=== PATIENT | male | born 1965 | race Caucasian/White ===

== ENCOUNTER 2017-01-04 13:34 | Inpatient (IN) | payer OTHER ==
[~2017-01-04] VITALS: Ht 172.7 cm; Wt 74.8 kg
[2017-01-04] VITALS (7 sets, daily range): BP systolic 138–148; BP diastolic 72–98
[~2017-01-04 13:34] MED LIST: ALBUTEROL0.09 MG/A1 INH; ATIVAN1 MG PO; FLEXERIL PO; FOLIC ACID 1 MG PO; MULTIVITAMIN1 SGL PO; NAPROSYN500 M1 PO; NAPROXEN SODIU550 M1 PO; NICODERM C21 MG/24 H TOP; OMEPRAZOLE40 MG PO; PERCOCET 5-3251 EACH PO; TUMERIC PO; Theragran Vitamins PO; ULTRACET TABLE1 EACH PO; VITAMIN B1100 MG PO
--- NOTE | 2017-01-04 13:42 | ED GENERAL ADULT ---
History of Present Illness General Chief Complaint: Headache Stated Complaint: CARTAGENA N/V Source: patient, old records, EMS Exam Limitations: no limitations Vital Signs & Intake/Output Vital Signs & Intake/Output Vital Signs Date Time Temp Pulse Resp B/P B/P Pulse O2 O2 Flow FiO2 Mean Ox Delivery Rate 01/10 0858 105 20 133/90 01/10 0800 97.2 63 20 166/90 01/10 0729 97.2 63 20 166/90 98 Room Air 01/10 0400 73 18 165/93 01/10 0400 97 Room Air 01/10 0152 82 26 160/82 01/10 0000 98.6 64 20 170/90 01/10 0000 98.6 64 20 170/90 97 Room Air 01/10 0000 97 Room Air 01/09 2200 65 20 173/105 01/09 2000 97.9 70 20 130/80 01/09 2000 98 Nasal 2.0L Cannula 01/09 1600 96 Nasal 2.0L Cannula 01/09 1600 96.3 64 20 98/48 96 Nasal 2.0L Cannula 01/09 1200 96 Nasal 2.0L Cannula ED Intake and Output 01/10 0000 01/09 1200 Intake Total 1280 520 Output Total 2000 500 Balance -720 20 Intake, IV 540 520 Intake, Oral 740 Output, Urine 2000 500 Allergies Coded Allergies: diphenhydramine (From Benadryl) (DROWSY OR HYPER 11/26/15) loratadine (From Claritin) (HYPER OR DROWSY 11/26/15) Reconcile Medications Baclofen 10 MG TABLET 0.5 TAB PO TID MUSCLE SPASMS (Reported) Oxcarbazepine 300 MG TABLET 1 TAB PO BID UNKNOWN (Reported) Triage Nurses Notes Reviewed? yes HPI: Patient got out of [place] detox a few weeks ago. Patient states he remained sober for approximately 4-5 days before he started drinking again. Patient was discharged on Depakote but he stopped taking it. Patient states that his last drink was 2 days ago and now he feels like he can't stop shaking. Positive nausea and vomiting. Patient is unable to keep anything down. Patient does have a history of alcohol withdrawal seizures. Patient states that he has a throbbing frontal headache. There are no aggravating or mitigating factors. There is no radiation. He rates it as 6 out of 10. There is no blurry vision. The headache started yesterday and has been constant since. (JACQUIE STEVENS,MANDA Watts) Past History Medical History Any Pertinent Medical History? see below for history Neurological: migraine, seizure EENT: NONE Cardiovascular: NONE Respiratory: NONE Gastrointestinal: INGUINAL HERNIA COLON POLYPS Hepatic: NONE Renal: NONE Musculoskeletal: FRACTURE LLL Psychiatric: depression Endocrine: NONE Blood Disorders: BLOOD CLOT AFTER SURGERY Cancer(s): NONE LADLE WATCHER/Reproductive: NONE Other Medical Hx: Seizures, alcohol abuse History of MRSA: No History of VRE: No History of CDIFF: No Surgical History Surgical History: non-contributory Psychosocial History Who do you live with Brother Services at Home None What is your primary language Bulgarian Tobacco Use: Current Daily Use Daily Tobacco Use Amount/Type: => 5 Cigarettes daily ETOH Use: alcoholic Illicit Drug Use: denies illicit drug use Family History Family History, If Any: MOTHER (lung cancer). FATHER (stroke). Hx Contributory? No (JACQUIE STEVENS,MANDA Watts) Review of Systems Review of Systems Constitutional: Reports: no symptoms. EENTM: Reports: no symptoms. Respiratory: Reports: no symptoms. Cardiovascular: Reports: no symptoms. GI: Reports: see HPI, nausea, vomiting. Genitourinary: Reports: no symptoms. Musculoskeletal: Reports: no symptoms. Skin: Reports: no symptoms. Neurological/Psychological: Reports: see HPI, headache. Hematologic/Endocrine: Reports: no symptoms. Immunologic/Allergic: Reports: no symptoms. All Other Systems: Reviewed and Negative (JACQUIE STEVENS,MANDA Watts) Physical Exam Physical Exam General Appearance: well developed/nourished, alert, awake, anxious, moderate distress Head: atraumatic, normal appearance Eyes: Bilateral: PERRL, EOMI. Ears, Nose, Throat: normal pharynx, normal ENT inspection, hearing grossly normal Neck: normal inspection, supple, full range of motion Respiratory: normal breath sounds, chest non-tender, no respiratory distress, lungs clear Cardiovascular: normal peripheral pulses, tachycardia Gastrointestinal: normal bowel sounds, soft, non-tender, no organomegaly Back: normal inspection, normal range of motion Extremities: normal inspection, normal capillary refill, normal range of motion, no edema Neurologic/Psych: no motor/sensory deficits, awake, alert, oriented x 3, normal mood/affect Skin: intact, normal color, warm/dry, diaphoresis Lymphatic: no anterior cervical dwayne Core Measures ACS in differential dx? No CVA/TIA Diagnosis: No Severe Sepsis Present: No Septic Shock Present: No (JACQUIE STEVENS,MANDA Watts) Progress Differential Diagnoses I considered the following diagnoses in my evaluation of the patient: [Alcohol withdrawal, electrolyte abnormality] Plan of Care: Orders Procedure Date/time Status ICU LAB BUNDLE 01/10 0500 Complete CBC WITHOUT DIFFERENTIAL 01/10 0500 Complete DEPAKOTE LEVEL 01/10 0400 Complete Restraint- Medical 01/10 0127 Complete Lab Add-on Test 01/10 UNK Active Restraint- Medical 01/10 UNK Active SPECIMEN TO BE OBTAINED 01/09 1029 Active DEPAKOTE LEVEL 01/09 0440 Complete OXYGEN 01/09 UNK Complete OXYGEN DAILY CHARGE 01/09 UNK Complete Lab Add-on Test 01/09 UNK Active Current Medications Sig/Maximus Start time Last Medication Dose Stop Time Status Admin Lorazepam 2 MG Q6 01/10 0600 AC 01/10 (Ativan) 0527 Lorazepam 1 MG BID 01/09 2200 CAN (Ativan) Lorazepam 0 Q1P PRN 01/09 1545 AC 01/10 (Ativan) 0954 Ampicillin Sodium/ 1,500 MG Q6 01/08 1200 AC 01/10 Sulbactam Sodium 0522 (Unasyn) Sodium Chloride 100 ML (Normal Saline 0.9%) Valproate Sodium 500 MG Q12 01/06 2200 AC 01/09 (Depacon 500MG/5ML 2120 Inj) Sodium Chloride 100 ML (Normal Saline 0.9%) Ibuprofen 600 MG TID PRN 01/05 2100 AC 01/06 (Motrin) 1608 Enoxaparin Sodium 40 MG DAILY 01/05 1000 AC 01/10 (Lovenox) 0837 Multivitamins 1 TAB DAILY 01/05 1000 AC 01/10 (Theragran Vitamins) 0836 Nicotine 14 MG DAILY 01/05 1000 AC 01/10 (Nicotine Cq) 0837 Acetaminophen 650 MG Q6P PRN 01/04 2130 AC (Tylenol) Folic Acid 1 MG DAILY 01/04 1925 AC 01/10 (Folic Acid) 0837 Thiamine HCl 50 MG DAILY 01/04 1925 AC 01/10 (Vitamin B1) 0837 Laboratory Tests 01/10/17 0400: Anion Gap 13, Estimated GFR > 60, Glucose 88, Calcium 9.9, Phosphorus 3.8, Magnesium 1.8, Total Bilirubin 0.6, AST 35, ALT 29, Albumin 3.9, CBC w Diff MAN DIFF ORDERED, RBC 3.77 L, MCV 93.1, MCH 31.0, RDW 14.0, MPV 8.6, Gran % 55.8, Lymphocytes % 21.7, Monocytes % 20.6 H, Eosinophils % 1.6, Basophils % 0.3, Absolute Granulocytes 4.0, Segmented Neutrophils 52, Band Neutrophils 1, Absolute Lymphocytes 1.6, Lymphocytes 23, Monocytes 22 H, Absolute Monocytes 1.5 H, Eosinophils 2, Absolute Eosinophils 0.1, Absolute Basophils 0, Platelet Estimate ADEQUATE, Polychromasia 1+, Ovalocytes FEW, Stomatocytes FEW, PUBS MCHC 33.3, Fld Total RBCs Counted 100, Valproic Acid 66.3 01/04/2017 2:24:20 PM Patient's signed out to me by Dr. Smith. Pending case management approval for inpatient detox. 16:45 approved for inpatient detox. d/w hospitalist. (RFANSISCO KEBEDE MD) Initial ED EKG: none Hand-Off Endorsed To: FRANSISCO KEBEDE MD Endorsed Time: 1400 Pending: consult, labs Comments: PT'S INITIAL CIWA IS 18. (JACQUIE STEVENS,MANDA Watts) Departure Departure Condition: Stable Clinical Impression Primary Impression: Alcohol withdrawal Referrals: DAVID ALBRECHT APRN (PCP/Family) Departure Forms: Customer Survey General Discharge Information (MANDA DHILLON MD) Departure Time of Disposition: 1644 Disposition: STILL A PATIENT Admission Note Spoke With: STEPHENIE MAHAN MD Documentation of Exam: Documentation of any treatments & extenuating circumstances including Concerns Regarding Discharge (functional status, medication knowledge or non-compliance, living conditions, etc.) that warrant an admission rather than observation: [ CIWA PROTOCOL, ATIVAN TAPER, CRISIS CONSULT WHEN STABLE, MONITOR ELECTROLYTES, MONITOR I/O] (FRANSISCO KEBEDE MD) Critical Care Note Critical Care Note Critical Care Time: non-applicable (MANDA DHILLON MD)
--- NOTE | 2017-01-04 13:42 | NUR ---
51 Y/O MALE BIBA FROM HOME CARTAGENA AND UNCONTROLLABLE SHAKES THAT PT STS IS SEIZURE. PT STS HAS HX OF SEIZURES. PT STS HE WAS RECENTLY DISCHARGED FROM [place] FOR DETOX AND LAST ALCHOL INTAKE WAS 2 DAYS AGO AND STS USUALLY DRINKS VODKA AND WHISKY ABOUT A FIFTH A ADAY. PT ARRIVES A/O X3 AND NOTALBE TREMOULUS AND FLUSHED AND DRY HEAVING. MD DHILLON AT BEDSIDE TO EVAL PT.
--- NOTE | 2017-01-04 13:46 | NUR ---
PHARM CALLED FOR IV BANANA BAG.
[2017-01-04 13:59] LABS: ABSOLUTE BASOPHIL COUNT 0 /CUMM (0.0-0.2); ABSOLUTE EOSINOPHIL COUNT 0 /CUMM (0.0-0.7); ABSOLUTE GRANULOCYTE CT 4.6 /CUMM (1.4-6.5); ABSOLUTE LYMPH COUNT 1.6 /CUMM (1.2-3.4); ABSOLUTE MONOCYTE COUNT 0.7 /CUMM (0.10-0.60); BASOPHIL % 0.4 % (0.0-2.0); EOSINOPHIL % 0.2 % (0-5); GRANULOCYTE % 66.2 % (42.2-75.2); HEMATOCRIT 36.9 % (42-52); MEAN CORPUSCULAR HGB 30.7 PG (27.0-31.0); MEAN CORPUSCULAR HGB CONC 33.3 G/DL (33.0-37.0); MEAN CORPUSCULAR VOLUME 92.1 FL (80.0-94.0); MEAN PLATELET VOLUME 7.8 FL (7.4-10.4); PLATELET COUNT 151 /CUMM (130-400); RBC DISTRIBUTION WIDTH 14.7 % (11.5-14.5); WHITE BLOOD CELL COUNT 6.9 /CUMM (4.8-10.8)
[2017-01-04] MEDS ORDERED: OXCARBAZEPINE300 M1 PO (13:59)
--- NOTE | 2017-01-04 13:59 | NUR ---
PT DENIES ANY OTHER RECREATIONAL DRUG USE, STS SMOKES DAILY DOES NOT NEED ANY NICOTINE PATCH FOR NOW.
[2017-01-04] MEDS ORDERED: BACLOFEN10 M1 PO (14:00)
--- NOTE | 2017-01-04 14:30 | NUR ---
BHUPINDER MARIN Nurse Note by: KIM MONTENEGRO I agree with the WASH OIL PUMP OPERATOR HELPER findings/evaluation of this patient's condition. Entered by: KIM MONTENEGRO Date: 01/04/17 Time: 1437
--- NOTE | 2017-01-04 15:10 | NUR ---
PT MEDICATED WITH ATIVAN 2MG PO. PT TREMULOUS. PT PROVIDED WITH PILLOW AND ADDITIONAL BLANKET FOR COMFORT.
--- NOTE | 2017-01-04 16:10 | NUR ---
PT ATE GRILLED CHEESE AND CHIPS, STATED HE WAS HUNGRY. PT DENIES NAUSEA, PT REPORTS HEADACHE AND IS TREMULOUS. CIWA = 9. FEMALE FRIEND AT BEDSIDE.
--- NOTE | 2017-01-04 17:14 | Admission Certification ---
Admission Certification Certification Statement - As attending physician, I certify that at the time of - admission, based on clinical presentation, severity of - symptoms, need for further diagnostic testing and - therapeutic interventions, and risk of adverse outcomes - without in-hospital treatment, in my clinical assessment, - this patient requires an acute hospital stay for a minimum - of two nights or longer. I have also considered psychsocial - factors such as support system, advanced age, financial - issues, cognitive issues, and failed out-patient treatments, - past re-admission history, safety of patient, and lack of - compliance as applicable. Specific rationale supporting this admission is: Acute alcohol withdrawal in a patient with known history of alcohol withdrawal and withdrawal seizures.
--- NOTE | 2017-01-04 17:19 | History & Physical ---
General Information and HPI Exam Limitations: no limitations Allergies/Medications Allergies: Coded Allergies: diphenhydramine (From Benadryl) (DROWSY OR HYPER 11/26/15) loratadine (From Claritin) (HYPER OR DROWSY 11/26/15) Home Med list Baclofen 10 MG TABLET 0.5 TAB PO TID MUSCLE SPASMS (Reported) Oxcarbazepine 300 MG TABLET 1 TAB PO BID UNKNOWN (Reported) Past History Travel History Traveled to [place] past 21 day No Medical History Neurological: migraine, SEIZURE (ETOH RELATRD) EENT: NONE Cardiovascular: NONE Respiratory: NONE Gastrointestinal: INGUINAL HERNIA COLON POLYPS Hepatic: NONE Renal: NONE Musculoskeletal: FRACTURE LLL Psychiatric: alcohol dependence, depression Endocrine: NONE Blood Disorders: BLOOD CLOT AFTER SURGERY Cancer(s): NONE 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 FATHER (stroke). Psychosocial History Who Do You Live With? friends and roommate. Services at Home: None Primary Language: Pashto ETOH Use: alcoholic Illicit Drug Use: denies illicit drug use Core Measures/Miscellaneous Cerebrovascular Accident CVA/TIA Diagnosis: No Severe Sepsis Severe Sepsis Present: No Septic Shock Septic Shock Present: No
--- NOTE | 2017-01-04 17:37 | NUR ---
BED ASSIGNMENT [id number]
--- NOTE | 2017-01-04 17:54 | PN- Att Addend ---
Attending Addendum Attending Brief Note 51-year-old male with past medical history of alcohol use, questionable alcohol withdrawal seizures who is here with acute alcohol withdrawal. Will bring him into general medicine, hydrate him and follow the anion gap acidosis closely I believe it's all starvation/ETOH as there is no evidence of infection. We will follow liver enzymes and coags. Give thiamine, folate and multivitamins. Put him on the CIWA protocol. Using nicotine patch ongoing tobacco use, DVT prophylaxis and get social work's help with alcohol dependence treatment options. Clarify all meds in am with outpt pharmacy.
--- NOTE | 2017-01-04 18:22 | History & Physical ---
See Addendum General Information and HPI MD Statement: I have seen and personally examined BHUPINDER MARIN and documented this H&P. The patient is a 51 year old M who presented with a patient stated chief complaint of [vomiting]. Source of Information: patient, old records Exam Limitations: no limitations, clinical condition History of Present Illness: 51-year-old male with a past medical history significant for multiple admissions [facility] for alcohol detoxification, reports history of withdrawal seizures in the past, polysubstance abuse. He apparently went to [place] detoxification for 21 days. ER notes suggest that he may been given Depakote on discharge, however patient is unaware of this. Upon leaving fever pain sober for 4-5 days. At that point he met up with old friends and resumed drinking for the past 2 weeks. He reports that his last drink was 2 days ago. He gives a history of a seizure episode last night. He is visibly tremulous. Reports episodes of nausea and vomiting, denies blood in the vomitus. Initially was unable to keep things down, in ER was given food and tolerated well. Denies abdominal pain, or change in stools. He denies any auditory or visual hallucinations, chest pain, palpitations, or lightheadedness, denies fevers or chills. At present he denies using any substances besides alcohol, and cigarettes. Allergies/Medications Allergies: Coded Allergies: diphenhydramine (From Benadryl) (DROWSY OR HYPER 11/26/15) loratadine (From Claritin) (HYPER OR DROWSY 11/26/15) Home Med list Baclofen 10 MG TABLET 0.5 TAB PO TID MUSCLE SPASMS (Reported) Oxcarbazepine 300 MG TABLET 1 TAB PO BID UNKNOWN (Reported) Compliance With Home Meds: POOR Past History Travel History Traveled to [place] past 21 day No Medical History Neurological: migraine, SEIZURE (ETOH RELATRD) EENT: NONE Cardiovascular: NONE Respiratory: NONE Gastrointestinal: INGUINAL HERNIA COLON POLYPS Hepatic: NONE Renal: NONE Musculoskeletal: FRACTURE LLL Psychiatric: alcohol dependence, depression Endocrine: NONE Blood Disorders: BLOOD CLOT AFTER SURGERY Cancer(s): NONE INTELLIGENCE SUPPORT OFFICER/Reproductive: NONE Other Medical Hx: Seizures, alcohol abuse History of MRSA: No History of VRE: No History of CDIFF: No Surgical History Surgical History: non-contributory Past Family/Social History Family History Relations & Conditions if any MOTHER (lung cancer). FATHER (stroke). Psychosocial History Who Do You Live With? friends and roommate. Services at Home: None Primary Language: German ETOH Use: alcoholic Illicit Drug Use: denies illicit drug use Functional Ability ADLs Independent: dressing, eating, toileting, bathing. Ambulation: independent IADLs Independent: shopping, housework, finances, food prep, telephone, transportation , medication admin. 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 Cardiovascular: Reports: no symptoms. Denies: chest pain, palpitations, peripheral edema. Respiratory: Reports: no symptoms. GI: Reports: no symptoms. Genitourinary: Reports: no symptoms. Musculoskeletal: Reports: no symptoms. Skin: Reports: no symptoms. Neurological/Psychological: Reports: confusion, tremors. Hematologic/Endocrine: Reports: no symptoms. All Other Systems: Reviewed and Negative Exam & Diagnostic Data Last 24 Hrs of Vital Signs/I&O Vital Signs Date Time Temp Pulse Resp B/P B/P Pulse O2 O2 Flow FiO2 Mean Ox Delivery Rate 01/04 1656 97.5 107 18 141/91 01/04 1656 97.5 107 16 141/91 95 Room Air 01/04 1608 97.5 94 16 147/98 01/04 1608 97.5 94 16 147/98 97 Room Air 01/04 1447 97.7 84 15 141/72 96 Room Air Room Air 01/04 1445 97.7 84 15 141/72 01/04 1352 98 Room Air 01/04 1343 96.8 118 22 148/85 01/04 1343 96.8 118 22 148/85 01/04 1337 96.8 95 18 148/85 98 Room Air Intake & Output 01/04 1600 01/04 0800 01/04 0000 Intake Total 20 Output Total 100 Balance -80 Intake, IV 20 Output, 100 Emesis Patient 165 lb Weight Weight Reported by Patient Measurement Method Physical Exam General Appearance Alert, Oriented X3, Cooperative, No Acute Distress Skin No Rashes, No Breakdown HEENT Atraumatic, PERRLA, EOMI, Mucous Membr. moist/pink Neck Supple, No JVD Cardiovascular Regular Rate, Normal S1, Normal S2 Lungs Clear to Auscultation, Normal Air Movement Abdomen Normal Bowel Sounds, Soft, No Tenderness Neurological Normal Speech, Strength at 5/5 X4 Ext, Normal Tone, Sensation Intact, Cranial Nerves 3-12 NL Extremities No Edema, Normal Pulses Diagnostic Data EKG Results SR 85, QTc 433 Assessment/Plan Assessment: 51-year-old male with a past history of alcohol withdrawal seizures presents this morning requesting alcohol detoxification, after drinking heavily for the last 2 weeks. He is alert and oriented on examination his vitals are stable and remains afebrile. With CIWAs was trending downwards. Questionable Alcohol withdrawl seizures Alcohol abuse Smoker Admit to general medicine floor Monitor closely for seizure episodes Start scheduled Ativan and when necessary Ativan per CIWA protocol Recieved banana bag this am, will start thiamine, folate, multivitamin Confirm medications in am, depakote? Passed bedside swallow evaluation Will start NicoDerm patch Social work consult DVT ppx lovenox Full code As Ranked By This Provider Problem List: 1. Alcohol abuse 2. Alcohol withdrawal seizure 3. DVT prophylaxis 4. Full code status 5. Nausea and vomiting Core Measures/Miscellaneous Acute Coronary Syndrome ACS Diagnosis: No Cerebrovascular Accident CVA/TIA Diagnosis: No Congestive Heart Failure CHF Diagnosis: No Venous Thromboembolism VTE Risk Factors: Age > 40 [facility] prophylaxis d/t: No contraindications No VTE Pharm Prophylaxis d/t: No contraindications VTE Diagnosis: No VTE Type: NONE VTE Confirmed by (Test): NONE Severe Sepsis Severe Sepsis Present: No Septic Shock Septic Shock Present: No Miscellaneous Documentation Attending Case Discussed With: NEGRITO STEVENS,STEPHENIE Ramon Primary Care Physician: DAVID ALBRECHT APRN Patient sees these Specialists none Level of Patient Care: General Medicine
--- NOTE | 2017-01-04 18:39 | NUR ---
PT MEDICATED WITH ATIVAN 2MG PO AND APPLIED 21MG NICOTINE PATCH TO LEFT UPPER ARM. PT STATES HE HAS A HEADACHE AND WHEN HE WENT TO THE RESTROOM HAD DIARRHEA.
--- NOTE | 2017-01-04 19:50 | NUR ---
PT ARRIVED TO FLOOR AT 1950 VIA STRETCHER FROM ER. PT AMBULATORY TO BED, STEADY GAIT WITH SUPERVISION. PT A/V/OX3. ON RA, LUNGS CLEAR. SKIN INTACT. LAST BM 01/04/17. C/O HEADACHE, TREMEROUS, ANXIOUS. CIWA SCORE 9, MEDICATED WITH 1MG IV ATIVAN PER EMAR. HX OF FALLS IN LAST 6 MONTHS, BED ALARM & FALL PRECAUTIONS IN PLACE. #18 LFA INFUSING BANANA BAG @ 125ML/HR PER EMAR. ORIENTED TO CALL RUEDA, STAFF, AND SURROUNDINGS. WILL CONTINUE TO MONITOR.
[2017-01-05] VITALS (12 sets, daily range): BP systolic 120–150; BP diastolic 70–90
--- NOTE | 2017-01-05 12:52 | PN- Housestaff ---
[facility]RISTIAN[facility] STEVENS[facility] 1252: Subjective Follow-up For: Alcohol withdrawl seizures Subjective: Afebrile, hemodynamically stable, WBCs within normal limits, no acute overnight events reported. She reported 2 episodes of loose, nonbloody bowel movement. He denies any other current complaints. Patient looks anxious. He denies hallucination, patient, headache, nausea or vomiting. Review of Systems Constitutional: Reports: see HPI. Objective Last 24 Hrs of Vital Signs/I&O Vital Signs Date Time Temp Pulse Resp B/P B/P Pulse O2 O2 Flow FiO2 Mean Ox Delivery Rate 01/05 1122 98.2 103 20 130/88 94 01/05 0800 Room Air 01/05 0600 97.7 74 20 140/80 01/05 0400 97.7 74 20 140/80 01/05 0353 97.7 74 20 140/80 94 Room Air 01/05 0200 97.8 78 20 120/70 01/05 0016 97.8 78 20 120/70 96 Room Air 01/05 0000 97.8 78 20 120/70 01/04 2014 98.6 93 20 138/78 96 Room Air 01/04 2004 98.9 18 138/78 01/04 1840 Room Air 01/04 1840 88 17 147/86 01/04 1840 88 17 147/86 01/04 1656 97.5 107 18 141/91 01/04 1656 97.5 107 16 141/91 95 Room Air 01/04 1608 97.5 94 16 147/98 01/04 1608 97.5 94 16 147/98 97 Room Air 01/04 1447 97.7 84 15 141/72 96 Room Air Room Air 01/04 1445 97.7 84 15 141/72 Intake & Output 01/05 1600 01/05 0800 01/05 0000 Intake Total 600 900 975 Output Total 500 750 Balance 600 400 225 Intake, IV 750 375 Intake, Oral 600 150 600 Number 2 Bowel Movements Output, Urine 500 750 Patient 74.843 kg Weight Physical Exam General Appearance: Alert, Oriented X3, Cooperative, No Acute Distress Skin: No Rashes HEENT: Atraumatic, PERRLA, EOMI, Mucous Membr. moist/pink Cardiovascular: Regular Rate, Normal S1, Normal S2 Lungs: Clear to Auscultation, Normal Air Movement Abdomen: Normal Bowel Sounds, Soft, No Tenderness Neurological: Normal Speech Extremities: No Clubbing, No Cyanosis, No Edema Current Medications: Current Medications Sig/Maximus Start time Last Medication Dose Route Stop Time Status Admin Acetaminophen 650 MG Q6P PRN 01/04 2130 AC PO Cyanocobalamin/ 1 BAG ONCE ONE 01/04 1345 DC 01/04 Thiamine/Pyridoxine IV 01/04 2144 1410 Dextrose/Water 1,000 ML Enoxaparin Sodium 40 MG DAILY 01/05 1000 AC 01/05 SC 0819 Folic Acid 1 MG DAILY 01/04 1925 AC 01/05 PO 0818 Lorazepam 0 .STK-MED ONE 01/04 1835 DC PO Lorazepam 0 Q1P PRN 01/04 1830 AC 01/05 IV 1406 Lorazepam 2 MG Q6 01/04 1822 AC 01/05 PO 1121 Lorazepam 0 .STK-MED ONE 01/04 1509 DC PO Lorazepam 2 MG ONCE ONE 01/04 1500 DC 01/04 PO 01/04 1501 1510 Multivitamins 1 TAB DAILY 01/05 1000 AC 01/05 PO 0818 Nicotine 14 MG DAILY 01/05 1000 AC 01/05 TOP 0822 Nicotine 0 .STK-MED ONE 01/04 1836 DC TOP Nicotine 21 MG ONCE ONE 01/04 1815 AK 01/04 TOP 01/04 1816 1839 Patient Medication 1 ED .STK-MED ONE 01/05 1337 DC Teaching ED 01/05 1338 Sodium Chloride 1,000 ML BOLUS ONE 01/04 1345 DC 01/04 IV 01/04 1444 1410 Thiamine HCl 50 MG DAILY 01/04 1925 01/05 PO 0818 Last 24 Hrs of Lab/Jonh Results Last 24 Hrs of Labs/Mics: Laboratory Tests 01/05/17 0650: Anion Gap 10, Estimated GFR > 60, BUN/Creatinine Ratio 13.3 Assessment/Plan Assessment: #Alcohol detox/Smoking Is still scoring high on CIWA. He has a history of alcohol withdrawal seizure. He had the multiple admissions secondary to alcohol withdrawal. * Continue scheduled Ativan and when necessary Ativan per CIAZ protocol * Monitor closely for seizure episodes * Continue thiamine, folate, and multivitamin * Confirm medications in am, depakote? * Continue NicoDerm patch * Social work consult Regular diet DVT ppx lovenox Full code Problem List: 1. Alcohol abuse Pain Ratin Pain Location: NA Pain Goal: Remain pain free Pain Plan: See A&P Tomorrow's Labs & Rationales: CBC and BEP for Na KELLY PIERSON 01/05/17 1304: Attending MD Review Statement Attending Statement Attending MD Statement: examined this patient, discuss w/resident/PA/RECEIVING DISTRIBUTION STATION OPERATOR, agreed w/resident/PA/RECEIVING DISTRIBUTION STATION OPERATOR, discussed with family, reviewed EMR data (avail), discussed with nursing, discussed with case mgmt, reviewed images, amended to note Attending Assessment/Plan: 51-year-old male with past medical history of alcohol use, questionable alcohol withdrawal seizures who is here with acute alcohol withdrawal. admitted to gen/ med, hydrate him, being treated for alcoholic starvation acidosis, f/u liver enzymes and coags. c/w thiamine, folate and multivitamins. c/w CIWA protocol. Using nicotine patch ongoing tobacco use, DVT prophylaxis and get social work's help with alcohol dependence treatment options. resume home meds after confirm with pharmacy.
--- NOTE | 2017-01-05 20:12 | NUR ---
SPOKE TO EARLINE ABOUT TRANSFERRING PATIENT. PT IS CONFUSED, HAVING TACTILE HALLUCINATIONS, TREMORS, NAUSEA IS COMING AND GOING. UNSTEADY ON FEET, HAS BEEN REQUIRING MORE ATIVAN. DR. GONZALEZ DID NOT WANT TO TRANSFER PATIENT AT THIS TIME. CALLED MOD, WHICH WAS DR. COONEY AND EXPRESSED MY CONCERN. PT WILL BE TRANSFERED. PULSE IS IN 120'S AT THIS TIME. AN ADDITIONAL 2MG WAS ORDERED AND GIVEN BY FOLLOWING RN.CONTINUE TO MONITOR.
--- NOTE | 2017-01-05 20:27 | Event Note ---
Event Note Event Note: Was informed by nursing staff that Patient was scoring high on CIWA scale. On assessment he report he was not "feeling well". Reported severe nausea, tremoulousness and tactile hallucinations and mild shortness of breath. Denied Chest pain, palpitations or abdominal pain On examination CIWA 17-19 alert, awake, diaphoretic and tremoulous vitals T 98.5, HR 122, bp 150/80 CVS: tachycardia RS: b/l rhonchi ABd: soft, non tender Plan continues to score high on CIWA despite multiple doses of ativan. Transferred to ICU for IV ativan drip and close monitoring of CIWA scores attending notified called and left for his Brother.
--- NOTE | 2017-01-05 20:30 | NUR ---
PT TRANSFERED FROM 230-1 ON MONITOR. PT ALERT AND ORIENTED AT THIS TIME. PT TREMOLOUS, C/O SEVERE HEADACHE, ANXIETY AND HAVING SOME TACTILE HALLUCINATIONS PT REQUESTING MOTRIN FOR HEADACHE. PT PLACED IN BED. BEDALARM AND FALL PROTOCAL INITIATED. PT PLACED ON MONITOR. PT NSR RATE IN THE 90S. LUNGS CLEAR PT ON RA. PT PLACED IN JACKIE COAT. PT MEDS AND CHARTS BROUGHT WITH PATIENT.
--- NOTE | 2017-01-05 22:30 | NUR ---
PT ATIVAN GTTS INFUSING PER MD. GTTS STARTED AT 2MG/HR. PT INCREASED TO 3 MGS/HR, PT C/O INCREASED ANXIETY, AND RESTLESSNESS. WILL CONTINUE TO MONITOR
[2017-01-06] VITALS (9 sets, daily range): BP systolic 122–167; BP diastolic 60–103
--- NOTE | 2017-01-06 01:26 | NUR ---
PT BECAME MORE AGITATED, BITING,SHOVING AND KICKING AT PEOPLE. SOFT WRIST RESTRAINT APPLIED, POOR RESULTS. ATIVAN GTT UP TO 5MG/H. HALDOL 5MG IM GIVEN ORDERED BY . 0100 PT MORE AGGRESIVE AND RESTLESS. SECURITY CAME UP AND PLACED 4 PT RESTRAINTS. ATIVAN GTT AT 7MG/H. 0130 SITTER AT BEDSIDE.
--- NOTE | 2017-01-06 01:30 | NUR ---
PT SLEEPING AT THIS TIME. 4PT HARD RESTRAINT IN PLACE. SITTER AT BEDSIDE.
--- NOTE | 2017-01-06 04:24 | NUR ---
PT SLEEPY BUT AROUSABLE AT THIS TIME ATIVAN GTT AT 5MG/H. HARD RESTRAINTS X [address] SITTER AT BEDSIDE.
[2017-01-06 06:01] LABS: PT 10.3 SEC (9.4-12.5)
[2017-01-06 06:02] LABS: ABSOLUTE BASOPHIL COUNT 0 /CUMM (0.0-0.2); ABSOLUTE EOSINOPHIL COUNT 0.1 /CUMM (0.0-0.7); ABSOLUTE GRANULOCYTE CT 6.3 /CUMM (1.4-6.5); ABSOLUTE LYMPH COUNT 1.9 /CUMM (1.2-3.4); ABSOLUTE MONOCYTE COUNT 0.9 /CUMM (0.10-0.60); BASOPHIL % 0.4 % (0.0-2.0); GRANULOCYTE % 68.2 % (42.2-75.2); HEMATOCRIT 35.1 % (42-52); MEAN CORPUSCULAR HGB 30.9 PG (27.0-31.0); MEAN CORPUSCULAR HGB CONC 33.3 G/DL (33.0-37.0); MEAN CORPUSCULAR VOLUME 92.8 FL (80.0-94.0); MEAN PLATELET VOLUME 8.8 FL (7.4-10.4); PLATELET COUNT 124 /CUMM (130-400); RBC DISTRIBUTION WIDTH 14.4 % (11.5-14.5); RED BLOOD CELL CT 3.78 /CUMM (4.70-6.10); WHITE BLOOD CELL COUNT 9.2 /CUMM (4.8-10.8)
--- NOTE | 2017-01-06 07:58 | Cons- CRCU ---
ELIECER STEVENS,BARBRA 01/06/17 0758: General Information and HPI Consulting Request Date of Consult: 01/06/17 Requested By: STEPHENIE MAHAN MD Reason for Consult: Alcohol withdrawal and questionable seizures High CIWA scores requiring Ativan drip Source of Information: old records Exam Limitations: unable to give history, intoxication History of Present Illness: Mr. Emmanuel is a 51-year-old male with a PMH of alcohol abuse and multiple admissions to [facility] for alcohol detox, history of alcohol withdrawal seizures and polysubstance abuse. Patient is currently not oriented and unable to give history, information is obtained from the available records. Patient recently completed a detox program in [place] and was started on Depakote. Patient was sober for 4-5 days afterwards but resumed drinking again for the past 2 weeks. His last drink was 2 days before admission with an episode of seizure the night before presentation. In the ED patient was significantly tremulous, reported nausea and vomiting. He was also found to have elevated Cannabis and Barbiturates in the urine as well as elevated serum Anion Gap. He was admitted to [facility] floor and started on Ativan per CIWA, aggressive hydration and bananabag. Patient was transferred overnight to the ICU due to high CIWA scores requiring Ativan drip. Today the patient is alert and awake, not oriented to place and time, hallucinating, has restraints and iraj in bed, continuously attempts to go out of the bed. He continuously states that he wants to go out and that his family and kids are waiting for him, some of his sentences however are not coherent. Allergies/Medications Allergies: Coded Allergies: diphenhydramine (From Benadryl) (DROWSY OR HYPER 11/26/15) loratadine (From Claritin) (HYPER OR DROWSY 11/26/15) Home Med List: Baclofen 10 MG TABLET 0.5 TAB PO TID MUSCLE SPASMS (Reported) Oxcarbazepine 300 MG TABLET 1 TAB PO BID UNKNOWN (Reported) Review of Systems Review of Systems Constitutional: Denies: chills, fever. EENTM: Reports: no symptoms. Cardiovascular: Denies: chest pain, palpitations. Respiratory: Denies: cough, short of breath. GI: Denies: abdominal pain, changes in stool. Genitourinary: Reports: no symptoms. Musculoskeletal: Reports: no symptoms. Skin: Reports: no symptoms. 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 FATHER (stroke). Psychosocial History Who Do You Live With? friends and roommate. Services at Home: None Primary Language: Yi Smoking Status: Current Everyday Smoker ETOH Use: alcoholic Illicit Drug Use: denies illicit drug use Functional Ability ADLs Independent: dressing, eating, toileting, bathing. Ambulation: independent IADLs Independent: shopping, housework, finances, food prep, telephone, transportation , medication admin. Employment History Employment: Unemployed Profession/Employer: [employer] Exam & Diagnostic Data Last 24 Hrs of Vital Signs/I&O Vital Signs Date Time Temp Pulse Resp B/P B/P Pulse O2 O2 Flow FiO2 Mean Ox Delivery Rate 01/06 0600 90 24 141/77 01/06 0400 97.2 103 20 122/60 01/06 0400 93 Room Air 01/06 0200 137 24 150/103 01/06 0000 97.6 101 22 132/70 01/06 0000 93 Room Air 01/06 0000 97.8 101 22 132/70 93 Room Air 01/05 2200 96 18 138/87 01/05 2030 99.0 90 18 142/80 01/05 2030 95 Room Air 01/05 2030 99.0 90 18 142/80 95 Room Air 01/05 1957 98.5 122 20 150/80 01/05 1933 98.5 122 97 Room Air 01/05 1840 98.8 108 20 140/80 95 Room Air 01/05 1525 98.3 94 20 140/90 94 01/05 1122 98.2 103 20 130/88 94 Intake & Output 01/06 1600 01/06 0800 01/06 0000 Intake Total 550 240 Output Total 300 Balance 550 -60 Intake, IV 450 40 Intake, Oral 100 200 Output, Urine 300 Physical Exam General Appearance: well developed/nourished, alert, awake, anxious, moderate distress, intoxicated Head: atraumatic, normal appearance Eyes: Bilateral: normal appearance. Ears, Nose, Throat: normal ENT inspection Neck: normal inspection, supple Respiratory: chest non-tender, no respiratory distress Cardiovascular: regular rate/rhythm Peripheral Pulses: 2+ radial (R), 2+ radial (L), 2+ dorsalis pedis (R), 2+ dorsalis pedis (L) Gastrointestinal: soft, non-tender Back: normal range of motion Extremities: normal inspection, normal capillary refill, normal range of motion, no edema Neurologic/Psych: no motor/sensory deficits, awake, alert, disoriented x 3 (not oriented to time and place) Cranial Nerves: normal hearing, normal speech Skin: intact, warm/dry Last 48 Hrs of Labs/John: Laboratory Tests 01/06/17 0329: Anion Gap 16, Estimated GFR > 60, Glucose 123 H, Calcium 9.7, Phosphorus 3.6, Magnesium 1.5 L, Total Bilirubin 0.9, AST 43, ALT 35, Albumin 4.3, PT 10.3, INR 0.98, CBC w Diff NO MAN DIFF REQ, RBC 3.78 L, MCV 92.8, MCH 30.9, RDW 14.4, MPV 8.8, Gran % 68.2, Lymphocytes % 20.5, Monocytes % 9.9 H, Eosinophils % 1.0, Basophils % 0.4, Absolute Granulocytes 6.3, Absolute Lymphocytes 1.9, Absolute Monocytes 0.9 H, Absolute Eosinophils 0.1, Absolute Basophils 0, PUBS MCHC 33.3 01/05/17 0650: Anion Gap 10, Estimated GFR > 60, BUN/Creatinine Ratio 13.3 01/04/17 1410: Urine Opiates Screen < 100.00, Methadone Screen < 40, Barbiturate Screen < 60, Ur Phencyclidine Scrn < 6.00, Amphetamines Screen < 100, U Benzodiazepines Scrn < 85, Urine Cocaine Screen < 50, Urine Cannabis Screen 59.20 H 01/04/17 1345: Anion Gap 17 H, Estimated GFR > 60, BUN/Creatinine Ratio 16.7, Glucose 122 H, Calcium 9.5, Total Bilirubin 0.9, AST 48, ALT 30, Alkaline Phosphatase 94, Total Protein 7.9, Albumin 4.6, Globulin 3.3, Albumin/Globulin Ratio 1.4, CBC w Diff NO MAN DIFF REQ, RBC 4.00 L, MCV 92.1, MCH 30.7, RDW 14.7 H, MPV 7.8, Gran % 66.2, Lymphocytes % 22.9, Monocytes % 10.3 H, Eosinophils % 0.2, Basophils % 0.4, Absolute Granulocytes 4.6, Absolute Lymphocytes 1.6, Absolute Monocytes 0.7 H, Absolute Eosinophils 0, Absolute Basophils 0, PUBS MCHC 33.3, Valproic Acid < 10.0 L, Serum Alcohol < 10.0 Assessment/Plan Impression/Plan: Mr. Emmanuel is a 51 year old male with PMH of alcohol abuse and withdrawal seizures with multiple admissions who came to [facility] after starting back on drinking for 2 weeks and 2 days on withdrawal and an episode of seizure the night before presentation. Patient was admitted to general medicine floor for alcohol detox however was transferred to the ICU overnight as he was scoring high on CIWA and required Ativan drip. I called the female friend (Ms. Minnie Bentley) and updated her that the pt is moved to the ICU and why. She gave me his medication list: baclofen (0.5 tab pRN ) and Oxcarbazepine (1 tab daily), which he does not take regularly. He took one pill of each on Monday01/03/17 when he had a seizure. Alcohol detox Patient has been combative and hallucinating. He is still scoring high on CIWA maximum of 16 last night, scoring 10 this morning. * continued on Ativan drip at 7 mcg/hour * seizure precautions * continue thiamine, folate, and multivitamin * called pharmacy to confirm medication doses Hypomagnesemia and Hypokalemia * replete with K-dur and Mag-Ox oral * repeat BEP tomorrow Poly substance abuse and smoking * nicotine patch * counseling for smoking cessation and social work consult when condition stabilizes * psych consult Questionable seizure disorder Patient was started on Oxcarbazepine. We tried to confirm the dose with [facility] several times since am but no answer, will try to confirm the dose with the pharmacy tomorrow * neurology consult placed with Dr. Díaz, he will see the patient tomorrow * ordered EEG * started oxcarbazepine 300 mg BID per Med Rec, still needs to be confirmed with pharmacy Regular diet DVT ppx lovenox Full code Problem List: 1. Alcohol abuse 2. Alcohol withdrawal seizure 3. Polysubstance abuse 4. Cocaine abuse 5. Nausea and vomiting Consult Acknowledgment - Thank you for your consult request. PETER STEVENSEdil MEDEL 01/06/17 1008: Assessment/Plan Other Findings/Comments: I have personally seen and examined the patient, discussed with housestaff, and agree with the assessment and plan as detailed above. Briefly, the patient is a 51-year-old male with a past medical history significant for alcohol abuse, EtOH withdrawal seizures, and polysubstance abuse. He has been admitted to [facility] multiple times for alcohol detox. The patient resumed drinking after a 21 day alcohol rehabilitation program. The patient was admitted for acute inpatient EtOH withdrawal. The patient had an anion gap acidosis secondary to starvation ketosis versus EtOH ingestion. There is no evidence of infection in the patient is being monitored off antibiotics. He was started on multivitamin, thiamine and folate. He was started on the EtOH/CIWA protocol. Overnight, the patient demonstrated signs of worsening EtOH withdrawal/delirium tremens. He was transferred to the critical care unit where he was started on an Ativan drip. The patient is currently agitated with elevated CIWA scores, on 7 mg of Ativan per hour. He is confused and not able to offer complaints today the plan is to continue the Ativan drip according to the CIWA protocol, continue multivitamin, thiamine and folate. We'll monitor the patient's laboratory studies. He will continue on a nicotine patch. He will receive DVT prophylaxis at all times. Will obtain a social work therapist consult as well. Medications will be clarified with his outpatient pharmacy and restarted if appropriate. Consult Acknowledgment - Thank you for your consult request.
--- NOTE | 2017-01-06 15:24 | NUR ---
PT DROWSY, WAKES EASILY THIS AFTERNOON. REMAINS ON IV ATIVAN AT 7MG PER HOUR. CIWA DOWN FROM 24 TO 12. NO SEIZURE ACTIVITY. HE IS TOLERATING 50% OF HIS MEALS. HE IS DRINKING AND TAKING PO MEDS. HARD RESTRAINTS WERE D/C/D AT 1500 AND PT WAS AMBULATED TO WITH ASSIST OF 2. HE IS VOIDING WELL.
--- NOTE | 2017-01-06 16:17 | Cons- Neurology ---
General Information and HPI Consulting Request Date of Consult: 01/06/17 Requested By: STEPHENIE MAHAN MD Reason for Consult: Seizures Source of Information: patient, old records Exam Limitations: unable to give history, clinical condition, intoxication History of Present Illness: 51/M admitted for ETOH detoxification on the no seizures here hallucinating, poor historian, estimates about a dozen seizures in all unable to give reliable hx of any non- ETOH related events Records report recurrent admissions for ETOH, and polysubstance abuse admits not taking trileptal because it "messes with him" unclear if takes gabapentin Allergies/Medications Allergies: Coded Allergies: diphenhydramine (From Benadryl) (DROWSY OR HYPER 11/26/15) loratadine (From Claritin) (HYPER OR DROWSY 11/26/15) Home Med List: Baclofen 10 MG TABLET 0.5 TAB PO TID MUSCLE SPASMS (Reported) Oxcarbazepine 300 MG TABLET 1 TAB PO BID UNKNOWN (Reported) Current Medications: Current Medications Sig/Maximus Start time Last Medication Dose Route Stop Time Status Admin Acetaminophen 650 MG Q6P PRN 01/04 2130 AC PO Baclofen 5 MG TID 01/06 1600 AC PO Enoxaparin Sodium 40 MG DAILY 01/05 1000 AC 01/06 SC 1001 Folic Acid 1 MG DAILY 01/04 1925 AC 01/06 PO 1001 Haloperidol 5 MG ONCE ONE 01/06 0045 DC 01/06 IM 01/06 0046 0050 Ibuprofen 600 MG TID PRN 01/05 2100 AC 01/05 PO 2114 Lorazepam 100 MG Q14H 01/06 0400 AC 01/06 Sodium Chloride 1,000 ML IV 0441 Lorazepam 50 MG Q24H 01/06 0015 DC 01/06 Sodium Chloride 500 ML IV 0108 Lorazepam 50 MG ONCE ONE 01/06 2000 DC 01/05 Sodium Chloride 500 ML IV 01/05 2001 211 Lorazepam 2 MG ONE ONE 01/05 1945 DC 01/05 IV 01/05 194 1943 Lorazepam 0 Q1P PRN 01/04 1830 DC 01/05 IV 1840 Lorazepam 2 MG Q6 01/04 1822 DC 01/05 PO 1834 Magnesium Sulfate 1 GM ONCE ONE 01/06 0700 DC 01/06 Dextrose/Water 100 ML IV 01/06 1059 0655 Multivitamins 1 TAB DAILY 01/05 1000 AC 01/06 PO 1001 Nicotine 14 MG DAILY 01/05 1000 AC 01/06 TOP 1002 Oxcarbazepine 300 MG BID 01/06 2200 AC PO Oxcarbazepine 300 MG BID 01/06 1458 AC PO Potassium Chloride 60 MEQ ONCE ONE 01/06 0700 DC 01/06 PO 01/06 0701 0655 Thiamine HCl 50 MG DAILY 01/04 1925 AC 01/06 PO 1001 Review of Systems Review of Systems: unable to get reliable information. 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 FATHER (stroke). Psychosocial History Who Do You Live With? friends and roommate. Services at Home: None Primary Language: Swazi Smoking Status: Current Everyday Smoker ETOH Use: alcoholic Illicit Drug Use: denies illicit drug use Functional Ability ADLs Independent: dressing, eating, toileting, bathing. Ambulation: independent IADLs Independent: shopping, housework, finances, food prep, telephone, transportation , medication admin. Employment History Employment: Unemployed Profession/Employer: [email or web address] Exam & Diagnostic Data Vital Signs and I&O Vital Signs Date Time Temp Pulse Resp B/P B/P Pulse O2 O2 Flow FiO2 Mean Ox Delivery Rate 01/06 0800 98.8 100 22 122/84 97 Room Air 01/06 0600 90 24 141/77 01/06 0400 97.2 103 20 122/60 01/06 0400 93 Room Air 01/06 0200 137 24 150/103 01/06 0000 97.6 101 22 132/70 01/06 0000 93 Room Air 01/06 0000 97.8 101 22 132/70 93 Room Air 01/050 96 18 138/87 01/05 2030 99.0 90 18 142/80 01/05 2030 95 Room Air 01/05 2030 99.0 90 18 142/80 95 Room Air 01/05 1957 98.5 122 20 150/80 01/05 1933 98.5 122 97 Room Air 01/05 1840 98.8 108 20 140/80 95 Room Air Intake & Output 01/06 1600 01/06 0800 01/06 0000 Intake Total 1160 550 240 Output Total 300 300 Balance 860 550 -60 Intake, IV 560 450 40 Intake, Oral 600 100 200 Output, Urine 300 300 Patient 165 lb Weight Physical Exam: arouses to voice, slurred speech, oriented x2 EOMI no nystagmus [id number] face symmetric tongue protrudes midline. 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 tremor. ataxia on attemptng finger to nose DTRs symmetric, toes withdraw no gross lateralized sensory loss Last 48 Hours of Lab Results: Laboratory Tests 01/06 01/05 0329 0650 Chemistry Sodium (137 - 145 mmol/L) 138 135 L Potassium (3.5 - 5.1 mmol/L) 3.3 L 3.5 Chloride (98 - 107 mmol/L) 100 97 L Carbon Dioxide (22 - 30 mmol/L) 22 27 Anion Gap (5 - 16) 16 10 BUN (9 - 20 mg/dL) 9 8 L Creatinine (0.7 - 1.2 mg/dL) 0.7 0.6 L Estimated GFR (>60 ml/min) > 60 > 60 BUN/Creatinine Ratio (7 - 25 %) 13.3 Glucose (65 - 99 mg/dL) 123 H Calcium (8.4 - 10.2 mg/dL) 9.7 Phosphorus (2.5 - 4.5 mg/dL) 3.6 Magnesium (1.6 - 2.3 mg/dL) 1.5 L Total Bilirubin (0.2 - 1.3 mg/dL) 0.9 AST (17 - 59 U/L) 43 ALT (21 - 72 U/L) 35 Albumin (3.5 - 5.0 g/dL) 4.3 Coagulation PT (9.4 - 12.5 SEC) 10.3 INR (0.90 - 1.17) 0.98 Hematology CBC w Diff NO MAN DIFF REQ WBC (4.8 - 10.8 /CUMM) 9.2 RBC (4.70 - 6.10 /CUMM) 3.78 L Hgb (14.0 - 18.0 G/DL) 11.7 L Hct (42 - 52 %) 35.1 L MCV (80.0 - 94.0 FL) 92.8 MCH (27.0 - 31.0 PG) 30.9 RDW (11.5 - 14.5 %) 14.4 Plt Count (130 - 400 /CUMM) 124 L MPV (7.4 - 10.4 FL) 8.8 Gran % (42.2 - 75.2 %) 68.2 Lymphocytes % (20.5 - 51.1 %) 20.5 Monocytes % (1.7 - 9.3 %) 9.9 H Eosinophils % (0 - 5 %) 1.0 Basophils % (0.0 - 2.0 %) 0.4 Absolute Granulocytes (1.4 - 6.5 /CUMM) 6.3 Absolute Lymphocytes (1.2 - 3.4 /CUMM) 1.9 Absolute Monocytes (0.10 - 0.60 /CUMM) 0.9 H Absolute Eosinophils (0.0 - 0.7 /CUMM) 0.1 Absolute Basophils (0.0 - 0.2 /CUMM) 0 PUBS MCHC (33.0 - 37.0 G/DL) 33.3 Imaging/Other Studies: CT: There is mild commensurate prominence of the ventricles and sulci consistent with mild diffuse volume loss. This includes the cerebellum and vermis. Brain parenchymal attenuation appears normal. There are no fractures or large scalp contusions. The mastoid air cells and visualized portions of the paranasal sinuses are well-aerated no EEGs in [facility] Assessment/Plan Assessment: History of alcohol related seizures patient's current clinical status (withdrawing) does'nt permit reliable Hx unclear if has had non- ETOH related events non-compliant with seizure medications Recommendations: EEG obtain old records from other hospitals of EEGs, meds tried, any non ETOH Sz call back after records available for review Depakote 500 Q 12 h for now D/C trileptal, he won't take it Why on baclofen? would DC unless reason for use found Consult Acknowledgment - Thank you for your consult request.
--- NOTE | 2017-01-06 18:44 | NUR ---
ESCALATING AGITATION DESPITE HOURLY INCREASES OF IV ATIVAN THIS AFTERNOON. UNABLE TO MAINTAIN PT AND STAFF SAFETY WITH THE DREW AND WRIST RESTRAINTS. ORDER 10 WAS CALLED , AT BEDSIDE, IV ATIVAN INCREASED TO 15 MG PER HOUR, BEHAVIORAL RESTRAINTS 4 PT HARD APPLIED. 1:1 SITTER MAINTAINED.
--- NOTE | 2017-01-06 19:02 | NUR ---
ESCALATING AGITATION CONTINUES AND PT IS NOW IN ST RATE OF 130-140. B/P 186/91. ICU BAIT PACKER AT BEDSIDE.
--- NOTE | 2017-01-06 20:18 | NUR ---
PT AGITATED, CONFUSED AND DISORIENTED. ON ATIVAN GTT AT 15MG/HR. PT IN 4 POINT HARD RESTRAINTS. 1:1 AT BEDSIDE. PT GIVEN HALDOL 5MG IM AT 1900 WITH GOOD EFFECT-LESS AGITATED AT PRESENT. BREATH SOUNDS CLEAR WITH DIMINISHED BREATH SOUNDS AT BASES BILATERALLY. NO COUGH, SOB OR RESP DISTRESS NOTED AT PRESENT. 02 SATS 90-91% ON RA-PLACED ON O2 AT 2LNC-SATS 95%. SEE FLOW SHEET FOR VS, 02 SATS, I/O'S. MONITOR SHOWS ST, NO ECTOPY NOTED AT PRESENT. BP ELEVATED AT PRESENT. ON CIWA SCALE. NO SEIZURES ACTIVITY NOTED AT PRESENT. ABD SOFT, NONTENDER, NONDISTENDED, POSITIVE BOWEL SOUNDS. INC OF URINE. SKIN INTACT
[2017-01-07] VITALS (9 sets, daily range): BP systolic 123–180; BP diastolic 60–109
[2017-01-07 05:08] LABS: ABSOLUTE BASOPHIL COUNT 0 /CUMM (0.0-0.2); ABSOLUTE EOSINOPHIL COUNT 0.1 /CUMM (0.0-0.7); ABSOLUTE GRANULOCYTE CT 8.6 /CUMM (1.4-6.5); ABSOLUTE LYMPH COUNT 1.4 /CUMM (1.2-3.4); BASOPHIL % 0 % (0.0-2.0); EOSINOPHIL % 0.8 % (0-5); GRANULOCYTE % 77.5 % (42.2-75.2); MEAN CORPUSCULAR HGB 31.1 PG (27.0-31.0); MEAN CORPUSCULAR HGB CONC 33.4 G/DL (33.0-37.0); MEAN CORPUSCULAR VOLUME 93.3 FL (80.0-94.0); MEAN PLATELET VOLUME 8.9 FL (7.4-10.4); PLATELET COUNT 122 /CUMM (130-400); RBC DISTRIBUTION WIDTH 14.7 % (11.5-14.5); RED BLOOD CELL CT 3.54 /CUMM (4.70-6.10); WHITE BLOOD CELL COUNT 11.1 /CUMM (4.8-10.8)
--- NOTE | 2017-01-07 06:48 | NUR ---
PT SLEPT INTERMITTENTLY DURING THE NIGHT. PT REMAINS CONFUSED, DISORIENTED, AGITATED WHEN AWAKE. CIWA-16-24 FOR SHIFT, ATIVAN GTT REMAINS AT 15MG/HR. PT REMAINS IN 4 POINT HARD RESTRAINTS. PT VERBAL AGGRESSIVE. 1:1 SITTER REMAINS AT BEDSIDE. NO SEIZURE ACTIVITY NOTED THOUGHOUT SHIFT. BREATH SOUNDS CLEAR WITH DIMINISHED BREATH SOUNDS THOUGHOUT SHIFT. MONITOR ST-HR 90-120'S FOR SHIFT, NO ECTOPY NOTED. BP 140-160'S FOR SHIFT. INC OF LARGE AMT OF YELLOW URINE. SKIN INTACT. BOUNDING RADIAL AND PEDAL PULSES BILATERALLY.
--- NOTE | 2017-01-07 08:07 | PN- Resident CRCU ---
Subjective HPI/CRCU Issues: Patient was seen and examined this morning, he is sleeping with head elevation 45, no signs of acute distress, has Ativan drip running at 14 mL/h, 4 points soft restrain. Vital signs are stable, nasal cannula 2 L with saturation 96%, heart rate 99 sinus rhythm, blood pressure 140/80, temperature 98.6. No signs of seizure activity was reported by the nurse. 24 Hour Events: Temperature 98.6, MAXIMUM TEMPERATURE 99.6 Heart rate lowest 92, highest 119 sinus rhythm Blood pressure lowest 108/71, highest 190/80 Respiratory rate 28 on 2 L oxygen saturation 96% Intake 3418, output 300 patient is incontinent IV Ativan running at 14 mL/h Patient desat on room air while sleeping on 89 and was placed on 2 L oxygen with saturation 96% CIWA score at 7 am is 9, over night max 21 Objective Vital Signs & I&O Last 8 Hrs of Vitals and I&O: Intake & Output 01/07 1600 Intake Total 1890 Output Total 300 Balance 1590 Intake, IV 1890 Intake, Oral 0 Number 0 Bowel Movements Output, Urine 300 Exam General Appearance: no apparent distress Head: atraumatic, normal appearance Ears, Nose, Throat: normal ENT inspection Neck: normal inspection, supple Respiratory: lungs clear, transmitted sound Cardiovascular: regular rate/rhythm Gastrointestinal: normal bowel sounds, soft, non-tender Extremities: normal inspection, normal capillary refill, no edema Cranial Nerves: PERRL Skin: intact, normal color, warm/dry Current Medications: Current Medications Sig/Maximus Start time Last Medication Dose Route Stop Time Status Admin Acetaminophen 650 MG Q6P PRN 01/04 2130 AC PO Baclofen 5 MG TID 01/06 1600 DC 01/06 PO 1609 Cyanocobalamin/ 1 BAG ONCE ONE 01/07 1130 AC 01/07 Thiamine/Pyridoxine IV 01/07 1929 1237 Dextrose/Water 1,000 ML Divalproex Sodium 500 MG BID 01/06 2200 CAN PO Enoxaparin Sodium 40 MG DAILY 01/05 1000 AC 01/07 SC 0939 Folic Acid 1 MG DAILY 01/04 1925 AC 01/06 PO 1001 Haloperidol 5 MG ONCE ONE 01/06 191 DC 01/06 IM 01/07 1916 192 Ibuprofen 600 MG .STK-MED ONE 01/06 1606 DC PO 01/06 1607 Ibuprofen 600 MG TID PRN 01/05 2100 AC 01/06 PO 1608 Lorazepam 0 Q1P PRN 01/07 0845 AC 01/07 IV 0800 Lorazepam 100 MG Q6H 01/07 0830 AC 01/07 Sodium Chloride 1,000 ML IV 0851 Lorazepam 100 MG Q8H 01/06 1800 DC 01/07 Sodium Chloride 1,000 ML IV 0111 Lorazepam 100 MG Q14H 01/06 0400 DC 01/06 Sodium Chloride 1,000 ML IV 0441 Magnesium Sulfate 1 GM ONCE ONE 01/07 0845 DC 01/07 Dextrose/Water 100 ML IV 01/07 1244 0851 Multivitamins 1 TAB DAILY 01/05 1000 AC 01/06 PO 1001 Nicotine 14 MG DAILY 01/05 1000 AC 01/07 TOP 0939 Oxcarbazepine 300 MG BID 01/06 2200 CAN PO Oxcarbazepine 300 MG BID 01/06 1458 DC 01/06 PO 1609 Potassium Chloride 10 MEQ ONCE ONE 01/07 0745 DC 01/07 IV 01/07 0746 0728 Potassium Chloride 10 MEQ ONCE ONE 01/07 0645 DC 01/07 IV 01/07 0646 0641 Potassium Chloride 20 MEQ ONCE ONE 01/07 0630 CAN IV 01/07 0631 Potassium Phosphate 15 mMol ONE ONE 01/07 0845 DC 01/07 Sodium Chloride 250 ML IV 01/07 1248 1153 Thiamine HCl 50 MG DAILY 01/04 1925 AC 01/06 PO 1001 Valproate Sodium 500 MG Q12 01/06 2200 AC 01/07 Sodium Chloride 100 ML IV 1037 Impression/Plan Impression/Problem List Impression: Mr. Emmanuel is a 51 year old male with PMH of alcohol abuse and withdrawal seizures with multiple admissions was admitted for alcohol withdrawal symptoms and seizure (mostly alcohol related). Patient noted to be very agitated early this morning with CIWA score 18, Ativan was increased to 15 and 4 points hard restrain was applied, no seizure activity was reported. Patient currently is sleeping comfortably with no acute distress, snoring with some transmitted sounds of secretions that needed suction, vital signs are stable. plan: Alcohol detox * continued on Ativan drip at 14 mcg/hour, titrate slowly as tolerated * Seizure and aspiration precautions * Will order one banana bag given patient is sedated with the Ativan drip and and unable to have oral intake Hypomagnesemia and Hypokalemia * replete with K-dur and Mag-Ox oral * repeat BEP tomorrow Poly substance abuse and smoking * nicotine patch * counseling for smoking cessation and social work consult when condition stabilizes * psych consult Questionable seizure disorder * Neuro consultation was obtained, thanks recommendation * Continue Depakote 500 mg every 12 * EEG pending * Discontinue oxcarbazepine and baclofen based on neurology recommendation Regular diet DVT ppx lovenox Full code Problem List: 1. Alcohol withdrawal seizure Pain Ratin Tomorrow's Labs & Rationales: CBC ICU bundle Plan DVT/Prophylaxis: pharmacological
--- NOTE | 2017-01-07 09:20 | PN- CRCU ---
Subjective HPI/Critical Care Issues: Patient seen and examined. He is afebrile. Tachycardia at 119 this morning. Still hypertensive and on an Ativan drip. Saturating 96% on 2 L nasal cannula. Hypokalemia hypomagnesemia and hypophosphatemia. Objective Current Medications: Current Medications Sig/Maximus Start time Last Medication Dose Route Stop Time Status Admin Acetaminophen 650 MG Q6P PRN 01/04 2130 AC PO Baclofen 5 MG TID 01/06 1600 DC 01/06 PO 1609 Divalproex Sodium 500 MG BID 01/06 2200 CAN PO Enoxaparin Sodium 40 MG DAILY 01/05 1000 AC 01/06 SC 1001 Folic Acid 1 MG DAILY 01/04 1925 AC 01/06 PO 1001 Haloperidol 5 MG ONCE ONE 01/06 191 DC 01/06 IM 01/07 1916 192 Ibuprofen 600 MG .STK-MED ONE 01/06 1606 DC PO 01/06 1607 Ibuprofen 600 MG TID PRN 01/05 2100 AC 01/06 PO 1608 Lorazepam 0 Q1P PRN 01/07 0845 AC 01/07 IV 0800 Lorazepam 100 MG Q6H 01/07 0830 AC 01/07 Sodium Chloride 1,000 ML IV 0851 Lorazepam 100 MG Q8H 01/06 1800 DC 01/07 Sodium Chloride 1,000 ML IV 0111 Lorazepam 100 MG Q14H 01/06 0400 DC 01/06 Sodium Chloride 1,000 ML IV 0441 Magnesium Sulfate 1 GM ONCE ONE 01/07 0845 AC 01/07 Dextrose/Water 100 ML IV 01/07 1244 0851 Magnesium Sulfate 1 GM ONCE ONE 01/06 0700 DC 01/06 Dextrose/Water 100 ML IV 01/06 1059 0655 Multivitamins 1 TAB DAILY 01/05 1000 AC 01/06 PO 1001 Nicotine 14 MG DAILY 01/05 1000 AC 01/06 TOP 1002 Oxcarbazepine 300 MG BID 01/06 2200 CAN PO Oxcarbazepine 300 MG BID 01/06 1458 DC 01/06 PO 1609 Potassium Chloride 10 MEQ ONCE ONE 01/07 0745 DC 01/07 IV 01/07 0746 0728 Potassium Chloride 10 MEQ ONCE ONE 01/07 0645 DC 01/07 IV 01/07 0646 0641 Potassium Chloride 20 MEQ ONCE ONE 01/07 0630 CAN IV 01/07 0631 Potassium Phosphate 15 mMol ONE ONE 01/07 0845 Sodium Chloride 250 ML IV 01/07 1248 Thiamine HCl 50 MG DAILY 01/04 1925 AC 01/06 PO 1001 Valproate Sodium 500 MG Q12 01/06 2200 AC 01/06 Sodium Chloride 100 ML IV 2214 Vital Signs & I&O Last 24 Hrs of Vitals and I&O: Vital Signs Date Time Temp Pulse Resp B/P B/P Pulse O2 O2 Flow FiO2 Mean Ox Delivery Rate 01/07 0600 119 20 153/80 01/07 0400 98.6 105 21 163/90 01/07 0400 96 Nasal 2.0L Cannula 01/07 0200 114 28 180/93 01/07 0000 99.0 94 26 150/109 01/07 0000 96 Nasal 2.0L Cannula 01/06 2300 99.0 94 26 150/94 96 Nasal 2.0L Cannula 01/06 2200 119 28 163/87 01/06 2000 99.1 112 25 167/100 01/06 2000 95 Nasal 2.0L Cannula 01/06 1600 99.6 98 24 142/70 95 Room Air Intake & Output 01/07 1600 01/07 0800 01/07 0000 Intake Total 1105 1153 Output Total Balance 1105 1153 Intake, IV 1105 913 Intake, Oral 0 240 Number 0 0 Bowel Movements Exam Other Physical Findings: Gen - alert and awake HEENT - NCAT CVS - S1, S2, no murmurs, rubs or gallops Lungs - clear to auscultation bilaterally Abdomen - soft, non-tender, bs+ Ext - no edema, no cyanosis Results Last 24 Hrs of Lab Results: Laboratory Tests 01/07/17 0407: Anion Gap 11, Estimated GFR > 60, Glucose 87, Calcium 8.6, Phosphorus 3.2, Magnesium 1.6, Total Bilirubin 0.7, AST 45, ALT 27, Albumin 3.6, CBC w Diff NO MAN DIFF REQ, RBC 3.54 L, MCV 93.3, MCH 31.1 H, RDW 14.7 H, MPV 8.9, Gran % 77.5 H, Lymphocytes % 13.0 L, Monocytes % 8.7, Eosinophils % 0.8, Basophils % 0 L, Absolute Granulocytes 8.6 H, Absolute Lymphocytes 1.4, Absolute Monocytes 1.0 H, Absolute Eosinophils 0.1, Absolute Basophils 0, PUBS MCHC 33.4 Impression/Plan Impression/Plan Impression/Plan: Impression 51-year-old man * Acute alcohol withdrawal syndrome complicated by seizures and polysubstance dependence * Hypomagnesemia, hypophosphatemia, hypokalemia * Tobacco dependence Plan -Continue Ativan drip to [facility] protocol -Replete electrolytes and monitor Mag, phos, K and calcium -Multivitamins, thiamine, folate -So she will services and substance dependence referral and consultation -Neurology consultation is appreciated -Smoking cessation counseling -Seizure precautions -Check a baseline chest x-ray -cont valproate with monitoring of levels -nicotine patch DVT prophylaxis at all times TTS 40 min
--- NOTE | 2017-01-07 10:30 | NUR ---
@0800-PT AWAKE. NOT FOLLOWING COMMANDS. USING [employer] LANGUAGE TOWARDS STAFF. CONT IN 4PT HARD RESTRAINTS. 1:1 SITTER REMAINS AT BEDSIDE. PT MEDICATED WITH ATIVAN 2MG BOLUS FOR ELEVATED CIWA SCORING PT CONT ON ATIVAN GTT AT 15MG/HR. PT NOTED TO BE ON 2LNC, 02SAT 97%. DIM BS TO BASES. PT NOTED TO HAVE PROD COUGH OF THICK YELLOW/MCCORMACK SPUTUM. YANKOR PLACED AT BEDSIDE AND ORALLY SUCTIONED PRN. MOUTH CARE PROVIDED. NSR/ST HR 90S-120S. BP STABLE. TEMP 100.6. COOL WASHCLOTH APPLIED TO FOREHEAD. ABD SOFT. UNABLE TO FEED BREAKFAST THIS AM AFTER SEDATED WITH ATIVAN. PT INC OF LARGE AMTS OF URINE AND PT BECOMES INCREASINGLY AGITATED WITH INC EPISODES. [place] CATH PLACED AT THIS TIME. SKIN INTACT. DRY FEET, LOTION APPLIED. K+3.4, RECIEVING 2ND KCL 10MEQ BOLUS AT THIS TIME. REPORTED MAG LEVEL 1.6 TO HOUSESTAFF. CONT TO MONITOR CLOSELY. CALL RUEDA WITHIN REACH.
--- NOTE | 2017-01-07 10:34 | NUR ---
@0900-PT SEDATED COMF ON ATIVAN GTT AT 15MG/HR. 4 PT HARD RESTRAINTS CHANGED TO 4PT SOFT RESTRAINTS AND 4 SIDE RAILS DUE TO ATTEMPTS TO PLACE LEGS OFF SIDE OF BED. NEW ORDER OBTAINED AT THIS TIME. MAG BOLUS 1GM INFUSING ORD. AWAITING KPHOS BOLUS FROM PHARMACY. CONT TO MONITOR CLOSELY. CALL RUEDA WITHIN REACH.
--- NOTE | 2017-01-07 13:03 | NUR ---
@1230-3RD IV SITE ESTABLISHED FOR BANANA BAG INFUSING. KPHOS BOLUS ALSO INFUSING AT THIS TIME. 4PT SOFT RESTRAINTS AND 4 SIDE RAILS CONT FOR SAFETY. CALL RUEDA WITHIN REACH.
--- NOTE | 2017-01-07 14:54 | RADIOLOGY REPORT ---
EXAMINATION: XR PORTABLE CHEST CLINICAL INFORMATION: Shortness of breath, febrile. Aspiration. COMPARISON: 11/26/2015 earlier TECHNIQUE: Portable AP view of the chest was obtained. FINDINGS: New hazy medial right base opacity could represent atelectasis, aspiration, or pneumonia. There is likely subtle retrocardiac consolidation as well. No pleural effusion or pneumothorax. Normal pulmonary vascularity. Regional skeleton intact. IMPRESSION: New hazy medial right base opacity concerning for developing atelectasis, aspiration, or pneumonia. There may be a subtle new retrocardiac consolidation as well.
--- NOTE | 2017-01-07 17:34 | NUR ---
AT 154O THE PT WAS RESTLESS AND MOVING ALL ABOUT THE BED, EVEN SLIDING DOWN IN THE BED WITH HIS FEET HANGING OFF THE END. PT REPOSITIONED IN THE BED AND THE ATIVAN GTT WAS INCREASED TO 15MG/HR AT 1545. PT HAS HAD PERIODS OF RESTLESSNESS WHICH CALM EVENTUALLY WITH REASSURANCE. SAS IS A 3 AT PRESENT BUT WITHOUT ANY NOTICE CAN INCREASE TO 5. THE PT IS SEDATED AT THIS TIME THE DINNER TRAY WAS HELD.
--- NOTE | 2017-01-07 20:30 | NUR ---
PT AWAKE VERY RESTLESS AT TIMES, SWEARING AND GARBLED SPEECH, CAN BE COOPERATIVE FOR A FEW SECONDS, USED URINAL KNOWS NAME AND PLACE BRIE[place], HAS PRODUCTIVE COUGH BUT WILL NOT EXPECTORATE. SITTER AT BEDSIDE SOFT RESTRAINTS TO ALL EXTREMITIES. ATIVAN GTT REMAINS AT 15MG/H.
[2017-01-08] VITALS (8 sets, daily range): BP systolic 117–155; BP diastolic 68–85
[2017-01-08 04:58] LABS: ABSOLUTE BASOPHIL COUNT 0 /CUMM (0.0-0.2); ABSOLUTE EOSINOPHIL COUNT 0.1 /CUMM (0.0-0.7); ABSOLUTE GRANULOCYTE CT 8.3 /CUMM (1.4-6.5); ABSOLUTE LYMPH COUNT 1.6 /CUMM (1.2-3.4); ABSOLUTE MONOCYTE COUNT 1.2 /CUMM (0.10-0.60); BASOPHIL % 0.3 % (0.0-2.0); EOSINOPHIL % 0.6 % (0-5); GRANULOCYTE % 74.5 % (42.2-75.2); HEMATOCRIT 32.9 % (42-52); MEAN CORPUSCULAR HGB CONC 33.3 G/DL (33.0-37.0); MEAN CORPUSCULAR VOLUME 93.3 FL (80.0-94.0); MEAN PLATELET VOLUME 8.1 FL (7.4-10.4); PLATELET COUNT 141 /CUMM (130-400); RED BLOOD CELL CT 3.53 /CUMM (4.70-6.10); WHITE BLOOD CELL COUNT 11.1 /CUMM (4.8-10.8)
--- NOTE | 2017-01-08 07:13 | PN- Resident CRCU ---
Subjective HPI/CRCU Issues: Mr. Barragan was seen and examined this morning. He is resting comfortably in bed with restraints lifted off. He is alert and oriented 2. Patient endorses a mild headache. Rated at an 8 out of 10 in severity. Denies any visual disturbances. Patient denies any fever, chills, nausea, vomiting. Currently has a sitter in place. 24 Hour Events: Patient was restless at times overnight. He was continued on Ativan at 50. Objective Vital Signs & I&O Last 8 Hrs of Vitals and I&O: T: 97.0-99.4 HR: 70-109 SR. RR: 118-27 BP Systolic: 110-156 [id number] %O2: 92%-98% Exam General Appearance: no apparent distress, comfortable, sedated Head: atraumatic Ears, Nose, Throat: Oral mucosa, discolored, evidence of brown and black foul smelling contents present. Respiratory: rhonchi Cardiovascular: regular rate/rhythm Gastrointestinal: normal bowel sounds, soft, non-tender Extremities: normal inspection, normal capillary refill Cranial Nerves: normal hearing, normal speech Current Medications: Current Medications Sig/Maximus Start time Last Medication Dose Route Stop Time Status Admin Acetaminophen 650 MG Q6P PRN 01/04 2130 AC PO Ampicillin Sodium/ 1,500 MG Q6 01/08 1200 AC 01/08 Sulbactam Sodium IV 1228 Sodium Chloride 100 ML Cyanocobalamin/ 1 BAG ONCE ONE 01/07 1130 DC 01/07 Thiamine/Pyridoxine IV 01/07 1929 1237 Dextrose/Water 1,000 ML Enoxaparin Sodium 40 MG DAILY 01/05 1000 AC 01/08 SC 1227 Folic Acid 1 MG DAILY 01/04 1925 AC 01/08 PO 1227 Ibuprofen 600 MG TID PRN 01/05 2100 AC 01/06 PO 1608 Lorazepam 100 MG Q10H 01/08 1700 AC Sodium Chloride 1,000 ML IV Lorazepam 0 Q1P PRN 01/07 0845 AC 01/07 IV 0800 Lorazepam 100 MG Q6H 01/07 0830 AC 01/08 Sodium Chloride 1,000 ML IV 01/08 1730 0230 Magnesium Sulfate 1 GM ONCE ONE 01/08 0630 DC 01/08 Dextrose/Water 100 ML IV 01/08 0829 1228 Multivitamins 1 TAB DAILY 01/05 1000 AC 01/08 PO 1227 Nicotine 14 MG DAILY 01/05 1000 AC 01/08 TOP 1227 Potassium Chloride 40 MEQ ONCE ONE 01/08 0630 DC 01/08 PO 01/08 0631 1000 Thiamine HCl 50 MG DAILY 01/04 1925 AC 01/08 PO 1227 Valproate Sodium 500 MG Q12 01/06 2200 AC 01/08 Sodium Chloride 100 ML IV 1228 Impression/Plan Impression/Problem List Impression: Mr. Emmanuel is a 51 year old male with PMH of alcohol abuse and withdrawal seizures with multiple admissions who came to [place] ED after starting back on drinking for 2 weeks and 2 days on withdrawal and an episode of seizure the night before presentation. Patient was admitted to general medicine floor for alcohol detox however was transferred to the ICU overnight as he was scoring high on CIWA and required Ativan drip. I called the female friend (Ms. Minnie Bentley) and updated her that the pt is moved to the ICU and why. She gave me his medication list: baclofen (0.5 tab pRN ) and Oxcarbazepine (1 tab daily), which he does not take regularly. He took one pill of each on Monday01/03/17 when he had a seizure. Alcohol detox Patient has been combative and hallucinating. He is still scoring high on CIWA maximum of 12 last night, scoring 9 this morning. * continued on Ativan drip at 4 mcg/hour. Once at 2 mcg/hr, consider PO PRN Ativan. * seizure precautions * continue thiamine, folate, and multivitamin Aspiration penumonia * Owing to long standing alcohol history and likley aspiration of foul smelling oral secretions. Afebrile. * Chest X-ray repeated this AM. Unasyn began empirically 1500 mg Q6. * CBC in AM Hypomagnesemia and Hypokalemia * replete with K-dur and Mag-Ox oral * repeat BEP tomorrow Poly substance abuse and smoking * nicotine patch * counseling for smoking cessation and social work consult when condition stabilizes * psych consult * Social work consult Questionable seizure disorder Patient was started on Oxcarbazepine. We tried to confirm the dose with [facility] several times since am but no answer, will try to confirm the dose with the pharmacy tomorrow * Continue Depakote 500 mg every 12 * EED Pending. Regular diet DVT ppx lovenox Full code Problem List: 1. Nausea and vomiting 2. Full code status 3. Cocaine abuse 4. Alcohol withdrawal 5. S/P alcohol detoxification Pain Ratin Tomorrow's Labs & Rationales: CBC ICU Plan DVT/Prophylaxis: pharmacological
--- NOTE | 2017-01-08 08:57 | PN- CRCU ---
Subjective HPI/Critical Care Issues: pt seen and examined afebrile hemodynamically stable on ativan drip and sedated 98% 2LNC Objective Current Medications: Current Medications Sig/Maximus Start time Last Medication Dose Route Stop Time Status Admin Acetaminophen 650 MG Q6P PRN 01/04 2130 AC PO Cyanocobalamin/ 1 BAG ONCE ONE 01/07 1130 DC 01/07 Thiamine/Pyridoxine IV 01/07 1929 1237 Dextrose/Water 1,000 ML Enoxaparin Sodium 40 MG DAILY 01/05 1000 AC 01/07 SC 0939 Folic Acid 1 MG DAILY 01/04 1925 AC 01/06 PO 1001 Ibuprofen 600 MG TID PRN 01/05 2100 AC 01/06 PO 1608 Lorazepam 100 MG Q10H 01/08 1700 AC Sodium Chloride 1,000 ML IV Lorazepam 0 Q1P PRN 01/07 0845 AC 01/07 IV 0800 Lorazepam 100 MG Q6H 01/07 0830 AC 01/08 Sodium Chloride 1,000 ML IV 01/08 1730 0230 Magnesium Sulfate 1 GM ONCE ONE 01/08 0630 DC Dextrose/Water 100 ML IV 01/08 0829 Magnesium Sulfate 1 GM ONCE ONE 01/07 0845 DC 01/07 Dextrose/Water 100 ML IV 01/07 1244 0851 Multivitamins 1 TAB DAILY 01/05 1000 AC 01/06 PO 1001 Nicotine 14 MG DAILY 01/05 1000 AC 01/07 TOP 0939 Potassium Chloride 40 MEQ ONCE ONE 01/08 0630 DC PO 01/08 0631 Potassium Phosphate 15 mMol ONE ONE 01/07 0845 DC 01/07 Sodium Chloride 250 ML IV 01/07 1248 1153 Thiamine HCl 50 MG DAILY 01/04 192 AC 01/06 PO 1001 Valproate Sodium 500 MG Q12 01/06 2200 AC 01/07 Sodium Chloride 100 ML IV 2143 Vital Signs & I&O Last 24 Hrs of Vitals and I&O: Vital Signs Date Time Temp Pulse Resp B/P B/P Pulse O2 O2 Flow FiO2 Mean Ox Delivery Rate 01/08 0605 98.0 70 18 124/70 01/08 0400 98.0 88 22 117/68 01/08 0400 98 Nasal 2.0L Cannula 01/08 0200 99.1 88 20 150/80 01/08 0000 99.1 94 22 155/84 01/08 0000 96 Nasal 2.0L Cannula 01/08 0000 99.1 94 22 155/84 06 Nasal 2.0L Cannula 01/07 2200 99.0 97 20 148/84 01/08 2000 99.0 96 20 139/70 01/08 2000 97 Nasal 2.0L Cannula 01/07 1800 99.1 92 22 123/64 01/07 1600 99.1 107 27 150/60 01/07 1600 96 Nasal 2.0L Cannula 01/07 1600 99.1 107 27 150/60 96 Nasal 2.0L Cannula 01/07 1200 97 Nasal 2.0L Cannula Intake & Output 01/08 1600 01/08 0800 01/08 0000 Intake Total 1090 1800 Output Total 400 1750 Balance 690 50 Intake, IV 1090 1800 Output, Urine 400 1750 Exam Other Physical Findings: Gen - lethargic, thick sputum HEENT - NCAT CVS - S1, S2, no murmurs, rubs or gallops Lungs - rare rhonchi Abdomen - soft, non-tender, bs+ Ext - no edema, no cyanosis Results Last 24 Hrs of Lab Results: Laboratory Tests 01/08/17 0415: Anion Gap 12, Estimated GFR > 60, Glucose 91, Calcium 8.8, Phosphorus 4.7 H, Magnesium 1.9, Total Bilirubin 0.8, AST 44, ALT 29, Albumin 3.5, CBC w Diff NO MAN DIFF REQ, RBC 3.53 L, MCV 93.3, MCH 31.0, RDW 15.0 H, MPV 8.1, Gran % 74.5 , Lymphocytes % 14.1 L, Monocytes % 10.5 H, Eosinophils % 0.6, Basophils % 0.3 , Absolute Granulocytes 8.3 H, Absolute Lymphocytes 1.6, Absolute Monocytes 1.2 H, Absolute Eosinophils 0.1, Absolute Basophils 0, PUBS MCHC 33.3 Impression/Plan Impression/Plan Impression/Plan: Impression 51-year-old man * Acute alcohol withdrawal syndrome complicated by seizures and polysubstance dependence * Hypomagnesemia, hypophosphatemia, hypokalemia * Tobacco dependence Plan -Continue Ativan drip to [facility] protocol -Replete electrolytes and monitor Mag, phos, K and calcium -Multivitamins, thiamine, folate -So she will services and substance dependence referral and consultation -Neurology consultation is appreciated -Smoking cessation counseling -Seizure precautions -repeat cxr, clear signs of aspiration, thick brownish secretions, begin Unasyn -cont valproate with monitoring of levels -nicotine patch DVT prophylaxis at all times TTS 40 min
--- NOTE | 2017-01-08 10:40 | RADIOLOGY REPORT ---
EXAMINATION: XR PORTABLE CHEST CLINICAL INFORMATION: Recent history of shortness of breath and opacity seen on chest radiograph of 01/07/2017. COMPARISON: CXR from 01/07/2017 TECHNIQUE: Portable AP view of the chest was obtained. FINDINGS: Lungs remain hyperexpanded. The hazy opacity in the medial right lung base has decreased -- suggesting that this represents improving atelectasis rather than an evolving/blossoming aspiration pneumonia. There is persistent, subtle opacity in the retrocardiac region of the left lower lobe. Although this is nonspecific, and most likely represents an area of atelectasis. No pulmonary edema or pleural effusion. The cardiac silhouette is normal in size. The mediastinal and hilar contours are normal. No acute skeletal findings. IMPRESSION: Lungs are hypoinflated and there are persistent hazy opacities in the medial lung bases, slightly improved on the right compared to 01/07/2017.
--- NOTE | 2017-01-08 14:18 | NUR ---
CIWA 7-9, ATIVAN TAPERED TO 4MG PER HOUR. RESTRAINTS AND SITTER D/C/D. MONITOR NSR. COUGHING BROWN THICK SECRETIONS, MOUTH CARE DONE. [place] CATH IN PLACE. TOOK PO MEDS IN APPLESAUCE AND IS DRINKING LIQUIDS ( GIVEN BY STAFF AND SUPERVISED).
--- NOTE | 2017-01-08 20:00 | NUR ---
PT SLEEPING IN SHORT NAPS AWAKENS CONFUSED TO TIME TRIES TO GET OOB BED ALARM ON. SPEECH GARBLED BUT UNDERSTANDABLE, KNOW NAME AND PLACE CONFUSED TO TIME WANTS TO LEAVE AND PROMISES HE WILL COME BACK. LIMITS SET. NASAL O2 AT 2L O2 SAT 99% BBS WITH RHONCHI, HAS CONGESTED COUGH BUT DOES NOT EXPECTORATE WILL NOT ALLOW MOUTH CARE AT THIS TIME. VOIDING LARGE AMTS VIA [employer] CATH. MONITOR SR DENIES PAIN.
[2017-01-09] VITALS (8 sets, daily range): BP systolic 98–173; BP diastolic 48–105
[2017-01-09 05:04] LABS: ABSOLUTE BASOPHIL COUNT 0 /CUMM (0.0-0.2); ABSOLUTE EOSINOPHIL COUNT 0.1 /CUMM (0.0-0.7); ABSOLUTE GRANULOCYTE CT 6.7 /CUMM (1.4-6.5); ABSOLUTE LYMPH COUNT 1.7 /CUMM (1.2-3.4); ABSOLUTE MONOCYTE COUNT 1.5 /CUMM (0.10-0.60); BASOPHIL % 0.2 % (0.0-2.0); EOSINOPHIL % 1.5 % (0-5); GRANULOCYTE % 66.2 % (42.2-75.2); HEMATOCRIT 34.3 % (42-52); MEAN CORPUSCULAR HGB 30.7 PG (27.0-31.0); MEAN CORPUSCULAR VOLUME 92.9 FL (80.0-94.0); MEAN PLATELET VOLUME 8.2 FL (7.4-10.4); PLATELET COUNT 183 /CUMM (130-400); RBC DISTRIBUTION WIDTH 14.6 % (11.5-14.5); WHITE BLOOD CELL COUNT 10.1 /CUMM (4.8-10.8)
--- NOTE | 2017-01-09 07:41 | PN- Resident CRCU ---
Subjective HPI/CRCU Issues: 1- Alcohol withdrawal requiring Ativan drip 2- possible seizure disorder vs alcohol withdrawal 3- possible aspiration pneumonia with brown sputum on Unasyn 24 Hour Events: Patient was kept on ativan drip yesterday as he was agitated and hallucinating. He has been sleeping and somnolent this morning, opens his eyes when I call his name, does not appear in distress. We are tapering down the ativan drip. Vital Signs Date Time Temp Pulse Resp B/P B/P Pulse O2 O2 Flow FiO2 Mean Ox Delivery Rate 01/09 0600 97.4 69 22 158/84 01/09 0400 97.4 72 20 120/75 01/09 0400 98 Nasal 2.0L Cannula 01/09 0200 98.4 72 22 116/67 01/09 0000 98.4 73 24 118/69 01/09 0000 99 Nasal 2.0L Cannula 01/09 0000 98.4 73 24 118/69 99 Nasal 2.0L Cannula 01/08 2148 99.3 87 18 138/83 01/08 1948 99.3 80 20 137/80 01/08 1948 99 Nasal 2.0L Cannula 01/08 1600 98 Nasal 2.0L Cannula 01/08 1600 98.7 78 20 136/85 98 Nasal 2.0L Cannula 01/08 1200 93 Nasal 2.0L Cannula Intake & Output 01/09 1600 01/09 0800 01/09 0000 Intake Total 520 720 Output Total 500 1600 Balance 20 -880 Intake, IV 520 520 Intake, Oral 200 Output, Urine 500 1600 Objective Vital Signs & I&O Last 8 Hrs of Vitals and I&O: Max temp 98.4 WV 66-92 RR 20-29 BP 119/75 to 153/84 saturating at 95-99% on 2L NC Exam General Appearance: well developed/nourished, sedated Head: atraumatic, normal appearance Ears, Nose, Throat: normal ENT inspection Neck: supple, full range of motion Respiratory: chest non-tender, no respiratory distress, scattered rhonchi Cardiovascular: regular rate/rhythm Gastrointestinal: soft, non-tender Extremities: normal inspection, normal capillary refill, normal range of motion, no edema Cranial Nerves: normal hearing, PERRL Skin: normal color Current Medications: Current Medications Sig/Maximus Start time Last Medication Dose Route Stop Time Status Admin Acetaminophen 650 MG Q6P PRN 01/04 2130 AC PO Ampicillin Sodium/ 1,500 MG Q6 01/08 1200 AC 01/09 Sulbactam Sodium IV 0528 Sodium Chloride 100 ML Enoxaparin Sodium 40 MG DAILY 01/05 1000 AC 01/08 SC 1227 Folic Acid 1 MG DAILY 01/04 1925 AC 01/08 PO 1227 Ibuprofen 600 MG TID PRN 01/05 2100 AC 01/06 PO 1608 Lorazepam 100 MG Q24H 01/08 1900 AC Sodium Chloride 1,000 ML IV Lorazepam 100 MG Q10H 01/08 1700 DC Sodium Chloride 1,000 ML IV 01/08 1859 Lorazepam 0 Q1P PRN 01/07 0845 DC 01/07 IV 0800 Lorazepam 100 MG Q6H 01/07 0830 DC 01/08 Sodium Chloride 1,000 ML IV 01/08 1730 0230 Multivitamins 1 TAB DAILY 01/05 1000 AC 01/08 PO 1227 Nicotine 14 MG DAILY 01/05 1000 AC 01/08 TOP 1227 Potassium Chloride 10 MEQ ONCE ONE 01/08 1445 DC 01/08 IV 01/08 1446 1452 Thiamine HCl 50 MG DAILY 01/04 192 AC 01/08 PO 1227 Valproate Sodium 500 MG Q12 01/06 2200 AC 01/08 Sodium Chloride 100 ML IV 2116 Impression/Plan Impression/Problem List Impression: Mr. Emmanuel is a 51 year old male with PMH of alcohol abuse and withdrawal seizures with multiple admissions who came to [facility] after starting back on drinking for 2 weeks and 2 days on withdrawal and an episode of seizure the night before presentation. Patient was admitted to general medicine floor for alcohol detox however was transferred to the ICU overnight as he was scoring high on CIWA and required Ativan drip. Called the female friend (Ms. Minnie Bentley) and updated her that the pt is moved to the ICU and why. She gave me his medication list: baclofen (0.5 tab pRN) and Oxcarbazepine (1 tab daily), which he does not take regularly. He took one pill of each on Monday01/03/17 when he had a seizure. We talked to the patient (as he is more alert today) as well as his fiance at bedside, they stated that he never had an EEG done and has not been seen by any neurologist in the past. *Also, patient's fiance reported that he had an episode of siezure while in the rehab facility when he was not intoxicated, sugegsting that he has an underlying seizure disorder. Neurology, Dr. Díaz was informed about this and he suggested to continue on Valproate and f/u on EEG. Alcohol detox Patient was combative and hallucinating yesterday. He was scoring high on CIWA maximum of 12 yesterday and was kept on ativan drip. CIWA scores max 8 since last night, this am appears very drowsy. He was on 4 mcg/hour IV Ativan. We tapered Ativan drip from 4 mcg/hour per CIWA scores and switched to PO PRN Ativan per CIWA. * continue ativan PO PRN per CIWA * continue thiamine, folate, and multivitamin Aspiration penumonia Owing to long standing alcohol history and likley aspiration of foul smelling oral secretions. Afebrile. CXR on 01/07/17: new hazy medial right base opacity concerning for developing atelectasis, aspiration, or pneumonia. There may be a subtle new retrocardiac consolidation as well. Repeat CXR yesterday on 01/08/17: Lungs are hypoinflated and there are persistent hazy opacities in the medial lung bases, slightly improved on the right compared to 01/07/2017. Unasyn began empirically 1500 mg Q6 on 01/08/17 Patient has been afebrile, CBC was increased to 11.1 on 01/07 and 01/08, which is trending down (today WBC is 10.1) * continue Unaxyn to complete a 7 day course * monitor for fever and leukocytosis * repeat CBC in am Hypomagnesemia and Hypokalemia WNL today, will rreplete with K-dur and Mag-Ox oral as needed * repeat BEP tomorrow Poly substance abuse and smoking * nicotine patch * counseling for smoking cessation and social work consult when condition stabilizes * psych consult * Social work consult Questionable seizure disorder Patient was started on Oxcarbazepine. We tried to confirm the dose with [facility] several times since am but no answer, will try to confirm the dose with the pharmacy tomorrow * Continue Depakote 500 mg every 12, valproate level 57 * EED Pending Regular diet DVT ppx lovenox Full code Problem List: 1. Alcohol abuse 2. Alcohol withdrawal seizure 3. Polysubstance abuse 4. Cocaine abuse Pain Ratin Tomorrow's Labs & Rationales: CBC (leukocytosis) BEP (monitor electrolytes) Plan DVT/Prophylaxis: pharmacological
--- NOTE | 2017-01-09 08:45 | PN- CRCU ---
Subjective HPI/Critical Care Issues: The patient is awake and remains on an Ativan drip. He is not able to offer complaints. The Ativan has been decreased from 10 mg/h, now down to 4 mg per hour. There were no overnight events reported. Objective Current Medications: Current Medications Sig/Maximus Start time Last Medication Dose Route Stop Time Status Admin Acetaminophen 650 MG Q6P PRN 01/04 2130 AC PO Ampicillin Sodium/ 1,500 MG Q6 01/08 1200 AC 01/09 Sulbactam Sodium IV 0528 Sodium Chloride 100 ML Enoxaparin Sodium 40 MG DAILY 01/05 1000 AC 01/08 SC 1227 Folic Acid 1 MG DAILY 01/04 1925 AC 01/08 PO 1227 Ibuprofen 600 MG TID PRN 01/05 2100 AC 01/06 PO 1608 Lorazepam 100 MG Q24H 01/08 1900 AC Sodium Chloride 1,000 ML IV Lorazepam 100 MG Q10H 01/08 1700 DC Sodium Chloride 1,000 ML IV 01/08 1859 Lorazepam 0 Q1P PRN 01/07 0845 DC 01/07 IV 0800 Lorazepam 100 MG Q6H 01/07 0830 DC 01/08 Sodium Chloride 1,000 ML IV 01/08 1730 0230 Multivitamins 1 TAB DAILY 01/05 1000 AC 01/08 PO 1227 Nicotine 14 MG DAILY 01/05 1000 AC 01/08 TOP 1227 Potassium Chloride 10 MEQ ONCE ONE 01/08 1445 DC 01/08 IV 01/08 1446 1452 Thiamine HCl 50 MG DAILY 01/04 1925 AC 01/08 PO 1227 Valproate Sodium 500 MG Q12 01/06 2200 AC 01/08 Sodium Chloride 100 ML IV 2117 Vital Signs & I&O Last 24 Hrs of Vitals and I&O: Vital Signs Date Time Temp Pulse Resp B/P B/P Pulse O2 O2 Flow FiO2 Mean Ox Delivery Rate 01/09 0600 97.4 69 22 158/84 01/09 0400 97.4 72 20 120/75 01/09 0400 98 Nasal 2.0L Cannula 01/09 0200 98.4 72 22 116/67 01/09 0000 98.4 73 24 118/69 01/09 0000 99 Nasal 2.0L Cannula 01/09 0000 98.4 73 24 118/69 99 Nasal 2.0L Cannula 01/08 2148 99.3 87 18 138/83 01/09 1948 99.3 80 20 137/80 01/09 1948 99 Nasal 2.0L Cannula 01/08 1600 98 Nasal 2.0L Cannula 01/08 1600 98.7 78 20 136/85 98 Nasal 2.0L Cannula 01/08 1200 93 Nasal 2.0L Cannula Intake & Output 01/09 1600 01/09 0800 01/09 0000 Intake Total 520 720 Output Total 500 1600 Balance 20 -880 Intake, IV 520 520 Intake, Oral 200 Output, Urine 500 1600 Physical Exam General Appearance: well developed/nourished, arousable Head: atraumatic, normal appearance Neck: normal inspection, supple Respiratory: chest non-tender, no respiratory distress Cardiovascular: regular rate/rhythm Gastrointestinal: soft, non-tender Back: normal range of motion Extremities: normal inspection, normal capillary refill, normal range of motion, no edema Neurologic/Psych: no motor/sensory deficits, awake, alert, disoriented x 3 Cranial Nerves: normal hearing, normal speech Skin: intact, warm/dry Results Last 24 Hrs of Lab Results: Laboratory Tests 01/09/17 0440: Anion Gap 11, Estimated GFR > 60, Glucose 89, Calcium 9.3, Phosphorus 4.5, Magnesium 1.9, Total Bilirubin 1.0, AST 39, ALT 30, Albumin 3.7, CBC w Diff NO MAN DIFF REQ, RBC 3.70 L, MCV 92.9, MCH 30.7, RDW 14.6 H, MPV 8.2, Gran % 66.2 , Lymphocytes % 16.8 L, Monocytes % 15.3 H, Eosinophils % 1.5, Basophils % 0.2 , Absolute Granulocytes 6.7 H, Absolute Lymphocytes 1.7, Absolute Monocytes 1.5 H, Absolute Eosinophils 0.1, Absolute Basophils 0, PUBS MCHC 33.0 Impression/Plan Impression/Plan Impression/Plan: 1. Acute alcohol withdrawal syndrome complicated by seizures and polysubstance abuse. 2. Electrolyte abnormalities. 3. Tobacco dependence. 4. Witnessed aspiration, with thick brown secretions, now on IV Unasyn. Recommendations: * Continue Ativan drip according to CIWA protocol. * Continue multivitamin, thiamine and folate. * patient services representative input regarding substance abuse. * We'll continue to follow neurology recommendations. * Maintain the patient on seizure precautions. * Continue valproate and monitoring of levels. * Nicotine patch. * DVT prophylaxis at all times. * Continue all supportive care.
--- NOTE | 2017-01-09 14:16 | NUR ---
Referral received on 01/05/17 via electronic order. This patient is a 51 year old man, admitted to the hospital on 01/04/17 with ETOH Withdrawal. Originally admitted to General Medical Service, he was transferred on 01/05/17 to the CRCU and placed in restraints with an ativan drip, which has been titrated down to 4mg/hour. He also has had an episode of aspiration, so IV antibiotics have been initiated. Will follow to better assess aftercare needs; case discussed with Dr. Maya. Follow.
--- NOTE | 2017-01-09 16:59 | Cons- Psychiatry ---
Psychiatric Consult Date of Consult: 01/09/17 Reason for Consult: "Polysubstance abuse, alcohol detox, combative, agitated" History of Present Illness: Identifying Info: 51-year-old single male presents to [facility] emergency department on 01/04/2017 by ambulance with chief complaint of nausea vomiting and headache. Subsequently diagnosed with alcohol withdrawal and admitted due to seizure history. CC: (Patient's speech is unintelligible) HPI: Patient has a history of multiple inpatient detox stays mostly recently at [facility] in November 2015. He was reportedly discharged from [facility] several days prior to admission. He had been living in sober housing for that brief interval. Per H&P he has been drinking heavily x2wks. Per medical record review and nursing report patient was originally admitted to medicine but required transfer to critical care unit due to severity of symptoms when high CIWA scores. He became aggitated and combative. On the unit he was started on an Ativan drip which is currently running at 1 mg an hour. CIWA q last 24 h 6,6,8,6,7,8 PMH: Please see the H&P for a complete listing Past Psych History: Unobtained Family Psych History: Unobtained Substance History h/o ETOH use d /o h/o Cocaine use d/o -Treatment Previous inpatient rehabilitation stays including [facility] this year Family Substance History: Unobtained Social: Unobtained. Per EMR & nursing report patient is single but has a fianc. Abuse/Trauma: Unobtained Current Home Psychotropic Medications: ? Depakote 500 mg twice daily Current Hospital Psychotropic Medications: Med Lorazepam IV Q1P PRN 01/09/17 1545 Nicotine 14 MG TOP DAILY 01/05/17 1000 Valproate Sodium 500 MG IV Q12 01/06/17 2200 Sodium Chloride 100 ML Allergies: Coded Allergies: diphenhydramine (From Benadryl) (DROWSY OR HYPER 11/26/15) loratadine (From Claritin) (HYPER OR DROWSY 11/26/15) Current Medications: Current Medications Sig/Maximus Start time Last Medication Dose Route Stop Time Status Admin Acetaminophen 650 MG Q6P PRN 01/04 2130 AC PO Ampicillin Sodium/ 1,500 MG Q6 01/08 1200 AC 01/09 Sulbactam Sodium IV 1200 Sodium Chloride 100 ML Enoxaparin Sodium 40 MG DAILY 01/05 1000 AC 01/09 SC 1200 Folic Acid 1 MG DAILY 01/04 1925 AC 01/09 PO 1443 Ibuprofen 600 MG TID PRN 01/05 2100 AC 01/06 PO 1608 Lorazepam 1 MG BID 01/09 2200 CAN IV Lorazepam 0 Q1P PRN 01/09 1545 AC IV Lorazepam 100 MG Q24H 01/08 1900 DC Sodium Chloride 1,000 ML IV 01/09 1400 Lorazepam 100 MG Q10H 01/08 1700 DC Sodium Chloride 1,000 ML IV 01/08 1859 Lorazepam 0 Q1P PRN 01/07 0845 DC 01/09 IV 1513 Multivitamins 1 TAB DAILY 01/05 1000 AC 01/09 PO 1443 Nicotine 14 MG DAILY 01/05 1000 AC 01/09 TOP 1000 Thiamine HCl 50 MG DAILY 01/04 1925 AC 01/09 PO 1443 Valproate Sodium 500 MG Q12 01/06 2200 AC 01/09 Sodium Chloride 100 ML IV 1000 Past History Past Medical History Neurological: migraine, SEIZURE (ETOH RELATRD) EENT: NONE Cardiovascular: NONE Respiratory: NONE Gastrointestinal: INGUINAL HERNIA COLON POLYPS Hepatic: NONE Renal: NONE Musculoskeletal: FRACTURE LLL Psychiatric: alcohol dependence, depression Endocrine: NONE Blood Disorders: BLOOD CLOT AFTER SURGERY Cancer(s): NONE DEPUTY COURT CLERK/Reproductive: NONE Past Surgical History Surgical History: non-contributory Psychosocial History Strengths/Capabilities: help seeking Physical Limitations (Interventions): ETOH withdrawl & dependence Psychiatric Treatment History Diagnosis: Alcohol use disorder Cocaine use disorder Risk Factors: SA/MH hospitalized, substance abuse, male Substance Use/Abuse History Drug Use/Abuse Substances Used/Abused Yes ((as above)) Substance Abuse Treatment Substance Abuse Treatment Past Substance Abuse [place] Yes ((as above)) Assessment/Plan Mental Status Mental Status Exam: Mental Status Exam Presentation/Appearance: Patient lying in bed sleeping, hospital garb. Attempts to participate in interview but speech is mumbled and unintelligible. He does respond to some assessment questions by nodding or shaking his head Orientation: Oriented to self, unable to assess if oriented to place or time Sensorium: Somnolent Eye contact: Poor Affect: Blunted Mood: JAE Depression: JAE Anxiety: JAE Thought Content: - Denies SI/HI, unable to assess AVH but does not appear internally stimulated Thought Process: Poverty of content Speech: Mumbled and soft Judgment: Impaired Insight: Impaired Cognition: Memory: JAE Attention/Concentration: Poor MMSE: Did not assess Brief ROS Gait: Not ambulatory Sleep: Pt has been sedated Appetite: Poor Energy: Low IADLs/ADLs: With assistance Patient indicates affirmatively that he would like assistance with his alcohol use. Lab Results: Laboratory Tests 01/10 440 Toxicology Valproic Acid (50 - 120 ug/mL) 57.1 Laboratory Tests 01/09/17439: Anion Gap 11, Estimated GFR > 60, Glucose 89, Calcium 9.3, Phosphorus 4.5, Magnesium 1.9, Total Bilirubin 1.0, AST 39, ALT 30, Albumin 3.7, CBC w Diff NO MAN DIFF REQ, RBC 3.70 L, MCV 92.9, MCH 30.7, RDW 14.6 H, MPV 8.2, Gran % 66.2 , Lymphocytes % 16.8 L, Monocytes % 15.3 H, Eosinophils % 1.5, Basophils % 0.2 , Absolute Granulocytes 6.7 H, Absolute Lymphocytes 1.7, Absolute Monocytes 1.5 H, Absolute Eosinophils 0.1, Absolute Basophils 0, PUBS MCHC 33.0, Valproic Acid 57.1 01/08/17 041: Anion Gap 12, Estimated GFR > 60, Glucose 91, Calcium 8.8, Phosphorus 4.7 H, Magnesium 1.9, Total Bilirubin 0.8, AST 44, ALT 29, Albumin 3.5, CBC w Diff NO MAN DIFF REQ, RBC 3.53 L, MCV 93.3, MCH 31.0, RDW 15.0 H, MPV 8.1, Gran % 74.5 , Lymphocytes % 14.1 L, Monocytes % 10.5 H, Eosinophils % 0.6, Basophils % 0.3 , Absolute Granulocytes 8.3 H, Absolute Lymphocytes 1.6, Absolute Monocytes 1.2 H, Absolute Eosinophils 0.1, Absolute Basophils 0, PUBS MCHC 33.3 01/07/17 040: Anion Gap 11, Estimated GFR > 60, Glucose 87, Calcium 8.6, Phosphorus 3.2, Magnesium 1.6, Total Bilirubin 0.7, AST 45, ALT 27, Albumin 3.6, CBC w Diff NO MAN DIFF REQ, RBC 3.54 L, MCV 93.3, MCH 31.1 H, RDW 14.7 H, MPV 8.9, Gran % 77.5 H, Lymphocytes % 13.0 L, Monocytes % 8.7, Eosinophils % 0.8, Basophils % 0 L, Absolute Granulocytes 8.6 H, Absolute Lymphocytes 1.4, Absolute Monocytes 1.0 H, Absolute Eosinophils 0.1, Absolute Basophils 0, PUBS MCHC 33.4 Allergies diphenhydramine (From Benadryl) (Coded, DROWSY OR HYPER, 11/26/15) loratadine (From Claritin) (Coded, HYPER OR DROWSY, 11/26/15) Laboratory Tests 01/09/17 0440: Anion Gap 11, Estimated GFR > 60, Glucose 89, Calcium 9.3, Phosphorus 4.5, Magnesium 1.9, Total Bilirubin 1.0, AST 39, ALT 30, Albumin 3.7, CBC w Diff NO MAN DIFF REQ, RBC 3.70 L, MCV 92.9, MCH 30.7, RDW 14.6 H, MPV 8.2, Gran % 66.2 , Lymphocytes % 16.8 L, Monocytes % 15.3 H, Eosinophils % 1.5, Basophils % 0.2 , Absolute Granulocytes 6.7 H, Absolute Lymphocytes 1.7, Absolute Monocytes 1.5 H, Absolute Eosinophils 0.1, Absolute Basophils 0, PUBS MCHC 33.0, Valproic Acid 57.1 01/06/17 0329: PT 10.3, INR 0.98 01/05/17 0650: BUN/Creatinine Ratio 13.3 01/04/17 1410: Urine Opiates Screen < 100.00, Methadone Screen < 40, Barbiturate Screen < 60, Ur Phencyclidine Scrn < 6.00, Amphetamines Screen < 100, U Benzodiazepines Scrn < 85, Urine Cocaine Screen < 50, Urine Cannabis Screen 59.20 H 01/04/17 1345: Alkaline Phosphatase 94, Total Protein 7.9, Globulin 3.3, Albumin/Globulin Ratio 1.4, Serum Alcohol < 10.0 Microbiology Date/Time Procedure - Status Source Growth 01/05 2100 Surveillance Culture - COMP UPPER RESP 01/05 2005 Surveillance Culture - CAN GI Cancelled: NO SWAB COLLECTED Diffential Diagnosis: Alcohol use disorder, severe Cannabis use disorder By history cocaine use disorder Rule out unspecified mood disorder Impression: 51-year-old single male presents requesting alcohol detox context of 2 weeks have a drinking status post recent rehabilitation stay. At present agitation is well controlled with current Ativan dosing. He is unable to participate in interview in meaningful way due to sedation number will require further evaluation. Provisional Treatment Plan: 1. Continue CIWA protocol. 2. Continue vitamin supplementation. 3. Please decrease Ativan by 20% daily. 4. If unable to manage agitation with Ativan consider ordering haloperidol 2 mg every 8 hours when necessary for dangerous agitation. Continue to monitor QTC and electrolytes on this medication. 5. Appreciate social work consult for assistance in disposition planning. Thank you for including psychiatry in this case we will continue to follow.
[2017-01-10] VITALS (20 sets, daily range): BP systolic 123–170; BP diastolic 78–100
--- NOTE | 2017-01-10 04:00 | NUR ---
PATIENT CONTINUES TO BE CONFUSED TO TIME AND PLACE.ABLE TO GIVE NAME AND BIRTHDATE CORRECTLY.CALLING OUT TO FRIEND WHO IS NOT IN THE ROOM. ATIVAN HAS BEEN GIVEN IN VARYING DOSES Q2H.WILL BEGIN ON PO ATIVAN AT 0600.PT IN DREW VEST RESTRAINT TO PREVENT OOB UNSUPERVISED.
[2017-01-10 05:06] LABS: ABSOLUTE BASOPHIL COUNT 0 /CUMM (0.0-0.2); ABSOLUTE EOSINOPHIL COUNT 0.1 /CUMM (0.0-0.7); ABSOLUTE LYMPH COUNT 1.6 /CUMM (1.2-3.4); ABSOLUTE MONOCYTE COUNT 1.5 /CUMM (0.10-0.60); BASOPHIL % 0.3 % (0.0-2.0); EOSINOPHIL % 1.6 % (0-5); GRANULOCYTE % 55.8 % (42.2-75.2); HEMATOCRIT 35.1 % (42-52); MEAN CORPUSCULAR HGB CONC 33.3 G/DL (33.0-37.0); MEAN CORPUSCULAR VOLUME 93.1 FL (80.0-94.0); MEAN PLATELET VOLUME 8.6 FL (7.4-10.4); PLATELET COUNT 229 /CUMM (130-400); RED BLOOD CELL CT 3.77 /CUMM (4.70-6.10); WHITE BLOOD CELL COUNT 7.2 /CUMM (4.8-10.8)
--- NOTE | 2017-01-10 07:29 | NUR ---
RECEIVED PT IN BED. ALERT, CONFUSED, STATING HE HAS A RINA RING IN HIS SOCK, REMOVED BOTH SOCKS TO SHOW PATIENT THERE IS NOTHING IN HIS SOCKS, UNABLE TO STATE WHERE HE IS OR THE YEAR. ON RA, SAT 98%, LUNGS CLEAR, ABDOMEN SOFT, +BS, [place] CATH IN PLACE. ALPS ON. SKIN INTACT. IV'S X3. DREW ON. WRIST RESTRAINTS IN PLACE. ON PO ATIVAN AND PRN IV PER SELAM. IV DEPAKOTE. WILL MONITOR.
--- NOTE | 2017-01-10 07:36 | PN- Resident CRCU ---
Subjective HPI/CRCU Issues: 1- Alcohol withdrawal 2- possible seizure disorder vs alcohol withdrawal 3- possible aspiration pneumonia with brown sputum on Unasyn 24 Hour Events: Patient required total of 12 mg of ativan since yesterday evening. He has been awake and alert, still agitated at times, requiring soft restraints on the wrists while in bed. We have started Haldol PRN. Objective Vital Signs & I&O Last 8 Hrs of Vitals and I&O: Intake & Output 01/10 1600 Intake Total 500 Output Total 30 Balance 470 Intake, IV 260 Intake, Oral 240 Number 0 Bowel Movements Output, Urine 30 Max Temp 98.6 ID 64-78 RR 18-20 BP 127/80 to 165/93 SO2 95-97% on RA I 170 O 850 Exam General Appearance: well developed/nourished, alert, awake, sedated Head: atraumatic, normal appearance Ears, Nose, Throat: normal ENT inspection Neck: normal inspection, supple Respiratory: chest non-tender, scattered rhonchi both lungs Cardiovascular: regular rate/rhythm Gastrointestinal: soft, non-tender Extremities: normal inspection, normal capillary refill, normal range of motion Cranial Nerves: normal hearing, normal speech, PERRL Skin: intact, normal color, warm/dry Current Medications: Current Medications Sig/Maximus Start time Last Medication Dose Route Stop Time Status Admin Acetaminophen 650 MG Q6P PRN 01/04 2130 AC PO Ampicillin Sodium/ 1,500 MG Q6 01/08 1200 AC 01/10 Sulbactam Sodium IV 1132 Sodium Chloride 100 ML Enoxaparin Sodium 40 MG DAILY 01/05 1000 AC 01/10 SC 0837 Folic Acid 1 MG DAILY 01/04 1925 AC 01/10 PO 0837 Haloperidol 2 MG Q8 PRN 01/10 1215 CAN PO Haloperidol 2 MG Q8 PRN 01/10 1215 AC 01/10 IM 1220 Ibuprofen 600 MG TID PRN 01/05 2100 AC 01/06 PO 1608 Lorazepam 2 MG Q6 01/10 1800 AC PO Lorazepam 1.5 MG Q6 01/10 1200 DC PO Lorazepam 2 MG Q6 01/10 0600 DC 01/10 PO 0527 Lorazepam 1 MG BID 01/09 2200 CAN IV Lorazepam 0 Q1P PRN 01/09 1545 AC 01/10 IV 1430 Multivitamins 1 TAB DAILY 04/20 1000 AC 01/10 PO 0836 Nicotine 14 MG DAILY 01/05 1000 AC 01/10 TOP 0837 Thiamine HCl 50 MG DAILY 01/04 1925 AC 01/10 PO 0837 Valproate Sodium 500 MG Q12 01/060 AC 01/10 Sodium Chloride 100 ML IV 1012 Impression/Plan Impression/Problem List Impression: Mr. Emmanuel is a 51 year old male with PMH of alcohol abuse and withdrawal seizures with multiple admissions who came to [facility] after starting back on drinking for 2 weeks and 2 days on withdrawal and an episode of seizure the night before presentation. Patient was admitted to general medicine floor for alcohol detox however was transferred to the ICU overnight as he was scoring high on CIWA and required Ativan drip. Called the female friend (. Minnie Bentley) and updated her that the pt is moved to the ICU and why. She gave me his medication list: baclofen (0.5 tab pRN) and Oxcarbazepine (1 tab daily), which he does not take regularly. He took one pill of each on Monday01/03/17 when he had a seizure. We talked to the patient (as he is more alert today) as well as his fiance at bedside, they stated that he never had an EEG done and has not been seen by any neurologist in the past. *Also, patient's fiance reported that he had an episode of siezure while in the rehab facility when he was not intoxicated, sugegsting that he has an underlying seizure disorder. Neurology, Dr. Díaz was informed about this and he suggested to continue on Valproate and f/u on EEG. Alcohol detox Patient was combative and hallucinating yesterday. He was scoring high on CIWA maximum of 12 yesterday and was kept on ativan drip. CIWA scores max 8 since last night, this am appears very drowsy. He was on 4 mcg/hour IV Ativan. We tapered Ativan drip from 4 mcg/hour per CIWA scores and switched to PO PRN Ativan per CIWA. * continue ativan PO PRN per CIWA * continue thiamine, folate, and multivitamin * started Haldol PRN as the patient is agitated, QTC<500 Aspiration penumonia Owing to long standing alcohol history and likley aspiration of foul smelling oral secretions. Afebrile. CXR on 01/07/17: new hazy medial right base opacity concerning for developing atelectasis, aspiration, or pneumonia. There may be a subtle new retrocardiac consolidation as well. Repeat CXR yesterday on 01/08/17: Lungs are hypoinflated and there are persistent hazy opacities in the medial lung bases, slightly improved on the right compared to 01/07/2017. Unasyn began empirically 1500 mg Q6 on 01/08/17 Patient has been afebrile, CBC was increased to 11.1 on 01/07 and 01/08, which is trending down (today WBC is 10.1) * continue Unaxyn to complete a 7 day course * monitor for fever and leukocytosis * repeat CBC in am Hypomagnesemia and Hypokalemia WNL today, will rreplete with K-dur and Mag-Ox oral as needed * repeat BEP tomorrow Poly substance abuse and smoking * nicotine patch * counseling for smoking cessation and social work consult when condition stabilizes * psych consult * Social work consult Questionable seizure disorder Patient was started on Oxcarbazepine. We tried to confirm the dose with [facility] several times since am but no answer, will try to confirm the dose with the pharmacy tomorrow * Continue Depakote 500 mg every 12, valproate level 57 * EED was done and read by neurology, was negative for ay evidence of focal or epileptiform abnormalities * will appreciate further neuroogy input re discharge planning and outpatient follow up Regular diet DVT ppx lovenox Full code Problem List: 1. Alcohol withdrawal 2. Polysubstance abuse Pain Ratin Pain Location: none Pain Goal: Pain 4 or less Pain Plan: Tylenol for mild pain Tomorrow's Labs & Rationales: ICU bundle (monitor electrolytes) Plan DVT/Prophylaxis: pharmacological
--- NOTE | 2017-01-10 08:30 | NUR ---
PT OOB TO CHAIR WITH ASSIST X2, WEAK LEGS. PLACED IN CHAIR WITH CHAIR ALARM. EATING BREAK FAST, WILL MONITOR.
--- NOTE | 2017-01-10 08:46 | PN- CRCU ---
Subjective HPI/Critical Care Issues: The patient is awake but remains confused. His CIWA scores continue to fluctuate. He is eating and drinking better. He is not able to offer complaints. Objective Current Medications: Current Medications Sig/Maximus Start time Last Medication Dose Route Stop Time Status Admin Acetaminophen 650 MG Q6P PRN 01/04 2130 AC PO Ampicillin Sodium/ 1,500 MG Q6 01/08 1200 AC 01/10 Sulbactam Sodium IV 0522 Sodium Chloride 100 ML Enoxaparin Sodium 40 MG DAILY 01/05 1000 AC 01/10 SC 0837 Folic Acid 1 MG DAILY 01/04 192 AC 01/10 PO 0837 Ibuprofen 600 MG TID PRN 01/05 2100 AC 01/06 PO 1608 Lorazepam 2 MG Q6 01/10 0600 AC 01/10 PO 0527 Lorazepam 1 MG BID 01/09 2200 CAN IV Lorazepam 0 Q1P PRN 01/09 1545 AC 01/10 IV 0414 Lorazepam 100 MG Q24H 01/08 1900 DC Sodium Chloride 1,000 ML IV 01/09 1400 Multivitamins 1 TAB DAILY 01/05 1000 AC 01/10 PO 0836 Nicotine 14 MG DAILY 01/05 1000 AC 01/10 TOP 0837 Thiamine HCl 50 MG DAILY 01/04 192 AC 01/10 PO 0837 Valproate Sodium 500 MG Q12 01/06 2200 AC 01/09 Sodium Chloride 100 ML IV 2120 Vital Signs & I&O Last 24 Hrs of Vitals and I&O: Vital Signs Date Time Temp Pulse Resp B/P B/P Pulse O2 O2 Flow FiO2 Mean Ox Delivery Rate 01/10 0800 97.2 63 20 166/90 01/10 0729 97.2 63 20 166/90 98 Room Air 01/10 0400 73 18 165/93 01/10 0400 97 Room Air 01/10 0152 82 26 160/82 01/10 0000 98.6 64 20 170/90 01/10 0000 98.6 64 20 170/90 97 Room Air 01/10 0000 97 Room Air 01/09 2200 65 20 173/105 01/09 2000 97.9 70 20 130/80 01/10 2000 98 Nasal 2.0L Cannula 01/09 1600 96 Nasal 2.0L Cannula 01/09 1600 96.3 64 20 98/48 96 Nasal 2.0L Cannula 01/09 1200 96 Nasal 2.0L Cannula Intake & Output 01/10 1600 01/10 0800 01/10 0000 Intake Total 170 580 Output Total 850 1400 Balance -680 -820 Intake, IV 120 240 Intake, Oral 50 340 Output, Urine 850 1400 Physical Exam General Appearance: well developed/nourished, arousable Head: atraumatic, normal appearance Neck: normal inspection, supple Respiratory: chest non-tender, no respiratory distress Cardiovascular: regular rate/rhythm Gastrointestinal: soft, non-tender Back: normal range of motion Extremities: normal inspection, normal capillary refill, normal range of motion, no edema Skin: intact, warm/dry Impression/Plan Impression/Plan Impression/Plan: 1. Acute alcohol withdrawal syndrome complicated by seizures and polysubstance abuse. 2. Electrolyte abnormalities. 3. Tobacco dependence. 4. Witnessed aspiration, with thick brown secretions, now on IV Unasyn. Recommendations: * Continue to follow on the CIWA protocol. * Continue multivitamin, thiamine and folate. * student services rep input - will follow up. * Continue to follow neurology recommendations. * Maintain the patient on seizure precautions. * Continue valproate and monitoring of levels. * Nicotine patch. * DVT prophylaxis at all times. * Continue all supportive care.
--- NOTE | 2017-01-10 09:15 | NUR ---
PT AGGITATED, TRYING TO GET OUT OF LULÚ CHAIR, WANTS TO GO HAVE A SMOKE, INFORMED PT THAT HE CANNOT LEAVE AND THERE IS NO SMOKING AT THE HOSPITAL. IV ATIVAN 1MG GIVEN PER CIWA AT THIS TIME. WILL REASSESS.
--- NOTE | 2017-01-10 09:45 | ELECTROENCEPHALOGRAM REPORT ---
Electroencephalogram Report Electroencephalogram Results Date of service: 01/09/17 Attending MD: Edil GREEN MD Comfort Filler: LAURA Banuelos EEG Number: [id number] Test Utilizes: 10-20 system, 21 lead 18 channel digital recording Pertinent Hx/Physical/Neuro Findings/Clin Diagnosis: 51-year-old patient being evaluated for alcohol withdrawal versus independent seizures. Inpatient Medications: Current Medications Sig/Maximus Start time Last Medication Dose Route Stop Time Status Admin Acetaminophen 650 MG Q6P PRN 01/04 2130 AC PO Ampicillin Sodium/ 1,500 MG Q6 01/08 1200 AC 01/10 Sulbactam Sodium IV 0522 Sodium Chloride 100 ML Enoxaparin Sodium 40 MG DAILY 01/05 1000 AC 01/10 SC 0837 Folic Acid 1 MG DAILY 01/04 1925 AC 01/10 PO 0837 Ibuprofen 600 MG TID PRN 01/05 2100 AC 01/06 PO 1608 Lorazepam 2 MG Q6 01/10 0600 AC 01/10 PO 0527 Lorazepam 1 MG BID 01/09 2200 CAN IV Lorazepam 0 Q1P PRN 01/09 1545 AC 01/10 IV 0855 Lorazepam 100 MG Q24H 01/08 1900 DC Sodium Chloride 1,000 ML IV 01/09 1400 Multivitamins 1 TAB DAILY 01/05 1000 AC 01/10 PO 0836 Nicotine 14 MG DAILY 01/05 1000 AC 01/10 TOP 0837 Thiamine HCl 50 MG DAILY 01/04 1925 AC 01/10 PO 0837 Valproate Sodium 500 MG Q12 01/06 2200 AC 01/09 Sodium Chloride 100 ML IV 2120 Interpretation: The background is composed of well-formed moderate amplitude posterior 10 Hz alpha which attenuates on eye opening. Low voltage faster beta activity is intermixed and seen best in the frontal regions. In drowsiness there is intermixed slower theta activity also seen in a generalized manner . There are no focal, lateralized or epileptiform abnormalities. Hyperventilation and photic stimulation were performed and at no additional information Impression: Normal EEG in the states of wakefulness and drowsiness. No focal or epileptiform abnormalities identified.
--- NOTE | 2017-01-10 10:20 | NUR ---
PT GETTING MORE AGGITATED, PLACED BACK IN BED. DREW AND WRIST RESTRAINTS IN PLACE, PT KEEPS YELLING TO GET OOB AND LEAVE. 2MG IV ATIVAN GIVEN
--- NOTE | 2017-01-10 11:27 | NUR ---
PATIENT PULLED OFF [place] CATH, INCONTINENT OF LARGE AMOUNT OF URINE. INCONTINENT CARE PROVIDED. NEW [place] CATH PLACED. REPOSITIONED. PT HITTING SIDE RAILS. INFORMED PT HE NEEDS TO CALM DOWN AND RELAX.
--- NOTE | 2017-01-10 12:17 | NUR ---
PT YELLING OUT ASKING FOR A KNIFE TO CUT HIS RESTRAINTS, TELLING THE NURSE TO SHUT UP. VERY AGITATED. 2MG IV ATIVAN GIVEN, HALDOL GIVEN PER EMAR. WILL MONITOR.
--- NOTE | 2017-01-10 14:45 | Cons- Psychiatry ---
Psychiatric Consult Date of Consult: 01/09/17 Reason for Consult: "Polysubstance abuse, alcohol detox, combative, agitated" Allergies: Coded Allergies: diphenhydramine (From Benadryl) (DROWSY OR HYPER 11/26/15) loratadine (From Claritin) (HYPER OR DROWSY 11/26/15) Past History Past Medical History Neurological: migraine, SEIZURE (ETOH RELATRD) EENT: NONE Cardiovascular: NONE Respiratory: NONE Gastrointestinal: INGUINAL HERNIA COLON POLYPS Hepatic: NONE Renal: NONE Musculoskeletal: FRACTURE LLL Psychiatric: alcohol dependence, depression Endocrine: NONE Blood Disorders: BLOOD CLOT AFTER SURGERY Cancer(s): NONE [employer]OPER/Reproductive: NONE Past Surgical History Surgical History: non-contributory
--- NOTE | 2017-01-10 15:02 | PN- Psychiatry ---
Assessment/Plan Impression: Identifying Info: 51-year-old single male presents to [facility] emergency department on 01/04/2017 by ambulance with chief complaint of nausea vomiting and headache. Subsequently diagnosed with alcohol withdrawal and admitted due to seizure history. SUBJECTIVE "You're going to get booze... open that door... can I have a light?" "[place]." Brief ROS Gait: Unobserved Sleep: Poor Appetite: Poor OBJECTIVE Mental Status Exam Presentation/Appearance: Patient lying in bed sleeping, hospital garb. 4 point soft wrist restraints in place. Pt is struggling against restraints at times. Orientation: Oriented to self, unable to assess if oriented to place or time Sensorium: Somnolent Eye contact: Poor Affect: Blunted Mood: JAE Depression: JAE Anxiety: JAE Thought Content: - Perseverative on d/c & ETOH at times - Unable to assess SI/HI/AVH. Unclear if internally stimulated at this time. Thought Process: Confused Speech: Mumbled and soft Judgment: Impaired Insight: Impaired Cognition: Memory: JAE Attention/Concentration: Poor MMSE: Did not assess Per nursing report pt has been confused and difficult to redirect all day. He has made several sexually innapropriate comments to staff and frequently has requested alcohol. At times he is verbally abusive. Did not respond to 2mg Haldol dose. Per House Staff report pt has been aggitated, minimal response to 2mg Haldol dose. CIWA 9,17,8,6,11,16,16,17,18,6,16 over past 24 h Ativan 25mg over past 24 hours with modest effect. ASSESSMENT 51-year-old single male presents requesting alcohol detox context of 2 weeks of heavy drinking post recent rehabilitation stay. His Ativan was recently reduced and he subsequently has had a poor response with increasing delirium. Would be prudent to increase scheduled ativan dose and increase PRN medication dose at this time. Differential diagnosis Alcohol use disorder, severe Cannabis use disorder By history cocaine use disorder Rule out unspecified mood disorder Suggestion: 1. Continue CIWA protocol. 2. Continue vitamin supplementation. 3. Please increase PRN Haldol for severe aggitation to 5mg q8h. Continue to monitor EKG and electrolytes on this medication. Hold for QTc great than 450ms. 4. Please increase Ativan to 3mg q4h for a total of 18mg daily with plan to decrease by 20-25% tomorrow if tolerated. Continue PRN dosing as ordered. 5. Appreciate social work consult for assistance in disposition planning once medically stable. Thank you for including psychiatry in this case, we will continue to follow. Subjective Subjective: (as above) Objective Last 24 Hrs of Vital Signs/I&O Current Medications Sig/Maximus Start time Last Medication Dose Route Stop Time Status Admin Acetaminophen 650 MG Q6P PRN 01/04 2130 AC PO Ampicillin Sodium/ 1,500 MG Q6 01/08 1200 AC 01/10 Sulbactam Sodium IV 1132 Sodium Chloride 100 ML Enoxaparin Sodium 40 MG DAILY 01/05 1000 AC 01/10 SC 0837 Folic Acid 1 MG DAILY 01/04 192 AC 01/10 PO 0837 Haloperidol 2 MG Q8 PRN 01/10 1215 CAN PO Haloperidol 2 MG Q8 PRN 01/10 1215 AC 01/10 IM 1220 Ibuprofen 600 MG TID PRN 01/05 2100 AC 01/06 PO 1608 Lorazepam 2 MG Q6 01/10 1800 DC PO Lorazepam 3 MG Q6 01/10 1800 UNVr PO Lorazepam 1.5 MG Q6 01/10 1200 DC PO Lorazepam 2 MG Q6 01/10 0600 DC 01/10 PO 0527 Lorazepam 1 MG BID 01/09 2200 CAN IV Lorazepam 0 Q1P PRN 01/09 1545 AC 01/10 IV 1430 Multivitamins 1 TAB DAILY 01/05 1000 AC 01/10 PO 0836 Nicotine 14 MG DAILY 01/05 1000 AC 01/10 TOP 0837 Thiamine HCl 50 MG DAILY 01/04 1925 AC 01/10 PO 0837 Valproate Sodium 500 MG Q12 01/06 2200 AC 01/10 Sodium Chloride 100 ML IV 1012 Laboratory Tests 01/10/17 0400: Anion Gap 13, Estimated GFR > 60, Glucose 88, Calcium 9.9, Phosphorus 3.8, Magnesium 1.8, Total Bilirubin 0.6, AST 35, ALT 29, Albumin 3.9, CBC w Diff MAN DIFF ORDERED, RBC 3.77 L, MCV 93.1, MCH 31.0, RDW 14.0, MPV 8.6, Gran % 55.8, Lymphocytes % 21.7, Monocytes % 20.6 H, Eosinophils % 1.6, Basophils % 0.3, Absolute Granulocytes 4.0, Segmented Neutrophils 52, Band Neutrophils 1, Absolute Lymphocytes 1.6, Lymphocytes 23, Monocytes 22 H, Absolute Monocytes 1.5 H, Eosinophils 2, Absolute Eosinophils 0.1, Absolute Basophils 0, Platelet Estimate ADEQUATE, Polychromasia 1+, Ovalocytes FEW, Stomatocytes FEW, PUBS MCHC 33.3, Fld Total RBCs Counted 100, Valproic Acid 66.3 Vital Signs Date Time Temp Pulse Resp B/P B/P Pulse O2 O2 Flow FiO2 Mean Ox Delivery Rate 01/10 1435 71 20 153/91 01/10 1400 82 20 145/94 01/10 1332 87 20 145/100 01/10 1216 80 20 160/94 01/10 1057 86 20 147/94 01/10 1000 78 20 133/86 01/10 0858 105 20 133/90 01/10 0800 97.2 63 20 166/90 01/10 0729 97.2 63 20 166/90 98 Room Air 01/10 0400 73 18 165/93 01/10 0400 97 Room Air 01/10 0152 82 26 160/82 01/10 0000 98.6 64 20 170/90 01/10 0000 98.6 64 20 170/90 97 Room Air 01/10 0000 97 Room Air 01/09 2200 65 20 173/105 01/10 2000 97.9 70 20 130/80 01/10 2000 98 Nasal 2.0L Cannula 01/09 1600 96 Nasal 2.0L Cannula 01/09 1600 96.3 64 20 98/48 96 Nasal 2.0L Cannula Intake & Output 01/10 1600 01/10 0800 01/10 0000 Intake Total 620 170 580 Output Total 480 543 3693 Balance 190 -680 -820 Intake, IV 260 120 240 Intake, Oral 360 50 340 Number 0 Bowel Movements Output, Urine [phone]
--- NOTE | 2017-01-10 16:55 | NUR ---
PT CONTINUES TO BE AGITATED, PRN ATIVAN GIVEN SEE EMAR. WRIST RESTRAINTS AND DREW REMAIN IN PLACE. FRIEND AT BEDSIDE, HELPING PT EAT. PT KEEPS SLIDING TO THE BOTTOM OF THE BED. REPOSITIONED.
--- NOTE | 2017-01-10 18:38 | NUR ---
PATIENT SWEARING AT STAFF, KEEPSING ASKING FOR A KNIFE OR SCISSORS TO CUT RESTRAINTS. 2MG IV ATIVAN GIVEN AT THIS TIME PER CIWA SCORE. WILL REASSESS
--- NOTE | 2017-01-10 18:48 | NUR ---
PATIENT MAKE RUDE INAPPROPRIATE SEXUAL COMMENTS TO FEMALE STAFF, IM HALDOL GIVEN PER EMAR.
[2017-01-11] VITALS (7 sets, daily range): BP systolic 103–150; BP diastolic 60–92
[2017-01-11 03:07] LABS: ABSOLUTE BASOPHIL COUNT 0 /CUMM (0.0-0.2); ABSOLUTE EOSINOPHIL COUNT 0.1 /CUMM (0.0-0.7); ABSOLUTE GRANULOCYTE CT 3.3 /CUMM (1.4-6.5); ABSOLUTE LYMPH COUNT 1.5 /CUMM (1.2-3.4); ABSOLUTE MONOCYTE COUNT 1.3 /CUMM (0.10-0.60); BASOPHIL % 0.6 % (0.0-2.0); EOSINOPHIL % 1.6 % (0-5); GRANULOCYTE % 53.4 % (42.2-75.2); HEMATOCRIT 36.7 % (42-52); MEAN CORPUSCULAR HGB 30.7 PG (27.0-31.0); MEAN CORPUSCULAR HGB CONC 33.3 G/DL (33.0-37.0); MEAN CORPUSCULAR VOLUME 92.2 FL (80.0-94.0); MEAN PLATELET VOLUME 8.2 FL (7.4-10.4); PLATELET COUNT 298 /CUMM (130-400); RBC DISTRIBUTION WIDTH 14.5 % (11.5-14.5); RED BLOOD CELL CT 3.98 /CUMM (4.70-6.10); WHITE BLOOD CELL COUNT 6.2 /CUMM (4.8-10.8)
--- NOTE | 2017-01-11 07:09 | PN- Housestaff ---
Subjective Follow-up For: 1- Alcohol withdrawal 2- possible seizure disorder vs alcohol withdrawal 3- possible aspiration pneumonia with brown sputum on Unasyn Tele-Events Since Last Visit: sinus rhythm, HR 62-97, no overnight event Subjective: I saw and examined the patient this am, he is drowsy, sleeping in bed, has iraj and 4 soft restraints on, he required increased doses of Ativan, three of 3 mg doses of Ativan, with maximum CIWA score of 25. Also required one time injection of IM haldol 5 mg overnight. Review of Systems Constitutional: Denies: chills. EENTM: Reports: no symptoms. Cardiovascular: Reports: no symptoms. Respiratory: Reports: no symptoms. Gastrointestinal: Reports: no symptoms. Genitourinary: Reports: no symptoms. Musculoskeletal: Reports: no symptoms. Skin: Reports: no symptoms. Neurological/Psychological: Reports: no symptoms. Objective Last 24 Hrs of Vital Signs/I&O Vital Signs Date Time Temp Pulse Resp B/P B/P Pulse O2 O2 Flow FiO2 Mean Ox Delivery Rate 01/11 1000 90 18 01/11 0800 97.1 98 20 150/90 01/11 0800 96 Room Air 01/11 0800 97.1 98 20 150/90 96 Room Air 01/11 0700 97.5 69 16 136/92 97 Room Air 01/11 0600 997.6 67 14 136/92 01/11 0400 97.9 72 16 114/78 01/11 0200 97.9 80 23 103/67 01/11 0000 97.9 82 30 140/74 01/11 0000 97 Room Air 01/10 2300 97.9 106 23 164/81 98 Room Air 01/10 2200 98.1 88 19 148/91 01/10 2100 98.2 76 14 156/94 01/10 2000 97.8 84 17 149/96 01/10 1837 86 20 149/96 01/10 1744 86 20 123/78 01/10 1624 88 20 141/86 01/10 1600 97.3 68 20 142/92 96 Room Air 01/10 1530 78 20 01/10 1435 71 20 153/91 01/10 1400 82 20 145/94 01/10 1332 87 20 145/100 01/10 1216 80 20 160/94 Intake & Output 01/11 1600 01/11 0800 01/11 0000 Intake Total 420 250 Output Total 450 620 Balance -30 -370 Intake, IV 100 Intake, Oral 320 250 Output, Urine 450 620 Physical Exam General Appearance: No Acute Distress Skin: No Significant Lesion Skin Temp/Moisture Exam: Warm/Dry Sepsis Skin Exam (color): Normal for Ethnicity HEENT: Atraumatic, Mucous Membr. moist/pink Neck: Supple Cardiovascular: Regular Rate, Normal S1, Normal S2, No Murmurs Lungs: Clear to Auscultation, Normal Air Movement Abdomen: Normal Bowel Sounds, Soft, No Tenderness Neurological: Normal Gait, Normal Speech, Strength at 5/5 X4 Ext, Normal Tone Extremities: No Edema Vascular: Pulses Symmetrical Current Medications: Current Medications Sig/Maximus Start time Last Medication Dose Route Stop Time Status Admin Acetaminophen 650 MG Q6P PRN 01/04 2130 AC PO Ampicillin Sodium/ 1,500 MG Q6 01/08 1200 AC 01/11 Sulbactam Sodium IV 0545 Sodium Chloride 100 ML Enoxaparin Sodium 40 MG DAILY 01/05 1000 AC 01/11 SC 0955 Folic Acid 1 MG DAILY 01/04 1925 AC 01/11 PO 0955 Haloperidol 5 MG Q8P PRN 01/10 1530 AC 01/10 IM 1846 Haloperidol 2 MG Q8 PRN 01/10 1215 CAN PO Haloperidol 2 MG Q8 PRN 01/10 1215 DC 01/10 IM 1220 Ibuprofen 600 MG TID PRN 01/05 2100 AC 01/06 PO 1608 Lorazepam 2 MG Q6 01/11 1800 AC PO Lorazepam 2 MG Q6 01/10 1800 DC PO Lorazepam 3 MG Q6 01/10 1800 DC 01/11 PO 0545 Lorazepam 1.5 MG Q6 01/10 1200 DC PO Lorazepam 0 Q1P PRN 01/09 1545 AC 01/10 IV 2257 Magnesium Oxide 400 MG ONE ONE 01/11 1000 DC 01/11 PO 01/11 1001 0955 Magnesium Sulfate 1 GM ONCE ONE 01/11 0945 CAN Dextrose/Water 100 ML IV 01/11 1344 Multivitamins 1 TAB DAILY 01/05 1000 AC 01/11 PO 0955 Nicotine 14 MG DAILY 01/05 1000 AC 01/11 TOP 0955 Potassium Chloride 20 MEQ ONCE ONE 01/11 1030 DC 01/11 PO 01/11 1031 1045 Potassium Chloride 40 MEQ ONCE ONE 01/11 1000 DC 01/11 PO 01/11 1001 0955 Thiamine HCl 50 MG DAILY 01/04 1925 AC 01/11 PO 0955 Valproate Sodium 500 MG Q12 01/06 2200 AC 01/11 Sodium Chloride 100 ML IV 09 Last 24 Hrs of Lab/John Results Last 24 Hrs of Labs/Mics: Laboratory Tests 01/11/17 0227: Anion Gap 16, Estimated GFR > 60, BUN/Creatinine Ratio 15.0, Magnesium 1.8, CBC w Diff MAN DIFF ORDERED, RBC 3.98 L, MCV 92.2, MCH 30.7, RDW 14.5, MPV 8.2, Gran % 53.4, Lymphocytes % 23.6, Monocytes % 20.8 H, Eosinophils % 1.6, Basophils % 0.6, Absolute Granulocytes 3.3, Segmented Neutrophils 54, Band Neutrophils 1, Absolute Lymphocytes 1.5, Lymphocytes 26, Monocytes 17 H, Absolute Monocytes 1.3 H, Eosinophils 1, Absolute Eosinophils 0.1, Absolute Basophils 0, Metamyelocytes 1, Platelet Estimate ADEQUATE, Polychromasia 1+, Ovalocytes FEW, Stomatocytes FEW, PUBS MCHC 33.3, Fld Total RBCs Counted 100 Assessment/Plan Assessment: Mr. Emmanuel is a 51 year old male with PMH of alcohol abuse and withdrawal seizures with multiple admissions who came to [facility] after starting back on drinking for 2 weeks and 2 days on withdrawal and an episode of seizure the night before presentation. Patient was admitted to general medicine floor for alcohol detox however was transferred to the ICU overnight as he was scoring high on CIWA and required Ativan drip. Called the female friend (Ms. Minnie Bentley) and updated her that the pt is moved to the ICU and why. She gave me his medication list: baclofen (0.5 tab pRN) and Oxcarbazepine (1 tab daily), which he does not take regularly. He took one pill of each on Monday01/03/17 when he had a seizure. We talked to the patient (as he is more alert today) as well as his fiance at bedside, they stated that he never had an EEG done and has not been seen by any neurologist in the past. *Also, patient's fiance reported that he had an episode of siezure while in the rehab facility when he was not intoxicated, sugegsting that he has an underlying seizure disorder. Neurology, Dr. Díaz was informed about this and he suggested to continue on Valproate and f/u on EEG. Alcohol detox Requires softs restraints x4 and iraj, still becomes agitated at times and tries to get out of bed * continue ativan IV Q1 PRN per CIWA and scheduled dose of Ativan is decreased to 2 mg PO Q4 (from 3mg Q6 yesterday) * continue thiamine, folate, and multivitamin * cotinue Haldol PRN, QTC<500 Aspiration penumonia Owing to long standing alcohol history and likley aspiration of foul smelling oral secretions. Remains afebrile with WBC of 6.2 CXR on 01/07/17: new hazy medial right base opacity concerning for developing atelectasis, aspiration, or pneumonia. There may be a subtle new retrocardiac consolidation as well. Repeat CXR on 01/08/17: Lungs are hypoinflated and there are persistent hazy opacities in the medial lung bases, slightly improved on the right compared to 01/07/2017. Unasyn began empirically 1500 mg Q6 on 01/08/17 Patient has been afebrile, CBC was increased to 11.1 on 01/07 and 01/08, which is trending down (today WBC is 10.1) * continue Unasyn to complete a 7 day course, today is day 4 * monitor for fever and leukocytosis * repeat CBC in am Hypomagnesemia and Hypokalemia WNL today, will replete with K-dur/Klor and Mag-Ox oral as needed * repeat BEP tomorrow Poly substance abuse and smoking * nicotine patch * counseling for smoking cessation and social work consult when condition stabilizes * psych consult is in place, appreciate recommendations * Social work consult is in place, will see the pt when more cooperative Questionable seizure disorder Patient was started on Oxcarbazepine. We tried to confirm the dose with [facility] several times since am but no answer, will try to confirm the dose with the pharmacy tomorrow * Continue Depakote 500 mg every 12, valproate level 57 * EED was done and read by neurology, was negative for ay evidence of focal or epileptiform abnormalities * will appreciate further neurology input re discharge planning and outpatient follow up Regular diet DVT ppx lovenox Full code Problem List: 1. Alcohol abuse 2. Alcohol withdrawal seizure Pain Ratin Pain Location: none Pain Goal: Pain 4 or less Pain Plan: mild pain pathway with Tylenol, mod-severe with Ibuprofen Tomorrow's Labs & Rationales: BEP and Mg (monitor electrolytes)
--- NOTE | 2017-01-11 10:04 | PN- CRCU ---
Subjective HPI/Critical Care Issues: Patient is confused and remains uncoperative. Continunes to have high CIWA scores. He can not offer any complaints. Objective Current Medications: Current Medications Sig/Maximus Start time Last Medication Dose Route Stop Time Status Admin Acetaminophen 650 MG Q6P PRN 01/04 2130 AC PO Ampicillin Sodium/ 1,500 MG Q6 01/08 1200 AC 01/11 Sulbactam Sodium IV 0545 Sodium Chloride 100 ML Enoxaparin Sodium 40 MG DAILY 01/05 1000 AC 01/11 SC 0955 Folic Acid 1 MG DAILY 01/04 1925 AC 01/11 PO 0955 Haloperidol 5 MG Q8P PRN 01/10 1530 AC 01/10 IM 1846 Haloperidol 2 MG Q8 PRN 01/10 1215 CAN PO Haloperidol 2 MG Q8 PRN 01/10 1215 DC 01/10 IM 1220 Ibuprofen 600 MG TID PRN 01/05 2100 AC 01/06 PO 1608 Lorazepam 2 MG Q6 01/10 1800 DC PO Lorazepam 3 MG Q6 01/10 1800 AC 01/11 PO 0545 Lorazepam 1.5 MG Q6 01/10 1200 DC PO Lorazepam 2 MG Q6 01/10 0600 DC 01/10 PO 0527 Lorazepam 0 Q1P PRN 01/09 1545 AC 01/10 IV 2257 Magnesium Oxide 400 MG ONE ONE 01/11 1000 DC 01/11 PO 01/11 1001 0955 Magnesium Sulfate 1 GM ONCE ONE 01/11 0945 CAN Dextrose/Water 100 ML IV 01/11 1344 Multivitamins 1 TAB DAILY 01/05 1000 AC 01/11 PO 0955 Nicotine 14 MG DAILY 01/05 1000 AC 01/11 TOP 0955 Potassium Chloride 40 MEQ ONCE ONE 01/11 1000 DC 01/11 PO 01/11 1001 0955 Thiamine HCl 50 MG DAILY 01/04 1925 AC 01/11 PO 0955 Valproate Sodium 500 MG Q12 01/06 2200 AC 01/11 Sodium Chloride 100 ML IV 0933 Vital Signs & I&O Last 24 Hrs of Vitals and I&O: Vital Signs Date Time Temp Pulse Resp B/P B/P Pulse O2 O2 Flow FiO2 Mean Ox Delivery Rate 01/11 0700 97.5 69 16 136/92 97 Room Air 01/11 0600 997.6 67 14 136/92 01/11 0400 97.9 72 16 114/78 01/11 0200 97.9 80 23 103/67 01/11 0000 97.9 82 30 140/74 01/11 0000 97 Room Air 01/10 2300 97.9 106 23 164/81 98 Room Air 01/10 2200 98.1 88 19 148/91 01/10 2100 98.2 76 14 156/94 01/10 2000 97.8 84 17 149/96 01/10 1837 86 20 149/96 01/10 1744 86 20 123/78 01/10 1624 88 20 141/86 01/10 1600 97.3 68 20 142/92 96 Room Air 01/10 1530 78 20 01/10 1435 71 20 153/91 01/10 1400 82 20 145/94 01/10 1332 87 20 145/100 01/10 1216 80 20 160/94 01/10 1057 86 20 147/94 Intake & Output 01/11 1600 01/11 0800 01/11 0000 Intake Total 420 250 Output Total 450 620 Balance -30 -370 Intake, IV 100 Intake, Oral 320 250 Output, Urine 450 620 Physical Exam General Appearance: well developed/nourished, arousable Head: atraumatic, normal appearance Neck: normal inspection, supple Respiratory: chest non-tender, no respiratory distress Cardiovascular: regular rate/rhythm Gastrointestinal: soft, non-tender Back: normal range of motion Extremities: normal inspection, normal capillary refill, normal range of motion, no edema Skin: intact, warm/dry Impression/Plan Impression/Plan Impression/Plan: 1. Acute alcohol withdrawal syndrome complicated by seizures and polysubstance abuse. 2. Electrolyte abnormalities. 3. Tobacco dependence. 4. Witnessed aspiration, with thick brown secretions, now on IV Unasyn. Recommendations: * Continue to follow on the CIWA protocol. * Continue multivitamin, thiamine and folate. * Continue to follow neurology recommendations. * Maintain the patient on seizure precautions. * Continue valproate and monitoring of levels. * Nicotine patch. * Follow up culture data. * Continue empiric IV Unasyn. * DVT prophylaxis at all times. * Gen med monitoring. * Continue all supportive care.
--- NOTE | 2017-01-11 10:57 | NUR ---
DREW REMOVED AT 0930, 4 POINT SOFT REMAIN WILL CONTINUE TO CLOSELY MONITOR
--- NOTE | 2017-01-11 14:10 | PN- Psychiatry ---
Assessment/Plan Impression: Identifying Info: 51-year-old single male presents to [facility] emergency department on 01/04/2017 by ambulance with chief complaint of nausea vomiting and headache. Subsequently diagnosed with alcohol withdrawal and admitted due to seizure history. SUBJECTIVE (Pt is sedated) Brief ROS Gait: Unobserved Sleep: Poor Appetite: Poor OBJECTIVE Mental Status Exam Presentation/Appearance: Patient lying in bed sleeping, hospital garb. Orientation: JAE Sensorium: Somnolent Eye contact: Poor Affect: Blunted Mood: JAE Depression: JAE Anxiety: JAE Thought Content: - Unable to assess SI/HI/AVH Thought Process: Confused Speech: Mumbled and soft Judgment: Impaired Insight: Impaired Cognition: Memory: JAE Attention/Concentration: Poor MMSE: Did not assess CIWA 18,9,5,6,6,6,6,4,5 over past 12 h Ativan 20mg over past 24 hours with good effect ASSESSMENT 51-year-old single male presents requesting alcohol detox context of 2 weeks of heavy drinking post recent rehabilitation stay. At present he is having an adequate response to medication. Would be prudent to consider modest decrease at thsi time. Differential diagnosis Alcohol use disorder, severe Cannabis use disorder By history cocaine use disorder Rule out unspecified mood disorder Suggestion: 1. Continue CIWA protocol. 2. Continue vitamin supplementation. 3. Please continue PRN Haldol for severe aggitation to 5mg q8h. Continue to monitor EKG and electrolytes on this medication. Hold for QTc great than 450ms. 4. Please scheduled Ativan by 20-25% of daily total dose. Continue PRN dosing as ordered. 5. Appreciate social work consult for assistance in disposition planning once medically stable. Thank you for including psychiatry in this case, we will continue to follow. Subjective Subjective: as above Objective Last 24 Hrs of Vital Signs/I&O Current Medications Sig/Maximus Start time Last Medication Dose Route Stop Time Status Admin Acetaminophen 650 MG Q6P PRN 01/04 2130 AC PO Ampicillin Sodium/ 1,500 MG Q6 01/08 1200 AC 01/11 Sulbactam Sodium IV 1219 Sodium Chloride 100 ML Enoxaparin Sodium 40 MG DAILY 01/05 1000 AC 01/11 SC 0955 Folic Acid 1 MG DAILY 01/04 1925 AC 01/11 PO 0955 Haloperidol 5 MG Q8P PRN 01/10 1530 AC 01/10 IM 1846 Haloperidol 2 MG Q8 PRN 01/10 1215 DC 01/10 IM 1220 Ibuprofen 600 MG TID PRN 01/05 2100 AC 01/06 PO 1608 Lorazepam 2 MG Q6 01/11 1800 DC PO Lorazepam 2 MG Q4 01/11 1400 AC 01/11 PO 1407 Lorazepam 2 MG Q6 01/10 1800 DC PO Lorazepam 3 MG Q6 01/10 1800 DC 01/11 PO 0545 Lorazepam 0 Q1P PRN 01/09 1545 AC 01/10 IV 2257 Magnesium Oxide 400 MG ONE ONE 01/11 1000 DC 01/11 PO 01/11 1001 0955 Magnesium Sulfate 1 GM ONCE ONE 01/11 0945 CAN Dextrose/Water 100 ML IV 01/11 1344 Multivitamins 1 TAB DAILY 01/05 1000 AC 01/11 PO 0955 Nicotine 14 MG DAILY 01/05 1000 AC 01/11 TOP 0955 Potassium Chloride 20 MEQ ONCE ONE 01/11 1030 DC 01/11 PO 01/11 1031 1045 Potassium Chloride 40 MEQ ONCE ONE 01/11 1000 DC 01/11 PO 01/11 1001 0955 Thiamine HCl 50 MG DAILY 01/04 1925 AC 01/11 PO 0955 Valproate Sodium 500 MG Q12 01/06 2200 AC 01/11 Sodium Chloride 100 ML IV 0933 Laboratory Tests 01/11/17 0227: Anion Gap 16, Estimated GFR > 60, BUN/Creatinine Ratio 15.0, Magnesium 1.8, CBC w Diff MAN DIFF ORDERED, RBC 3.98 L, MCV 92.2, MCH 30.7, RDW 14.5, MPV 8.2, Gran % 53.4, Lymphocytes % 23.6, Monocytes % 20.8 H, Eosinophils % 1.6, Basophils % 0.6, Absolute Granulocytes 3.3, Segmented Neutrophils 54, Band Neutrophils 1, Absolute Lymphocytes 1.5, Lymphocytes 26, Monocytes 17 H, Absolute Monocytes 1.3 H, Eosinophils 1, Absolute Eosinophils 0.1, Absolute Basophils 0, Metamyelocytes 1, Platelet Estimate ADEQUATE, Polychromasia 1+, Ovalocytes FEW, Stomatocytes FEW, PUBS MCHC 33.3, Fld Total RBCs Counted 100 Vital Signs Date Time Temp Pulse Resp B/P B/P Pulse O2 O2 Flow FiO2 Mean Ox Delivery Rate 01/11 1400 92 24 01/11 1200 80 14 01/11 1000 90 18 01/11 0800 97.1 98 20 150/90 01/11 0800 96 Room Air 01/11 0800 97.1 98 20 150/90 96 Room Air 01/11 0700 97.5 69 16 136/92 97 Room Air 01/11 0600 997.6 67 14 136/92 01/11 0400 97.9 72 16 114/78 01/11 0200 97.9 80 23 103/67 01/11 0000 97.9 82 30 140/74 01/11 0000 97 Room Air 01/10 2300 97.9 106 23 164/81 98 Room Air 01/10 2200 98.1 88 19 148/91 01/10 2100 98.2 76 14 156/94 01/10 2000 97.8 84 17 149/96 01/10 1837 86 20 149/96 01/10 1744 86 20 123/78 01/10 1624 88 20 141/86 01/10 1600 97.3 68 20 142/92 96 Room Air 01/10 1530 78 20 01/10 1435 71 20 153/91 Intake & Output 01/11 1600 01/11 0800 01/11 0000 Intake Total 685 420 250 Output Total 450 620 Balance 685 -30 -370 Intake, IV 205 100 Intake, Oral 480 320 250 Number 0 Bowel Movements Output, Urine 450 620
[2017-01-12 00:23] VITALS: BP 110/77
--- NOTE | 2017-01-12 02:09 | NUR ---
avss.a/conf to time and follow commands.haley with +cms.ciwa <5.no seizures noted and precaution maintained.+pp.no edema.iv abx cont via piv site. dayanara po well.incontinent of urine and perineal care done.plan of care reviewed.
[2017-01-12 04:00] VITALS: BP 94/57
--- NOTE | 2017-01-12 06:59 | PN- Housestaff ---
Subjective Follow-up For: 1- Alcohol withdrawal 2- possible seizure disorder vs alcohol withdrawal 3- possible aspiration pneumonia with brown sputum on Unasyn Subjective: I saw and examined the patient this am, he is more alert and awake, made a conversation with me and stated that he wants to get out of bed and have a walk. He denies any overnight issues except for the fact he could not sleep well due to his restrains on 4 extremities (can't sleep on his back). Review of Systems Constitutional: Denies: chills, fever. EENTM: Reports: no symptoms. Cardiovascular: Denies: chest pain, palpitations. Respiratory: Denies: cough, short of breath. Gastrointestinal: Denies: abdominal pain, changes in stool. Genitourinary: Reports: no symptoms. Musculoskeletal: Reports: no symptoms. Skin: Reports: no symptoms. Objective Last 24 Hrs of Vital Signs/I&O Vital Signs Date Time Temp Pulse Resp B/P B/P Pulse O2 O2 Flow FiO2 Mean Ox Delivery Rate 01/12 0400 85 20 94/57 01/12 0023 97.3 83 20 110/77 93 Room Air 01/11 1600 96.8 78 20 104/60 01/11 1600 97 Room Air 01/11 1600 96.8 78 20 104/60 97 Room Air 01/11 1400 92 24 Intake & Output 01/12 1600 01/12 0800 01/12 0000 Intake Total 240 680 Output Total 300 Balance 240 380 Intake, IV 200 Intake, Oral 240 480 Output, Urine 300 Physical Exam General Appearance: Alert, Oriented X3, Cooperative, No Acute Distress Skin: No Rashes Skin Temp/Moisture Exam: Warm/Dry Sepsis Skin Exam (color): Normal for Ethnicity HEENT: Atraumatic, EOMI, Mucous Membr. moist/pink Neck: Supple, No JVD Cardiovascular: Regular Rate, Normal S1, Normal S2 Lungs: Clear to Auscultation, Normal Air Movement Abdomen: Soft, No Tenderness Neurological: Strength at 5/5 X4 Ext, Normal Tone, waddling gait, wide based when walking Extremities: No Edema, Normal Pulses Vascular: Pulses Symmetrical Assessment/Plan Assessment: Mr. Emmanuel is a 51 year old male with PMH of alcohol abuse and withdrawal seizures with multiple admissions who came to [place] ED after starting back on drinking for 2 weeks and 2 days on withdrawal and an episode of seizure the night before presentation. Patient was admitted to general medicine floor for alcohol detox however was transferred to the ICU overnight as he was scoring high on CIWA and required Ativan drip. Problem list and plan: Alcohol detox Off ativan drip currently off restraints and has gone for walks on floor and has been eating by himself sugnufucant improvement in mentation and function * will continue ativan IV Q1 PRN per CIWA and scheduled dose of Ativan is decreased to 2 mg PO Q6 * continue thiamine, folate, and multivitamin * cotinue Haldol PRN if needed, QTC<500 (did not require any over the past 24 hours) Possible aspiration penumonia - resolved Owing to long standing alcohol history and likley aspiration of foul smelling oral secretions. Remains afebrile with WBC of 6.2 CXR on 01/07/17: new hazy medial right base opacity concerning for developing atelectasis, aspiration, or pneumonia. There may be a subtle new retrocardiac consolidation as well. Repeat CXR on 01/08/17: Lungs are hypoinflated and there are persistent hazy opacities in the medial lung bases, slightly improved on the right compared to 01/07/2017. Unasyn began empirically 1500 mg Q6 on 01/08/17 day 5 today Patient has been afebrile, CBC was increased to 11.1 on 01/07 and 01/08, which is trending down (today WBC is 10.1) * discontinue Unasyn Hypomagnesemia and Hypokalemia WNL today, will replete with K-dur/Klor and Mag-Ox oral as needed * repeat BEP tomorrow Poly substance abuse and smoking * nicotine patch * counseling for smoking cessation and social work consult when condition stabilizes * psych consult is in place, appreciate recommendations * Social work consult is in place, will see the pt when more cooperative Questionable seizure disorder * Continue Depakote 500 mg every 12, valproate level ordered will follow * EED was done and read by neurology, was negative for any evidence of focal or epileptiform abnormalities * Per neurology, Dr. Díaz, pt needs to be on depakote indefinitely due to the history of seizure independent of alcohol intoxication Regular diet DVT ppx lovenox Full code Problem List: 1. Polysubstance abuse 2. Alcohol withdrawal Pain Ratin Pain Location: none Pain Goal: Pain 4 or less Pain Plan: mild pain pathway Tomorrow's Labs & Rationales: BEP and Mg (monitor electrolytes) Tomorrow's Labs & Rationales: BEP and Mg (monitor electrolytes)
--- NOTE | 2017-01-12 13:12 | NUR ---
NURSING NOTE: PT IS MORE CALM THAN DAYS PAST. RESTRAINTS HAVE BEEN UNTIED SINCE BREAKFAST. NO DISRUPTIVE BEHAVIOR NOTED. AMBULATED IN HALLWAY X 2 TODAY. 3 LAPS AROUND INNER AND OUTER HORSESHOES. SAT IN CHAIR FOR 10 MINUTES AND PROCEEDED TO GET UP TO GO TO BATHROOM. STAFF RESPONDED TO CHAIR ALRM AND ASSISTED PT TO BATHROOM. BM X 1 AND VOIDED. PO INTAKE IS MODERATE.
[2017-01-12 16:00] VITALS: BP 116/82
[2017-01-12 22:00] VITALS: BP 114/74
[2017-01-13] VITALS: BP 100/70
--- NOTE | 2017-01-13 07:28 | PN- Housestaff ---
ELIECER STEVENS,BARBRA 01/13/17 0728: Subjective Follow-up For: 1- Alcohol withdrawal 2- possible seizure disorder Subjective: I saw and examined the pt at bedside this am, he is sitting in bed, alert, oriented to person and place, he states that he had a green suitcase when he came to the hospital and he has left it upstairs and it contains his cell phone and papers containing his 'footsteps'. Also insists on going out of the hospital to smoke. He also mentions that he wants his seizures be controlled and to be seen by a neurologist, I restated that neurology has seen him and he is on medication for the seizure. Patient is off restraints, received Ativan 4 times 2 mg each over the past 24 hours, did not require PRN IV ativan or haldol. Review of Systems Constitutional: Denies: chills, fever, weakness. EENTM: Reports: no symptoms. Cardiovascular: Denies: chest pain, palpitations. Respiratory: Denies: cough, short of breath. Gastrointestinal: Denies: abdominal pain, changes in stool. Genitourinary: Reports: no symptoms. Musculoskeletal: Reports: no symptoms. Skin: Reports: no symptoms. Objective Last 24 Hrs of Vital Signs/I&O Vital Signs Date Time Temp Pulse Resp B/P B/P Pulse O2 O2 Flow FiO2 Mean Ox Delivery Rate 01/13 0800 96.6 68 18 100/60 93 Room Air 01/13 0600 76 22 01/13 0000 98.0 72 22 100/70 01/13 0000 94 Room Air 01/12 2200 98.0 84 22 114/74 01/12 1600 97.0 82 20 116/82 92 Room Air Intake & Output 01/13 1600 01/13 0800 01/13 0000 Intake Total 240 480 Output Total Balance 240 480 Intake, Oral 240 480 Physical Exam General Appearance: Alert, Cooperative, No Acute Distress, oreinted to person and place Skin: No Rashes Skin Temp/Moisture Exam: Warm/Dry Sepsis Skin Exam (color): Normal for Ethnicity HEENT: Atraumatic, EOMI, Mucous Membr. moist/pink Neck: Supple, No JVD Cardiovascular: Regular Rate, Normal S1, Normal S2, No Murmurs Lungs: Clear to Auscultation, Normal Air Movement Abdomen: Soft, No Tenderness Neurological: Normal Speech, Normal Tone, Sensation Intact Extremities: No Edema, Normal Pulses Vascular: Pulses Symmetrical Current Medications: Current Medications Sig/Maximus Start time Last Medication Dose Route Stop Time Status Admin Acetaminophen 650 MG Q6P PRN 01/04 2130 AC PO Divalproex Sodium 500 MG BID 01/12 2200 AC 01/13 PO 0928 Enoxaparin Sodium 40 MG DAILY 01/05 1000 AC 01/13 SC 0928 Folic Acid 1 MG DAILY 01/04 1925 AC 01/13 PO 0928 Haloperidol 5 MG Q8P PRN 01/10 1530 AC 01/13 IM 0927 Ibuprofen 600 MG TID PRN 01/05 2100 AC 01/06 PO 1608 Lorazepam 2 MG Q6 01/12 1200 AC 01/13 PO 0529 Lorazepam 0 Q1P PRN 01/09 1545 AC 01/10 IV 2257 Magnesium Oxide 400 MG ONE ONE 01/12 1245 DC 01/12 PO 01/12 1246 1254 Multivitamins 1 TAB DAILY 01/05 1000 AC 01/13 PO 0928 Nicotine 21 MG DAILY 01/13 1000 AC 01/13 TOP 0928 Nicotine 14 MG DAILY 01/05 1000 DC 01/12 TOP 0905 Polyethylene Glycol 17 GM DAILY 01/13 1000 AC 01/13 PO 0928 Senna/Docusate Sodium 1 TAB BID PRN 01/12 1215 AC PO Thiamine HCl 50 MG DAILY 01/04 192 AC 01/13 PO 0928 Valproate Sodium 500 MG Q12 01/06 2200 DC 01/12 Sodium Chloride 100 ML IV 1251 Last 24 Hrs of Lab/John Results Last 24 Hrs of Labs/Mics: Laboratory Tests 01/13/17 0530: Anion Gap 10, Estimated GFR > 60, BUN/Creatinine Ratio 20.0, Magnesium 1.9 Assessment/Plan Assessment: Mr. Emmanuel is a 51 year old male with PMH of alcohol abuse and withdrawal seizures with multiple admissions who came to [facility] ED after starting back on drinking for 2 weeks and 2 days on withdrawal and an episode of seizure the night before presentation. Patient was admitted to general medicine floor for alcohol detox however was transferred to the ICU overnight as he was scoring high on CIWA and required Ativan drip. Currently a hold, if goes physically to , please order a 1:1 sitter, patient insists on going out of the hospital. Problem list and plan: Alcohol detox Off ativan drip since 01/08/17 currently off restraints * decreased Ativan to 2 mg Q8 * continue ativan PRN per CIWA * continue thiamine, folate, and multivitamin * continue Haldol PRN if needed, QTC<500 * still has hallucinations as mentioned above in the 'Subjective' section * follow up psych recommendations Possible aspiration pneumonia - resolved Owing to long standing alcohol history and likely aspiration of foul smelling oral secretions. We treated him for 5 days with IV unasyn which is now DC'd with him being afebrile and with normal WBC counts. CXR on 01/07/17: new hazy medial right base opacity concerning for developing atelectasis, aspiration, or pneumonia. There may be a subtle new retrocardiac consolidation as well. Repeat CXR on 01/08/17: Lungs are hypoinflated and there are persistent hazy opacities in the medial lung bases, slightly improved on the right compared to 01/07/2017. Hypomagnesemia and Hypokalemia WNL today, will replete with K-dur/Klor and Mag-Ox oral as needed * repeat BEP tomorrow Poly substance abuse and smoking * nicotine patch increased to 21 mg daily * counseling for smoking cessation and social work consult when condition stabilizes * psych consult is in place, appreciate recommendations * Social work consult is in place, will see the pt when more cooperative Questionable seizure disorder * Continue Depakote 500 mg every 12 * EEG was done and read by neurology, was negative for any evidence of focal or epileptiform abnormalities * Per neurology, Dr. Díaz, pt needs to be on depakote indefinitely due to the history of seizure independent of alcohol intoxication (while he was in the rehab facility) Regular diet DVT ppx lovenox Full code Problem List: 1. Alcohol withdrawal 2. Seizure Pain Ratin Pain Location: none Pain Goal: Pain 4 or less Pain Plan: mild pain pathway with tylenol Tomorrow's Labs & Rationales: BEP and Mg (monitor electrolyes) PETER STEVENS,Edil MEDEL 01/13/17 0943: Attending MD Review Statement Attending Statement Attending MD Statement: examined this patient, discuss w/resident/PA/CREW DISPATCHER, agreed w/resident/PA/CREW DISPATCHER, reviewed EMR data (avail), discussed with case mgmt, reviewed images, amended to note Attending Assessment/Plan: The patient is awake and appears to be less confused. He wants to go home and is intermittently agitated/resisting care. He has no respiratory distress. He remains on oral Ativan and Haldol for control of his CIWA scores. The patient is not offering any complaints. The plan for today will be to continue his Ativan and Haldol. We will request psychiatry and social service input. We will encourage the patient to continue to refrain from alcohol and complete his rehabilitation. We will continue him on a nicotine patch for assistance in smoking cessation. He continues to be maintained on multivitamin, thiamine and folate. We will continue all supportive care. The patient will be downgraded to the general medical floor with a one-to-one sitter.
[2017-01-13 08:00] VITALS: BP 100/60
--- NOTE | 2017-01-13 09:56 | NUR ---
@0800-PT ALERT AND ORIENTED TO PERSON AND PLACE. AGITATED AND IMPULSIVE AT TIMES. FOLLOWS COMMANDS. GRULLON. PUPILS EQUAL AND REACTIVE. CONT ON SCHED ATIVAN 2MG PO Q6HRS. CONT ON RA. LUNGS CLEAR. O2SAT 94%. VSS. ABD SOFT. +BS. REG DIET PROVIDED FOR BREAKFAST. OOB ASSIST X 1 TO BATHROOM. WILL AMBULATE AROUND ICU LATER THIS AM. UNSTEADY ON FEET. CONT TO MONITOR CLOSELY. CALL RUEDA WITHIN REACH.
--- NOTE | 2017-01-13 09:57 | NUR ---
@0930-PT NOTED TO BECOME INCREASINGY MORE AGITATED. PT STATING" I WANT TO BE DISCHARGED TODAY." MULT ATTEMPTS FOR GETTTING OOB WITHOUT CALLING FOR HELP. PT MEDICATED WITH IM HALDOL PRN DOSE AT THIS TIME. CONT TO MONITOR CLOSELY, CALL RUEDA WITHIN REACH.
--- NOTE | 2017-01-13 14:30 | NUR ---
@1400-AMBULATED PT IN HALLWAY. UNSTEADY GAIT CONT. BLACK LG PHONE RETUNRED BACK TO PT FROM [facility]. SCHED ATIVAN TAPER CHANGED TO Q8HRS FROM Q6HRS. PT COOP AT THIS TIME, IMPULSIVE. BEDALARM REMAINS IN PLACE.
--- NOTE | 2017-01-13 15:14 | PN- Psychiatry ---
Assessment/Plan Impression: Identifying Info: 51-year-old single male presents to [facility] emergency department on 01/04/2017 by ambulance with chief complaint of nausea vomiting and headache. Subsequently diagnosed with alcohol withdrawal and admitted due to seizure history. SUBJECTIVE "I plan on working my butt off and get the ball rolling." Patient reports he feels well. He states he does not want to drink again and does not use substances. 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 Gait: Unobserved, reported unsteady Sleep: Poor Appetite: Adequate OBJECTIVE Mental Status Exam Presentation/Appearance: Awake, sitting in bed, hospital garb. Orientation: person, place, not date Sensorium: Alert Eye contact: Fair Affect: Blunted Mood: Denies disturbance Depression: Denies Anxiety: Denies Thought Content: - Denies SI/HI, AH/VH, PI. States and also believes they will not kill themselves. 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 He was not responding to redirection with frequent requests to leave. He was given Haldol IM to get effect. ASSESSMENT 51-year-old single male presents requesting alcohol detox context of 2 weeks of heavy drinking post recent rehabilitation stay. At present he is having an adequate response to medication. Would be prudent to continue to decrease at this time. Differential diagnosis Alcohol use disorder, severe Cannabis use disorder By history cocaine use disorder Rule out unspecified mood disorder Suggestion: 1. Continue CIWA protocol. 2. Continue vitamin supplementation. 3. Please continue PRN Haldol for severe aggitation to 5mg q8h. Continue to monitor EKG and electrolytes on this medication. Hold for QTc great than 450ms. 4. Please scheduled Ativan by 20-25% of daily total dose. Continue PRN dosing as ordered. 5. Appreciate social work consult for assistance in disposition planning once medically stable. 6. Patient is a potential elopement and fall risk, please order 1:1. Thank you for including psychiatry in this case, we will continue to follow. Subjective Subjective: as above Objective Last 24 Hrs of Vital Signs/I&O Current Medications Sig/Maximus Start time Last Medication Dose Route Stop Time Status Admin Acetaminophen 650 MG Q6P PRN 01/04 2130 AC PO Divalproex Sodium 500 MG BID 01/12 2200 AC 01/13 PO 0928 Enoxaparin Sodium 40 MG DAILY 01/05 1000 AC 01/13 SC 0928 Folic Acid 1 MG DAILY 01/04 1925 AC 01/13 PO 0928 Haloperidol 5 MG Q8P PRN 01/10 1530 AC 01/13 IM 0927 Ibuprofen 600 MG TID PRN 01/05 2100 AC 01/06 PO 1608 Lorazepam 2 MG Q8 01/13 2200 AC PO Lorazepam 2 MG Q8 01/13 1400 DC PO Lorazepam 2 MG Q6 01/12 1200 DC 01/13 PO 1139 Lorazepam 0 Q1P PRN 01/09 1545 AC 01/10 IV 2257 Multivitamins 1 TAB DAILY 01/05 1000 AC 01/13 PO 0928 Nicotine 21 MG DAILY 01/13 1000 AC 01/13 TOP 0928 Nicotine 14 MG DAILY 01/05 1000 DC 01/12 TOP 0905 Polyethylene Glycol 17 GM DAILY 01/13 1000 AC 01/13 PO 0928 Senna/Docusate Sodium 1 TAB BID PRN 01/12 1215 AC PO Sodium Chloride 250 ML BOLUS ONE 01/13 1220 CAN IV 01/13 1319 Thiamine HCl 50 MG DAILY 01/04 192 AC 01/13 PO 0928 Laboratory Tests 01/13/17 0530: Anion Gap 10, Estimated GFR > 60, BUN/Creatinine Ratio 20.0, Magnesium 1.9 Vital Signs Date Time Temp Pulse Resp B/P B/P Pulse O2 O2 Flow FiO2 Mean Ox Delivery Rate 01/13 0800 96.6 68 18 100/60 93 Room Air 01/13 0600 76 22 01/13 0000 98.0 72 22 100/70 01/13 0000 94 Room Air 01/12 2200 98.0 84 22 114/74 01/12 1600 97.0 82 20 116/82 92 Room Air Intake & Output 01/13 1600 01/13 0800 01/13 0000 Intake Total 650 240 480 Output Total 1000 Balance -350 240 480 Intake, IV 0 Intake, Oral 650 240 480 Number 0 Bowel Movements Output, Urine 1000
[2017-01-13 16:00] VITALS: BP 98/62
--- NOTE | 2017-01-13 16:14 | NUR ---
Following patients progress as it relates to his detox. Have provided concurrent clinical reviews to CT P who have currently authorized patients stay through Monday, 01/15. Have noted improvement in patients overall condition; ambulating in [facility] with assist; still unsteady. Today his focus has been on wanting to go home. Follow to assist with aftercare planning.
[2017-01-13 22:00] VITALS: BP 118/70
[2017-01-13 23:00] VITALS: BP 118/70
--- NOTE | 2017-01-14 07:33 | PN- Housestaff ---
Subjective Follow-up For: 1- Alcohol withdrawal 2- possible seizure disorder Subjective: Mr. Newman was seen and examined this morning. He is resting comfortably in bed. Patient expresses that he would like to be discharged owing to wanting to visit his father who is on his bed in [place]. He claims to have received this news from his sister this am. Patient denies any fever, chills, nausea, vomiting. He is alert and oriented 3. He is tolerating by mouth intake well. Sisters number is: [phone] Review of Systems Constitutional: Reports: see HPI. Objective Last 24 Hrs of Vital Signs/I&O Vital Signs Date Time Temp Pulse Resp B/P B/P Pulse O2 O2 Flow FiO2 Mean Ox Delivery Rate 01/13 2300 98.1 72 16 118/70 97 Room Air 01/13 2200 98.1 72 16 118/70 01/13 1600 97.3 72 20 98/62 95 Room Air Intake & Output 01/14 1600 01/14 0800 01/14 0000 Intake Total 600 480 Output Total Balance 600 480 Intake, Oral 600 480 Number 2 1 Bowel Movements Physical Exam General Appearance: Alert, Oriented X3, Cooperative Cardiovascular: Regular Rate, Normal S1, Normal S2 Lungs: Clear to Auscultation, Normal Air Movement Abdomen: Normal Bowel Sounds, Soft, No Tenderness Neurological: Normal Gait, Normal Speech, Strength at 5/5 X4 Ext Current Medications: Current Medications Sig/Maximus Start time Last Medication Dose Route Stop Time Status Admin Acetaminophen 650 MG Q6P PRN 01/04 2130 AC PO Al Hydroxide/Mg 30 ML .STK-MED ONE 01/14 0033 DC Hydroxide PO 01/14 0034 Al Hydroxide/Mg 30 ML Q4-6 PRN PRN 01/14 0030 AC 01/14 Hydroxide PO 0032 Divalproex Sodium 500 MG BID 01/12 220 AC 01/13 PO 2132 Enoxaparin Sodium 40 MG DAILY 01/05 1000 AC 01/13 SC 0928 Folic Acid 1 MG DAILY 01/04 1925 AC 01/13 PO 0928 Haloperidol 5 MG Q8P PRN 01/10 1530 AC 01/13 IM 0927 Ibuprofen 600 MG TID PRN 01/05 2100 AC 01/06 PO 1608 Lorazepam 2 MG Q8 01/13 2200 AC 01/14 PO 0547 Lorazepam 2 MG Q8 01/13 1400 DC PO Lorazepam 2 MG Q6 01/12 1200 DC 01/13 PO 1139 Lorazepam 0 Q1P PRN 01/09 1545 AC 01/10 IV 2257 Multivitamins 1 TAB DAILY 01/05 1000 AC 01/13 PO 0928 Nicotine 21 MG DAILY 01/13 1000 AC 01/13 TOP 0928 Polyethylene Glycol 17 GM DAILY 01/13 1000 AC 01/13 PO 0928 Senna/Docusate Sodium 1 TAB BID PRN 01/12 1215 AC PO Sodium Chloride 250 ML BOLUS ONE 01/13 1220 CAN IV 01/13 1319 Thiamine HCl 50 MG DAILY 01/04 1925 AC 01/13 PO 0928 Last 24 Hrs of Lab/John Results Last 24 Hrs of Labs/Mics: Laboratory Tests 01/14/17 0430: Anion Gap 15, Estimated GFR > 60, BUN/Creatinine Ratio 20.0, Magnesium 2.0, Valproic Acid 64.6 Assessment/Plan Assessment: Mr. Emmanuel is a 51 year old male with PMH of alcohol abuse and withdrawal seizures with multiple admissions who came to [place] ED after starting back on drinking for 2 weeks and 2 days on withdrawal and an episode of seizure the night before presentation. Patient was admitted to general medicine floor for alcohol detox however was transferred to the ICU overnight as he was scoring high on CIWA and required Ativan drip. Patient needed a sitter this morning as he was na elopement risk. We obtained a stat psychiatry consult. Conversation with Dr. Subramanian stated that the patient still does not have capacity for adequate decision making. She recommends that the patient be continued on current regimen. Ativan taper to begin once patient is more stable. Overnight, if the patient's behavior does become erratic consider additional Haldol needed. In worse case scenario restraint can be used. Problem list and plan: Alcohol detox Off ativan drip since 01/08/17 currently off restraints * Continue Ativan 2 mg Q8 * continue ativan PRN per CIWA * continue thiamine, folate, and multivitamin * continue Haldol PRN if needed, QTC<500 * still has hallucinations as mentioned above in the 'Subjective' section * follow up psych recommendations Possible aspiration pneumonia - resolved Owing to long standing alcohol history and likely aspiration of foul smelling oral secretions. We treated him for 5 days with IV unasyn which is now DC'd with him being afebrile and with normal WBC counts. CXR on 01/07/17: new hazy medial right base opacity concerning for developing atelectasis, aspiration, or pneumonia. There may be a subtle new retrocardiac consolidation as well. Repeat CXR on 01/08/17: Lungs are hypoinflated and there are persistent hazy opacities in the medial lung bases, slightly improved on the right compared to 01/07/2017. Hypomagnesemia and Hypokalemia * repeat BEP tomorrow Poly substance abuse and smoking * nicotine patch 14 mg daily * counseling for smoking cessation and social work consult when condition stabilizes * psych consult is in place, appreciate recommendations * Social work consult is in place, will see the pt when more cooperative Questionable seizure disorder * Continue Depakote 500 mg every 12 * EEG was done and read by neurology, was negative for any evidence of focal or epileptiform abnormalities * Per neurology, Dr. Díaz, pt needs to be on depakote indefinitely due to the history of seizure independent of alcohol intoxication (while he was in the rehab facility) Regular diet DVT ppx lovenox Full code Problem List: 1. Alcohol withdrawal 2. Seizure Pain Ratin Pain Location: No pain Pain Goal: Remain pain free Pain Plan: Tylenol PRN Tomorrow's Labs & Rationales: CBC: Monitor H/H BEP: Monitor elctrolytes
[2017-01-14 08:00] VITALS: BP 130/70
--- NOTE | 2017-01-14 08:04 | NUR ---
PT VERBALIZING THAT HE IS GOING TO LEAVE HOSPITAL TODAY TO CATCH A BUS. ASKING FOR BED ALARM TO BE REMOVED. HE IS ORIENTED TIMES 3. HOWEVER, HE STATED HE IS NOT WILLING TO REMAIN IN HOSPITAL. , NURSING RELAY SHOP TESTER NOTIFIED AND SITTER OBTAINED .
--- NOTE | 2017-01-14 10:22 | PN- Pulmonary ---
Subjective HPI/Critical Care Issues: Mr. Newman was seen and examined this morning. He is resting comfortably in bed. Patient expresses that he would like to be discharged owing to wanting to visit his father who is his bed. He claims to have received this news from his sister this am. Patient denies any fever, chills, nausea, vomiting. He is alert and oriented 3. He is tolerating by mouth intake well. Review of Systems Constitutional: Reports: see HPI. Objective Current Medications: Current Medications Sig/Maximus Start time Last Medication Dose Route Stop Time Status Admin Acetaminophen 650 MG Q6P PRN 01/04 2130 AC PO Al Hydroxide/Mg 30 ML .STK-MED ONE 01/14 0033 DC Hydroxide PO 01/14 0034 Al Hydroxide/Mg 30 ML Q4-6 PRN PRN 01/14 0030 AC 01/14 Hydroxide PO 0032 Divalproex Sodium 500 MG BID 01/12 2200 AC 01/14 PO 0949 Enoxaparin Sodium 40 MG DAILY 01/05 1000 AC 01/14 SC 0949 Folic Acid 1 MG DAILY 01/04 1925 AC 01/14 PO 0949 Haloperidol 5 MG Q8P PRN 01/10 1530 AC 01/13 IM 0927 Ibuprofen 600 MG TID PRN 01/05 2100 AC 01/06 PO 1608 Lorazepam 2 MG Q8 01/13 2200 AC 01/14 PO 0547 Lorazepam 2 MG Q8 01/13 1400 DC PO Lorazepam 2 MG Q6 01/12 1200 DC 01/13 PO 1139 Lorazepam 0 Q1P PRN 01/09 1545 AC 01/10 IV 2257 Multivitamins 1 TAB DAILY 01/05 1000 AC 01/14 PO 0949 Nicotine 21 MG DAILY 01/13 1000 AC 01/14 TOP 0949 Polyethylene Glycol 17 GM DAILY 01/13 1000 AC 01/14 PO 0949 Senna/Docusate Sodium 1 TAB BID PRN 01/12 1215 AC PO Sodium Chloride 250 ML BOLUS ONE 01/13 1220 CAN IV 01/13 1319 Thiamine HCl 50 MG DAILY 01/04 1925 AC 01/14 PO 0949 Vital Signs & I&O Last 24 Hrs of Vitals and I&O: Vital Signs Date Time Temp Pulse Resp B/P B/P Pulse O2 O2 Flow FiO2 Mean Ox Delivery Rate 01/13 2300 98.1 72 16 118/70 97 Room Air 01/13 2200 98.1 72 16 118/70 01/13 1600 97.3 72 20 98/62 95 Room Air Intake & Output 01/14 1600 01/14 0800 01/14 0000 Intake Total 600 480 Output Total Balance 600 480 Intake, Oral 600 480 Number 2 1 Bowel Movements Impression/Plan Impression/Plan Impression/Plan: This is a gentleman with alcohol abuse came in with withdrawal seizures with DTs which seems to be improving. His issues include Alcohol withdrawal with delirium tremens with withdrawal seizure improving Probable aspiration pneumonia, improving Electrolyte abnormality Polysubstance abuse Previous history of seizure Patient is a possible elopement and fall risk RECOMMENDATION Slowly taper her lorazepam Reduce nicotine to 14 mg Continue antiseizure medicines Haldol when necessary Patient can go to the floor
--- NOTE | 2017-01-14 10:57 | NUR ---
PT EXHIBITING INCREASED IRRITABILITY MORNING PROGRESSED. PACING, RAISING HIS VOICE. DIFFICULT TO CALM DOWN. MD AWARE, HALDOL IM GIVEN. SITTER IN PLACE, WAITING FOR GEN MED BED.
--- NOTE | 2017-01-14 12:25 | NUR ---
1213 PT ARRIVED TOT HE FLOOR, A+O X3, ON RA, NO S/O DISTRESS, DENIES PAIN, ACCOMPANIED BY SITTER, ORIENTED TOT HE ROOM, BED LOW, LOCKED, VITALY LIGHT IN REACH.
--- NOTE | 2017-01-14 12:42 | Cons- Psychiatry ---
Psychiatric Consult Date of Consult: 01/14/17 Reason for Consult: "agitation" History of Present Illness: Pt admitted for complicated alcohol wd monitored closely in ICU given hx previous seen by psychiatry. Pt was agitated and wanted to leave earlier in the day stating that his "father was on his deathbed" and needed to go to [place]. When pt seen at bedside, calmer s/p haldol admistration. He did reiterate that he needed to leave as father was dying. Unable to state the circumstances around this, how he would give to [place]. Pt still recieving ativan 2mg q8hrs as part of taper. He was able to discribe the circumstances leading to hospitalization, "I' ve been drinking," but unable to discuss the details of why hospitalizated and for what reason. He did communicate a clear choice, "to leave to go be by my fathers deathbed," but did not appreciate the consequences of leaving AMA, "I'm be fine, I'm healthy," even when explained to him. Pt denies SI or HI. Denies AVHs. Allergies: Coded Allergies: diphenhydramine (From Benadryl) (DROWSY OR HYPER 11/26/15) loratadine (From Claritin) (HYPER OR DROWSY 11/26/15) Current Medications: Current Medications Sig/Maximus Start time Last Medication Dose Route Stop Time Status Admin Acetaminophen 650 MG Q6P PRN 01/04 2130 AC PO Al Hydroxide/Mg 30 ML .STK-MED ONE 01/14 0033 DC Hydroxide PO 01/14 0034 Al Hydroxide/Mg 30 ML Q4-6 PRN PRN 01/14 0030 AC 01/14 Hydroxide PO 0032 Divalproex Sodium 500 MG BID 01/12 2200 AC 01/14 PO 0949 Enoxaparin Sodium 40 MG DAILY 01/05 1000 AC 01/14 SC 0949 Folic Acid 1 MG DAILY 01/04 1925 AC 01/14 PO 0949 Haloperidol 5 MG Q8P PRN 01/10 1530 AC 01/14 IM 1027 Ibuprofen 600 MG TID PRN 01/05 2100 AC 01/06 PO 1608 Lorazepam 2 MG Q8 01/13 2200 AC 01/14 PO 0547 Lorazepam 2 MG Q8 01/13 1400 DC PO Lorazepam 2 MG Q6 01/12 1200 DC 01/13 PO 1139 Lorazepam 0 Q1P PRN 01/09 1545 AC 01/10 IV 2257 Multivitamins 1 TAB DAILY 01/05 1000 AC 01/14 PO 0949 Nicotine 14 MG DAILY 01/15 1000 AC TOP Nicotine 21 MG DAILY 01/13 1000 DC 01/14 TOP 0949 Polyethylene Glycol 17 GM DAILY 01/13 1000 AC 01/14 PO 0949 Senna/Docusate Sodium 1 TAB BID PRN 01/12 1215 AC PO Sodium Chloride 250 ML BOLUS ONE 01/13 1220 CAN IV 01/13 1319 Thiamine HCl 50 MG DAILY 01/04 1925 AC 01/14 PO 0949 Past History Past Medical History Neurological: migraine, SEIZURE (ETOH RELATRD) EENT: NONE Cardiovascular: NONE Respiratory: NONE Gastrointestinal: INGUINAL HERNIA COLON POLYPS Hepatic: NONE Renal: NONE Musculoskeletal: FRACTURE LLL Psychiatric: alcohol dependence, depression Endocrine: NONE Blood Disorders: BLOOD CLOT AFTER SURGERY Cancer(s): NONE ANIMAL BREEDER/Reproductive: NONE Past Surgical History Surgical History: non-contributory Psychosocial History Strengths/Capabilities: help seeking Physical Limitations (Interventions): ETOH withdrawl & dependence Psychiatric Treatment History Diagnosis: Alcohol use disorder Cocaine use disorder Risk Factors: SA/ hospitalized, substance abuse, male Substance Use/Abuse History Drug Use/Abuse Substances Used/Abused Yes ((as above)) Substance Abuse Treatment Substance Abuse Treatment Past Substance Abuse [place] Yes ((as above)) Assessment/Plan Mental Status Orientation: Person, Place, Situation (but drowsy) Affect: Anxious (irritable), Constricted Speech: Mumbled Neuro-vegetative: Hypersomnia Mental Status Exam: MSE Appears as stated age. Cooperative behavior, good, no eye contact. Nl speech rate and prosody though slow and quiet. No psychomotor retardation or agitation. Mood I want to go Affect extremely irritable, constricted, mostly appropriate, non-liable. Linear and goal directed thought process though could not express a clear plan for after discharge. Denies SI or HI. Does not appear to be responding to internal stimuli. Denies AVHs, paranoia, or delusions. I/J: limited Lab Results: Laboratory Tests 01/14 01/13 01/12 0430 0530 0435 Chemistry Sodium (137 - 145 mmol/L) 138 138 142 Potassium (3.5 - 5.1 mmol/L) 5.0 4.4 4.2 Chloride (98 - 107 mmol/L) 99 102 105 Carbon Dioxide (22 - 30 mmol/L) 25 27 25 Anion Gap (5 - 16) 15 10 12 BUN (9 - 20 mg/dL) 16 14 18 Creatinine (0.7 - 1.2 mg/dL) 0.8 0.7 0.7 Estimated GFR (>60 ml/min) > 60 > 60 > 60 BUN/Creatinine Ratio (7 - 25 %) 20.0 20.0 25.7 H Magnesium (1.6 - 2.3 mg/dL) 2.0 1.9 1.8 Toxicology Valproic Acid (50 - 120 ug/mL) 64.6 Diffential Diagnosis: Alcohol withdrawal r/o Delirium Impression: Pt with significant hx of AUD now being treated and monitored for complicated wd requesting to leave. Unfortunately, pt does NOT have capacity to leave AMA. He is unable to appreciate the consequences of sudden discharge or of alcohol wd in general, even though he has gone through the process on many occasions. Provisional Treatment Plan: - Pt does NOT have capacity to leave AMA, please continue sitter as high elopement risk - For acute agitation, can use haldol, bendaryl and/or ativan, please montior EKG for QTc prolongation - Continue ativan taper decreasing 20-25% daily - 1:1 sitter - Psych consult will continue to see Thank you for the consult
[2017-01-14 12:50] VITALS: BP 120/80
[2017-01-14 14:49] VITALS: BP 110/64
[2017-01-14 22:10] VITALS: BP 118/76
--- NOTE | 2017-01-15 06:41 | Transfer of Care Summary ---
Hospital Course Course Hospital Course: Mr. Emmanuel is a 51 year old male with PMH of alcohol abuse and withdrawal seizures with multiple admissions who came to [facility] after starting back on drinking for 2 weeks and 2 days on withdrawal and an episode of seizure the night before presentation. Patient was admitted to general medicine floor for alcohol detox however was transferred to the ICU overnight as he was scoring high on CIWA and required Ativan drip. Currently a GM hold, if goes physically to , please order a 1:1 sitter, patient insists on going out of the hospital. Problem list and plan: Alcohol detox Off ativan drip since 01/08/17 currently off restraints * decreased Ativan to 2 mg Q8 * continue ativan PRN per CIWA * continue thiamine, folate, and multivitamin * continue Haldol PRN if needed, QTC<500 * still has hallucinations as mentioned above in the 'Subjective' section * follow up psych recommendations Possible aspiration pneumonia - resolved Owing to long standing alcohol history and likely aspiration of foul smelling oral secretions. We treated him for 5 days with IV unasyn which is now DC'd with him being afebrile and with normal WBC counts. CXR on 01/07/17: new hazy medial right base opacity concerning for developing atelectasis, aspiration, or pneumonia. There may be a subtle new retrocardiac consolidation as well. Repeat CXR on 01/08/17: Lungs are hypoinflated and there are persistent hazy opacities in the medial lung bases, slightly improved on the right compared to 01/07/2017. Hypomagnesemia and Hypokalemia WNL today, will replete with K-dur/Klor and Mag-Ox oral as needed * repeat BEP tomorrow Poly substance abuse and smoking * nicotine patch increased to 21 mg daily * counseling for smoking cessation and social work consult when condition stabilizes * psych consult is in place, appreciate recommendations * Social work consult is in place, will see the pt when more cooperative Questionable seizure disorder * Continue Depakote 500 mg every 12 * EEG was done and read by neurology, was negative for any evidence of focal or epileptiform abnormalities * Per neurology, Dr. Díaz, pt needs to be on depakote indefinitely due to the history of seizure independent of alcohol intoxication (while he was in the rehab facility) Regular diet DVT ppx lovenox Full code
[2017-01-15 08:08] LABS: ABSOLUTE BASOPHIL COUNT 0.1 /CUMM (0.0-0.2); ABSOLUTE EOSINOPHIL COUNT 0.2 /CUMM (0.0-0.7); ABSOLUTE GRANULOCYTE CT 5.6 /CUMM (1.4-6.5); ABSOLUTE LYMPH COUNT 2.8 /CUMM (1.2-3.4); ABSOLUTE MONOCYTE COUNT 1.3 /CUMM (0.10-0.60); BASOPHIL % 0.7 % (0.0-2.0); EOSINOPHIL % 1.5 % (0-5); GRANULOCYTE % 56.7 % (42.2-75.2); HEMATOCRIT 38.4 % (42-52); MEAN CORPUSCULAR HGB 30.5 PG (27.0-31.0); MEAN CORPUSCULAR HGB CONC 32.8 G/DL (33.0-37.0); MEAN CORPUSCULAR VOLUME 93.2 FL (80.0-94.0); MEAN PLATELET VOLUME 8.4 FL (7.4-10.4); RED BLOOD CELL CT 4.12 /CUMM (4.70-6.10)
[2017-01-15 08:27] VITALS: BP 118/72
[2017-01-15 08:45] LABS: PLATELET COUNT 499 /CUMM (130-400); WHITE BLOOD CELL COUNT 9.9 /CUMM (4.8-10.8)
--- NOTE | 2017-01-15 09:52 | PN- Housestaff ---
[facility] 0938: Subjective Follow-up For: Etoh withdrawl Subjective: Saw pt at bedside. He did not endorse any complaints. He stated that he wanted to leave on Monday and I informed him that D.C planning was per primary team and attending. Last CIWA 0/1/0/0/0/2/ Review of Systems Constitutional: Denies: chills, weakness. EENTM: Reports: no symptoms. Cardiovascular: Denies: chest pain, palpitations. Respiratory: Reports: no symptoms. Gastrointestinal: Reports: no symptoms. Genitourinary: Reports: no symptoms. Musculoskeletal: Reports: no symptoms. Objective Last 24 Hrs of Vital Signs/I&O Vital Signs Date Time Temp Pulse Resp B/P B/P Pulse O2 O2 Flow FiO2 Mean Ox Delivery Rate 01/15 0827 97.9 88 20 118/72 100 01/14 2210 98.5 92 20 118/76 96 01/14 1449 98.1 80 18 110/64 97 Room Air 01/14 1250 98.0 80 20 120/80 97 Room Air Room Air Intake & Output 01/15 1600 01/15 0800 01/15 0000 Intake Total 800 Output Total Balance 800 Intake, Oral 800 Physical Exam General Appearance: Alert, Oriented X3, Cooperative, No Acute Distress Skin: No Significant Lesion HEENT: Atraumatic, Mucous Membr. moist/pink Neck: Supple Cardiovascular: Regular Rate, Normal S1, Normal S2 Lungs: Normal Air Movement Abdomen: Soft, No Tenderness Assessment/Plan Assessment: Mr. Emmanuel is a 51 year old male with PMH of alcohol abuse and withdrawal seizures with multiple admissions who came with CC ETOH withdrawal and an episode of seizure the night before presentation. Initially required ICU for Ativan drip and high CIWA scores, now transferred to . PLAN Alcohol detox: Off ativan drip since 01/08/17 * currently off restraints * Continue tapering Ativan to 1.5 mg Q8 today * continue ativan PRN per CIWA * continue thiamine, folate, and multivitamin * continue Haldol PRN if needed, QTC<500 * follow up psych recommendations Possible aspiration pneumonia - resolved * Owing to long standing alcohol history and likely aspiration; treated him for 5 days with IV unasyn which is now DC'd * afebrile and with normal WBC counts. TODAY WBC 9.9 Hypomagnesemia and Hypokalemia * repeat BEP tomorrow Poly substance abuse and smoking * nicotine patch 14 mg daily * counseling for smoking cessation and social work consult when condition stabilizes * psych consult is in place, appreciate recommendations * Social work consult is in place, will see the pt when more cooperative Questionable seizure disorder * Continue Depakote 500 mg every 12 * EEGwas negative for any evidence of focal or epileptiform abnormalities * Per neurology, Dr. Díaz, pt needs to be on depakote indefinitely due to the history of seizure independent of alcohol intoxication (while he was in the rehab facility) Regular diet DVT ppx lovenox Full code Problem List: 1. Seizure 2. Alcohol withdrawal Pain Ratin Pain Location: none Pain Goal: Remain pain free Pain Plan: none Tomorrow's Labs & Rationales: cbc bep DVT/Prophylaxis: pharmacological STEPHENEI MAHAN MD 01/15/17 1235: Attending MD Review Statement Attending Statement Attending MD Statement: examined this patient, discuss w/resident/PA/WATER CONSERVATION SPECIALIST, agreed w/resident/PA/WATER CONSERVATION SPECIALIST, reviewed EMR data (avail), discussed with nursing Attending Assessment/Plan: Assumed care today after transfer from ICU. In ICU for DT's complicated by aspiration pneumonia s/p abx treatment. Wanted to leave but seen by psych yseterday and determined to lack medical desicion making capacity. Now with a sitter and ativan ATC with taper of 20-25% per day. High risk for elopment. Need ongoing psych f/u and social work eval in am to help with dc planning and outpt etoh treatment options.
[2017-01-15 14:15] VITALS: BP 116/70
--- NOTE | 2017-01-15 17:48 | NUR ---
ALERT AND ORIENTED X 3. VITAL SIGNS STABLE. DENIES CHEST PAIN. + PULSES ON ROOM AIR. STEADY GAIT. SKIN C/D/I. NO DISCOMFORT NOTED SITTER AT BEDSIDE. WILL CONTINUE TO MONITOR
[2017-01-15 22:00] VITALS: BP 123/88
[2017-01-16 06:00] VITALS: BP 107/70
[2017-01-16 06:49] VITALS: BP 107/70
--- NOTE | 2017-01-16 07:09 | PN- Housestaff ---
See Addendum Subjective Follow-up For: ALCOHOL WITHDRAWAL Subjective: Pt seen today, was comfortably sitting on the chair eating his breakfast. He was upset that someone called his brother and told his brother that their father is ill. The brother called the patient yesterday and was very upset because he felt that the family has been hiding things from him, and excessively swearing over the phone. Psychiatry evaluated pt in the am, and according to patient, has cleared him for discharge. Pt has been scoring 0-1 on CIWA, will taper ativan to 1 q 8, possibly discharge pt today on taper. He plans to follow up with AA and [facility]. He "feels perfect" today and would like to go home. Review of Systems Constitutional: Reports: see HPI. Objective Last 24 Hrs of Vital Signs/I&O Vital Signs Date Time Temp Pulse Resp B/P B/P Pulse O2 O2 Flow FiO2 Mean Ox Delivery Rate 01/16 0649 98.6 88 20 107/70 98 01/16 0600 98.6 88 20 107/70 01/15 2200 97.8 92 18 123/88 01/15 2200 97.8 92 18 123/88 97 Room Air 01/15 1415 97.7 96 20 116/70 98 Room Air Intake & Output 01/16 1600 01/16 0800 01/16 0000 Intake Total 400 600 Output Total Balance 400 600 Intake, Oral 400 600 Physical Exam General Appearance: Alert, Oriented X3, Cooperative, No Acute Distress Cardiovascular: Regular Rate, Normal S1, Normal S2 Lungs: Clear to Auscultation, Normal Air Movement Abdomen: Normal Bowel Sounds, Soft, No Tenderness Neurological: Normal Speech Current Medications: Current Medications Sig/Maximus Start time Last Medication Dose Route Stop Time Status Admin Acetaminophen 650 MG Q6P PRN 01/04 2130 AC PO Al Hydroxide/Mg 30 ML .STK-MED ONE 01/15 2159 DC Hydroxide PO 01/15 2200 Al Hydroxide/Mg 30 ML .STK-MED ONE 01/15 1333 DC Hydroxide PO 01/15 1334 Al Hydroxide/Mg 30 ML Q4-6 PRN PRN 01/14 0030 AC 01/16 Hydroxide PO 0806 Divalproex Sodium 500 MG BID 01/12 2200 AC 01/15 PO 2154 Enoxaparin Sodium 40 MG DAILY 01/15 1002 CAN SC Enoxaparin Sodium 40 MG DAILY 01/05 1000 AC 01/15 SC 1025 Folic Acid 1 MG DAILY 01/04 1925 AC 01/15 PO 1024 Haloperidol 5 MG Q8P PRN 01/10 1530 AC 01/14 IM 1027 Ibuprofen 600 MG TID PRN 01/05 2100 AC 01/06 PO 1608 Lorazepam 1 MG Q8 01/16 1400 AC PO Lorazepam 1.5 MG Q8 01/15 1400 DC 01/16 PO 0528 Lorazepam 2 MG Q8 01/13 2200 DC 01/15 PO 0440 Lorazepam 0 Q1P PRN 01/09 1545 AC 01/10 IV 2257 Multivitamins 1 TAB DAILY 01/05 1000 AC 01/15 PO 1024 Nicotine 14 MG DAILY 01/15 1000 AC 01/15 TOP 0631 Polyethylene Glycol 17 GM DAILY 01/13 1000 AC 01/15 PO 1025 Senna/Docusate Sodium 1 TAB BID PRN 01/12 1215 AC PO Thiamine HCl 50 MG DAILY 01/04 192 AC 01/15 PO 1024 Last 24 Hrs of Lab/John Results Last 24 Hrs of Labs/Mics: Laboratory Tests 01/16/17 0625: Anion Gap 13, Estimated GFR > 60, BUN/Creatinine Ratio 20.0, CBC w Diff NO MAN DIFF REQ, RBC 4.05 L, MCV 92.9, MCH 30.9, RDW 14.8 H, MPV 8.0, Gran % 55.1, Lymphocytes % 30.0, Monocytes % 12.6 H, Eosinophils % 1.6, Basophils % 0.7, Absolute Granulocytes 5.3, Absolute Lymphocytes 2.9, Absolute Monocytes 1.2 H, Absolute Eosinophils 0.2, Absolute Basophils 0.1, PUBS MCHC 33.2 Assessment/Plan Assessment: Mr. Emmanuel is a 51 year old male with PMH of alcohol abuse and withdrawal seizures with multiple admissions who came with CC ETOH withdrawal and an episode of seizure the night before presentation. Initially required ICU for Ativan drip and high CIWA scores, now transferred to . PLAN Alcohol detox: Off ativan drip since 01/08/17 * currently off restraints * Has 1:1 sitter for elopement risk, can probably dc todat * Continue tapering Ativan from 1.5 mg Q8 to 1Q8 today * continue ativan PRN per CIWA * continue thiamine, folate, and multivitamin * continue Haldol PRN if needed, QTC<500 * follow up psych recommendations * Will follow up with [facility] and AA Possible aspiration pneumonia - resolved * Owing to long standing alcohol history and likely aspiration; treated him for 5 days with IV unasyn which is now DC'd * afebrile and with normal WBC counts. Hypomagnesemia and Hypokalemia * Resolved Poly substance abuse and smoking * nicotine patch 14 mg daily * counseling for smoking cessation and social work consult when condition stabilizes * psych consult is in place, appreciate recommendations * Social work consult is in place, will see the pt when more cooperative Questionable seizure disorder * Continue Depakote 500 mg every 12, will f/u with OP neurology * EEGwas negative for any evidence of focal or epileptiform abnormalities * Per neurology, Dr. Díaz, pt needs to be on depakote indefinitely due to the history of seizure independent of alcohol intoxication (while he was in the rehab facility) * Oxcarbazepine discontinued Regular diet DVT ppx lovenox Full code Problem List: 1. Alcohol withdrawal Pain Ratin Pain Location: none Pain Goal: Remain pain free Pain Plan: none Tomorrow's Labs & Rationales: none DVT/Prophylaxis: mechanical, pharmacological
[2017-01-16 08:07] LABS: ABSOLUTE BASOPHIL COUNT 0.1 /CUMM (0.0-0.2); ABSOLUTE EOSINOPHIL COUNT 0.2 /CUMM (0.0-0.7); ABSOLUTE GRANULOCYTE CT 5.3 /CUMM (1.4-6.5); ABSOLUTE LYMPH COUNT 2.9 /CUMM (1.2-3.4); ABSOLUTE MONOCYTE COUNT 1.2 /CUMM (0.10-0.60); BASOPHIL % 0.7 % (0.0-2.0); EOSINOPHIL % 1.6 % (0-5); GRANULOCYTE % 55.1 % (42.2-75.2); HEMATOCRIT 37.7 % (42-52); MEAN CORPUSCULAR HGB 30.9 PG (27.0-31.0); MEAN CORPUSCULAR HGB CONC 33.2 G/DL (33.0-37.0); MEAN CORPUSCULAR VOLUME 92.9 FL (80.0-94.0); PLATELET COUNT 543 /CUMM (130-400); RBC DISTRIBUTION WIDTH 14.8 % (11.5-14.5); RED BLOOD CELL CT 4.05 /CUMM (4.70-6.10); WHITE BLOOD CELL COUNT 9.7 /CUMM (4.8-10.8)
[2017-01-16] MEDS ORDERED: VITAMIN B-150 M1 PO (08:19)
[2017-01-16] MEDS ORDERED: DIVALPROEX SOD500 M2 PO (08:19)
[2017-01-16] MEDS ORDERED: ONE DAILY MULT1 EAC2 PO (08:19)
[2017-01-16] MEDS ORDERED: FOLIC ACID1 M1 PO (08:19)
[2017-01-16] MEDS ORDERED: ATIVAN0.5 M1 PO ×2 (08:23→08:27)
--- NOTE | 2017-01-16 08:26 | Patient Discharge Instructions ---
Discharge Instructions General Discharge Information You were seen/treated for: Alcohol withdrawal Aspiration pneumonia Special Instructions: Please follow up with [facility] Please follow up with AA Please follow up with Psychiatry Please follow up with PCP Please follow up with Dr. Díaz Diet Continue normal diet: Yes Activity Full Activity/No Limits: Yes Acute Coronary Syndrome Inclusion Criteria At DC or during hospital stay patient has or had the following: ACS DIAGNOSIS No Discharge Core Measures Meds if any: Prescribed or Continued at Discharge Meds if any: NOT Prescribed or Continued at Discharge Congestive Heart Failure Inclusion Criteria At DC or during hospital stay patient has or had the following: CHF DIAGNOSIS No Discharge Core Measures Meds if any: Prescribed or Continued at Discharge Meds if any: NOT Prescribed or Continued at Discharge Cerebrovascular accident Inclusion Criteria At DC or during hospital stay patient has or had the following: CVA/TIA Diagnosis No Discharge Core Measures Meds if any: Prescribed or Continued at Discharge Meds if any: NOT Prescribed or Continued at Discharge Venous thromboembolism Inclusion Criteria VTE Diagnosis No VTE Type NONE VTE Confirmed by (Test) NONE Discharge Core Measures - Per Current guidelines, there needs to be overlap - treatment for the first 5 days of Warfarin therapy. - If discharged on Warfarin prior to 5 days of - overlap therapy, the patient will need to be - assessed for post discharge needs including - *Post discharge parental anticoagulation - *Warfarin and/or parental anticoagulation education - *Follow up date to check INR post discharge At least 5 days overlap therapy as Inpatient No Meds if any: Prescribed or Continued at Discharge Note: Overlap Therapy is Warfarin and Anticoagulant Meds if any: NOT Prescribed or Continued at Discharge
--- NOTE | 2017-01-16 08:40 | NUR ---
NURSING NOTE: PT SEEN BY PSYCH. HAS CAPACITY, PATIENT SAFETY MONITOR DCD PER MD ORDER, CLEARANCE REPRESENTATIVE AWARE. PT EDUCATED NOT TO LEAVE FLOOR. VERB UNDERSTADNING.
--- NOTE | 2017-01-16 08:43 | Discharge Summary ---
Visit Information Visit Dates Admission Date: 01/04/17 Discharge Date: 01/16/17 Hospital Course Course Attending Physician: KELLY PIERSON MD Primary Care Physician: KIRILL ALBRECHT APRNNICA [facility] Course: Mr. Emmanuel is a 51 year old male with PMH of alcohol abuse and withdrawal seizures with multiple admissions who came to [facility] ED after starting back on drinking for 2 weeks and 2 days on withdrawal and an episode of seizure the night before presentation. Patient was admitted to general medicine floor for alcohol detox however was transferred to the ICU overnight as he was scoring high on CIWA and required Ativan drip. He was transferred back to after ativan drip was discontinued. He was discharged (after psychiatry has determined that he has capacity) on ativan taper as he would like to see his father who is very ill in [place]. He seems determined to quit drinking and will follow up with AA and [facility]. Pt received 5 days of IV unasyn in the hospital for possible aspiration PNA with foul smelling sputum. He was started on depakote for hx of seizure. He was not compliant with oxcarbazepine. EEG was done and read by neurology, was negative for any evidence of focal or epileptiform abnormalities. Per neurology, Dr. Eugene, pt needs to be on depakote indefinitely due to the history of seizure independent of alcohol intoxication (while he was in the rehab facility). Pt will follow up with Dr. Eugene. Allergies: Coded Allergies: diphenhydramine (From Benadryl) (DROWSY OR HYPER 11/26/15) loratadine (From Claritin) (HYPER OR DROWSY 11/26/15) Disposition Summary Disposition Principal Diagnosis: Alcohol withdrawal Additional Diagnosis: Seizure Aspiration pneumonia Discharge Disposition: home or self care Discharge Instructions General Discharge Information Code Status: Full Code Patient's Diet: Regular diet Patient's Activity: As tolerated Follow-Up Instructions/Appts: You were seen/treated for: Alcohol withdrawal Aspiration pneumonia Special Instructions: Please follow up with [facility] Please follow up with AA Please follow up with Psychiatry Please follow up with PCP Please follow up with Dr. Eugene Medications at Discharge Discharge Medications: Stop taking the following medications: Oxcarbazepine (Oxcarbazepine) 300 MG TABLET ORAL TWICE DAILY Qty = 30 Baclofen (Baclofen) 10 MG TABLET ORAL THREE TIMES DAILY Qty = 25 Start taking the following new medications: Lorazepam (Ativan) 0.5 MG TABLET 0 ORAL See Instructions Qty = 9 No Refills Instructions: Please take 1 mg on 01/16/17 PM PLEASE TAKE 1 MG TWICE A DAY ON 01/17/17 THEN TAKE 1 MG ON 01/18/17 THEN TAKE 0.5 MG ON 01/19/17 THEN STOP Comments: Last Taken: 01/16/17 Time: 0600AM Divalproex Sodium (Divalproex Sodium) 500 MG TABLET. 500 Milligram ORAL TWICE DAILY Qty = 60 No Refills Instructions: PLEASE FOLLOW UP WITH DR. EUGENE, NEUROLOGY, IN 2 WEEKS. Comments: Last Taken:01/16/17 Time: 0915AM Folic Acid (Folic Acid) 1 MG TABLET 1 Milligram ORAL DAILY Qty = 30 No Refills Comments: Last Taken:01/16/17 Time: 0915AM Thiamine HCl (Vitamin B-1) 50 MG TABLET 50 Milligram ORAL DAILY Qty = 30 No Refills Comments: Last Taken: 01/16/17 Time: 0915AM Multivitamin (One Daily Multivitamin) 1 EACH TABLET 1 Tablet ORAL DAILY Qty = 30 No Refills Comments: Last Taken: 01/16/17 Time: 0915AM Copies To: JABIER STEVENS,REGI Mcfadden; DAVID ALBRECHT APRN Attending MD Review Statement Documenting Attending: KELLY PIERSON MD
--- NOTE | 2017-01-16 09:07 | PN- Psychiatry ---
Assessment/Plan Impression: Identifying Info: 51-year-old single male presents to [facility] emergency department on 01/04/2017 by ambulance with chief complaint of nausea vomiting and headache. Subsequently diagnosed with alcohol withdrawal and admitted due to seizure history. SUBJECTIVE Patient states "I'm ready to go." Has no complaints at this time. States preference to return to [facility] IOP program Gait: Steady Sleep: Adequate Appetite: Adequate OBJECTIVE Mental Status Exam Presentation/Appearance: Awake, sitting in bed, hospital garb. Orientation: x3 Sensorium: Alert Eye contact: Appropriate Affect: Blunted Mood: "I'm good" Depression: Denies Anxiety: Denies Thought Content: - Denies SI/HI, AH/VH, PI. States and also believes they will not kill themselves. - Denies Hopeless/Helpless Thoughts Thought Process: Linear Speech: Normal tone and rate Judgment: Fair Insight: Fair Cognition: Memory: Impairments noted r/t recent detox Attention/Concentration: Improved/intact MMSE: Did not assess Capacity assessment Patient was able to communicate a choice regarding treatment treatment options displayed an ability to reason about treatment options, understand the relevant information and appreciate the situation and it's consequences including risk for Sz and . ASSESSMENT 51-year-old single male presents requesting alcohol detox context of 2 weeks of heavy drinking post recent rehabilitation stay. At present he is having an adequate response to medication. Patient is able to satisfy healthcare decision-making capacity on interview. Differential diagnosis Alcohol use disorder, severe Cannabis use disorder By history cocaine use disorder Rule out unspecified mood disorder Suggestion: 1. Continue CIWA protocol. 2. Continue vitamin supplementation. 3. Please continue PRN Haldol for severe aggitation to 5mg q8h. Continue to monitor EKG and electrolytes on this medication. Hold for QTc great than 450ms. 4. Please scheduled Ativan by 20-25% of daily total dose. Continue PRN dosing as ordered. 5. Appreciate social work consult for assistance in disposition planning. 6. Please discontinue 1:1 sitter. 7. Pt has capacity, he may leave AMA if he wishes. Please continue to encourage pt to finish Ativan taper in hospital. Thank you for including psychiatry in this case, we will continue to follow. Subjective Subjective: as above Objective Last 24 Hrs of Vital Signs/I&O Current Medications Sig/Maximus Start time Last Medication Dose Route Stop Time Status Admin Acetaminophen 650 MG Q6P PRN 01/04 2130 AC PO Al Hydroxide/Mg 30 ML .STK-MED ONE 01/15 2159 DC Hydroxide PO 01/15 2200 Al Hydroxide/Mg 30 ML .STK-MED ONE 01/15 1333 DC Hydroxide PO 01/15 1334 Al Hydroxide/Mg 30 ML Q4-6 PRN PRN 01/14 0030 AC 01/16 Hydroxide PO 0806 Divalproex Sodium 500 MG BID 01/12 2200 AC 01/15 PO 2154 Enoxaparin Sodium 40 MG DAILY 01/15 1002 CAN SC Enoxaparin Sodium 40 MG DAILY 01/05 1000 AC 01/15 SC 1025 Folic Acid 1 MG DAILY 01/04 1925 AC 01/15 PO 1024 Haloperidol 5 MG Q8P PRN 01/10 1530 AC 01/14 IM 1027 Ibuprofen 600 MG TID PRN 01/05 2100 AC 01/06 PO 1608 Lorazepam 1 MG Q8 01/16 1400 AC PO Lorazepam 1.5 MG Q8 01/15 1400 DC 01/16 PO 0528 Lorazepam 2 MG Q8 01/13 2200 DC 01/15 PO 0440 Lorazepam 0 Q1P PRN 01/09 1545 AC 01/10 IV 2257 Multivitamins 1 TAB DAILY 01/05 1000 AC 01/15 PO 1024 Nicotine 14 MG DAILY 01/15 1000 AC 01/15 TOP 0631 Polyethylene Glycol 17 GM DAILY 01/13 1000 AC 01/15 PO 1025 Senna/Docusate Sodium 1 TAB BID PRN 01/12 1215 AC PO Thiamine HCl 50 MG DAILY 01/04 1925 AC 01/15 PO 1024 Laboratory Tests 01/16/17 0625: Anion Gap 13, Estimated GFR > 60, BUN/Creatinine Ratio 20.0, CBC w Diff NO MAN DIFF REQ, RBC 4.05 L, MCV 92.9, MCH 30.9, RDW 14.8 H, MPV 8.0, Gran % 55.1, Lymphocytes % 30.0, Monocytes % 12.6 H, Eosinophils % 1.6, Basophils % 0.7, Absolute Granulocytes 5.3, Absolute Lymphocytes 2.9, Absolute Monocytes 1.2 H, Absolute Eosinophils 0.2, Absolute Basophils 0.1, PUBS MCHC 33.2 Vital Signs Date Time Temp Pulse Resp B/P B/P Pulse O2 O2 Flow FiO2 Mean Ox Delivery Rate 05/01 0649 98.6 88 20 107/70 98 01/16 0600 98.6 88 20 107/70 01/15 2200 97.8 92 18 123/88 01/15 2200 97.8 92 18 97 Room Air 01/15 1415 97.7 96 20 116/70 98 Room Air Intake & Output 01/16 1600 01/16 0800 01/16 0000 Intake Total 400 600 Output Total Balance 400 600 Intake, Oral 400 600
--- NOTE | 2017-01-16 10:36 | NUR ---
NURSING NOTE; NICOTINE PATCH REMOVED BY PT. PT DID NOT WANT HIS HOME MEDS THAT WERE BEING DCD. GIVEN TO ROXANNE MELT SUPERVISOR
--- NOTE | 2017-01-16 12:18 | NUR ---
Late Entry: Aware of patients discharge this morning. Russell had been moved out of [facility] on 01/13/17 with a 1:1 sitter for elopement risk. Evaluated by psychiatry over the weeekend and found to be without capacity for medical decision making. This morning, patient was re-evaluated by psychiatry and found to have capacity. Case discussed at [facility]'s. I met with Skip after [facility]'s. He was dressed and waiting for his ride to take him home. Skip reports previous contact with [facility] in [place] and plans to re-connect with them for ongoing treatment. I provided Skip with my card so if [facility] needs records from this hospitalization, I will be able to assist.
== END 2017-01-16 10:27 | DRG 775 ==
LOC: ERH 13:34 → 2NA 16:44 → CRI 16:44 → ERHI 16:44 → 2NA 19:45 → CRI 01-05 20:27 → 2NB 01-14 12:14 → ENPENDDIS 01-16 09:27 → 2NB 01-16 10:27
PROVIDERS: Emergency Medicine; Ophthalmology; Student in an Organized Health Care Education/Training Program; ADMIT Internal Medicine
DX: F10.239 Alcohol dependence with withdrawal, unspecified (principal); J69.0 Pneumonitis due to inhalation of food and vomit; E83.42 Hypomagnesemia; Y90.0 Blood alcohol level of less than 20 mg/100 ml; G40.909 Epilepsy, unspecified, not intractable, without status epilepticus; F17.200 Nicotine dependence, unspecified, uncomplicated; E87.6 Hypokalemia
CPT/HCPCS: 2NASP; 2NBP; CCU; 36415; 80307; 82436; 93005; 93010; 95816; 96374; 96375; 99232; G0480; J1630; J1650; J2060; J2405; J3490; J7040; J7060

== ENCOUNTER 2017-02-06 19:00 | Inpatient (IN) | payer OTHER ==
[~2017-02-06] VITALS: Ht 172.7 cm; Wt 74.8 kg
[~2017-02-06 19:00] MED LIST changes: +ATIVAN0.5 M1 PO; +BACLOFEN10 M1 PO; +DIVALPROEX SOD500 M2 PO; +FOLIC ACID1 M1 PO; +ONE DAILY MULT1 EAC2 PO; +OXCARBAZEPINE300 M1 PO; +VITAMIN B-150 M1 PO
--- NOTE | 2017-02-06 19:03 | NUR ---
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 PT NOT POSTICTAL UPON EMS ARRIVAL NO INCONTINENCE, LAST DRINK A COUPLE HRS AGO. HX OF WITHDRAWAL SEIZURES
--- NOTE | 2017-02-06 19:04 | NUR ---
AVERAGES 1-1.5 PINT OF VODKA PER DAY OVER LAST TWO WEEKS. LAST DRANK TODAY ABOUT 3/4 PINT. ALERT AND COVERSATES APPROPRIATELY ON ARRIVAL. NEUROS APPEAR INTACT, FOLLOWS ALL COMMANDS. PERRLA. DENIES C-SPINE TENDERNESS. STATES HE REMEMBERS FALLING DURING SEIZURE AND HEAD GRAZED COUCH BUT DID NOT HIT FLOOR. CHRONIC HX MIGRAINES. CALM AND COOPERATIVE
--- NOTE | 2017-02-06 19:09 | ED AMS/SEIZURE/WEAK/DIZZY ---
History of Present Illness General Chief Complaint: Seizure Stated Complaint: ? SEIZURE Source: patient, old records, EMS Exam Limitations: no limitations Vital Signs & Intake/Output Vital Signs & Intake/Output Vital Signs Date Time Temp Pulse Resp B/P B/P Pulse O2 O2 Flow FiO2 Mean Ox Delivery Rate 02/06 2137 98.0 83 16 142/88 02/06 2131 98.0 83 16 142/88 02/06 2106 98.0 83 16 142/88 99 Room Air 02/06 1915 98.0 87 18 145/87 02/06 1915 98 Room Air 02/06 1902 98.0 87 16 145/87 98 Room Air Allergies Coded Allergies: diphenhydramine (From Benadryl) (DROWSY OR HYPER 11/26/15) loratadine (From Claritin) (HYPER OR DROWSY 11/26/15) Reconcile Medications Disulfiram (Unknown Strength) TABLET (Unknown Dose) PO DAILY UNKNOWN ( Reported) Divalproex Sodium 500 MG TABLET. 500 MG PO BID SEIZURE PLEASE FOLLOW UP WITH DR. EUGENE, NEUROLOGY, IN 2 WEEKS. 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 PT NOT POSTICTAL UPON EMS ARRIVAL NO INCONTINENCE, LAST DRINK A COUPLE HRS AGO. HX OF WITHDRAWAL SEIZURES Triage Nurses Notes Reviewed? yes HPI: Patient has been trying to decrease the amount of alcohol he drinks. Patient has a history of alcohol withdrawal seizures. Patient is post" but has been noncompliant with his. Patient had a witnessed seizure this evening. Patient was postictal upon EMS arrival. Patient currently feels very shaky and tremulous. Positive headache. Headache is diffuse. Throbbing in nature. There are no aggravating or mitigating factors. He rates the headache at 5 out of 10. No blurry vision. Patient denies any suicidal or homicidal ideations. Past History Travel History Traveled to [place] past 21 day No Medical History Any Pertinent Medical History? see below for history Neurological: migraine, SEIZURE (ETOH RELATRD) EENT: NONE Cardiovascular: NONE Respiratory: NONE Gastrointestinal: INGUINAL HERNIA COLON POLYPS Hepatic: NONE Renal: NONE Musculoskeletal: FRACTURE LLL Psychiatric: alcohol dependence, depression Endocrine: NONE Blood Disorders: BLOOD CLOT AFTER SURGERY Cancer(s): NONE SERVICES ADVISOR/Reproductive: NONE Other Medical Hx: Seizures, alcohol abuse History of MRSA: No History of VRE: No History of CDIFF: No Influenza Vaccine: 08/18/16 Surgical History Surgical History: non-contributory Psychosocial History Who do you live with Brother Services at Home None What is your primary language Burkinan Tobacco Use: Current Not Daily Daily Tobacco Use Amount/Type: =< 4 Cigarettes daily ETOH Use: alcoholic Family History Family History, If Any: MOTHER (lung cancer). FATHER (stroke). Hx Contributory? No Review of Systems Review of Systems Constitutional: Reports: no symptoms. EENTM: Reports: no symptoms. Respiratory: Reports: no symptoms. Cardiovascular: Reports: no symptoms. GI: Reports: no symptoms. Genitourinary: Reports: no symptoms. Musculoskeletal: Reports: no symptoms. Skin: Reports: no symptoms. Neurological/Psychological: Reports: see HPI. Hematologic/Endocrine: Reports: no symptoms. Immunologic/Allergic: Reports: no symptoms. All Other Systems: Reviewed and Negative Physical Exam Physical Exam General Appearance: well developed/nourished, alert, awake, anxious, moderate distress Head: atraumatic, normal appearance Eyes: Bilateral: PERRL, EOMI. Ears, Nose, Throat: normal pharynx, normal ENT inspection, hearing grossly normal Neck: normal inspection, supple, full range of motion Respiratory: normal breath sounds, chest non-tender, no respiratory distress, lungs clear Cardiovascular: regular rate/rhythm, normal peripheral pulses Gastrointestinal: normal bowel sounds, soft, non-tender, no organomegaly Back: normal inspection, normal range of motion Extremities: normal range of motion Neurologic/Psych: no motor/sensory deficits, awake, alert, oriented x 3, normal mood/affect Skin: intact, normal color, diaphoresis Core Measures ACS in differential dx? No CVA/TIA Diagnosis: No Severe Sepsis Present: No Septic Shock Present: No Progress Differential Diagnosis: alcohol intoxication, drug intoxication, electrolyte imbalance, seizure disorder, ALCOHOL WITHDRAWL SEIZURE Plan of Care: Orders Procedure Date/time Status Admit to inpatient 02/06 2151 Active Add-on Test (ER Only) 02/07 1916 Active CIWA 02/06 1909 Active URINE DRUGS OF ABUSE 02/06 1909 Active ETHANOL 02/06 1909 Complete DEPAKOTE LEVEL 02/06 1909 Complete COMPREHENSIVE METABOLIC PANEL 02/06 1909 Complete CBC WITHOUT DIFFERENTIAL 02/06 1909 Complete CASE MANAGEMENT CONSULT 02/06 1909 Active Current Medications Sig/Maximus Start time Last Medication Dose Stop Time Status Admin Lorazepam 2 MG ONE ONE 02/06 2200 UNVr (Ativan) 02/06 2201 Lorazepam 2 MG ONCE ONE 02/06 2200 UNVr (Ativan) 02/06 2201 Cyanocobalamin/ 1 BAG ONCE ONE 02/06 1915 AC 02/06 Thiamine/Pyridoxine 02/07 (Vitamin in I.V.) Dextrose/Water 1,000 ML (D5W 1000) Laboratory Tests 02/06/171945: Anion Gap 18 H, Estimated GFR > 60, BUN/Creatinine Ratio 25.0, Glucose 85, Calcium 9.6, Total Bilirubin 0.6, AST 41, ALT 30, Alkaline Phosphatase 82, Total Protein 8.5 H, Albumin 5.0, Globulin 3.5, Albumin/Globulin Ratio 1.4, CBC w Diff NO MAN DIFF REQ, RBC 4.28 L, MCV 91.8, MCH 30.9, RDW 16.3 H, MPV 7.9, Gran % 45.9, Lymphocytes % 38.6, Monocytes % 12.4 H, Eosinophils % 2.4, Basophils % 0.7, Absolute Granulocytes 2.5, Absolute Lymphocytes 2.1, Absolute Monocytes 0.7 H, Absolute Eosinophils 0.1, Absolute Basophils 0, PUBS MCHC 33.7 , Valproic Acid 16.8 L, Serum Alcohol 147.0 Initial ED EKG: none Departure Departure Disposition: STILL A PATIENT Condition: Guarded Clinical Impression Primary Impression: Alcohol dependence with withdrawal with complication Referrals: DAVID ALBRECHT APRN (PCP/Family) Departure Forms: Customer Survey General Discharge Information Admission Note Spoke With: DERIC STEVENS,MIGUEL ANGEL Documentation of Exam: Documentation of any treatments & extenuating circumstances including Concerns Regarding Discharge (functional status, medication knowledge or non-compliance, living conditions, etc.) that warrant an admission rather than observation: [ ATIVAN PER TOMWA, HE SHOULD FOLLOW UP WITH IOP OR REHAB UPON DISCHARGE.] Alcohol Withdrawl Admission ED Alcohol Detox Admission d/t: DTs/Seizure w/i last year
[2017-02-06] MEDS ORDERED: IMITREX50 M1 PO (19:10)
[2017-02-06] MEDS ORDERED: NAPROXEN500 M2 PO (19:11)
[2017-02-06] MEDS ORDERED: DISULFIRAM250 M1 PO (19:12)
--- NOTE | 2017-02-06 19:13 | NUR ---
UNABLE TO VOID AT THIS TIME. AWARE OF NEED FOR URINE SAMPLE. REQUESTING DETOX
[2017-02-06 19:15] VITALS: BP 145/87
--- NOTE | 2017-02-06 19:54 | NUR ---
IV ESTABLISHED AND LABS DRAWN AND SENT (BLUE, SSTX2, LAV, GOTTI) AND INFORMED OF PLAN FOR IV BANANA BAG
[2017-02-06 20:21] LABS: ABSOLUTE BASOPHIL COUNT 0 /CUMM (0.0-0.2); ABSOLUTE EOSINOPHIL COUNT 0.1 /CUMM (0.0-0.7); ABSOLUTE GRANULOCYTE CT 2.5 /CUMM (1.4-6.5); ABSOLUTE LYMPH COUNT 2.1 /CUMM (1.2-3.4); ABSOLUTE MONOCYTE COUNT 0.7 /CUMM (0.10-0.60); BASOPHIL % 0.7 % (0.0-2.0); EOSINOPHIL % 2.4 % (0-5); GRANULOCYTE % 45.9 % (42.2-75.2); HEMATOCRIT 39.3 % (42-52); MEAN CORPUSCULAR HGB 30.9 PG (27.0-31.0); MEAN CORPUSCULAR HGB CONC 33.7 G/DL (33.0-37.0); MEAN CORPUSCULAR VOLUME 91.8 FL (80.0-94.0); MEAN PLATELET VOLUME 7.9 FL (7.4-10.4); PLATELET COUNT 153 /CUMM (130-400); RBC DISTRIBUTION WIDTH 16.3 % (11.5-14.5); RED BLOOD CELL CT 4.28 /CUMM (4.70-6.10); WHITE BLOOD CELL COUNT 5.4 /CUMM (4.8-10.8)
--- NOTE | 2017-02-06 21:20 | NUR ---
WATER PROVIDED TO ENCOURAGE URINE OBTAINMENT. 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
[2017-02-06 21:31] VITALS: BP 142/88
[2017-02-06 21:37] VITALS: BP 142/88
--- NOTE | 2017-02-06 21:38 | NUR ---
PT WITH MULTIPLE COMPLAINTS AT THIS TIME, C/O HEADACHE AND NOW NEW ONSET NAUSEA. VOMITING CLEAR LIQUID INTO EMESIS BASIN. C/O SEVERE HEADACHE. SELAM 13. AWARE
--- NOTE | 2017-02-06 21:45 | NUR ---
MEDICATED WITH IV ATIVAN PER eMAR
--- NOTE | 2017-02-06 22:01 | History & Physical ---
MYRON STEVENS,[facility] [place] 02/06/17 2200: General Information and HPI MD Statement: I have seen and personally examined BHUPINDER EMMANUEL and documented this H&P. The patient is a 51 year old M who presented with a patient stated chief complaint of seizure. Source of Information: patient, old records Exam Limitations: no limitations History of Present Illness: Mr. Emmanuel is a 50 y/o M smoker with PMHx of alcohol abuse and alcohol withdrawal seizures with multiple admissions for alcohol detox who presents after an unwitnessed seizure. Patient reports that he had a seizure at 6 PM on the day of current presentation. He was at his friend's apartment at the time and recalls bumping his head on the edge of the sofa and falling to the floor. He states that he was "flopping around" during the episode but denies tongue biting or bowel or bladder incontinence. He believes the whole episode lasted about 5 to 10 minutes. His friend found him on the floor after the episode was over and decided to call the ambulance who brought him to the ED. When interviewed in the ED patient endorsed tremors, headache, abdominal pain, nausea and dry heaves. He denied confusion, lightheadedness, hematemesis, coffee-ground emesis or homicidal and suicidal ideation. He reported that his last drink was a pint of vodka approximately four hours before the seizure. Patient had a prolonged hospitalization here at [facility] in December (01/04/17-01/16/17 ) for alcohol detox requiring ICU transfer for IV Ativan drip. During that admission, given his history of alcohol related seizures, an EEG was performed which was negative for focal or epileptiform abnormalities. Patient was seen by neurologist Dr. Eugene who made the decision to switch patient from the oxcarbazepine that he had been on previously to Depakote and further recommended that patient remain on Depakote indefinitely as it was unclear whether patient had had seizures which were not related to alcohol. Patient received a CT Head for further evaluation of migraines as outpatient and was supposed to follow up with Dr. Eugene on 03/10/17. Since his discharge, patient has not been compliant with the recommended dose of Depakote and has only been taking the evening dose and skipping the morning dose. He states that he was sober for only five days after being discharged and continued to drink approximately one pint of vodka per day. He attributes his relapse to lack of support after being discharged. He is currently unemployed and lives with friends. Allergies/Medications Allergies: Coded Allergies: diphenhydramine (From Benadryl) (DROWSY OR HYPER 11/26/15) loratadine (From Claritin) (HYPER OR DROWSY 11/26/15) Home Med list Disulfiram (Unknown Strength) TABLET (Unknown Dose) PO DAILY UNKNOWN ( Reported) Divalproex Sodium 500 MG TABLET.DR 500 MG PO BID SEIZURE PLEASE FOLLOW UP WITH DR. EUGENE, NEUROLOGY, IN 2 WEEKS. Folic Acid 1 MG TABLET 1 MG PO DAILY SUPPLEMENT Multivitamin (One Daily Multivitamin) 1 EACH TABLET 1 TAB PO DAILY SUPPLEMENT Naproxen (Unknown Strength) TABLET (Unknown Dose) PO BID UNKNOWN (Reported) Thiamine HCl (Vitamin B-1) 50 MG TABLET 50 MG PO DAILY SUPPLEMENT Past History Travel History Traveled to [place] past 21 day No Medical History Neurological: migraine, seizure EENT: NONE Cardiovascular: NONE Respiratory: NONE Gastrointestinal: inguinal hernia, colonic polyps Hepatic: NONE Renal: NONE Musculoskeletal: fracture (left lower leg) Psychiatric: alcohol dependence, depression Endocrine: NONE Blood Disorders: DVT (postoperative) Cancer(s): NONE WELL HEAD PUMPER/Reproductive: NONE History of MRSA: No History of VRE: No History of CDIFF: No Influenza Vaccine: 08/18/16 Surgical History Surgical History: non-contributory Past Family/Social History Family History Relations & Conditions if any MOTHER (lung cancer). FATHER (stroke). Psychosocial History Where do you live? Home Who Do You Live With? friends Services at Home: None Primary Language: Hebrew Smoking Status: Current Everyday Smoker (1 pack per day) ETOH Use: alcoholic Illicit Drug Use: marijuana (occasionally) Functional Ability ADLs Independent: dressing, eating, toileting, bathing. Ambulation: independent IADLs Independent: shopping, housework, finances, food prep, telephone, transportation , medication admin. Employment History Employment Unemployed Review of Systems Review of Systems Constitutional: Denies: chills, fever. EENTM: Reports: no symptoms. Cardiovascular: Denies: chest pain, palpitations, peripheral edema. Respiratory: Denies: cough, short of breath. GI: Reports: abdominal pain, diarrhea, nausea. Denies: constipation, vomiting. Genitourinary: Reports: no symptoms. Musculoskeletal: Reports: no symptoms. Skin: Reports: no symptoms. Neurological/Psychological: Reports: see HPI, headache, numbness. Denies: confusion, weakness. Hematologic/Endocrine: Reports: no symptoms. Immunologic/Allergic: Reports: no symptoms. All Other Systems: Reviewed and Negative Exam & Diagnostic Data Last 24 Hrs of Vital Signs/I&O Vital Signs Date Time Temp Pulse Resp B/P B/P Pulse O2 O2 Flow FiO2 Mean Ox Delivery Rate 02/07 0039 98.2 87 20 138/90 95 Room Air 02/06 2246 97.4 85 18 155/86 02/06 2244 97.4 85 16 155/86 97 Room Air 02/06 2221 99.0 84 16 140/78 99 Room Air 02/06 2219 99.0 84 20 140/78 02/06 2137 98.0 83 16 142/88 02/06 2131 98.0 83 16 142/88 02/06 2106 98.0 83 16 142/88 99 Room Air 02/06 1915 98.0 87 18 145/87 02/06 1915 98 Room Air 02/06 1902 98.0 87 16 145/87 98 Room Air Intake & Output 02/07 0800 02/07 0000 02/06 1600 Intake Total Output Total 300 Balance -300 Output, Urine 300 Patient 74.843 kg Weight Weight Reported by Patient Measurement Method Physical Exam General Appearance Alert, Oriented X3, No Acute Distress HEENT Atraumatic, Mucous Membr. moist/pink Neck Supple Cardiovascular Regular Rate, Normal S1, Normal S2, No Murmurs, Gallops, Rubs Lungs Clear to Auscultation Abdomen Soft, No Tenderness, Positive Bowel Sounds Neurological Tremors in Bilateral Upper Extremities Extremities No Clubbing, No Cyanosis, No Edema Last 24 Hrs of Labs/John: Laboratory Tests 02/07/17 0020: Urine Opiates Screen Pending, Methadone Screen Pending, Barbiturate Screen Pending, Ur Phencyclidine Scrn Pending, Amphetamines Screen Pending, U Benzodiazepines Scrn Pending, Urine Cocaine Screen Pending, Urine Cannabis Screen Pending 02/06/17 1946: Anion Gap 18 H, Estimated GFR > 60, BUN/Creatinine Ratio 25.0, Glucose 85, Calcium 9.6, Total Bilirubin 0.6, AST 41, ALT 30, Alkaline Phosphatase 82, Total Protein 8.5 H, Albumin 5.0, Globulin 3.5, Albumin/Globulin Ratio 1.4, CBC w Diff NO MAN DIFF REQ, RBC 4.28 L, MCV 91.8, MCH 30.9, RDW 16.3 H, MPV 7.9, Gran % 45.9, Lymphocytes % 38.6, Monocytes % 12.4 H, Eosinophils % 2.4, Basophils % 0.7, Absolute Granulocytes 2.5, Absolute Lymphocytes 2.1, Absolute Monocytes 0.7 H, Absolute Eosinophils 0.1, Absolute Basophils 0, PUBS MCHC 33.7 , Valproic Acid 16.8 L, Serum Alcohol 147.0 Assessment/Plan Assessment: 50 y/o M with PMHx of alcohol abuse and alcohol withdrawal seizures with multiple admissions for alcohol detox who presents after an unwitnessed seizure. #Alcohol detox and seizure: Presents after unwitnessed seizure likely secondary to noncompliance with seizure medications. Has only been taking the evening dose of the prescribed Depakote 500 mg PO BID. Valproic acid subtherapeutic on admission. Has been drinking one pint of vodka daily. Serum alcohol level 147 on admission. Urine toxicology positive for cannabis. Recent prolonged hospitalization in December for alcohol detox requiring transfer to ICU for IV Ativan drip. * Admit to General Medicine. * CIWA to monitor for signs/symptoms of alcohol withdrawal. * Scheduled Ativan 2 mg PO Q6H and Ativan IV PRN per CISD protocol. * Continue [id number] Depakote 500 mg PO BID. * Administer 1 banana bag. * Seizure precautions. * Oral supplementation with thiamine, folic acid and MVI. * Psych and social work consult in the AM. #Nicotine dependence: * 21 mg nicotine patch administered. Diet: Regular diet DVT PPx: Lovenox and ALPs CODE: FULL As Ranked By This Provider Problem List: 1. Alcohol abuse 2. Alcohol withdrawal seizure 3. Nicotine dependence Core Measures/Miscellaneous Acute Coronary Syndrome ACS Diagnosis: No Cerebrovascular Accident CVA/TIA Diagnosis: No Congestive Heart Failure CHF Diagnosis: No Venous Thromboembolism VTE Risk Factors: Acute medical illness, Age > 40, Previous VTE, Smoking No [facility] VTE prophylaxis d/t: No contraindications No VTE Pharm Prophylaxis d/t: No contraindications VTE Diagnosis: No VTE Type: NONE VTE Confirmed by (Test): NONE Severe Sepsis Severe Sepsis Present: No Septic Shock Septic Shock Present: No Miscellaneous Documentation Attending Case Discussed With: DERIC STEVENS,[facility] Primary Care Physician: DAVID ALBRECHT APRN Patient sees these Specialists Neurologist iMsha Eugene MD Level of Patient Care: General Medicine LARRY BUNN 02/06/17 2323: Resident Review Statement Resident Statement: examined this patient, discussed with international account manager, agreed with international account manager, discussed with family, reviewed EMR data (avail), discussed with nursing , discussed with case mgmt, reviewed images, amended to note Other Findings: Mr. Emmanuel is a 51 year old male with PMH of alcohol abuse and withdrawal seizures with multiple admissions who came to [facility] ED after having a seizure. He was admitted with a similar presentation about a month ago, 01-04-01/16/2017, for medically-supervised EtoH detoxification and ??? seizure. Patient required ativan drip and was trasferred to ICU. Otherwise his past medical Hx is significant for seizure (no focal abnormaility on EEG) and multiple seizures due to non-compliance with medication and alcohol and nicotine dependenace. Today, patient's friend found him confused on the floor. There is no report of abnormal movement, bowel or bladder incontinence, or toungue bite in EMR reports , howevere, patient was found confused. He was trasferred to ED and was found to withdrawl from alcohol as well. According to patient his last drink was 4-5 hours prior to his presentation. On average Mr. Emmanuel drinks ........of ..... He is a heavy smoker 1ppd for long time, occasionaly smokes marijuana, leaves with a friend, ROS: remarkable for headache and anxious and tremelous; VS: normal;PH/EX: anxious and tremelous; HEET: PERR, no nysthagmus; Heart: S1 S2 no murmur; Lungs: Clear, Abd: soft, Neuro: AOX3, tremelous; no motor or sensory deficit. Labs: WNL Mg is pending Valproic acid lvl: sub-therapeutic Assessment and paln 51 years old man was admitted after having an unwitnessed seizure and EtoH intoxication. List of problesm Seizure * admit to * seizure percussion * continue Valproic acid 500 mg BID EtoH intoxication/withdrawl in a high risk individual with Hx of previous withdrawl DT, + Hx of seizure, age of more than 30 yearsm and Hx of ustained alcohol abuse. * Check CIWA Q1h * ativan po 2mg q6 * ativan 1mg Per CIWA Q1h * low threshold for transfer to ICU * Bannana bag 125 ml/h * Multi Vit/ Folic acid/ Thiamine * Psych consult in the am * social work in the am * Cant leave AMA Nicotin dependence * nicotine patch 21 mg daily DVT prophylaxis- heparin 5000U sc Q8h Pain- Tylenol 650Q6P, and Vicodin 1 Tab Q4 h for moderate pain IV morphin 1 mg Q6P for 7-10 pain Regular diet FC DERIC STEVENS, [facility] 02/07/17 0326: Attending MD Review Statement Attending Statement Attending MD Statement: examined this patient, discuss w/resident/PA/CLAIM CLERK, agreed w/resident/PA/CLAIM CLERK Attending Assessment/Plan: 51 yo M, smoker, with h/o alcohol dependence, alcohol withdrawal seizures, polysubstance abuse, multiple admissions for alcohol detox with most recent prolonged stay at [facility] (01/04 01/16) for alcohol withdrawal seizure requiring IV ativan drip, is brought in today after an unwitnessed seizure episode at home, resulting in head strike and fall. Friend found him on the floor, no evidence of tongue bite, urinary or fecal incontinence. Patient states , he was sober for 5 days post discharge and resumed drinking 1 pint of Vodka daily due to lack of social support, last drink was 4 hours ago. No SI or HI. C/ o nausea, retching, denies hematemesis or melena. With regards to his seizure history, patient was transitioned from oxcarbazepine to depakote by Neuro during his most recent admission but patient admits to taking depakote once daily instead of twice daily. He needs to be on the depakote indefinitely due to history of seizure independent of alcohol intoxication. EEG (December 2016): negative for evidence of focal or epileptiform abnormalities. VSS. Exam unremarkable except for tremors. Labs: H/H 13.2/39.3, AG 18. Utox positive for cannabis. S. Alcohol 147. Valproic acid level 16.8 (subtherapeutic) . 1. Alcohol detox and seizures 2/2 medication noncompliance. GM admit, seizure and fall precautions, CIWA protocol, IV ativan per CIWA, PO ativan 2 mg Q 6, banana bag, resume depakote 500 BID, Psych and social work consult for alcohol dependence treatment options with proper follow up. Gentle hydration for anion gap acidosis. Smoking cessation counseling, nicotine patch. DVT ppx Lovenox. Full code.
--- NOTE | 2017-02-06 22:17 | NUR ---
NAUSEA SLIGHTLY IMPROVED, PT REMAINS DIAPHORETIC AND TREMULOUS. MEDICATED WITH PO ATIVAN
--- NOTE | 2017-02-06 22:18 | NUR ---
HOUSE STAFF AT BEDSIDE FOR EVAL
[2017-02-06 22:19] VITALS: BP 140/78
[2017-02-06 22:46] VITALS: BP 155/86
--- NOTE | 2017-02-06 22:46 | NUR ---
PT APPEARS IN LESS DISTRESS, CALMER, LESS DIAPHORETIC. REPORTS IMPROVEMENT IN NAUSEA, HEADACHE AND OVERALL WITHDRAWAL SYMPTOMS. AWARE OF PLAN FOR ADMISSION AND INFORMED WAITING PROVIDED. REMAINS AAOX AND NEUROS INTACT. NO SEIZURE ACTIVITY NOTED. REPORTS HE IS STILL UNABLE TO VOID OR PROVIDE URINE SAMPLE, STATES HE "MAY BE ABLE TO GO SOON". CALL RUEDA IN [place]
--- NOTE | 2017-02-06 23:16 | NUR ---
ASSUMED CARE OF PT PER HOLLY SALDIVAR. WILL CONTINUE TO MONITOR, AWAITING BED ASSIGNMENT, PHARMACY CALLED FOR DEPAKOTE.
--- NOTE | 2017-02-06 23:34 | NUR ---
BED ASSIGNMENT 213-1
--- NOTE | 2017-02-06 23:46 | NUR ---
REPORT GIVEN TO HOLYL BRUCE ON GEN MED. PT MEDICATED WITH 500MG DEPAKOTE PO PER EMAR.
[2017-02-07] VITALS (7 sets, daily range): BP systolic 130–140; BP diastolic 84–96
--- NOTE | 2017-02-07 01:49 | Admission Certification ---
Admission Certification Certification Statement - As attending physician, I certify that at the time of - admission, based on clinical presentation, severity of - symptoms, need for further diagnostic testing and - therapeutic interventions, and risk of adverse outcomes - without in-hospital treatment, in my clinical assessment, - this patient requires an acute hospital stay for a minimum - of two nights or longer. I have also considered psychsocial - factors such as support system, advanced age, financial - issues, cognitive issues, and failed out-patient treatments, - past re-admission history, safety of patient, and lack of - compliance as applicable. Specific rationale supporting this admission is: Alcohol detox, seizure 2/2 medication noncompliance.
--- NOTE | 2017-02-07 07:13 | PN- Housestaff ---
MARIN STEVENS,FRANCINE 02/07/17 0713: Subjective Follow-up For: seizure; EtOH detox. Subjective: I followed up the patient today. He was sleeping heavily today and did not want to be bothered today. Minimal personal encounter occured today. Much of the reporting is by conversation with the nurse multiple times today and EMR. Vitals have been stable, except for tachycardia since 1000 hrs today, otherwise no issues. CIWA scores since admission; 0-18. On Ativan PO as well as IM. Awaiting Psychiatric evaluation and expert opinion. Review of Systems Constitutional: Reports: see HPI. Objective Last 24 Hrs of Vital Signs/I&O Vital Signs Date Time Temp Pulse Resp B/P B/P Pulse O2 O2 Flow FiO2 Mean Ox Delivery Rate 02/07 1800 98.0 102 18 138/88 94 Room Air Room Air 02/07 1409 98.0 116 20 130/84 93 Room Air 02/07 1021 98.3 115 20 140/90 91 Nasal Cannula 02/07 1000 98.3 115 18 140/90 02/07 0719 98.5 93 20 136/90 94 Room Air 02/07 0039 98.2 87 20 138/90 95 Room Air 02/06 2246 97.4 85 18 155/86 02/06 2244 97.4 85 16 155/86 97 Room Air 02/06 2221 99.0 84 16 140/78 99 Room Air 02/06 2219 99.0 84 20 140/78 02/06 2137 98.0 83 16 142/88 02/06 2131 98.0 83 16 142/88 02/06 2106 98.0 83 16 142/88 99 Room Air Intake & Output 02/07 1600 02/07 0800 02/07 0000 Intake Total 800 480 Output Total 550 700 Balance 250 -220 Intake, Oral 800 480 Output, Urine 550 700 Patient 74.843 kg Weight Weight Reported by Patient Measurement Method Physical Exam General Appearance: Alert, Oriented X3, No Acute Distress Other Physical Findings: HEENT Atraumatic, Mucous Membr. moist/pink Neck Supple Cardiovascular Regular Rate, Normal S1, Normal S2 Lungs Clear to Auscultation Abdomen Soft, No Tenderness, Positive Bowel Sounds Neurological Tremors in Bilateral Upper Extremities Extremities No Clubbing, No Cyanosis, No Edema Current Medications: Current Medications Sig/Maximus Start time Last Medication Dose Route Stop Time Status Admin Acetaminophen 650 MG Q6P PRN 02/07 0415 AC PO Acetaminophen/ 1 TAB Q6P PRN 02/07 0415 AC Hydrocodone Bitart PO Artificial Tears 2 GTT TID 02/07 1604 AC 02/07 OPH 1740 Cyanocobalamin/ 1 BAG ONCE ONE 02/06 1915 DC 02/06 Thiamine/Pyridoxine IV 02/07 0314 2138 Dextrose/Water 1,000 ML Divalproex Sodium 500 MG BID 02/06 2255 AC 02/07 PO 0837 Enoxaparin Sodium 40 MG DAILY 02/07 1000 AC 02/07 SC 0837 Folic Acid 1 MG DAILY 02/07 1000 AC 02/07 PO 0837 Haloperidol 5 MG Q8P PRN 02/07 1415 AC PO Lorazepam 2 MG Q6 02/07 0600 AC 02/07 PO 1723 Lorazepam 0 Q1P PRN 02/07 0400 AC 02/07 IV 1600 Lorazepam 1 MG Q6 02/06 2359 DC 02/07 PO 0018 Lorazepam 2 MG Q2P PRN 02/06 2300 DC IV Lorazepam 1 MG Q2P PRN 02/06 2300 DC IV Lorazepam 0 .STK-MED ONE 02/06 221 DC PO Lorazepam 2 MG ONE ONE 02/06 2200 DC 02/06 IV 02/06 220 214 Lorazepam 2 MG ONCE ONE 02/06 2200 DC 02/06 PO 02/06 2201 221 Lorazepam 0 .STK-MED ONE 02/06 2147 DC .ROUTE Morphine Sulfate 1 MG Q6-PRN PRN 02/075 AC IV Multivitamins 1 TAB DAILY 02/07 1000 AC 02/07 Therapeutic PO 0837 Nicotine 21 MG Q24 02/07 1000 AC 02/07 TOP 0838 Thiamine HCl 50 MG DAILY 02/07 1000 AC 02/07 PO 0837 Last 24 Hrs of Lab/John Results Last 24 Hrs of Labs/Mics: Laboratory Tests 02/07/17 0020: Urine Opiates Screen < 100.00, Methadone Screen < 40, Barbiturate Screen < 60, Ur Phencyclidine Scrn < 6.00, Amphetamines Screen < 100, U Benzodiazepines Scrn < 85, Urine Cocaine Screen < 50, Urine Cannabis Screen > 80.00 H 02/06/17 1946: Anion Gap 18 H, Estimated GFR > 60, BUN/Creatinine Ratio 25.0, Glucose 85, Calcium 9.6, Magnesium 1.9, Total Bilirubin 0.6, AST 41, ALT 30, Alkaline Phosphatase 82, Total Protein 8.5 H, Albumin 5.0, Globulin 3.5, Albumin/ Globulin Ratio 1.4, CBC w Diff NO MAN DIFF REQ, RBC 4.28 L, MCV 91.8, MCH 30.9, RDW 16.3 H, MPV 7.9, Gran % 45.9, Lymphocytes % 38.6, Monocytes % 12.4 H, Eosinophils % 2.4, Basophils % 0.7, Absolute Granulocytes 2.5, Absolute Lymphocytes 2.1, Absolute Monocytes 0.7 H, Absolute Eosinophils 0.1, Absolute Basophils 0, PUBS MCHC 33.7, Valproic Acid 16.8 L, Serum Alcohol 147.0 Assessment/Plan Assessment: 50 y/o M with PMHx of alcohol abuse and alcohol withdrawal seizures with multiple admissions for alcohol detox who presents after an unwitnessed seizure. He is currently being managed in the general medical floor for the following issues: #Alcohol detox and seizure: Presents after unwitnessed seizure likely secondary to noncompliance with seizure medications. Has only been taking the evening dose of the prescribed Depakote 500 mg PO BID. Valproic acid subtherapeutic on admission. Has been drinking one pint of vodka daily. Serum alcohol level 147 on admission. Urine toxicology positive for cannabis. Recent prolonged hospitalization in December for alcohol detox requiring transfer to ICU for IV Ativan drip. * Continue regular vitals check. * Continue CICA protocol to monitor for signs/symptoms of alcohol withdrawal. Since admission, it has been 0-18. * Continue Scheduled Ativan 2 mg PO Q6H and Ativan IV PRN per CIWA protocol. * Continue [id number] Depakote 500 mg PO BID. * Administered 1 banana bag. Now Dc'ed. * Continue seizure precautions. * Continue oral supplementation with thiamine, folic acid and MVI. * Psych and social work consult placed. * According to psychiatric evaluation, patient has full capacity to decide his condition, and also has a good chance that he might request to leave AGAINST MEDICAL ADVICE as he has done in the past. Regarding his treatment, if he becomes agitated, Haldol by mouth or IM can be given. #Nicotine dependence: * 21 mg nicotine patch administered. #Patient's vitals will be closely monitored especially for his heart rate and blood pressure, which has been borderline high. Diet: Regular diet DVT PPx: Lovenox and ALPs CODE: FULL Problem List: 1. Alcohol dependence with withdrawal with complication 2. Seizure 3. Nicotine dependence Pain Ratin Pain Location: - Pain Goal: Pain 4 or less Pain Plan: prn Tomorrow's Labs & Rationales: - NEGRITO STEVENS,STEPHENIE 02/07/17 1158: Attending MD Review Statement Attending Statement Attending MD Statement: examined this patient, discuss w/resident/PA/TEXTILE PIN WORKER, agreed w/resident/PA/TEXTILE PIN WORKER, reviewed EMR data (avail), reviewed images Attending Assessment/Plan: Patient known to me from previous admissions. 51-year-old male was recently here from January 04 to January 16 treated for alcohol withdrawal that was complicated by an aspiration pneumonia. He is here with acute alcohol withdrawal. Of note on his last admission he did require ICU and IV Ativan. At this point we have him on Ativan [id number] with Ativan per SELAM. He is tachycardic and borderline hypertensive and we may have to increase the standing Ativan. He needs Depakote for seizure control as he's had seizures independent of alcohol withdrawal. His level is very low on admission suggesting that noncompliance with it. He had a mild anion gap on admission and we'll trend his labs.
--- NOTE | 2017-02-07 09:52 | Cons- Psychiatry ---
Psychiatric Consult Date of Consult: 02/07/17 Reason for Consult: "alcohol detox" Ordered by Dr. Aquino Attending Dr. Spann History of Present Illness: Identifying Info: 51-year-old single male know to this service presents to [facility] emergency department on 02/06/2017 by ambulance with chief complaint of unwitnessed seizure. He was subsequently admitted for ETOH detox. CC: "I went to some AA meetings... but there were sarcastic people... I almost had an altercation." HPI: Patient has a history of multiple inpatient detox stays most recently at [facility] in December 2016. Multiple times during that admission the patient request to leave AMA. On his last request he was able to satisfy capacity and left treatment early. He subsequently had 5 days sober and returned to drinking. Today he endorses drinking approximately 1 pint of liquor daily. He states that he went to a few AA meetings but did not get along with people there. Additionally he reports that he tried to follow-up with [facility] but he could not speak to anyone there. Prior to last admission here he had been discharged from [facility] AM. On last admission he required ICU level care and IV ativan drip and was frequently agitated requiring haloperidol. He responded well to 5mg dose. Since his discharge, patient has not been compliant with the recommended dose of Depakote, as recommended by Neuro for suspected Sz d/o independent of ETOH withdrawl, and has only been taking the evening dose and skipping the morning dose. PMH: Please see the H&P for a complete listing Past Psych History: 1 previous evaluation by consult service last month Family Psych History: Unobtained Substance History ETOH use d /o Cannabis use d/o h/o Cocaine use d/o Current everyday smoker -Treatment Previous inpatient rehabilitation stays including [facility] this year Multiple previous detoxes at most recently last month Family Substance History: Unobtained Social: Single but has a fianc. Abuse/Trauma: Unobtained Current Home Psychotropic Medications: Depakote 500 mg twice daily (for sz d/o) Current Hospital Psychotropic Medications: Med Divalproex Sodium 500 MG PO BID 02/06/17 2255 Lorazepam IV Q1P PRN 02/07/17 0400 Lorazepam 2 MG PO Q6 02/07/17 0600 Allergies: Coded Allergies: diphenhydramine (From Benadryl) (DROWSY OR HYPER 11/26/15) loratadine (From Claritin) (HYPER OR DROWSY 11/26/15) Current Medications: Current Medications Sig/Maximus Start time Last Medication Dose Route Stop Time Status Admin Acetaminophen 650 MG Q6P PRN 02/07 0415 AC PO Acetaminophen/ 1 TAB Q6P PRN 02/07 0415 AC Hydrocodone Bitart PO Cyanocobalamin/ 1 BAG ONCE ONE 02/06 1915 DC 02/06 Thiamine/Pyridoxine IV 02/07 0314 2138 Dextrose/Water 1,000 ML Divalproex Sodium 500 MG BID 02/06 2255 AC 02/07 PO 0837 Enoxaparin Sodium 40 MG DAILY 02/07 1000 AC 02/07 SC 0837 Folic Acid 1 MG DAILY 02/07 1000 AC 02/07 PO 0837 Lorazepam 2 MG Q6 02/07 0600 AC 02/07 PO 0521 Lorazepam 0 Q1P PRN 02/07 0400 AC 02/07 IV 0843 Lorazepam 1 MG Q6 02/06 2359 DC 02/07 PO 0018 Lorazepam 2 MG Q2P PRN 02/06 2300 DC IV Lorazepam 1 MG Q2P PRN 02/06 2300 DC IV Lorazepam 0 .STK-MED ONE 02/06 221 DC PO Lorazepam 2 MG ONE ONE 02/06 2200 DC 02/06 IV 02/06 220 2145 Lorazepam 2 MG ONCE ONE 02/06 2200 DC 02/06 PO 02/06 220 2217 Lorazepam 0 .STK-MED ONE 02/06 2147 DC .ROUTE Morphine Sulfate 1 MG Q6-PRN PRN 02/07 0415 AC IV Multivitamins 1 TAB DAILY 02/07 1000 AC 02/07 Therapeutic PO 0837 Nicotine 21 MG Q24 02/07 1000 AC 02/07 TOP 0838 Thiamine HCl 50 MG DAILY 02/07 1000 AC 02/07 PO 0837 Past History Past Medical History Neurological: migraine, seizure EENT: NONE Cardiovascular: NONE Respiratory: NONE Gastrointestinal: inguinal hernia colonic polyps Hepatic: NONE Renal: NONE Musculoskeletal: fracture (left lower leg) Psychiatric: alcohol dependence, depression Endocrine: NONE Blood Disorders: DVT (postoperative) Cancer(s): NONE MANAGER BRIDGE/Reproductive: NONE Past Surgical History Surgical History: non-contributory Psychosocial History Strengths/Capabilities: Help seeking at times Physical Limitations (Interventions): ETOH withdrawl & dependence, chronic relapse Psychiatric Treatment History Psych Treatment Psychiatric Treatment No Diagnosis: Alcohol use disorder Cocaine use disorder Cannabis use disorder Risk Factors: SA/MH hospitalized, substance abuse, male Substance Use/Abuse History Drug Use/Abuse Substances Used/Abused Yes Substance Abuse Treatment Substance Abuse Treatment Past Substance Abuse [place] Yes Assessment/Plan Mental Status Mental Status Exam: Mental Status Exam Presentation/Appearance: Somewhat cooperative with evaluation, some difficulty r/t somnolence. Hospital garb. Orientation: x3 Sensorium: Somnolent but able to morning arouse Eye contact: Appropriate Affect: Flat Mood: "Out of it" Depression: Denies Anxiety: Denies Thought Content: - Denies SI/HI, AH/VH, PI. States and also believes they will not kill themselves. - Denies Hopeless/Helpless Thoughts Thought Process: Linear Associations: Appropriate Speech: Sodt, somewhat dysarthic Judgment: Poor Insight: Poor Cognition: Memory: Grossly intact Attention/Concentration: Grossly intact Fund of Knowledge: Did not assess Abstractions: Did not assess MMSE: Did not assess Brief ROS Gait: Did not observe Sleep: [place]ute Appetite: Adequate Energy: Low IADLs/ADLs: Independent Lab Results: Laboratory Tests 02/07/17 0020: Urine Opiates Screen < 100.00, Methadone Screen < 40, Barbiturate Screen < 60, Ur Phencyclidine Scrn < 6.00, Amphetamines Screen < 100, U Benzodiazepines Scrn < 85, Urine Cocaine Screen < 50, Urine Cannabis Screen > 80.00 H 02/06/17 1946: Anion Gap 18 H, Estimated GFR > 60, BUN/Creatinine Ratio 25.0, Glucose 85, Calcium 9.6, Magnesium 1.9, Total Bilirubin 0.6, AST 41, ALT 30, Alkaline Phosphatase 82, Total Protein 8.5 H, Albumin 5.0, Globulin 3.5, Albumin/ Globulin Ratio 1.4, CBC w Diff NO MAN DIFF REQ, RBC 4.28 L, MCV 91.8, MCH 30.9, RDW 16.3 H, MPV 7.9, Gran % 45.9, Lymphocytes % 38.6, Monocytes % 12.4 H, Eosinophils % 2.4, Basophils % 0.7, Absolute Granulocytes 2.5, Absolute Lymphocytes 2.1, Absolute Monocytes 0.7 H, Absolute Eosinophils 0.1, Absolute Basophils 0, PUBS MCHC 33.7, Valproic Acid 16.8 L, Serum Alcohol 147.0 Diffential Diagnosis: Alcohol use disorder, severe Cannabis use disorder By history cocaine use disorder Rule out unspecified mood disorder Impression: 51-year-old male presents requesting alcohol detox status post unwitnessed seizure. Patient has multiple previous admissions for similar presentations and on those admissions is frequently requested to leave AMA when confused. Additionally he has been agitated at times. He has declined to follow-up with aftercare plans and now presents after 3 weeks of consuming 1 pint of liquor daily. Provisional Treatment Plan: 1. Continue CIWA, Ativan, and vitamin supplementation. 2. If patient becomes agitated consider Haldol 5mg PO PRN q8h. EKG, K, &Mg will need to be monitored on this medication. If the patient is unable to take by mouth IM formulation may be necessary. Please weigh risks and benefits carefully if this is the case. 3. Please follow neurology recommendations for Depakote dosing and monitoring. 4. Based on past history patient is likely to request to leave AMA during this hospitalization. If he does, any provider can assess capacity by evaluating the following: His ability to communicate a choice, understand the relevant information, appreciate the situation and it's consequences, and reason about treatment options. If assistance is required psychiatry be happy to assist in evaluation. 5. Thank you for consulting social work for disposition recommendations. Thank you for including psychiatry in this case we will continue to follow only on an as-needed basis. Please contact psychiatry if additional assistance is needed.
[2017-02-08] VITALS (8 sets, daily range): BP systolic 120–122; BP diastolic 80–96
--- NOTE | 2017-02-08 11:20 | PN- Housestaff ---
Subjective Follow-up For: seizure; EtOH detox. Complaints: no complaints Subjective: I followed up and examined the patient today. He is alert, oriented, not in distress, is responsive, calm today. He thinks he is doing better and does not have tremors anymore. Nursing staff agrees with the finding. Vitals have been stable. His CIWA scores has ranged from 0-10, with the latest being 6. He was having 2 mg of Ativan orally every 6 hours and he got 2 mg of IV Ativan since we assessed him yesterday. His Ativan dose can be safely lowered today. No seizure episode, no jitteriness either. Review of Systems Constitutional: Reports: see HPI. Objective Last 24 Hrs of Vital Signs/I&O Vital Signs Date Time Temp Pulse Resp B/P B/P Pulse O2 O2 Flow FiO2 Mean Ox Delivery Rate 02/08 0653 97.5 86 20 120/96 97 Room Air 02/07 2251 98.1 88 19 140/96 94 02/07 1800 98.0 102 18 138/88 94 Room Air Room Air 02/07 1409 98.0 116 20 130/84 93 Room Air Intake & Output 02/08 1600 02/08 0800 02/08 0000 Intake Total 240 1280 Output Total 400 Balance 240 880 Intake, Oral 240 1280 Output, Urine 400 Physical Exam General Appearance: Alert, Oriented X3, Cooperative, No Acute Distress Other Physical Findings: HEENT Atraumatic, Mucous Membr. moist/pink Neck Supple Cardiovascular Regular Rate, Normal S1, Normal S2 Lungs Clear to Auscultation Abdomen Soft, No Tenderness, Positive Bowel Sounds Neurological Tremors in Bilateral Upper Extremities Extremities No Clubbing, No Cyanosis, No Edema Psychiatric calm, coherent, not anxious, no suicidal or homicidal ideation. Current Medications: Current Medications Sig/Maximus Start time Last Medication Dose Route Stop Time Status Admin Acetaminophen 650 MG Q6P PRN 02/07 0415 AC PO Acetaminophen/ 1 TAB Q6P PRN 02/07 0415 AC Hydrocodone Bitart PO Artificial Tears 2 GTT TID 02/07 1604 AC 02/08 OPH 0820 Divalproex Sodium 500 MG BID 02/06 2255 AC 02/08 PO 0820 Enoxaparin Sodium 40 MG DAILY 02/07 1000 AC 02/08 SC 0820 Folic Acid 1 MG DAILY 02/07 1000 AC 02/08 PO 0820 Haloperidol 5 MG Q8P PRN 02/07 1415 AC PO Lorazepam 1.5 MG Q6 02/08 1200 AC PO Lorazepam 2 MG Q6 02/07 0600 DC 02/08 PO 0525 Lorazepam 0 Q1P PRN 02/07 0400 AC 02/07 IV 2109 Morphine Sulfate 1 MG Q6-PRN PRN 02/07 0415 AC IV Multivitamins 1 TAB DAILY 02/07 1000 AC 02/08 Therapeutic PO 0820 Nicotine 21 MG Q24 02/07 1000 AC 02/08 TOP 0820 Thiamine HCl 50 MG DAILY 02/07 1000 AC 02/08 PO 0820 Last 24 Hrs of Lab/John Results Last 24 Hrs of Labs/Mics: Laboratory Tests 02/08/17 0615: Anion Gap 12, Estimated GFR > 60, BUN/Creatinine Ratio 21.7, Magnesium 1.8 Assessment/Plan Assessment: 50 y/o M with PMHx of alcohol abuse and alcohol withdrawal seizures with multiple admissions for alcohol detox who presents after an unwitnessed seizure. He is currently being managed in the general medical floor for the following issues: #Alcohol detox and seizure: Presents after unwitnessed seizure likely secondary to noncompliance with seizure medications. Has only been taking the evening dose of the prescribed Depakote 500 mg PO BID. Valproic acid subtherapeutic on admission. Has been drinking one pint of vodka daily. Serum alcohol level 147 on admission. Urine toxicology positive for cannabis. Recent prolonged hospitalization in December for alcohol detox requiring transfer to ICU for IV Ativan drip. * Continue regular vitals check. * Continue CIWA protocol to monitor for signs/symptoms of alcohol withdrawal. Since admission, it has been 0-10. * Scheduled Ativan 2mg has been changed to 1.5 mg PO Q6H and continue Ativan IV PRN per CIWA protocol. * Continue [id number] Depakote 500 mg PO BID. * Continue seizure precautions. * Continue oral supplementation with thiamine, folic acid and MVI. * Psych and social work consult appreciated. * According to psychiatric evaluation, patient has full capacity to decide his condition, and also has a good chance that he might request to leave AGAINST MEDICAL ADVICE as he has done in the past. Regarding his treatment, if he becomes agitated, Haldol by mouth or IM can be given. * No suicidal or homicidal ideation present. * Patient wants to follow-up with IOP at [facility]. We'll coordinate with social work department accordingly. #Nicotine dependence: * 21 mg nicotine patch administered. #Patient's vitals will be closely monitored especially for his heart rate and blood pressure, which was borderline high yesterday, is much better today. He is no longer tachycardic, and blood pressure is under control. Diet: Regular diet DVT PPx: Lovenox and ALPs CODE: FULL Problem List: 1. Alcohol dependence with withdrawal with complication 2. Seizure 3. Nicotine dependence Pain Ratin Pain Location: headache when present Pain Goal: Pain 4 or less Pain Plan: prn and CIWA Tomorrow's Labs & Rationales: -
--- NOTE | 2017-02-08 14:18 | PN- Att Addend ---
Attending MD Review Statement Attending Statement Attending MD Statement: examined this patient, discuss w/resident/PA/ROTARY DRILLER HELPER, agreed w/resident/PA/ROTARY DRILLER HELPER, reviewed EMR data (avail), discussed w/nursing Attending Assessment/Plan: Laboratory Tests 02/08/17 0615: Anion Gap 12, Estimated GFR > 60, BUN/Creatinine Ratio 21.7, Magnesium 1.8 Vital Signs Date Time Temp Pulse Resp B/P B/P Pulse O2 O2 Flow FiO2 Mean Ox Delivery Rate 02/08 0653 97.5 86 20 120/96 97 Room Air 02/07 2251 98.1 88 19 140/96 94 02/07 1800 98.0 102 18 138/88 94 Room Air Room Air Patient seen and examined at bedside. Discussed with patient the care plan. Patient currently on CIWA protocol and received 14 mg of Ativan yesterday in 24 hours. We have decreased his scheduled dose of Ativan to 1.5 mg every 6 hours today. We will continue to follow his CIWA scores. Discussed with patient the care plan about going into long-term alcohol rehabilitation program. We will have 7th grade social studies teacher discuss the IOP option with the patient has patient seems to be more interested in the IOP program.
--- NOTE | 2017-02-08 19:17 | NUR ---
Referral received yesterday via electronic order booker. This patient was admitted to the hospital on 02/06/17 with ETOH Withdrawal. Patient known to this newswriter and other care providers from admission earlier this month, also for detox which included a stay in the [facility] on an ativan drip. Patient was discharged without a formal aftercare program "I'll go to AA" , and according to documentation by Timi Mercedes APRN, he did go to an AA meeting where there nearly was an altercation. He is known also to [facility] and reported he would "stop in" , but has not re-started treatment there. Thus far, his detox has been uncomplicated with 6mg ativan in the past 24 hours. Will follow to better assess patients interest and motivation in treatment.
--- NOTE | 2017-02-09 00:28 | NUR ---
ALERT AND ORIENTED X 3. ON ROOM AIR. LUNG SOUNDS CLEAR. VITAL SIGNS STABLE. DENIES CHEST PAIN. + PULSES. DENIES NUMBNESS/TINGLING SKIN C/D/I. SEIZURE PRECAUTIONS IN PLACE. NO DISCOMFORT NOTED WILL CONTINUE TO MONITOR
--- NOTE | 2017-02-09 06:33 | PN- Housestaff ---
See Addendum MARIN STEVENS,FRANCINE 02/09/17 0633: Subjective Follow-up For: seizure; EtOH detox. Complaints: no complaints Subjective: I followed up and examined the patient today. He is alert, oriented, not in distress, is responsive, calm today as well. He thinks he is doing better. Nursing staff agrees with the finding. Vitals have been stable. CIWA in past 24hrs: 0-5, currently 0. Is on 1.5mg PO Ativan q6h, and IV as needed. Review of Systems Constitutional: Reports: no symptoms. Objective Last 24 Hrs of Vital Signs/I&O Vital Signs Date Time Temp Pulse Resp B/P B/P Pulse O2 O2 Flow FiO2 Mean Ox Delivery Rate 02/09 1438 98.4 96 20 122/74 96 Room Air 02/09 0653 98.8 80 20 130/92 95 Room Air 02/08 2245 98.3 97 19 122/80 95 Room Air 02/08 2200 98.3 96 18 120/85 02/08 2000 98.3 96 18 120/85 02/08 1840 98.3 96 18 120/85 95 Room Air 02/08 1800 98.4 94 20 120/86 Intake & Output 02/09 1600 02/09 0800 02/09 0000 Intake Total 840 Output Total Balance 840 Intake, Oral 840 Patient 74.843 kg Weight Physical Exam General Appearance: Alert, Oriented X3, Cooperative, No Acute Distress Other Physical Findings: HEENT Atraumatic, Mucous Membr. moist/pink Neck Supple Cardiovascular Regular Rate, Normal S1, Normal S2 Lungs Clear to Auscultation Abdomen Soft, No Tenderness, Positive Bowel Sounds Neurological Tremors in Bilateral Upper Extremities Extremities No Clubbing, No Cyanosis, No Edema Psychiatric calm, coherent, not anxious, no suicidal or homicidal ideation. Current Medications: Current Medications Sig/Maximus Start time Last Medication Dose Route Stop Time Status Admin Acetaminophen 650 MG Q6P PRN 02/07 0415 AC 02/08 PO 1336 Acetaminophen/ 1 TAB Q6P PRN 02/07 0415 AC Hydrocodone Bitart PO Artificial Tears 2 GTT TID 02/07 1604 AC 02/09 OPH 1058 Divalproex Sodium 500 MG BID 02/06 2255 AC 02/09 PO 1059 Enoxaparin Sodium 40 MG DAILY 02/07 1000 AC 02/09 SC 1059 Folic Acid 1 MG DAILY 02/07 1000 AC 02/09 PO 1059 Haloperidol 5 MG Q8P PRN 02/07 1415 AC PO Lorazepam 1 MG TID 02/09 1000 AC 02/09 PO 1105 Lorazepam 1.5 MG Q6 02/08 1200 DC 02/09 PO 0609 Lorazepam 0 Q1P PRN 02/07 0400 AC 02/07 IV 2109 Morphine Sulfate 1 MG Q6-PRN PRN 02/07 0415 AC IV Multivitamins 1 TAB DAILY 02/07 1000 AC 02/09 Therapeutic PO 1059 Nicotine 21 MG Q24 02/07 1000 AC 02/09 TOP 0830 Thiamine HCl 50 MG DAILY 02/07 1000 AC 02/09 PO 1059 Assessment/Plan Assessment: 50 y/o M with PMHx of alcohol abuse and alcohol withdrawal seizures with multiple admissions for alcohol detox who presents after an unwitnessed seizure. He is currently being managed in the general medical floor for the following issues: #Alcohol detox and seizure: Presents after unwitnessed seizure likely secondary to noncompliance with seizure medications. Has only been taking the evening dose of the prescribed Depakote 500 mg PO BID. Valproic acid subtherapeutic on admission. Has been drinking one pint of vodka daily. Serum alcohol level 147 on admission. Urine toxicology positive for cannabis. Recent prolonged hospitalization in December for alcohol detox requiring transfer to ICU for IV Ativan drip. * Continue regular vitals check. * Continue CIWA protocol to monitor for signs/symptoms of alcohol withdrawal. Since admission, it has been 0-5. * Scheduled Ativan 1.5 mg PO q6h has been changed to 1 mg PO TID today and continue Ativan IV PRN per CIWA protocol. * Continue [id number] Depakote 500 mg PO BID. * Continue seizure precautions. * Continue oral supplementation with thiamine, folic acid and MVI. * Psych and social work consult appreciated. * According to psychiatric evaluation, patient has full capacity to decide his condition, and also has a good chance that he might request to leave AGAINST MEDICAL ADVICE as he has done in the past. Regarding his treatment, if he becomes agitated, Haldol by mouth or IM can be given. * No suicidal or homicidal ideation present. * Patient wants to follow-up with IOP at [facility]. We'll coordinate with social work department accordingly. * Anticipating to taper Ativan and discharge him on Monday. #Nicotine dependence: * 21 mg nicotine patch administered. #Patient's vitals will be closely monitored especially for his heart rate and blood pressure, which was borderline high initially, now better. Diet: Regular diet DVT PPx: Lovenox and ALPs CODE: FULL Problem List: 1. Seizure 2. Alcohol abuse 3. Nicotine dependence Pain Ratin Pain Location: - Pain Goal: Pain 4 or less Pain Plan: prn Tomorrow's Labs & Rationales: - STEPHENIE MAHAN MD 02/09/17 1314: Attending MD Review Statement Attending Statement Attending MD Statement: examined this patient, discuss w/resident/PA/OIL BURNER REPAIRER, agreed w/resident/PA/OIL BURNER REPAIRER, reviewed EMR data (avail), discussed with nursing, reviewed images Attending Assessment/Plan: Alcohol withdrawal with a history of alcohol withdrawal and regular seizures. We are tapering the Ativan and today he is on 1mg every 8hr. So far the medical detox has been uncomplicated. Anticipated discharge when the Ativan taper is done.
[2017-02-09 06:53] VITALS: BP 130/92
[2017-02-09 14:38] VITALS: BP 122/74
--- NOTE | 2017-02-09 15:29 | NUR ---
Visited with patient today. He was calm and alert; reports detox going well. This afternoon Russell reports that he is interested in trying our IOP. Despite multiple admissions for detox in the past, [facility] has never allowed us to assist him with aftercare. He has been known to [facility]; after last admission his return there was not successful. Call placed to our IOP. Currently their census is at maximum, and scheduled intakes and start of treatment are 2 weeks out. Conversation with cad programmer Zheng Da Silva, [facility], [facility] who reports that we will offer an intake, but start of service will not be until after the 16 of February. In the meantime, patient will also be provided with written material about how to access [facility]'s "walk-in" service for evaluation. Follow ADDENDUM: Intake at [facility] scheduled for Monday, 03/04 at 9:00am.
[2017-02-09 22:04] VITALS: BP 139/96
--- NOTE | 2017-02-09 23:08 | Patient Discharge Instructions ---
Discharge Instructions General Discharge Information You were seen/treated for: Seizure; Alcohol detoxification. You had these procedures: severe headache, hallucinations, seizure Special Instructions: Please follow up with [facility]'s IOP (Intensive Outpatient Psychiatry) unit after discharge. You have an appointment with the IOP on Monday02/17/17. Please call [IOP contact number] for any details. Please follow up with your PCP regla 10 days of your discharge. please follow up with your neurologist after discharge as planned earlier. Please make sure you take the seizure medications as prescribed. DO NOT DRINK ALCOHOL. Please return to emergency if symptoms worsen. Diet Continue normal diet: Yes Recommended Diet: Heart Healthy Activity Full Activity/No Limits: Yes Acute Coronary Syndrome Inclusion Criteria At DC or during hospital stay patient has or had the following: ACS DIAGNOSIS No Discharge Core Measures Meds if any: Prescribed or Continued at Discharge Meds if any: NOT Prescribed or Continued at Discharge Congestive Heart Failure Inclusion Criteria At DC or during hospital stay patient has or had the following: CHF DIAGNOSIS No Discharge Core Measures Meds if any: Prescribed or Continued at Discharge Meds if any: NOT Prescribed or Continued at Discharge Cerebrovascular accident Inclusion Criteria At DC or during hospital stay patient has or had the following: CVA/TIA Diagnosis No Discharge Core Measures Meds if any: Prescribed or Continued at Discharge Meds if any: NOT Prescribed or Continued at Discharge Venous thromboembolism Inclusion Criteria VTE Diagnosis No VTE Type NONE VTE Confirmed by (Test) NONE Discharge Core Measures - Per Current guidelines, there needs to be overlap - treatment for the first 5 days of Warfarin therapy. - If discharged on Warfarin prior to 5 days of - overlap therapy, the patient will need to be - assessed for post discharge needs including - *Post discharge parental anticoagulation - *Warfarin and/or parental anticoagulation education - *Follow up date to check INR post discharge At least 5 days overlap therapy as Inpatient No Meds if any: Prescribed or Continued at Discharge Note: Overlap Therapy is Warfarin and Anticoagulant Meds if any: NOT Prescribed or Continued at Discharge
[2017-02-10 06:16] VITALS: BP 128/90
--- NOTE | 2017-02-10 08:32 | PN- Housestaff ---
MARIN STEVENS,FRANCINE 02/10/17 0832: Subjective Follow-up For: seizure; EtOH detox. Subjective: Patient followed up by me today. He is comfortable, not in distress, calm, vital signs have been stable, no overnight issues. His CIWA scores in the last 24 hours have been 0, and was receiving 1 mg of oral Ativan scheduled twice daily yesterday, but did not require any as needed IV Ativan. He is agreeable to follow-up at [facility]. Review of Systems Constitutional: Reports: no symptoms. Objective Last 24 Hrs of Vital Signs/I&O Vital Signs Date Time Temp Pulse Resp B/P B/P Pulse O2 O2 Flow FiO2 Mean Ox Delivery Rate 02/10 0616 98.4 99 20 128/90 99 Room Air Intake & Output 02/10 1600 02/10 0800 02/10 0000 Intake Total 1000 Output Total Balance 1000 Intake, Oral 1000 Number 1 Bowel Movements Physical Exam General Appearance: Alert, Oriented X3, Cooperative, No Acute Distress Other Physical Findings: HEENT Atraumatic, Mucous Membr. moist/pink Neck Supple Cardiovascular Regular Rate, Normal S1, Normal S2 Lungs Clear to Auscultation Abdomen Soft, No Tenderness, Positive Bowel Sounds Neurological Tremors in Bilateral Upper Extremities Extremities No Clubbing, No Cyanosis, No Edema Psychiatric calm, coherent, not anxious, no suicidal or homicidal ideation. Current Medications: Current Medications Sig/Maximus Start time Last Medication Dose Route Stop Time Status Admin Acetaminophen 650 MG Q6P PRN 02/07 0415 DCD 02/08 PO 1336 Acetaminophen/ 1 TAB Q6P PRN 02/07 0415 DCD Hydrocodone Bitart PO Artificial Tears 2 GTT TID 02/07 1604 DCD 02/10 OPH 0913 Divalproex Sodium 500 MG BID 02/06 2255 DCD 02/10 PO 0913 Enoxaparin Sodium 40 MG DAILY 02/07 1000 DCD 02/10 SC 0913 Folic Acid 1 MG DAILY 02/07 1000 DCD 02/10 PO 0913 Haloperidol 5 MG Q8P PRN 02/07 1415 DCD PO Lorazepam 1 MG BID 02/10 1000 DCD 02/10 PO 0913 Lorazepam 1 MG TID 02/09 1000 DC 02/09 PO 211 Lorazepam 0 Q1P PRN 02/07 0400 DCD 02/07 IV 2109 Morphine Sulfate 1 MG Q6-PRN PRN 02/07 0415 VTD IV Multivitamins 1 TAB DAILY 02/07 1000 VTD 02/10 Therapeutic PO 0913 Nicotine 21 MG Q24 02/07 1000 [facility] 02/10 TOP 0913 Patient Medication 1 ED .STK-MED ONE 02/10 1322 DC Teaching ED 02/10 1323 Thiamine HCl 50 MG DAILY 02/07 1000 VTD 02/10 PO 0913 Assessment/Plan Assessment: 50 y/o M with PMHx of alcohol abuse and alcohol withdrawal seizures with multiple admissions for alcohol detox who presents after an unwitnessed seizure. He is currently being managed in the general medical floor for the following issues: #Alcohol detox and seizure: Presents after unwitnessed seizure likely secondary to noncompliance with seizure medications. Has only been taking the evening dose of the prescribed Depakote 500 mg PO BID. Valproic acid subtherapeutic on admission. Has been drinking one pint of vodka daily. Serum alcohol level 147 on admission. Urine toxicology positive for cannabis. Recent prolonged hospitalization in December for alcohol detox requiring transfer to ICU for IV Ativan drip. * Continue regular vitals check. * His CIWA scores have been very low, 0 end past 4 hours, has not required any as needed IV Ativan, and was requiring only 1 mg of oral Ativan scheduled twice daily yesterday. * He is very much agreeable to follow up with intensive outpatient psychiatry program. hot tamale worker was able to schedule an appointment for him on 2016. * At this point, patient can be safely discharged, as his alcohol detoxification seems to have completed, is calm, coherent, has a plan, is willing to quit alcohol, and follow-up with [facility] IOP, is not suicidal or homicidal. * Continue oral supplementation with thiamine, folic acid and MVI. * Psych and social work consult appreciated. #Seizure disorder * Continue [id number] Depakote 500 mg PO BID. #Nicotine dependence: * 21 mg nicotine patch administered. Diet: Regular diet DVT PPx: Lovenox and ALPs CODE: FULL Problem List: 1. Alcohol abuse 2. Nicotine dependence 3. Seizure Pain Ratin Pain Location: - Pain Goal: Remain pain free Pain Plan: - Tomorrow's Labs & Rationales: - NEGRITO STEVENS,STEPHENIE 02/10/17 1406: Attending MD Review Statement Attending Statement Attending MD Statement: examined this patient, discuss w/resident/PA/PLANT SCIENCE PROFESSOR, agreed w/resident/PA/PLANT SCIENCE PROFESSOR, reviewed EMR data (avail), discussed with nursing, discussed with case mgmt Attending Assessment/Plan: Pt seen and examined. He feels well. He was seen by the social insurance administrator and she made an IOP appointment for him for late next week. His CIWA scores have been zero. At this point I think he can comfortably be discharged with close outpatient follow-up. Alcohol cessation counselled.
[2017-02-10] MEDS ORDERED: ARTIFICIAL TEA1 EACH OPH (11:47)
--- NOTE | 2017-02-11 06:57 | Discharge Summary ---
Visit Information Visit Dates Admission Date: 02/06/17 Discharge Date: 02/10/17 Hospital Course Course Attending Physician: NEGRITO STEVENS,STEPHENIE Ramon Primary Care Physician: DAVID ALBRECHT APRN [facility] Course: Mr Emmanuel is a 50 y/o M with PMHx of alcohol abuse and alcohol withdrawal seizures with multiple admissions for alcohol detox who presents after an unwitnessed seizure. He was managed in the general medical floor for the following issues: #Alcohol detox and seizure: Present had an episode of unwitnessed seizure, likely secondary to noncompliance with seizure medications. Has only been taking the evening dose of the prescribed Depakote 500 mg PO BID. Valproic acid level was subtherapeutic on admission. His home dose of Depakote was resumed and was watched for seizure like activities regulary, which he did NOT have any during this admission. He was sent on the previously prescribed Depakote prescription. #Alcohol detoxification Patient had been drinking one pint of vodka daily. Serum alcohol level was 147 on admission. Urine toxicology was also positive for cannabis. He recently had a prolonged hospitalization in December for alcohol detox requiring transfer to ICU for IV Ativan drip. He had compliance issues and had left AMA in the past. This admission however, he was very compliant and was discussing long term acute care registered nurse goals after quitting alcohol and getting back to his life as well. He was treated per CIWA protocol with Ativan taper without any event. He was agreeable to follow up with intensive outpatient psychiatry program (IOP). concrete worker was able to schedule an appointment for him. He needs to continue oral supplementation with thiamine, folic acid and multivitamins. At the day of discharge, his alcohol detoxification was already complete. He was calm, coherent, had a plan, was willing to quit alcohol, and follow-up with [facility] IOP, was not suicidal or homicidal. He was on Regular diet. DVT prophylaxis was provised with Lovenox and ALPs, which he refused multiple times. He held a full code status. Complications: None Allergies: Coded Allergies: diphenhydramine (From Benadryl) (DROWSY OR HYPER 11/26/15) loratadine (From Claritin) (HYPER OR DROWSY 11/26/15) Pertinent Lab Results: Laboratory Tests on admission 02/07/17 0020: Urine Cannabis Screen >80 (high); Valproic acid level 16.8 (low) 02/06/17 1946: Anion Gap 18 H, Estimated GFR > 60, BUN/Creatinine Ratio 25.0, Glucose 85, Calcium 9.6, Total Bilirubin 0.6, AST 41, ALT 30, Alkaline Phosphatase 82, Total Protein 8.5 H, Albumin 5.0, Globulin 3.5, Albumin/Globulin Ratio 1.4, CBC w Diff NO MAN DIFF REQ, RBC 4.28 L, MCV 91.8, MCH 30.9, RDW 16.3 H, MPV 7.9, Gran % 45.9, Lymphocytes % 38.6, Monocytes % 12.4 H, Eosinophils % 2.4, Basophils % 0.7, Absolute Granulocytes 2.5, Absolute Lymphocytes 2.1, Absolute Monocytes 0.7 H, Absolute Eosinophils 0.1, Absolute Basophils 0, PUBS MCHC 33.7 , Valproic Acid 16.8 L, Serum Alcohol 147.0 Disposition Summary Disposition Principal Diagnosis: Seizure; Alcohol detoxification. Additional Diagnosis: Past history of alcohol abuse and multiple admissions for detoxification, ?DVT ( post-operative); Nicotine dependence. Discharge Disposition: home or self care Discharge Instructions General Discharge Information Code Status: Full Code Patient's Diet: Heart Healthy Patient's Activity: As tolerated Follow-Up Instructions/Appts: Please follow up with [facility]'s IOP (Intensive Outpatient Psychiatry) unit after discharge. You have an appointment with the IOP on Monday02/17/17. Please call [[facility] contact number] for any details. Please follow up with your PCP regla 10 days of your discharge. please follow up with your neurologist after discharge as planned earlier. Please make sure you take the seizure medications as prescribed. DO NOT DRINK ALCOHOL. Please return to emergency if symptoms worsen. Medications at Discharge Discharge Medications: Stop taking the following medications: Sumatriptan Succinate (Imitrex) 50 MG TABLET ORAL DAILY Qty = 30 Naproxen (Naproxen) (Unknown Strength) TABLET ORAL TWICE DAILY Qty = 60 Disulfiram (Disulfiram) (Unknown Strength) TABLET ORAL DAILY Qty = 30 Continue taking these medications: Divalproex Sodium (Divalproex Sodium) 500 MG TABLET. 500 Milligram ORAL TWICE DAILY Qty = 60 Instructions: PLEASE FOLLOW UP WITH DR. EUGENE, NEUROLOGY, IN 2 WEEKS. Comments: Last Taken: 02/10/17 Time: 9:00 am Folic Acid (Folic Acid) 1 MG TABLET 1 Milligram ORAL DAILY Qty = 30 Comments: Last Taken: 02/10/17 Time: 9:00 AM Thiamine HCl (Vitamin B-1) 50 MG TABLET 50 Milligram ORAL DAILY Qty = 30 Comments: Last Taken: 02/10/17 Time: 9:00 AM Multivitamin (One Daily Multivitamin) 1 EACH TABLET 1 Tablet ORAL DAILY Qty = 30 Comments: Last Taken: 02/10/17 Time: 9:00 AM Start taking the following new medications: Dextran 70/Hypromellose (Artificial Tears) 1 EACH DROPERETTE 2 Drop In the eye THREE TIMES DAILY as needed for DRY EYES Qty = 2 No Refills Comments: Last Taken: 02/10/17 Time: 9:00 AM Copies To: DAVID ALBRECHT APRN
== END 2017-02-10 13:29 | DRG 775 ==
LOC: ERH 19:00 → 2NB 21:51 → ERHI 21:51 → ENRESERV 23:20 → 2NB 23:52
PROVIDERS: Emergency Medicine; ADMIT Student in an Organized Health Care Education/Training Program
DX: F10.239 Alcohol dependence with withdrawal, unspecified (principal); G40.909 Epilepsy, unspecified, not intractable, without status epilepticus; F17.210 Nicotine dependence, cigarettes, uncomplicated; Z91.14 Patient's other noncompliance with medication regimen; Z86.718 Personal history of other venous thrombosis and embolism
CPT/HCPCS: 2NBP; 80307; 82436; 96374; 96375; G0480; J1650; J3490; J7060

== ENCOUNTER 2017-02-25 20:34 | Inpatient (IN) | payer OTHER ==
[~2017-02-25] VITALS: Ht 172.7 cm; Wt 72.6 kg
[~2017-02-25 20:34] MED LIST changes: +ARTIFICIAL TEA1 EACH OPH; +DISULFIRAM250 M1 PO; +IMITREX50 M1 PO; +NAPROXEN500 M2 PO
--- NOTE | 2017-02-25 21:13 | NUR ---
PT BIBA TO [facility] E C/C ETOH AND +SI. PER EMS PT HAS EXPRESSED THAT HE HAS BEEN DRINKING ALL DAY "ABOUT A PINT" OF UNKNOWN ALCOHOL, HAS TOLD EMS THAT HE HAS A SUICIDAL PLAN AND HAS GUNS AT HOME. ALSO PER REPORT PT HAS HX OF SEIZURES, TAKES DIVALPROEX FOR SAME AND HAS BEEN COMPLIANT WITH HIS MEDICATIONS. PT REPORTS HE DRINKS DAILY X 30 YEARS AND DRANK ABOUT A PINT OF VODKA TODAY. LAST DRINK SHORTLY PRIOR TO EMS ARRIVAL. PT ADMITS TO OCCASSIONAL [place] USE BUT DENIES OTHER SUBSTANCE USE/ABUSE. ADMITS TO SUICIDAL IDEATION WITH HX OF SAME. CONFIRMS THAT HE HAS ACCESS TO GUNS. DENIES ANY HISTORY OF SUCIDAL ATTEMPT. DENIES ANY PAIN. PT ALERT, COOPERATIVE AT THIS TIME. SECURITY AND SITTER STAFF PRESENT FOR WANDING AND CHANGING PATIENT.
--- NOTE | 2017-02-25 21:35 | NUR ---
LABS BEING DRAWN AT PRESENT BY HOLLY VELAZQUEZ
[2017-02-25 21:43] LABS: ABSOLUTE BASOPHIL COUNT 0 /CUMM (0.0-0.2); ABSOLUTE EOSINOPHIL COUNT 0 /CUMM (0.0-0.7); ABSOLUTE GRANULOCYTE CT 2.7 /CUMM (1.4-6.5); ABSOLUTE LYMPH COUNT 2.9 /CUMM (1.2-3.4); ABSOLUTE MONOCYTE COUNT 0.5 /CUMM (0.10-0.60); BASOPHIL % 0.4 % (0.0-2.0); EOSINOPHIL % 0.6 % (0-5); GRANULOCYTE % 43.4 % (42.2-75.2); HEMATOCRIT 42.5 % (42-52); MEAN CORPUSCULAR HGB 30.4 PG (27.0-31.0); MEAN CORPUSCULAR HGB CONC 33.5 G/DL (33.0-37.0); MEAN CORPUSCULAR VOLUME 90.9 FL (80.0-94.0); MEAN PLATELET VOLUME 7.2 FL (7.4-10.4); PLATELET COUNT 220 /CUMM (130-400); RBC DISTRIBUTION WIDTH 16.7 % (11.5-14.5); RED BLOOD CELL CT 4.68 /CUMM (4.70-6.10); WHITE BLOOD CELL COUNT 6.2 /CUMM (4.8-10.8)
--- NOTE | 2017-02-25 23:56 | NUR ---
AWAKE . RESTLESS ON STRETCHER. PT REPOSITIONED. SITTER AT BEDSIDE.
[2017-02-26] VITALS (8 sets, daily range): BP systolic 110–174; BP diastolic 46–108
--- NOTE | 2017-02-26 01:16 | NUR ---
PM "SEIZURE MED " SITTER AT BEDSIDE.
--- NOTE | 2017-02-26 02:31 | NUR ---
PT SLEEPING WITH EYE MASK FOR COMFORT AND TO DECREASE STIMULI. SITTERS PRESENT FOR SAFETY
--- NOTE | 2017-02-26 08:15 | NUR ---
ASSUMED CARE OF PT, PT REPORTING NAUSEA, DIAPHORESIS AND WORSENING TREMORS, CIWA 15, IV ESTABLISHED AND MEDICATED PER EMAR.
--- NOTE | 2017-02-26 08:43 | ED PSYCHIATRIC COMPLAINT ---
History of Present Illness General Chief Complaint: Psychiatric Related Complaint Stated Complaint: ETOH AND SI Source: patient, EMS Exam Limitations: intoxication Vital Signs & Intake/Output Vital Signs & Intake/Output Vital Signs Date Time Temp Pulse Resp B/P B/P Pulse O2 O2 Flow FiO2 Mean Ox Delivery Rate 02/26 1744 97.0 110 18 159/96 02/26 1735 97.0 110 18 159/96 98 Room Air 02/26 1644 97.0 120 20 128/77 02/26 1644 97.0 120 20 128/77 96 Room Air 02/26 1521 99.0 132 20 130/91 02/26 1519 99.0 132 20 130/71 100 Room Air 02/26 1321 98.6 130 18 156/84 02/26 1150 98.6 140 18 160/98 98 Room Air 02/26 1149 98.8 140 20 160/98 02/26 0921 97.9 110 18 127/82 96 02/26 0832 98.3 117 18 174/75 02/26 0832 98.9 117 18 174/75 100 Room Air 02/25 2301 96.8 78 18 121/68 98 Room Air 02/25 2116 Room Air Room Air 02/25 2045 97 Room Air 02/25 2043 96.5 80 18 139/92 87 Room Air ED Intake and Output 02/26 0000 02/25 1200 Intake Total Output Total Balance Patient 175 lb Weight Weight Reported by Patient Measurement Method Allergies Coded Allergies: diphenhydramine (From Benadryl) (DROWSY OR HYPER 11/26/15) loratadine (From Claritin) (HYPER OR DROWSY 11/26/15) Reconcile Medications Dextran 70/Hypromellose (Artificial Tears) 1 EACH DROPERETTE 2 GTT OPH TID PRN DRY EYES Divalproex Sodium 500 MG TABLET. 500 MG PO BID SEIZURE PLEASE FOLLOW UP WITH DR. EUGENE, NEUROLOGY, IN 2 WEEKS. Folic Acid 1 MG TABLET 1 MG PO DAILY SUPPLEMENT Multivitamin (One Daily Multivitamin) 1 EACH TABLET 1 TAB PO DAILY SUPPLEMENT Thiamine HCl (Vitamin B-1) 50 MG TABLET 50 MG PO DAILY SUPPLEMENT Triage Nurses Notes Reviewed? yes HPI: Patient presents for evaluation of alcohol intoxication and suicide ideation. Patient states he just needs to get this taken care of. He states his last alcoholic beverage was about 20 minutes prior to arrival. His last detox was about one month ago. He is fearful he is going to have a seizure despite the amount of alcohol he has imbibed this evening. (MOHIT STEVENS,SOLA Hawk) Past History Travel History Traveled to [place] past 21 day No Medical History Any Pertinent Medical History? see below for history Neurological: migraine, seizure EENT: NONE Cardiovascular: NONE Respiratory: NONE Gastrointestinal: inguinal hernia colonic polyps Hepatic: NONE Renal: NONE Musculoskeletal: fracture (left lower leg) Psychiatric: alcohol dependence, depression Endocrine: NONE Blood Disorders: DVT (postoperative) Cancer(s): NONE CITY SUPERINTENDENT/Reproductive: NONE History of MRSA: No History of VRE: No History of CDIFF: No Influenza Vaccine: 08/18/16 Surgical History Surgical History: non-contributory Psychosocial History Who do you live with Brother Services at Home None What is your primary language Ecuadorean Family History Family History, If Any: MOTHER (lung cancer). FATHER (stroke). Hx Contributory? No (MOHIT STEVENS,SOLA Hawk) Review of Systems Review of Systems Constitutional: Reports: no symptoms. EENTM: Reports: no symptoms. Respiratory: Reports: no symptoms. Cardiovascular: Reports: no symptoms. GI: Reports: no symptoms. Genitourinary: Reports: no symptoms. Musculoskeletal: Reports: no symptoms. Skin: Reports: no symptoms. Neurological/Psychological: Reports: see HPI. Hematologic/Endocrine: Reports: no symptoms. Immunologic/Allergic: Reports: no symptoms. All Other Systems: Reviewed and Negative (MOHIT STEVENS,SOLA Hawk) Physical Exam Physical Exam General Appearance: see below Neurological/Psychiatric: see below Comments: General: Alert, calm, cooperative, EtOH-like odor Head: Normocephalic, atraumatic Eyes: Normal inspection, no nystagmus, EOMI Ears: Normal inspection Nose: Normal inspection Throat: Moist mucosa Neck: Supple, no goiter Heart: Regular rate and rhythm, no murmurs rubs or gallops Lungs: Clear to auscultation bilaterally with good air entry Abdomen: Soft nontender nondistended, normal bowel sounds Chest: Nontender Extremities: Normal range of motion grossly, no tremors present, no cyanosis clubbing or edema of the upper extremities Neurologic: cranial nerves II through XII grossly intact, slurred speech clear, gait not assessed due to clinical intoxication and fall risk Psychiatric: No apparent delusions or hallucinations, no pressured speech or thought blocking SAD PERSONS Done? DEFERRED TO CRISIS (MOHIT STEVENS,SOLA Hawk) Progress Differential Diagnosis: drug intoxication, drug overdose Plan of Care: Orders Procedure Date/time Status Regular Diet 02/27 B Active Saline Lock 02/26 174 Active Misc Message 02/26 174 Active ED Holding Orders 02/26 1746 Active Vital Signs 02/26 1746 Active Activity/Ambulation 02/26 174 Active Code Status 02/26 174 Active Patient Data 02/26 1741 Active Admit to inpatient 02/26 1655 Active Add-on Test (ER Only) 02/26 1220 Active CASE MANAGEMENT CONSULT 02/26 0920 Active Intake & Output 02/26 0847 Active CIWA 02/26 0836 Active DEPAKOTE LEVEL 02/25 2138 Complete Continuous Observation Monitor 02/25 2058 Active URINE DRUG SCREEN FOR ER ONLY 02/25 2058 Complete LIPASE 02/25 2058 Complete ETHANOL 02/25 2058 Complete COMPREHENSIVE METABOLIC PANEL 02/25 2058 Complete CBC WITHOUT DIFFERENTIAL 02/25 2058 Complete ED CRISIS PSYCH CONSULT 02/25 2058 Active Current Medications Sig/Maximus Start time Last Medication Dose Stop Time Status Admin Cyanocobalamin/ 1 BAG DAILY 02/26 175 UNVr Thiamine/Pyridoxine (Vitamin in I.V.) Dextrose/Water 1,000 ML (D5W 1000) Lorazepam 2 MG Q2P PRN 02/26 1530 UNVr 02/26 (Ativan) 1529 Laboratory Tests 02/25/172137: Anion Gap 20 H, Estimated GFR > 60, BUN/Creatinine Ratio 20.0, Glucose 97, Calcium 9.7, Total Bilirubin 0.5, AST 43, ALT 31, Alkaline Phosphatase 84, Total Protein 8.4 H, Albumin 4.9, Globulin 3.5, Albumin/Globulin Ratio 1.4, Lipase 400 H, CBC w Diff NO MAN DIFF REQ, RBC 4.68 L, MCV 90.9, MCH 30.4, RDW 16.7 H , MPV 7.2 L, Gran % 43.4, Lymphocytes % 47.1, Monocytes % 8.5, Eosinophils % 0.6, Basophils % 0.4, Absolute Granulocytes 2.7, Absolute Lymphocytes 2.9, Absolute Monocytes 0.5, Absolute Eosinophils 0, Absolute Basophils 0, PUBS MCHC 33.5, Valproic Acid 71.8, Serum Alcohol 435.0 06/10/17 2127: Urine Opiates Screen < 100.00, Methadone Screen < 40, Barbiturate Screen < 60, Ur Phencyclidine Scrn < 6.00, Amphetamines Screen < 100, U Benzodiazepines Scrn < 85, Urine Cocaine Screen < 50, Urine Cannabis Screen 13.40 Comments: 02/26/2017 8:42:26 AM patient now has a CIWA score of 15 and Ativan has been ordered. Patient now makes criterion for inpatient detox according to the [facility] emergency medicine ETOH detoxification protocol. Patient signed out to Dr. Hutton. (MOHIT STEVENS,SOLA Hawk) Departure Departure Disposition: STILL A PATIENT Condition: Stable Clinical Impression Primary Impression: Alcohol withdrawal Qualifiers: Complication of substance-induced condition: uncomplicated Qualified Code: F10.230 - Alcohol dependence with withdrawal, uncomplicated Referrals: DAVID ALBRECHT APRN (PCP/Family) Departure Forms: Customer Survey General Discharge Information (MOHIT STEVENS,SOLA Hawk) Admission Note Spoke With: FAVIO STEVENS,[place] Documentation of Exam: Documentation of any treatments & extenuating circumstances including Concerns Regarding Discharge (functional status, medication knowledge or non-compliance, living conditions, etc.) that warrant an admission rather than observation: [ FOLLOW CIWA CLOSELY AND ATIVAN PER PROTOCOL. PT MAY BENIFIT FROM REHAB AFTER DOISCHARGE FOR DETOX] Alcohol Withdrawl Admission ED Alcohol Detox Admission d/t: CIWA Score >15, DTs/Seizure w/i last year (JACQUIE STEVENS,MANDA Watts)
--- NOTE | 2017-02-26 09:15 | NUR ---
PT NOW SLEEPING SOUNDLY, NO S/S OF WITHDRAWAL, EASILY AROUSABLE TO VERBAL STIMULI.
--- NOTE | 2017-02-26 11:53 | NUR ---
PT MEDICATED WITH 2MG IV ATIVAN PER CIWA AT THIS TIME. PT VOMTITED SMALL AMOUNT IN BATHROOM. PT NOITED TO BE TREMULOUS AND SWEATY.
--- NOTE | 2017-02-26 13:20 | NUR ---
PT REMAISN TREMULOUS AT THIS TIME. MEDICATED WITH 2MG IV ATIVAN PER ORDER
--- NOTE | 2017-02-26 13:35 | ED PSYCH CRISIS CONSULTATION ---
Crisis Consult Basic Assessment Date of Consult: 02/26/17 Responsible Person/Accompanied By: Patient JEAN PAUL Insurance Authorization: Insurance #1: Insurance name: KALANI DUKES Phone number: Policy number: [id number] Group number: Authorization number: ED Provider: Patient's ED Provider: SOLA RUEDA MD Primary Care Physician: Patient's PCP: DAVID ALBRECHT APRN PCP's Current Psychiatrist: None reported Chief Complaint: Psychiatric Related Complaint Patient's Quote: "I need detox." Present Illness: Patient is a 51 year old single male JEAN PAUL due to seeking treatment for his alcoholism. When patient initially presented he reported suicidal ideation but is denying thoughts currently. He denies any previous attempts of hurting himself and has no psych hx at . Patient reports a hx of alcohol withdrawal seizures and reports most recent one was 3 weeks ago. Patients last drink was yesterday and patient appears to be in withdrawal at present. Patient treumulous and perseverating. Patient resides with his girlfriend but was unable to recall her name when asked. Patient is alert and oriented X3. Patient reports drinking daily 2 pints of vokda. Patient unsure how long he has been drinking this amount for but stated "years." Patient reports also recreational use of marijuana. Patient reports going to rehab 1x in lifetime at [facility]. Case Management to follow and evaluate for need for medical floor admission for alcohol detox. Patient's Address: [address] [place] [address] Other Phone Number: Who Do You Live With? Brother Family/Informants Interviewed: no family/collateral ID'd Allergies - Coded Allergies: diphenhydramine (From Benadryl) (DROWSY OR HYPER 11/26/15) loratadine (From Claritin) (HYPER OR DROWSY 11/26/15) Current Medications - Scheduled Medications Divalproex Sodium 500 MG TABLET.DR 500 MG PO BID SEIZURE #60 TAB Prescribed by SIRIA LOPEZ MD on 01/16/17 Folic Acid 1 MG TABLET 1 MG PO DAILY SUPPLEMENT #30 TAB Prescribed by SIRIA LOPEZ MD on 01/16/17 Multivitamin (One Daily Multivitamin) 1 EACH TABLET 1 TAB PO DAILY SUPPLEMENT #30 TAB Prescribed by SIRIA LOPEZ MD on 01/16/17 Thiamine HCl (Vitamin B-1) 50 MG TABLET 50 MG PO DAILY SUPPLEMENT #30 TAB Prescribed by SIRIA LOPEZ MD on 01/16/17 Scheduled PRN Medications Dextran 70/Hypromellose (Artificial Tears) 1 EACH DROPERETTE 2 GTT OPH TID PRN DRY EYES #2 UNIT Prescribed by FRANCINE FUNES MD on 02/09/17 Laboratory Results: Laboratory Tests 02/25/172137: Anion Gap 20 H, Estimated GFR > 60, BUN/Creatinine Ratio 20.0, Glucose 97, Calcium 9.7, Total Bilirubin 0.5, AST 43, ALT 31, Alkaline Phosphatase 84, Total Protein 8.4 H, Albumin 4.9, Globulin 3.5, Albumin/Globulin Ratio 1.4, Lipase 400 H, CBC w Diff NO MAN DIFF REQ, RBC 4.68 L, MCV 90.9, MCH 30.4, RDW 16.7 H , MPV 7.2 L, Gran % 43.4, Lymphocytes % 47.1, Monocytes % 8.5, Eosinophils % 0.6, Basophils % 0.4, Absolute Granulocytes 2.7, Absolute Lymphocytes 2.9, Absolute Monocytes 0.5, Absolute Eosinophils 0, Absolute Basophils 0, PUBS MCHC 33.5, Valproic Acid 71.8, Serum Alcohol 435.0 02/25/172126: Urine Opiates Screen < 100.00, Methadone Screen < 40, Barbiturate Screen < 60, Ur Phencyclidine Scrn < 6.00, Amphetamines Screen < 100, U Benzodiazepines Scrn < 85, Urine Cocaine Screen < 50, Urine Cannabis Screen 13.40 Past History Past Medical History Neurological: migraine, seizure EENT: NONE Cardiovascular: NONE Respiratory: NONE Gastrointestinal: inguinal hernia colonic polyps Hepatic: NONE Renal: NONE Musculoskeletal: fracture (left lower leg) Psychiatric: alcohol dependence, depression Endocrine: NONE Blood Disorders: DVT (postoperative) Cancer(s): NONE 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 SERVICE DISPATCHER/Reproductive: NONE Past Surgical History Surgical History: non-contributory Psychosocial History Strengths/Capabilities: Help seeking at times Physical Limitations (Interventions): ETOH withdrawl & dependence, chronic relapse Psychiatric Treatment History Psych Treatment Psychiatric Treatment No Inpatient Treatment No Outpatient Treatment No Diagnosis by History: Alcohol use disorder Cocaine use disorder Cannabis use disorder Substance Use/Abuse History Drug Use/Abuse 1 Substances Used/Abused Yes Substance Used/Abused Alcohol First Use "years ago" Last Used yesterday, 02/25/17 How much used/taken 2 pints vodka How often daily For how long daily Route of use oral Drug Use/Abuse 2 Substances Used/Abused Yes Substance Used/Abused Marijuana First Use Unknown Last Used Unknown How much used/taken recreational use How often "" Route of use smoke Substance Abuse Treatment Substance Abuse Treatment Past Substance Abuse TX Yes Inpatient Treatment Yes Outpatient Treatment Yes Location of Treatment [facility] Reason for Treatment alcohol use Dates of Treatment unknown Response to Treatment poor Current Mental Status Mental Status Orientation: Person, Place, Situation Affect: Anxious Speech: Slurred Neuro-vegetative: Appetite Decreased, Concentration Poor, Energy Decreased, Loss of Interest, Sleep Disturbance Appearance Appearance- Dress/Hygiene: In hospital issued scrubs, tremulous, perseverating. Behaviors Thought Process: WNL Thought Content: Thought Blocking Memory: WNL Insight: WNL SI/HI Risk Assessment Past Suicidal Ideation/Attempts No Current Suicidal Ideation/Att No Past Homicidal Ideation/Att: No Current Homicidal Ideation/Attempts No Degree of Intent: None Risk Factors: substance abuse, male Lethality Ratin PTSD Checklist PTSD Done? patient declined ED Management Sitter: Yes Restraints: No DSM5/PS Stressors/Medical Prob Diagnosis' (DSM 5, Stressors, Medical): Alcohol use d/o, Severe F10.20 Current GAF: 31 Departure Disposition Psych Medical Clearance Date: 02/26/17 Medically Cleared at: 1230 Time Started: 1300 Time Ended: 1325 Psychiatrist Consulted: Dr. Vernell Haider Date Disposition Established: 02/26/17 Time Disposition Established: 1330 Plan for Disposition - Modality: Inpatient Detoxification Facility: [facility] Rationale for Disposition: Denies SI, hx of alcohol withdrawal seizures. CM to follow. Referrals DAVID ALBRECHT APRN (PCP/Family)
--- NOTE | 2017-02-26 15:17 | NUR ---
RECEIVED REPORT ON PT AND NOTED HAVING SOME WITHDRAWAL SYMPTOS AND INFORMED AND PT WILL BE CIWA'D AND MEDICTED
--- NOTE | 2017-02-26 15:29 | NUR ---
PT MEDICATED ORDERED
--- NOTE | 2017-02-26 17:00 | NUR ---
CASE MANAGEMENT LM: [facility] AUTH # [id number] FOR 6 DAYS UNTIL 03/03/2017. ADMITTING, DR DHILLON AND CAITLYN AWARE OF SAME.
--- NOTE | 2017-02-26 17:10 | NUR ---
PT AWAKE AND NOTED EATING AND NOTED TO BE SLIGHT LESS TREMULOUS AND VITALS IN PROGRESS
--- NOTE | 2017-02-26 17:58 | History & Physical ---
GODFREY GOMEZ 02/26/17 6288: General Information and HPI MD Statement: I have seen and personally examined BHUPINDER MARIN and documented this H&P. The patient is a 51 year old M who presented with a patient stated chief complaint of alcohol withdrawal and requesting for alcohol detox []. Source of Information: patient, old records Exam Limitations: clinical condition History of Present Illness: Patient is 51-year-old male with past medical history significant for alcohol abuse, alcohol withdrawal seizures and multiple admissions with alcohol detox last in January 2017 was brought into emergency room with chief complaint of alcohol withdrawal/alcohol detox and also positive suicidal ideation at the time of admission. Patient was already being evaluated by psych and currently patient denied any suicidal ideation and cleared him for admission on medical floor. By the time I interviewed patient and he was very sleepy and dozing off multiple times during interview but he was oriented 3. He was very forgetful and most of the history is from chart and ER physician. Patient doesn't remember when he started drinking after discharge. Apparently he is drinking vodka 1-2 pints every day and last drink was almost half an hour before arrival to emergency room so that was yesterday. During his ER stay his CIWA score was running on the higher side almost 15 at some point. Vital signs on admission were temperature 96.5, pulse 80, respiratory rate 18, blood pressure 139/92 and he was saturating 97% on room air Allergies/Medications Allergies: Coded Allergies: diphenhydramine (From Benadryl) (DROWSY OR HYPER 11/26/15) loratadine (From Claritin) (HYPER OR DROWSY 11/26/15) Home Med list Dextran 70/Hypromellose (Artificial Tears) 1 EACH DROPERETTE 2 GTT OPH TID PRN DRY EYES Divalproex Sodium 500 MG TABLET. 500 MG PO BID SEIZURE PLEASE FOLLOW UP WITH DR. EUGENE, NEUROLOGY, IN 2 WEEKS. Folic Acid 1 MG TABLET 1 MG PO DAILY SUPPLEMENT Multivitamin (One Daily Multivitamin) 1 EACH TABLET 1 TAB PO DAILY SUPPLEMENT Thiamine HCl (Vitamin B-1) 50 MG TABLET 50 MG PO DAILY SUPPLEMENT Compliance With Home Meds: UNKNOWN Past History Travel History Traveled to [place] past 21 day No Medical History Neurological: migraine, seizure EENT: NONE Cardiovascular: NONE Respiratory: NONE Gastrointestinal: inguinal hernia colonic polyps Hepatic: NONE Renal: NONE Musculoskeletal: fracture (left lower leg) Psychiatric: alcohol dependence, depression Endocrine: NONE Blood Disorders: DVT (postoperative) Cancer(s): NONE GEOGRAPHIC ANALYST/Reproductive: NONE History of MRSA: No History of VRE: No History of CDIFF: No Isolation History: Standard Surgical History Surgical History: non-contributory Past Family/Social History Family History Relations & Conditions if any MOTHER (lung cancer). FATHER (stroke). Psychosocial History Who Do You Live With? friends Services at Home: None Primary Language: Divehi ETOH Use: alcoholic Illicit Drug Use: marijuana Functional Ability ADLs Independent: dressing, eating, toileting, bathing. Ambulation: independent IADLs Independent: shopping, housework, finances, food prep, telephone, transportation , medication admin. Review of Systems Review of Systems Constitutional: Denies: chills, diaphoresis. EENTM: Denies: blurred vision, visual changes. Cardiovascular: Denies: chest pain, edema. Respiratory: Denies: cough, hemoptysis. GI: Denies: bloating, constipation, diarrhea. Genitourinary: Denies: dysuria, frequency. Musculoskeletal: Denies: back pain, joint pain. Exam & Diagnostic Data Last 24 Hrs of Vital Signs/I&O Vital Signs Date Time Temp Pulse Resp B/P B/P Pulse O2 O2 Flow FiO2 Mean Ox Delivery Rate 02/26 1744 97.0 110 18 159/96 02/26 1735 97.0 110 18 159/96 98 Room Air 02/26 1644 97.0 120 20 128/77 02/26 1644 97.0 120 20 128/77 96 Room Air 02/26 1521 99.0 132 20 130/91 02/26 1519 99.0 132 20 130/71 100 Room Air 02/26 1321 98.6 130 18 156/84 02/26 1150 98.6 140 18 160/98 98 Room Air 02/26 1149 98.8 140 20 160/98 02/26 0921 97.9 110 18 127/82 96 02/26 0832 98.3 117 18 174/75 02/26 0832 98.9 117 18 174/75 100 Room Air 02/25 2301 96.8 78 18 121/68 98 Room Air 02/25 2116 Room Air Room Air 02/25 2045 97 Room Air 02/25 2043 96.5 80 18 139/92 87 Room Air Intake & Output 02/26 1600 02/26 0800 02/26 0000 Intake Total 20 Output Total Balance 20 Intake, IV 20 Patient 175 lb Weight Weight Reported by Patient Measurement Method Physical Exam General Appearance Oriented X3 HEENT Atraumatic Cardiovascular Regular Rate, Normal S1, Normal S2 Lungs Normal Air Movement Abdomen Soft Last 24 Hrs of Labs/John: Laboratory Tests 02/25/172137: Anion Gap 20 H, Estimated GFR > 60, BUN/Creatinine Ratio 20.0, Glucose 97, Calcium 9.7, Total Bilirubin 0.5, AST 43, ALT 31, Alkaline Phosphatase 84, Total Protein 8.4 H, Albumin 4.9, Globulin 3.5, Albumin/Globulin Ratio 1.4, Lipase 400 H, CBC w Diff NO MAN DIFF REQ, RBC 4.68 L, MCV 90.9, MCH 30.4, RDW 16.7 H , MPV 7.2 L, Gran % 43.4, Lymphocytes % 47.1, Monocytes % 8.5, Eosinophils % 0.6, Basophils % 0.4, Absolute Granulocytes 2.7, Absolute Lymphocytes 2.9, Absolute Monocytes 0.5, Absolute Eosinophils 0, Absolute Basophils 0, PUBS MCHC 33.5, Valproic Acid 71.8, Serum Alcohol 435.0 02/25/172126: Urine Opiates Screen < 100.00, Methadone Screen < 40, Barbiturate Screen < 60, Ur Phencyclidine Scrn < 6.00, Amphetamines Screen < 100, U Benzodiazepines Scrn < 85, Urine Cocaine Screen < 50, Urine Cannabis Screen 13.40 Assessment/Plan Assessment: Basis 4-year-old gentleman with past medical history significant for alcohol withdrawal seizures, history of seizures, multiple detox last a month ago came with chief complaint of alcohol withdrawal and requesting for detox. We will admit patient under medical floor and will take care for the following problems Is 1. History of alcohol abuse 2. Alcohol withdrawal 3. Alcohol detox 4. History of seizure 5. Elevated lipase Plan 1. We'll admit patient to general medical floor 2. Will start patient on CIWA protocol 3. Him on seizure precautions 4. We'll start him on banana bag with thiamine, folic acid and multivitamin supplements 5. We will start him on Ativan 1 mg IV every hour according to CIWA score 6. We will start him on standing dose of Ativan 2 mg every 6 hours 7. Will closely watch him for withdrawal and he was a low threshold for ICU transfer as he had recent alcohol withdrawal and detox where he required Ativan drip and was transferred to ICU for that. 8. At the beginning patient was suicidal but he was cleared by signs and currently he is denying any suicidal ideation Pharmacological DVT prophylaxis Regular diet Patient is full code As Ranked By This Provider Problem List: 1. Alcohol abuse Core Measures/Miscellaneous Acute Coronary Syndrome ACS Diagnosis: No Cerebrovascular Accident CVA/TIA Diagnosis: No Congestive Heart Failure CHF Diagnosis: No VTE (View Protocol) VTE Risk Factors: Age > 40 [facility] prophylaxis d/t: No contraindications No VTE Pharm Prophylaxis d/t: No contraindications VTE Diagnosis: No VTE Type: NONE VTE Confirmed by (Test): NONE Sepsis (View Protocol) Severe Sepsis Present: No Septic Shock Septic Shock Present: No Miscellaneous Documentation Attending Case Discussed With: FAVIO STEVENS,[place] Primary Care Physician: DAVID ALBRECHT APRN Patient sees these Specialists None Level of Patient Care: General Medicine RIGO PULIDO 02/27/17 0042: Attending MD Review Statement Attending Statement Attending MD Statement: examined this patient, discuss w/resident/PA/SALES AND CUSTOMER RELATIONS REP, agreed w/resident/PA/SALES AND CUSTOMER RELATIONS REP, reviewed EMR data (avail), reviewed images, amended to note Attending Assessment/Plan: CC: "I do not want to " PMH: alcohol dependence, alcohol related seizures, polysubstance abuse History is obtain from ED chart and previous medical records. Patient is very sleepy and not providing any details. Patient was brought in ER through EMS when he called them and expressed that he had been drinking all day and he may have suicidal plan and has begun at home. Then I spoke to him he said that he called them because he did not want to and came to ER. Past few days after his discharge, he had been compliant with his antiseizure medications. But has been drinking almost 2 pints of vodka every day. 14 point ROS negative. Vitals: Afebrile, tachycardic, mildly hypertensive, respiration O2 sats in acceptable range. On exam: Arousable, oriented to place and person, cooperative, no acute distress , neck supple, JVD normal, no lymphadenopathy, mucosa moist, no dependent edema, no obvious skin rashes or inflammation CVS: S1-S2, RRR. RS: Clear to auscultate bilaterally. Abdomen: Soft, NT, ND, bowel sounds present. Labs: CBC unremarkable, sodium 148, chloride 106, bicarbonate 22, anion gap 20, even 12, creatinine 0.6, LFT unremarkable, lipase 400, Valproic acid 71.8, serum alcohol 435. A and P 51-year-old male with a significant past medical history of alcohol and alcohol related seizure came to ER if the suicidal ideation, last drink was 20 minutes before arrival. He was evaluated by psych crisis in ER who ruled out suicidal ideation. To me personally patient said that he does not want to , but patient is RASS 0 to -1, to obtain any history. Patient will need all called detoxification and further psych evaluation. - Alcohol withdrawal - Alcohol related seizure - Polysubstance abuse - Admit to general med - Scheduled by mouth Ativan 2 mg every 6 hourly - When necessary Ativan according to CIWA protocol - Low threshold to transfer to ICU if severely agitated - High-dose thiamine - Continue banana bag - Continue home doses of Depakote - Replace electrolytes - Repeat CBC BMP and LFT in a.m. - Repeat lipase in a.m. - Seizure precautions - Continue psych consult - Continue gentle hydration after banana bag - Adequate pain control
--- NOTE | 2017-02-26 18:38 | NUR ---
PT ADMITTED TO ROOM 22-1
--- NOTE | 2017-02-26 18:51 | NUR ---
REPORT ALSO GIVEN TO NURSE ROB AND AWAITING BANANA BAG FROM PHARMACY
--- NOTE | 2017-02-26 18:51 | NUR ---
PT WAS MEDICATED ORDERED
--- NOTE | 2017-02-26 19:09 | NUR ---
NURSE CALLED TO INFORM THAT HOUSE STAFF DISCONTINUED CONTINUOUS OBS ORDER AND THAT PHARMACY STS IT IS TAKING THEM SOME TIME TO COMPLETE IV VITAMIN BAG SO IT WILL COME UP TO PT ON FLOOR AND WE ARE UNABLE TO START IN ER
--- NOTE | 2017-02-26 19:24 | NUR ---
BHUPINDER MARIN Nurse Note by: ROB QUINN I agree with the TRACTOR TRAILER DRIVER findings/evaluation of this patient's condition. Entered by: ROB QUINN Date: 02/26/17 Time: 1923
--- NOTE | 2017-02-26 19:54 | NUR ---
ADMISSION NOTE PT ARRIVED TO FLOOR AT THIS TIME, ALERT, ORIENTED X 3, STATES HEADACHE AND NAUSEA. TREMORS PRESENT, SWEATY, AND STATES HE "FEELS THINGS CRAWLING" ON HIS SKIN. 2 MG IV ATIVAN GIVEN AT THIS TIME PER SELAM. ALPS APPLIED. SEIZURE PREC AND FALL PREC IN PLACE. AWAITING BANANA BAG FROM PHARMACY. ORIENTED TO ROOM AND CALL RUEDA. WILL MONITOR
--- NOTE | 2017-02-26 22:38 | NUR ---
PT HAS NOT VOIDED SINCE ADMITTED TO FLOOR. BLADDER SCANNED FOR 100, THEN 0. STATES NO PRESSURE OR PAIN TO LOWER ABD AREA. ASSISTED WITH URINAL BUT STATED HE DIDNT HAVE TO VOID. IVF JUST STARTED. PO FLUIDS ENCOURAGED. WILL CONT. TO MONITOR.
[2017-02-27] VITALS (10 sets, daily range): BP systolic 120–152; BP diastolic 80–98
--- NOTE | 2017-02-27 00:43 | Admission Certification ---
Admission Certification Certification Statement - As attending physician, I certify that at the time of - admission, based on clinical presentation, severity of - symptoms, need for further diagnostic testing and - therapeutic interventions, and risk of adverse outcomes - without in-hospital treatment, in my clinical assessment, - this patient requires an acute hospital stay for a minimum - of two nights or longer. I have also considered psychsocial - factors such as support system, advanced age, financial - issues, cognitive issues, and failed out-patient treatments, - past re-admission history, safety of patient, and lack of - compliance as applicable. Specific rationale supporting this admission is: Alcohol withdrawal, suicidal ideation
--- NOTE | 2017-02-27 06:37 | PN- Housestaff ---
See Addendum Subjective Follow-up For: Alcohol detox Subjective: Patient seen and examined this morning. Resting comfortably in bed with no acute complaints. CIWA score max of 18 last night, has been low since then. Required 2mg of IV PRN Ativan since last night. Denies any fever, chills, chest discomfort, palpitations, abdominal pain, nausea, vomiting, headache. No events reported overnight. Review of Systems Constitutional: Reports: see HPI. Objective Last 24 Hrs of Vital Signs/I&O Vital Signs Date Time Temp Pulse Resp B/P B/P Pulse O2 O2 Flow FiO2 Mean Ox Delivery Rate 02/27 0645 97.6 66 18 130/88 94 Room Air 02/27 0236 97.8 99 20 120/84 97 Room Air 02/27 0200 97.8 99 20 120/84 02/26 2221 98.4 100 18 168/108 95 02/26 2110 98.2 114 20 130/70 95 02/26 1744 97.0 110 18 159/96 02/26 1735 97.0 110 18 159/96 98 Room Air 02/26 1644 97.0 120 20 128/77 02/26 1644 97.0 120 20 128/77 96 Room Air 02/26 1521 99.0 132 20 130/91 02/26 1519 99.0 132 20 130/71 100 Room Air 02/26 1321 98.6 130 18 156/84 02/26 1150 98.6 140 18 160/98 98 Room Air 02/26 1149 98.8 140 20 160/98 02/26 0921 97.9 110 18 127/82 96 02/26 0832 98.3 117 18 174/75 02/26 0832 98.9 117 18 174/75 100 Room Air Intake & Output 02/27 0800 02/27 0000 02/26 1600 Intake Total 125 20 Output Total Balance 125 20 Intake, IV 125 20 Patient 72.575 kg Weight Physical Exam General Appearance: Alert, Cooperative, No Acute Distress Other Physical Findings: HEENT Atraumatic Cardiovascular Regular Rate, Normal S1, Normal S2 Lungs Normal Air Movement Abdomen Soft Current Medications: Current Medications Sig/Maximus Start time Last Medication Dose Route Stop Time Status Admin Acetaminophen 650 MG Q6P PRN 02/26 1800 AC PO Cyanocobalamin/ 1 BAG DAILY@1900 02/26 1900 AC 02/26 Thiamine/Pyridoxine IV 2146 Dextrose/Water 1,000 ML Divalproex Sodium 500 MG BID 02/26 2200 AC 02/26 PO 214 Enoxaparin Sodium 0 .STK-MED ONE 02/26 1852 DC SC Enoxaparin Sodium 40 MG DAILY 02/26 1756 AC 02/26 SC 1850 Folic Acid 1 MG DAILY 02/26 1916 AC 02/26 PO 2146 Ibuprofen 600 MG Q6P PRN 02/26 1800 AC 02/26 PO 214 Lorazepam 2 MG Q6 02/26 2359 AC 02/27 PO 0640 Lorazepam 0 Q1P PRN 02/26 1900 AC 02/26 IV 1940 Lorazepam 0 .STK-MED ONE 02/26 1757 DC .ROUTE Lorazepam 2 MG Q2P PRN 02/26 1530 DC 02/26 IV 1529 Lorazepam 0 .STK-MED ONE 02/26 1529 DC .ROUTE Lorazepam 2 MG ONE ONE 02/26 1330 DC 02/26 IV 02/26 1331 1320 Lorazepam 0 .STK-MED ONE 02/26 1324 DC .ROUTE Lorazepam 2 MG ONE ONE 02/26 1200 DC 02/26 IV 02/26 1201 1153 Lorazepam 0 .STK-MED ONE 02/26 1154 DC .ROUTE Lorazepam 2 MG ONE ONE 02/26 0845 DC 02/26 IV 02/26 0846 0846 Lorazepam 2 MG ONCE ONE 02/26 0845 DC 02/26 PO 02/26 0846 0846 Lorazepam 0 .STK-MED ONE 02/26 0844 DC .ROUTE Lorazepam 0 .STK-MED ONE 02/26 0843 DC PO Multivitamins 1 TAB DAILY 02/27 1916 AC 02/26 Therapeutic PO 214 Ondansetron HCl 4 MG ONCE ONE 02/27 0045 DC IV 02/27 0046 Oxycodone HCl 10 MG Q6P PRN 02/26 1800 AC PO Thiamine HCl 100 MG DAILY 02/27 1000 AC Sodium Chloride 100 ML IV Thiamine HCl 50 MG DAILY 02/26 191 DC 02/26 PO 214 Assessment/Plan Assessment: Mr. Emmanuel is a 51 year old male with PMH of alcohol abuse and withdrawal seizures with multiple admissions for alcohol detox who returns with alcohol intoxication. Patient was admitted to general medicine floor for alcohol detox. # Alcohol intoxification CIWA score max of 18 last night, has been low since then. Required 2mg of IV PRN Ativan since last night. * Cont scheduled dose of Ativan to 2 mg PO Q6 * Continue ativan IV Ativan 2mg Q1P per [facility] protocol * Continue thiamine, folate, and multivitamin * If agitated, consider Haldol PRN, QTC<500 (did not require any over the past 24 hours) # Electrolyte disturbance * Check BEP daily, replete as needed # Poly substance abuse and smoking * Nicotine patch * Counseling for smoking cessation * Social work consult * Psych consult # Questionable seizure disorder * Continue home dose of Depakote 500mg PO Q12 every 12 - Regular diet - Mild pain pathway - DVT ppx with Lovenox - Full code Problem List: 1. Alcohol abuse 2. Alcohol withdrawal seizure 3. Polysubstance abuse 4. Nicotine dependence 5. Alcohol dependence with withdrawal with complication 6. Full code status 7. DVT prophylaxis 8. Depression Pain Ratin Pain Location: 0 Pain Goal: Remain pain free Pain Plan: Mild Tomorrow's Labs & Rationales: BEP - electrolyte disturbance
[2017-02-27 08:48] LABS: ABSOLUTE BASOPHIL COUNT 0 /CUMM (0.0-0.2); ABSOLUTE EOSINOPHIL COUNT 0.1 /CUMM (0.0-0.7); ABSOLUTE LYMPH COUNT 2.1 /CUMM (1.2-3.4); ABSOLUTE MONOCYTE COUNT 0.8 /CUMM (0.10-0.60); MEAN CORPUSCULAR VOLUME 91.3 FL (80.0-94.0)
[2017-02-27 09:04] LABS: ABSOLUTE GRANULOCYTE CT 3.2 /CUMM (1.4-6.5); BASOPHIL % 0.5 % (0.0-2.0); EOSINOPHIL % 1.5 % (0-5); GRANULOCYTE % 51.7 % (42.2-75.2); MEAN CORPUSCULAR HGB 31.2 PG (27.0-31.0); MEAN CORPUSCULAR HGB CONC 34.2 G/DL (33.0-37.0); MEAN PLATELET VOLUME 8.6 FL (7.4-10.4); PLATELET COUNT 144 /CUMM (130-400); RBC DISTRIBUTION WIDTH 15.9 % (11.5-14.5); RED BLOOD CELL CT 4.05 /CUMM (4.70-6.10); WHITE BLOOD CELL COUNT 6.2 /CUMM (4.8-10.8)
--- NOTE | 2017-02-27 10:04 | Incdntl Nt Psy ---
Incidental Note Notation: Discussed case with Dr. Pavon due to reports of SI. Pt was cleared by psychiatry in the emergency department. Reevaluated for saftey this AM. Mental Status Exam Presentation/Appearance: Calm, cooperative with evaluation. Hospital garb. Sitting in bed eating breakfast Orientation: x3 Sensorium: Awake and alert Eye contact: Appropriate Affect: Blunted Mood: Euthymic Depression: Denies Anxiety: Denies Thought Content: - Denies SI/HI, AH/VH, PI. States and also believes they will not kill themselves. - Denies any history of suicide attempt - Denies Hopeless/Helpless Thoughts Thought Process: Linear Associations: Appropriate Speech: WNL Judgment: Fair Insight: Fair Cognition: Memory: Grossly intact Attention/Concentration: Grossly intact Fund of Knowledge: Did not assess Abstractions: Did not assess MMSE: Did not assess Brief ROS Gait: Did not observe Sleep: Adeqaute Appetite: Adequate Energy: Low IADLs/ADLs: Independent Assessment 51-year-old male presents requesting alcohol detox due to fear of seizure. Patient has multiple previous admissions for similar presentations and on those admissions is frequently requested to leave AMA when confused. Additionally he has been agitated at times. He has declined to follow-up with aftercare plans. At present he denies suicidality is not a threat to self. He is cleared psychiatrically. Plan 1. Continue CIWA, Ativan, and vitamin supplementation. 2. Please follow neurology recommendations for Depakote dosing and monitoring. 3. Based on past history patient is likely to request to leave AMA during this hospitalization. If he does, any provider can assess capacity by evaluating the following: His ability to communicate a choice, understand the relevant information, appreciate the situation and it's consequences, and reason about treatment options. If assistance is required psychiatry be happy to assist in evaluation. Thank you for including psychiatry in this case we are signing off.
--- NOTE | 2017-02-27 18:01 | NUR ---
PT EXPERIENCING INTENSE NAUSEA. SOCIAL MEDIA INTERN NOE NOTIFIED. ONE TIME DOSE ZOFRAN ORDERED. ADMINISTERED ZOFRAN TO PT.
[2017-02-28] VITALS (9 sets, daily range): BP systolic 136–162; BP diastolic 55–103
--- NOTE | 2017-02-28 06:17 | PN- Housestaff ---
See Addendum Subjective Follow-up For: Alcohol detox Subjective: Patient seen and examined this morning. Resting comfortably in bed with no acute complaints. Tremors improving. Still feels a little anxious. CIWA score ranging up to 16 over the past 24 hours, requiring a total of 5mg of IV PRN Ativan. Denies any fever, chills, chest discomfort, palpitations, abdominal pain, nausea , vomiting, headache. No events reported overnight. Review of Systems Constitutional: Reports: see HPI. Objective Last 24 Hrs of Vital Signs/I&O Vital Signs Date Time Temp Pulse Resp B/P B/P Pulse O2 O2 Flow FiO2 Mean Ox Delivery Rate 02/28 0616 97.8 68 20 148/88 96 Room Air 02/27 2130 98.3 82 20 152/80 97 Room Air 02/27 1736 152/98 02/27 1730 98.9 98 20 152/92 96 Room Air 02/27 1416 98.1 96 20 120/80 98 02/27 1200 97.8 90 16 142/96 02/27 1200 97.8 90 16 142/98 97 Room Air 02/27 0900 97.8 81 16 134/90 Intake & Output 02/28 0800 02/28 0000 02/27 1600 Intake Total 70 1300 Output Total 250 Balance -398 20 8773 Intake, IV 20 Intake, Oral 50 1300 Number 3 Bowel Movements Output, Urine 250 Physical Exam General Appearance: Alert, Oriented X3, Cooperative, No Acute Distress Other Physical Findings: HEENT Atraumatic Cardiovascular Regular Rate, Normal S1, Normal S2 Lungs Normal Air Movement Abdomen Soft Current Medications: Current Medications Sig/Maxiums Start time Last Medication Dose Route Stop Time Status Admin Acetaminophen 650 MG .STK-MED ONE 02/27 1455 DC PO 02/27 1456 Acetaminophen 650 MG Q6P PRN 02/26 1800 AC 02/27 PO 1455 Cyanocobalamin/ 1 BAG DAILY@1900 02/26 1900 DC 02/26 Thiamine/Pyridoxine IV 2146 Dextrose/Water 1,000 ML Divalproex Sodium 500 MG BID 02/26 2200 AC 02/27 PO 2056 Enoxaparin Sodium 40 MG DAILY 02/26 1756 AC 02/27 SC 0914 Folic Acid 1 MG DAILY 02/26 1916 AC 02/27 PO 09 Ibuprofen 600 MG Q6P PRN 02/26 1800 AC 02/26 PO 2147 Lorazepam 2 MG Q6 02/26 2359 AC 02/28 PO 0702 Lorazepam 0 Q1P PRN 02/26 1900 AC 02/27 IV 2319 Magnesium Chloride 64 MG ONCE ONE 02/27 1145 DC 02/27 PO 02/27 1146 1252 Multivitamins 1 TAB DAILY 02/26 1916 AC 02/27 Therapeutic PO 0914 Nicotine 14 MG DAILY 02/27 1344 AC 02/27 TOP 1357 Ondansetron HCl 4 MG ONCE ONE 02/27 1800 DC 02/27 IV 02/27 1801 1801 Oxycodone HCl 10 MG Q6P PRN 02/26 1800 AC 02/28 PO 0025 Patient Medication 1 ED .STK-MED ONE 02/27 1408 DC Teaching ED 02/27 1409 Potassium Chloride 40 MEQ 1800 02/27 1800 DC 02/27 PO 02/27 1801 1745 Potassium Chloride 40 MEQ ONCE ONE 02/27 1145 DC 02/27 PO 02/27 1146 1201 Thiamine HCl 100 MG DAILY 02/27 1000 AC 02/27 Sodium Chloride 100 ML IV 1005 Assessment/Plan Assessment: Mr. Emmanuel is a 51 year old male with PMH of alcohol abuse and withdrawal seizures with multiple admissions for alcohol detox who returns with alcohol intoxication. Patient was admitted to general medicine floor for alcohol detox. # Alcohol intoxification CIWA score max of 18 last night, has been low since then. Required 2mg of IV PRN Ativan since last night. * Cont scheduled dose of Ativan to 2 mg PO Q6 * Continue ativan IV Ativan 2mg Q1P per CIWA protocol * Continue thiamine, folate, and multivitamin * If agitated, consider Haldol PRN, QTC<500 (did not require any over the past 24 hours) # Electrolyte disturbance * Check BEP daily, replete as needed # Poly substance abuse and smoking * Nicotine patch * Counseling for smoking cessation * Social work consult * Psych consult # Questionable seizure disorder * Continue home dose of Depakote 500mg PO Q12 every 12 - Regular diet - Mild pain pathway - DVT ppx with Lovenox - Full code Problem List: 1. Alcohol abuse 2. Nicotine dependence 3. Seizure 4. Depression Pain Ratin Pain Location: 0 Pain Goal: Remain pain free Pain Plan: Mild path Tomorrow's Labs & Rationales: BEP
[2017-02-28 09:57] LABS: ABSOLUTE BASOPHIL COUNT 0 /CUMM (0.0-0.2); ABSOLUTE EOSINOPHIL COUNT 0.1 /CUMM (0.0-0.7); ABSOLUTE GRANULOCYTE CT 3.9 /CUMM (1.4-6.5); ABSOLUTE LYMPH COUNT 1.1 /CUMM (1.2-3.4); ABSOLUTE MONOCYTE COUNT 0.6 /CUMM (0.10-0.60); BASOPHIL % 0.5 % (0.0-2.0); GRANULOCYTE % 68.5 % (42.2-75.2); HEMATOCRIT 37.9 % (42-52); MEAN CORPUSCULAR HGB 30.9 PG (27.0-31.0); MEAN CORPUSCULAR HGB CONC 33.8 G/DL (33.0-37.0); MEAN CORPUSCULAR VOLUME 91.5 FL (80.0-94.0); MEAN PLATELET VOLUME 8.5 FL (7.4-10.4); PLATELET COUNT 132 /CUMM (130-400); RED BLOOD CELL CT 4.14 /CUMM (4.70-6.10); WHITE BLOOD CELL COUNT 5.8 /CUMM (4.8-10.8)
--- NOTE | 2017-02-28 14:19 | NUR ---
Referral received via casefind this morning. This patient is a 51 year old man, admitted to the hospital on 02/26/17; his third admission in as many months for the same issue. Skip was placed on the CIWA; has had fluctuating signs and symptoms of withdrawal, and has been receiving ativan around the clock. By history, Skip has had a difficult time maintaining sobriety; typically refuses asssitance with seeking aftercare; after last admission, appointment for IOP was secured, but patient did not show. Will follow to better assess any interest/motivation in aftercare and will be able to assist as needed.
--- NOTE | 2017-02-28 16:00 | NUR ---
PATIENT ARRIVED TO ROOM 113 WITH SECURITY IN ATTENDANCE FOR INCREASED CONFUSION AND AGITATION DUE TO ALCOHOL WITHDRAWAL. PATIENT IS AWAKE AND ORIENTED TO SELF ONLY, STATING HE NEEDS TO LEAVE THIS PLACE SOON POSSIBLE. MOVES ALL EXTREMITIES AND IS COOPERATIVE AT THIS TIME. MONITOR SHOWS NSR, WITH GOOD PULSES ALL EXTREMITIES, LUNGS CLEAR ON ROOM AIR SATS 98%. BELLY SOFT NON TENDER WITH GOOD BOWEL SOUNDS. VOIDING WITHOUT DIFFICULT PER [facility] REPORT. SKIN INTACT. SITTER AT BEDSIDE
--- NOTE | 2017-02-28 17:00 | NUR ---
PATIENT SITTING AT BEDSIDE, BEING UNCOOPERATIVE, ARGUING WITH STAFF AND REFUSING TO STAY IN BED. ATIVAN INCREASED TO 3MG/HR. NOTIFIED
--- NOTE | 2017-02-28 17:28 | NUR ---
AT 1300 PT NOTED TO BE HAVING INCREASED CONFUSION, CALLING THIS RN INTO ROOM FREQUENTLY TO ASK QUESTIONS ABOUT TIME AND PLACE, FREQUENT REORIENTATION GIVEN. PT GOT INCREASINGLY AGITATED AND CONFUSED, ATTEMPTING TO AMBULATE WHEN REMINDED VERY UNSTEADY AND UNSAFE. PATIENT SAFETY MONITOR ORDERED AT 1404 FOR CONFUSION. PT MEDICATED PER CIWA SCORES. PT INCREASINGLY AGITATED AND CONFUSED, CALLED DR. DARIELA VILELDA TO ROOM TO EVALUATE PATIENT. ORDER PUT IN FOR 1 TIME DOSE OF ATIVAN. PT MEDICATED AND INCREASINGLY AGITATED REQUESTING TO LEAVE AMA BUT VERY CONFUSED. ASKED DR. VILLEDA TO PAGE ATTENDING DR TO COME EVAL PATIENT. TOLD HE WAS "ON HIS WAY". PT INCREASINGLY AGITATED DESPITE ANOTHER DOSE OF IV ATIVAN AND VERBAL TALK DOWN. ATTEMPTING TO PULL OUT LINE AND WALK OUT DOOR. DR. SINGH NOW AT BEDSIDE TO AL PATIENT. SECURITY CALLED. PT RECIEVED ANOTHER DOSE OF IV ATIVAN (SEE EMAR FOR SPECIFIC TIMES) AND REMAINED AGITATED. DR. CHOW AT BEDSIDE TO [facility], ORDER PLACED FOR TRANSFER TO ICU FOR PATIENT TO BE PLACED ON ATIVAN DRIP. REPORT GIVEN TO MANASA PT TO RM 113. MEDS TRANSFERRED WITH PATIENT.
--- NOTE | 2017-02-28 20:00 | NUR ---
PATIENT CONTINUES TO ATTEMPT TO GET OUT OF BED, VERY DELUSIONAL STATING HE IS GOING TO [place]. INCREASING TREMORS NOTED WHEN HOLDING OUT EXTREMITIES. ATIVAN DRIP INCREASED TO 4MG/HR. AWARE.
--- NOTE | 2017-02-28 23:00 | NUR ---
PATIENT BECAME VERY AGITATED, PULLED R HAND IV OUT AND ATTEMPTING TO GET OUT OF BED. IV SITE CLEANED AND DRESSING APPLIED. PATIENT RESTRAINTS SECURED AND NEW IV STARTED IN L FOREARM. PATIENT NOW MORE AGITATED PER MD SOFT RESTRAINTS APPLIED TO BLE WELL AND ATIVAN INCREASED TO 6MG/HR.
--- NOTE | 2017-02-28 23:34 | Event Note ---
Event Note Event Note: Brief : Increasing ativan Need. Situation : Mr. Wells continues to be extremely anxious, agitated and tremulous, he continues to keep getting out of bed, kicking and swearing, repeatedly wanting to smoke his cigaretes. Plan : Will order 4 point soft restraints for now. Contnine sitter. Ativan Gtt currently at 6, and if still worsening consider increasing it further while monitoring for CIWA's and oversedation.
[2017-03-01] VITALS (10 sets, daily range): BP systolic 97–154; BP diastolic 64–113
--- NOTE | 2017-03-01 01:59 | NUR ---
AVSS. A/CONF/RESTLESS AND AGITATED.CIWA @32.UNABLE TO REORIENT.SAFETY PRECAUTIONS CONT WITH SITTER AND RESTRAINTS X4.RESTRAINTS CONT WITH +CMS.ATIVAN GTT CONT VIA PIV SITE AND TITRATED WITH FAIR EFFECT. MADE AWARE AND VERSED GIVEN WITH MIN EFFECT. IVF CONT VIA PIV SITE.LCTA AND ON RA WITH SATS >95%.SKIN INTACT AND WD.PLAN OF CARE REVIEWED.
[2017-03-01 05:08] LABS: ABSOLUTE BASOPHIL COUNT 0 /CUMM (0.0-0.2); ABSOLUTE EOSINOPHIL COUNT 0.1 /CUMM (0.0-0.7); ABSOLUTE GRANULOCYTE CT 4.8 /CUMM (1.4-6.5); ABSOLUTE LYMPH COUNT 1.4 /CUMM (1.2-3.4); ABSOLUTE MONOCYTE COUNT 0.7 /CUMM (0.10-0.60); BASOPHIL % 0.2 % (0.0-2.0); EOSINOPHIL % 1.8 % (0-5); GRANULOCYTE % 68.8 % (42.2-75.2); HEMATOCRIT 34.8 % (42-52); MEAN CORPUSCULAR HGB 31.3 PG (27.0-31.0); MEAN CORPUSCULAR HGB CONC 33.9 G/DL (33.0-37.0); MEAN CORPUSCULAR VOLUME 92.1 FL (80.0-94.0); MEAN PLATELET VOLUME 8.3 FL (7.4-10.4); PLATELET COUNT 132 /CUMM (130-400); RBC DISTRIBUTION WIDTH 16.3 % (11.5-14.5); RED BLOOD CELL CT 3.78 /CUMM (4.70-6.10); WHITE BLOOD CELL COUNT 6.9 /CUMM (4.8-10.8)
--- NOTE | 2017-03-01 07:30 | NUR ---
REC'D THE PT THRASHING ABOUT IN THE BED, ASKING FOR A "KNIFE TO CUT THESE LINES" REFERRING TO THE RESTRAINTS. PT IS ORIENTED ONLY TO SELF AND KEEPS REFERRING TO THE WOMAN IN THE ROOM WHO "STOLE MY WEED". P LILY THERE IS NO WOMAN IN THE ROOM. AT 0620 THE ATIVAN GTT WAS INCREASED TO 13MG/HR FROM 12MG/HR FOR AN SAS OF 4-5. CALMS FOR A FEW MINUTES AND THEN BECOMES AGITATED AGAIN. BU/BLE HARD RESTRAINTS REMAIN IN PLACE. CIWA IS A 21. PT IS IN A SR TO A ST(ST WHEN AGITATED). PAC'S/PVC'S NOTED. ULISES BS ARE CLEAR WITH AN O2 SAT OF 99% ON ROOM AIR. ABD IS SOFT WITH NORMOACTIVE BOWEL SOUNDS. PT PULLED OFF A [place] CATHETER AND USED THE URINAL FOR 100L OF URINE WELL BEING INCONTINENT. PERICARE PERFORMED AND A CLEAN BRIEF WAS PLACED. REPORT GIVEN TO THE 1:1 GENERAL UTILITY MAINTENANCE REPAIRERLIANE RUTH.
--- NOTE | 2017-03-01 07:38 | Cons- CRCU ---
KENNEDY STEVENS,[facility] 03/01/17 0737: General Information and HPI Consulting Request Date of Consult: 03/01/17 Requested By: MD SHAHLA CHOW Reason for Consult: etoh withdrawal requiring ATIVAN Drip History of Present Illness: This is a 51-year-old male with past medical history significant for alcohol abuse, alcohol withdrawal seizures and multiple admissions with alcohol detox last in January 2017 was brought into emergency room with chief complaint of alcohol withdrawal/alcohol detox and also positive suicidal ideation at the time of admission. Patient was already being evaluated by psych and currently patient denied any suicidal ideation and cleared him for admission on medical floor. By the time patient was interviewed by medical team, he was very sleepy and dozing off multiple times during interview but he was oriented 3.Apparently he was drinking vodka 1-2 pints every day and last drink was almost half an hour before arrival to emergency room. During his ER stay his CIWA score was running on the higher side almost 15 at some point. Vital signs on admission were temperature 96.5, pulse 80, respiratory rate 18, blood pressure 139/92 and he was saturating 97% on room air. And was admitted to general medicine floor for alcohol withdrawal but on day 2, his withdrawal symptoms of increased agitation tachycardia worsened requiring more Ativan when necessary doses. Was decided by the medical team that patient medically needed Ativan drip and therefore was transferred to ICU. Allergies/Medications Allergies: Coded Allergies: diphenhydramine (From Benadryl) (DROWSY OR HYPER 11/26/15) loratadine (From Claritin) (HYPER OR DROWSY 11/26/15) Home Med List: Dextran 70/Hypromellose (Artificial Tears) 1 EACH DROPERETTE 2 GTT OPH TID PRN DRY EYES Divalproex Sodium 500 MG TABLET.DR 500 MG PO BID SEIZURE PLEASE FOLLOW UP WITH DR. EUGENE, NEUROLOGY, IN 2 WEEKS. Folic Acid 1 MG TABLET 1 MG PO DAILY SUPPLEMENT Multivitamin (One Daily Multivitamin) 1 EACH TABLET 1 TAB PO DAILY SUPPLEMENT Thiamine HCl (Vitamin B-1) 50 MG TABLET 50 MG PO DAILY SUPPLEMENT Review of Systems Review of Systems Constitutional: Reports: see HPI. 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 FATHER (stroke). Psychosocial History Who Do You Live With? friends Services at Home: None Primary Language: Greenlandic Smoking Status: Current Everyday Smoker ETOH Use: alcoholic Illicit Drug Use: marijuana Functional Ability ADLs Independent: dressing, eating, toileting, bathing. Ambulation: independent IADLs Independent: shopping, housework, finances, food prep, telephone, transportation , medication admin. Exam & Diagnostic Data Last 24 Hrs of Vital Signs/I&O Vital Signs Date Time Temp Pulse Resp B/P B/P Pulse O2 O2 Flow FiO2 Mean Ox Delivery Rate 03/01 1200 98.1 66 14 128/88 03/01 1200 97 Room Air Room Air 03/01 1000 97.8 75 14 100/68 03/01 0800 97.8 76 20 133/93 03/01 0800 99 Room Air Room Air 03/01 0800 97.8 76 20 133/93 99 Room Air Room Air 03/01 0332 75 20 97/64 03/01 0000 98.7 136 32 146/98 03/01 0000 98.7 136 32 146/98 96 Room Air 02/28 2000 99.0 92 14 140/90 02/28 2000 99.0 92 20 140/90 97 Room Air 02/28 1800 72 16 155/103 02/28 1600 98.9 85 16 136/55 02/28 1600 97.5 84 20 160/90 02/28 1600 97.4 84 18 160/90 96 Room Air 02/28 1600 98 Room Air 02/28 1600 98.9 85 16 136/55 98 Room Air 02/28 1437 97.4 79 20 162/100 96 Intake & Output 03/01 1600 03/01 0800 03/01 0000 Intake Total 2320 990 Output Total 950 900 Balance 1370 90 Intake, IV 2320 990 Output, Urine 950 900 Last 48 Hrs of Labs/John: Laboratory Tests 03/01/17 0600: Sodium Cancelled, Potassium Cancelled, Chloride Cancelled, Carbon Dioxide Cancelled, Anion Gap Cancelled, BUN Cancelled, Creatinine Cancelled, BUN/ Creatinine Ratio Cancelled, Magnesium Cancelled 03/01/17 0440: Anion Gap 13, Estimated GFR > 60, Glucose 99, Calcium 9.7, Phosphorus 4.1, Magnesium 1.8, Total Bilirubin 0.6, AST 45, ALT 28, Albumin 4.1, CBC w Diff NO MAN DIFF REQ, RBC 3.78 L, MCV 92.1, MCH 31.3 H, RDW 16.3 H, MPV 8.3, Gran % 68.8, Lymphocytes % 19.6 L, Monocytes % 9.6 H, Eosinophils % 1.8, Basophils % 0.2, Absolute Granulocytes 4.8, Absolute Lymphocytes 1.4, Absolute Monocytes 0.7 H, Absolute Eosinophils 0.1, Absolute Basophils 0, PUBS MCHC 33.9 02/28/17 0922: Anion Gap 14, Estimated GFR > 60, BUN/Creatinine Ratio 23.3, Magnesium 1.8, CBC w Diff NO MAN DIFF REQ, RBC 4.14 L, MCV 91.5, MCH 30.9, RDW 16.0 H, MPV 8.5, Gran % 68.5, Lymphocytes % 19.9 L, Monocytes % 10.1 H, Eosinophils % 1.0, Basophils % 0.5, Absolute Granulocytes 3.9, Absolute Lymphocytes 1.1 L, Absolute Monocytes 0.6, Absolute Eosinophils 0.1, Absolute Basophils 0, PUBS MCHC 33.8 Assessment/Plan Impression/Plan: This a 51 year old male with PMH of alcohol abuse and withdrawal seizures with multiple admissions for alcohol detox who returns with alcohol intoxication. Patient was admitted to general medicine floor for alcohol detox and after 2 days transfereed to ICU needing ATIVAN drip due to his increased agitation and elevated CIWA score. # Alcohol intoxification Increased agitation, with elevated CIWA scores in the 20s during the 24hr period , requiring hard 4 point restraints. Currently on Ativan 14mg/hr. will contine to assess CIWA scores. Continue Thiamine/folic/MVI. # Poly substance abuse and smoking * Nicotine patch * Counseling for smoking cessation * Social work consult * awaiting further Psych reccomendation. # Questionable seizure disorder * Continue home dose of Depakote 500mg PO Q12 every 12 Consult Acknowledgment - Thank you for your consult request. PETER STEVENS,[facility] 03/01/17 9965: Assessment/Plan Other Findings/Comments: I have seen and examined the patient as detailed above. The patient is confused and agitated, on a high-dose Ativan drip. The patient's vital signs have been stable. His drip is at 13 mg per hour for control of his CIWA scores. He denies any new complaints and there were no overnight events. Consult Acknowledgment - Thank you for your consult request.
--- NOTE | 2017-03-01 08:00 | NUR ---
CALLED IN TO THE ROOM BY THE SOLUTIONS ANALYST AT THIS TIME THE LH IV WAS NNOTED TO BE LEAKING BLOOD. ATTEMPTED TO FIX IV WITHOUT SUCCESS. IV ATIVAN SWITHCHED TO THE LF IV AND THE LH IV WAS DISCONTINUED IT WAS OUT OF PLACE.
--- NOTE | 2017-03-01 09:00 | NUR ---
PT WAS THRASHING ABOUT THE BED AGAIN, ATIVAN GTT INCREASED TO 14MG/HR AT 0845. WILL CONTINUE TO MONITOR.
--- NOTE | 2017-03-01 10:30 | NUR ---
PT NOTED TO BE SLEEPING AT 1000 WITH AN SAS OF 3. ALL 1000 MEDS WILL BE ADMINISTERED UPON PT AWAKENING.
--- NOTE | 2017-03-01 11:50 | NUR ---
PT AWOKE AT 1100 AND ASKED TO USE THE URINAL, URINAL ALSO SPILLED. PERICARE AND LINEN CHANGE PERFORMED. 1000 MEDS ADMINISTERED WHOLE IN APPLESAUCE.
--- NOTE | 2017-03-01 20:23 | NUR ---
avss.a/conf/anxious and agitated at times. emotional support and reorientation initiated with min effect. ciwa @16.ativan gtt cont via piv site.ivf cont with no issues. safety precaution cont with sitter at the bedside.restraints cont with +cms.incontinent of urine and perineal care done.plan of care reviewed.
[2017-03-02] VITALS (11 sets, daily range): BP systolic 104–165; BP diastolic 54–96
--- NOTE | 2017-03-02 01:31 | NUR ---
0000 PATIENT RECEIVED SEDATED ON ATIVAN IV AT 15 MG/HR, AWAKENS TO NAME, SPEACH SLURRED, CONFUSED X3, BECOMES RESTLESS WITH STIMULI AND RETURNS TO SLEEP WHEN STIMULI CEASES, FREQUENTLY RE-ORIENTED TO SURROUNDINGS BUT WITHOUT RETENTION AT THIS TIME, SKIN PINK, WARM AND DRY, O2 SAT 05% ON RA, BREATHE SOUNDS CLEAR BUT DIMINISHED AT BOTH BASES, NONPRODUCTIVE COUGH NOTED, ABDOMEN SOFT, +BS, 4 POINT SOFT RESTRAINTS AND 1:[address] FOR SAFETY, BLOOD AND PLASMA LABORATORY ASSISTANT SINUS WITHOUT ECTOPY, HEART RATE 70 TO 80'S/MIN
--- NOTE | 2017-03-02 04:56 | NUR ---
JACOB BECOMES AGITATED WITH CARE, WHEN RESTRAINTS RELEASED ATTEMPTS TO PUNCH STAFF, CALMS WHEN CARE COMPLETED, REMAINS ON ATIVAN DRIP AT 15 MG/HR
[2017-03-02 05:00] LABS: ABSOLUTE BASOPHIL COUNT 0 /CUMM (0.0-0.2); ABSOLUTE EOSINOPHIL COUNT 0.2 /CUMM (0.0-0.7); ABSOLUTE GRANULOCYTE CT 3.1 /CUMM (1.4-6.5); ABSOLUTE LYMPH COUNT 1.7 /CUMM (1.2-3.4); ABSOLUTE MONOCYTE COUNT 0.6 /CUMM (0.10-0.60); BASOPHIL % 0.5 % (0.0-2.0); EOSINOPHIL % 3.1 % (0-5); GRANULOCYTE % 55.3 % (42.2-75.2); HEMATOCRIT 37.3 % (42-52); MEAN CORPUSCULAR HGB CONC 33.5 G/DL (33.0-37.0); MEAN CORPUSCULAR VOLUME 92.6 FL (80.0-94.0); MEAN PLATELET VOLUME 8.6 FL (7.4-10.4); PLATELET COUNT 138 /CUMM (130-400); RBC DISTRIBUTION WIDTH 16.7 % (11.5-14.5); RED BLOOD CELL CT 4.03 /CUMM (4.70-6.10); WHITE BLOOD CELL COUNT 5.7 /CUMM (4.8-10.8)
--- NOTE | 2017-03-02 05:46 | NUR ---
NO CHANGES IN STATUS NOTED OVERNIGHT, PATIENT REMAINS CONFUSED, AROUSABLE TO NAME, COMBATIVE WITH CARE AT TIMES- ATIVAN DRIP REMAINS AT 15 MG/HR, O2 SAT 98% ON RA, VS STABLE, AWAITING AM MD ROUNDS
--- NOTE | 2017-03-02 06:43 | Event Note ---
Event Note Event Note: Spoke to his sister Gracie [phone] and updated her regarding his status , She is very concerned about him and would like to help him. She would like to be part of his discharge planning and also would like any updates regarding any changes. She will be travelling to [place] March 08 and will be there till March.
--- NOTE | 2017-03-02 06:47 | NUR ---
WITH PATIENT SOUNDLY SLEEPING HEART RATE DECREASED TO LOW 49/MIN, NOT SUSTAINED SINUS BRADYCARDIA, BP SYSTOLIC 120'S/, O2 SAT 98%- DR HOWARD MADE AWARE, NO CHANGES IN ORDERS GIVEN AT THIS TIME
--- NOTE | 2017-03-02 07:38 | PN- Resident CRCU ---
Subjective HPI/CRCU Issues: etoh withdrawal Day 3 of ICU stay, on soft restraints, Ativan drip 12mg/hr, Hurtado intact. 24 Hour Events: Seen and examined at bedside, on restraints and safety monitor. Appears less agioatted compared to yesterday.No acute o/n event reported by nursing staff. Objective Vital Signs & I&O Last 8 Hrs of Vitals and I&O: Vital Signs Date Time Temp Pulse Resp B/P B/P Pulse O2 O2 Flow FiO2 Mean Ox Delivery Rate 03/02 1400 97.6 81 20 140/93 03/02 1200 97.6 74 22 110/74 03/02 1000 97.0 78 22 104/67 03/02 0800 97.0 68 18 138/68 03/02 0800 96 Room Air Room Air 03/02 0800 97.0 68 18 138/68 96 Room Air Room Air 03/02 0600 74 20 122/80 03/02 0400 97.8 76 16 136/86 03/02 0400 98 Room Air 03/02 0200 70 16 162/85 03/02 0000 98.5 84 24 140/86 03/02 0000 95 Room Air 03/02 0000 98.5 84 24 140/86 95 Room Air 03/01 2200 79 24 154/113 03/01 2000 98.0 77 24 138/80 03/01 2000 97 Room Air 03/01 1800 98.7 73 25 129/85 03/01 1600 98.7 64 16 142/86 03/01 1600 98 Room Air Room Air 03/01 1600 98.7 64 16 142/86 98 Room Air Room Air Intake & Output 03/02 1600 03/02 0800 03/02 0000 Intake Total 1805 1997 1999 Output Total 650 Balance 1155 1997 1999 Intake, IV 1805 1997 1999 Number 0 Bowel Movements Output, Urine 650 Exam General Appearance: awake, anxious Other Physical Findings: HEENT Atraumatic Cardiovascular Regular Rate, Normal S1, Normal S2 Lungs Normal Air Movement Abdomen Soft Current Medications: Current Medications Sig/Maximus Start time Last Medication Dose Route Stop Time Status Admin Acetaminophen 650 MG Q6P PRN 02/26 1800 AC 02/28 PO 0819 Divalproex Sodium 500 MG BID 02/26 220 AC 03/01 PO 220 Enoxaparin Sodium 40 MG DAILY 02/26 1756 AC 03/02 SC 1059 Folic Acid 1 MG DAILY 02/26 1916 AC 03/01 PO 1113 Ibuprofen 600 MG Q6P PRN 02/26 1800 AC 02/26 PO 2147 Lorazepam 100 MG Q7H 03/01 0930 AC 03/02 Dextrose/Water 1,000 ML IV 2256 Lorazepam 0 Q1P PRN 02/26 1900 AC 03/01 IV 0143 Multivitamins 1 TAB DAILY 02/26 1916 AC 03/01 Therapeutic PO 1113 Nicotine 14 MG DAILY 02/27 1344 AC 03/02 TOP 1100 Oxycodone HCl 10 MG Q6P PRN 02/26 1800 AC 02/28 PO 1206 Sodium Chloride 1,000 ML Q8H 02/28 0745 AC 03/03 IV 0659 Thiamine HCl 100 MG DAILY 02/28 1000 AC 03/01 PO 1113 Impression/Plan Impression/Problem List Impression: Impression/Plan: This a 51 year old male with PMH of alcohol abuse and withdrawal seizures with multiple admissions for alcohol detox who returns with alcohol intoxication. Patient was admitted to general medicine floor for alcohol detox and after 2 days transfereed to ICU needing ATIVAN drip due to his increased agitation and elevated CIWA score. # Alcohol intoxification Decreased agitation, with decreasing CIWA scores in 24hr period, still requiring soft restraints X4. Currently on Ativan 12mg/hr will taper accordingly. will contine to assess CIWA scores. Continue Thiamine/folic/MVI. # Poly substance abuse and smoking * Nicotine patch * Counseling for smoking cessation * Social work consult * awaiting further Psych reccomendation. # Questionable seizure disorder * Continue home dose of Depakote 500mg PO Q12 every 12 Problem List: 1. Alcohol abuse Pain Ratin Tomorrow's Labs & Rationales: ICU BUNDLE Plan DVT/Prophylaxis: mechanical, pharmacological
--- NOTE | 2017-03-02 08:32 | PN- CRCU ---
Subjective HPI/Critical Care Issues: The patient is awake and remains on Ativan at 15 mg per hour. He is somnolent but arousable. He is coughing intermittently. He remains confused and is not able to offer complaints. Objective Current Medications: Current Medications Sig/Maximus Start time Last Medication Dose Route Stop Time Status Admin Acetaminophen 650 MG Q6P PRN 02/26 1800 AC 02/28 PO 0819 Divalproex Sodium 500 MG BID 02/26 2200 AC 03/01 PO 2203 Enoxaparin Sodium 40 MG DAILY 02/26 1756 AC 03/01 SC 1113 Folic Acid 1 MG DAILY 02/26 1916 AC 03/01 PO 1113 Ibuprofen 600 MG Q6P PRN 02/26 1800 AC 02/26 PO 2147 Lorazepam 100 MG Q7H 03/01 0930 AC 03/02 Dextrose/Water 1,000 ML IV 0059 Lorazepam 100 MG Q24H 03/01 0200 DC 03/01 Dextrose/Water 1,000 ML IV 0112 Lorazepam 50 MG Q24H 02/28 1615 DC 02/28 Dextrose/Water 500 ML IV 1620 Lorazepam 0 Q1P PRN 02/26 1900 AC 03/01 IV 0143 Multivitamins 1 TAB DAILY 02/26 1916 AC 03/01 Therapeutic PO 1113 Nicotine 14 MG DAILY 02/27 1344 AC 03/01 TOP 1114 Olanzapine 5 MG ONCE ONE 03/01 2045 DC 03/01 PO 03/01 Oxycodone HCl 10 MG Q6P PRN 02/26 1800 AC 02/28 PO 1206 Sodium Chloride 1,000 ML Q8H 02/28 0745 AC 03/02 IV 0059 Thiamine HCl 100 MG DAILY 02/28 1000 AC 03/01 PO 1113 Vital Signs & I&O Last 24 Hrs of Vitals and I&O: Vital Signs Date Time Temp Pulse Resp B/P B/P Pulse O2 O2 Flow FiO2 Mean Ox Delivery Rate 03/02 0600 74 20 122/80 03/02 0400 97.8 76 16 136/86 03/02 0400 98 Room Air 03/02 0200 70 16 162/85 03/02 0000 98.5 84 24 140/86 03/02 0000 95 Room Air 03/02 0000 98.5 84 24 140/86 95 Room Air 03/01 2200 79 24 154/113 06/14 2000 98.0 77 24 138/80 03/01 2000 97 Room Air 03/01 1800 98.7 73 25 129/85 03/01 1600 98.7 64 16 142/86 03/01 1600 98 Room Air Room Air 03/01 1600 98.7 64 16 142/86 98 Room Air Room Air 03/01 1400 98.1 84 21 128/88 03/01 1200 98.1 66 14 128/88 03/01 1200 97 Room Air Room Air 03/01 1000 97.8 75 14 100/68 Intake & Output 03/02 1600 03/02 0800 03/02 0000 Intake Total 1997 1999 Output Total Balance 1997 1999 Intake, IV 1997 1999 Number 0 Bowel Movements Exam General Appearance: no apparent distress, somnolent, on ativan drip Head: atraumatic, normal appearance Neck: normal inspection, supple Respiratory: lungs clear Cardiovascular: regular rate/rhythm Abdomen: normal bowel sounds, soft, non-tender Extremities: no edema Skin: intact, normal color, warm/dry Results Last 24 Hrs of Lab Results: Laboratory Tests 03/02/17 0330: Anion Gap 13, Estimated GFR > 60, Glucose 82, Calcium 9.9, Phosphorus 4.0, Magnesium 2.0, Total Bilirubin 0.7, AST 46, ALT 41, Albumin 4.3, CBC w Diff NO MAN DIFF REQ, RBC 4.03 L, MCV 92.6, MCH 31.0, RDW 16.7 H, MPV 8.6, Gran % 55.3 , Lymphocytes % 30.7, Monocytes % 10.4 H, Eosinophils % 3.1, Basophils % 0.5, Absolute Granulocytes 3.1, Absolute Lymphocytes 1.7, Absolute Monocytes 0.6, Absolute Eosinophils 0.2, Absolute Basophils 0, PUBS MCHC 33.5 Impression/Plan Impression/Plan Impression/Plan: 1. Alcohol withdrawal. 2. Alcohol withdrawal seizures, on Depakote. Evidence of seizure activity at present. 3. Suicidal ideation. 4. Polysubstance abuse. 5. Increased cough, rule out aspiration. Recommendations: * Attempt to wean Ativan drip down. * Continue to monitor CIWA scores. * Aspiration precautions. * Avoid oversedation. * Check a chest x-ray today, to rule out aspiration. * Continue multivitamin, thiamine and folate. * Nicotine patch to continue. * Depakote to continue. * DVT prophylaxis at all times.
--- NOTE | 2017-03-02 09:00 | NUR ---
REC'D THE PT AT 08 VERY SOMNOLENT ON ATIVAN AT 15MG/HR WITH AN SAS OF 2-3/ VERY FEW PERIODS OF SLIGHT RESTLESSNESS. SPEECH REMAINS SLURRED AND AT TIMES UNINTELLIGIBLE. [place]. 4 POINT SOFT RESTRAINTS REMAIN IN PLACE. AT 0850 THE ATIVAN GTT WAS DECREASED TO 14MG/HR R/T SOMNOLENCE. PT IS IN A NSR IN THE 60'S-70'S WITHOUT ECTOPY. NO EDEMA NOTED. ULISES BS ARE CLEAR BUT DIMINISHED AT THE BASES. PT HAS A COUGH PRODUCTIVE OF THICK PALE YELLOW SPUTUM. O2 SAT IS 96% ON ROOM AIR. ABD IS SOFT WITH NORMOACTIVE BOWEL SOUNDS. [place] CATH IN PLACE DRAINING CLEAR YELLOW URINE. CONTINUES ON NS AT 100ML/HR.
--- NOTE | 2017-03-02 10:17 | RADIOLOGY REPORT ---
EXAMINATION: XR PORTABLE CHEST CLINICAL INFORMATION: Rhonchi. Altered mental status. COMPARISON: 01/08/2017 TECHNIQUE: Portable frontal view of the chest was obtained. FINDINGS: Cardiac leads overlie the chest. Low lung volumes with mild elevation of the right hemidiaphragm. Minimal left basilar opacity near the costophrenic angle. Linear right perihilar opacity. No pleural effusion or pneumothorax. The cardiomediastinal silhouette is unchanged. No acute osseous abnormality. IMPRESSION: Minimal opacities at the left costophrenic angle and right perihilar region favor atelectasis, although pneumonia not excluded.
--- NOTE | 2017-03-02 13:28 | NUR ---
AT 0955 THE ATIVAN GTT WAS DECREASED TO 13MG/HR FOR CONTINUED SOMNOLENCE. AT 1215 THE PT REMAINED SOMNOLENT AND WAS SNORING. THE ATIVAN GTT WAS DECREASED TO 12MG/HR DR GREEN EVALUATED THE PT AND PER DR GREEN THE GTT WAS IMMEDIATELY DECREASED TO 6MG/HR. SAS REMAINS A 3. AROUSES TO TACTILE STIMULI AND THEN DRIFTS RIGHT OFF. MAINTAINING HIS AIRWAY AT THIS TIME.
[2017-03-03] VITALS (10 sets, daily range): BP systolic 104–182; BP diastolic 66–102
--- NOTE | 2017-03-03 07:50 | PN- Resident CRCU ---
Subjective HPI/CRCU Issues: Alcohol withdrawal 24 Hour Events: Seen and examined at bedside. Patient appears sedated however is awoken by verbal stimuli. Still on soft 4 restraints and Ativan 6mg/hr, sitter still in place. No acute overnight nursing or telemetry event reported. Objective Vital Signs & I&O Last 8 Hrs of Vitals and I&O: Intake & Output 03/03 1600 Intake Total 1290 Output Total 975 Balance 315 Intake, IV 1260 Intake, Oral 30 Number 0 Bowel Movements Output, Urine 975 Patient 72.575 kg Weight Exam General Appearance: awake, sedated Other Physical Findings: HEENT Atraumatic Cardiovascular Regular Rate, Normal S1, Normal S2 Lungs Normal Air Movement Abdomen Soft Current Medications: Current Medications Sig/Maximus Start time Last Medication Dose Route Stop Time Status Admin Acetaminophen 650 MG Q6P PRN 02/26 1800 AC 02/28 PO 0819 Divalproex Sodium 500 MG BID 02/26 2200 DC 03/01 PO 2203 Enoxaparin Sodium 40 MG DAILY 02/26 1756 AC 03/03 SC 1026 Folic Acid 1 MG DAILY 02/26 1916 AC 03/01 PO 1113 Ibuprofen 600 MG Q6P PRN 02/26 1800 AC 02/26 PO 2147 Lorazepam 100 MG Q7H 03/01 0930 AC 03/02 Dextrose/Water 1,000 ML IV 2256 Lorazepam 0 Q1P PRN 02/26 1900 AC 03/01 IV 0143 Magnesium Sulfate 1 GM ONCE ONE 03/03 0830 DC 03/03 Dextrose/Water 100 ML IV 03/03 1229 1027 Multivitamins 1 TAB DAILY 02/26 1916 AC 03/01 Therapeutic PO 1113 Nicotine 14 MG DAILY 02/27 1344 AC 03/03 TOP 1026 Oxycodone HCl 10 MG Q6P PRN 02/26 1800 AC 02/28 PO 1206 Potassium Chloride 10 MEQ Q1H 03/03 0830 DC 03/03 IV 03/03 0931 1238 Sodium Chloride 1,000 ML Q8H 02/28 0745 AC 03/03 IV 0659 Thiamine HCl 100 MG DAILY 02/28 1000 AC 03/01 PO 1113 Valproate Sodium 500 MG Q12H 03/03 1400 AC 03/03 Sodium Chloride 100 ML IV 1426 Valproate Sodium 500 MG Q12 03/03 1322 CAN Sodium Chloride 100 ML IV Impression/Plan Impression/Problem List Impression: Impression/Plan: This a 51 year old male with PMH of alcohol abuse and withdrawal seizures with multiple admissions for alcohol detox who returns with alcohol intoxication. Patient was admitted to general medicine floor for alcohol detox and after 2 days transfereed to ICU needing ATIVAN drip due to his increased agitation and elevated CIWA score. # Alcohol intoxification More sedated and somnolent, will stop ativan completely and have prn. still requiring soft restraints X4. will contine to assess CIWA scores. Continue Thiamine/folic/MVI. # Poly substance abuse and smoking * Nicotine patch * Counseling for smoking cessation * Social work consult * awaiting further Psych reccomendation. # Questionable seizure disorder * Continue home dose of Depakote 500mg PO Q12 every 12 Problem List: 1. Alcohol abuse 2. Nicotine dependence Pain Ratin Tomorrow's Labs & Rationales: icu bundle Plan DVT/Prophylaxis: mechanical, pharmacological
--- NOTE | 2017-03-03 08:48 | PN- CRCU ---
Subjective HPI/Critical Care Issues: The patient is somnolent but responsive, on Ativan drip. The patient is currently on 6 mg of Ativan per hour. He CIWA scores have been controlled at this dose. He has no evidence of bleeding and has adequate urine output. He is not able to offer any complaints. Objective Current Medications: Current Medications Sig/Maximus Start time Last Medication Dose Route Stop Time Status Admin Acetaminophen 650 MG Q6P PRN 02/26 1800 AC 02/28 PO 0819 Divalproex Sodium 500 MG BID 02/26 2200 AC 03/01 PO 2203 Enoxaparin Sodium 40 MG DAILY 02/26 1756 AC 03/02 SC 1059 Folic Acid 1 MG DAILY 02/26 1916 AC 03/01 PO 1113 Ibuprofen 600 MG Q6P PRN 02/26 1800 AC 02/26 PO 2147 Lorazepam 100 MG Q7H 03/01 0930 AC 03/02 Dextrose/Water 1,000 ML IV 2256 Lorazepam 0 Q1P PRN 02/26 1900 AC 03/01 IV 0143 Magnesium Sulfate 1 GM ONCE ONE 03/03 0830 UNVr Dextrose/Water 100 ML IV 03/03 1229 Multivitamins 1 TAB DAILY 02/26 1916 AC 03/01 Therapeutic PO 1113 Nicotine 14 MG DAILY 02/27 1344 AC 03/02 TOP 1100 Oxycodone HCl 10 MG Q6P PRN 02/26 1800 AC 02/28 PO 1206 Potassium Chloride 10 MEQ Q1H 03/03 0830 UNVr IV 03/03 0931 Sodium Chloride 1,000 ML Q8H 02/28 0745 AC 03/03 IV 0659 Thiamine HCl 100 MG DAILY 02/28 1000 AC 03/01 PO 1113 Vital Signs & I&O Last 24 Hrs of Vitals and I&O: Vital Signs Date Time Temp Pulse Resp B/P B/P Pulse O2 O2 Flow FiO2 Mean Ox Delivery Rate 03/03 0800 93 22 138/81 03/03 0600 99.5 102 15 132/77 03/03 0400 99.5 112 27 140/98 03/03 0400 96 Room Air 03/03 0000 99.8 94 31 138/90 03/03 0000 95 Room Air 03/03 0000 99.8 94 31 138/90 95 Room Air 03/02 2200 100.2 137 22 146/80 03/02 2000 97.3 78 20 137/54 03/02 1600 97.7 72 20 165/96 03/02 1600 97.7 72 20 165/96 93 Room Air 03/02 1400 97.6 81 20 140/93 03/02 1200 97.6 74 22 110/74 03/02 1200 93 Room Air Room Air 03/02 1000 97.0 78 22 104/67 Intake & Output 03/03 1600 /16 0800 06 0000 Intake Total 1340 1326 Output Total 1420 1300 Balance -80 26 Intake, IV 1240 1276 Intake, Oral 100 50 Number 1 Bowel Movements Output, Urine 1420 1300 Exam General Appearance: no apparent distress, somnolent, on ativan drip Head: atraumatic, normal appearance Neck: normal inspection, supple Respiratory: lungs clear Cardiovascular: regular rate/rhythm Abdomen: normal bowel sounds, soft, non-tender Extremities: no edema Skin: intact, normal color, warm/dry Results Last 24 Hrs of Lab Results: Laboratory Tests 03/03/17 0330: Anion Gap 15, Estimated GFR > 60, Glucose 95, Calcium 9.3, Phosphorus 3.8, Magnesium 1.6, Total Bilirubin 0.8, AST 35, ALT 35, Albumin 3.7 Diagnostic Data CXR Findings: Minimal opacities at the left costophrenic angle and right perihilar region favor atelectasis, although pneumonia not excluded. Impression/Plan Impression/Plan Impression/Plan: 1. Alcohol withdrawal. 2. Alcohol withdrawal seizures, on Depakote. No evidence of seizure activity at present. 3. Suicidal ideation. 4. Polysubstance abuse. 5. Atelectasis versus pneumonia. Atelectasis versus pneumonia. Recommendations: * Attempt to wean Ativan drip down to off. * Continue to monitor CIWA scores. * Aspiration precautions. * Avoid oversedation. * Continue multivitamin, thiamine and folate. * Nicotine patch to continue. * Depakote to continue. * DVT prophylaxis at all times.
--- NOTE | 2017-03-03 16:28 | NUR ---
Concurrent clinical review provided to CT P. Additional units received through . Will follow to assess for appropriate aftercare.
--- NOTE | 2017-03-03 20:57 | NUR ---
2000 REC'D PT IN BED ALERT/AWAKE, ORIENTED TO NAME BUT TOTALLY CONFUSED/DISORIENTED TO TIME/PLACE & WAS HALLUCINATING. CIWA >15. LAST ATIVAN GTT WAS @1100 & D/C. PT COMPLIANT W/SITTER NOT PULLING OR ATTEMPTS TO CLIMB OOB. SR ON THE MONITOR HR IN 60-70'S, SBP MANUAL 160'S/ AUTO 170'S. [place] CATH INSITU W/DRAINAGE BAG YELLOW URINE. IVF NS 100ML/HR INFUSING WELL TO LF. 2034 PT GETTING MORE AGITATED & ATTEMPTING TO CLIMB OOB & PULLED OUT THE CONNECTOR OF [place] CATH. REPOSITON PT W/2-3 STAFF & PLACED 4PT SOFT RESTRAINTS. INFORMED DR. Dennise CAMPOS RE. PT'S BEHAVIOR. ATIVAN 2MGF IVP GIVEN. CONT TO MONITOR.
[2017-03-04] VITALS (11 sets, daily range): BP systolic 105–178; BP diastolic 65–103
--- NOTE | 2017-03-04 09:43 | PN- CRCU ---
Subjective HPI/Critical Care Issues: pt seen and examined confused to time and place however knows birthdate and overall appropriate answer to questions somnolent yesterday, ativan drip was held still npo will need re-introduction to iv ativan drip Objective Current Medications: Current Medications Sig/Maximus Start time Last Medication Dose Route Stop Time Status Admin Acetaminophen 650 MG Q6P PRN 02/26 1800 AC 02/28 PO 0819 Divalproex Sodium 500 MG BID 02/26 2200 DC 03/01 PO 2203 Enoxaparin Sodium 40 MG DAILY 02/26 1756 AC 03/04 SC 0901 Folic Acid 1 MG DAILY 02/26 1916 AC 03/01 PO 1113 Ibuprofen 600 MG Q6P PRN 02/26 1800 AC 02/26 PO 2147 Lorazepam 100 MG Q7H 03/01 0930 DC 03/02 Dextrose/Water 1,000 ML IV 2256 Lorazepam 0 Q1P PRN 02/26 1900 AC 03/04 IV 0809 Magnesium Sulfate 1 GM ONCE ONE 03/03 0830 DC 03/03 Dextrose/Water 100 ML IV 03/03 1229 1027 Multivitamins 1 TAB DAILY 02/26 1916 AC 03/01 Therapeutic PO 1113 Nicotine 14 MG DAILY 02/27 1344 AC 03/04 TOP 0902 Oxycodone HCl 10 MG Q6P PRN 02/26 1800 AC 02/28 PO 1206 Sodium Chloride 1,000 ML Q8H 02/28 0745 AC 03/04 IV 0045 Thiamine HCl 100 MG DAILY 02/28 1000 AC 03/01 PO 1113 Valproate Sodium 500 MG Q12H 03/03 1400 AC 03/04 Sodium Chloride 100 ML IV 0156 Valproate Sodium 500 MG Q12 03/03 1322 CAN Sodium Chloride 100 ML IV Vital Signs & I&O Last 24 Hrs of Vitals and I&O: Vital Signs Date Time Temp Pulse Resp B/P B/P Pulse O2 O2 Flow FiO2 Mean Ox Delivery Rate 03/04 0800 98.8 64 20 162/80 03/04 0600 82 21 122/70 03/04 0400 98.6 67 21 160/90 03/04 0400 95 Nasal 2.0L Cannula 03/04 0000 98.9 75 24 178/97 03/04 0000 98.9 75 24 178/97 95 Nasal 2.0L Cannula 03/04 0000 95 Nasal 2.0L Cannula 03/03 2200 81 19 182/95 03/03 2000 98.7 70 20 172/102 03/03 2000 96 Nasal 2.0L Cannula 03/03 1600 97.5 78 79 141/85 03/03 1600 97 Nasal 2.0L Cannula 03/03 1600 97.5 78 19 140/80 97 Nasal 2.0L Cannula 03/03 1400 76 27 118/75 03/03 1200 98.1 74 26 104/66 03/03 1200 97 Nasal 2.0L Cannula 03/03 1000 77 25 111/69 Intake & Output 03/04 1600 03/04 0800 03/04 0000 Intake Total 828 863 Output Total 1350 1000 Balance -522 -137 Intake, IV 828 863 Intake, Oral 0 0 Number 2 1 Bowel Movements Output, Urine 1350 1000 Exam Other Physical Findings: gen awake, confused heent ncat cvs s1, s2 lungs Results Last 24 Hrs of Lab Results: Laboratory Tests 03/04/17 0440: Anion Gap 14, Estimated GFR > 60, Glucose 84, Calcium 9.6, Phosphorus 3.8, Magnesium 1.9, Total Bilirubin 1.0, AST 23, ALT 34, Albumin 3.9 Impression/Plan Impression/Plan Impression/Plan: Impression 51 year old man * significant alcohol withdrawal with confusion, with mild hypertension, consistent with mild DT's * seizure history Plan -re-introduce to ativan drip at 6cc/hr for now with titration to ciwa -librium 50mg q4h with holding parameters for somnolence -CIWA monitoring -bedside swallowing evaluation is acceptatble for medications for now -dc nicotine patch -continue valproate - recheck level -mvi, folate, thiamine -dc oxycodone, will re-evaluate if pain scale is elevated, currently without pain -repeat CXR today -potassium goal 4 - administer repletion DVT prophylaxis with next blood draw - check routine coags TTS 40 min
--- NOTE | 2017-03-04 10:53 | PN- Resident CRCU ---
Subjective HPI/CRCU Issues: Afebrile, hemodynamically stable, saturating well on 2 L of oxygen. This morning patient was agitated. Ativan trip was DC'd yesterday because of somnolent and lethargic. Patient was scoring 4-20 on CIWA score since yesterday morning. Today most of his course is above 16. Objective Vital Signs & I&O Last 8 Hrs of Vitals and I&O: Vital Signs Date Time Temp Pulse Resp B/P B/P Pulse O2 O2 Flow FiO2 Mean Ox Delivery Rate 03/04 1600 78 22 148/84 03/04 1600 97.8 78 22 148/84 96 Nasal 2.0L Cannula 03/04 1600 96 Nasal 2.0L Cannula 03/04 1400 66 18 105/65 03/04 1200 98.4 78 22 128/74 03/04 1200 100 Nasal 2.0L Cannula 03/04 1000 70 20 153/89 03/04 0800 98.8 64 20 162/80 03/04 0800 98.8 70 20 162/80 94 Nasal 2.0L Cannula 03/04 0800 94 Nasal 2.0L Cannula 03/04 0600 82 21 122/70 03/04 0400 98.6 67 21 160/90 03/04 0400 95 Nasal 2.0L Cannula 03/04 0000 98.9 75 24 178/97 03/04 0000 98.9 75 24 178/97 95 Nasal 2.0L Cannula 03/04 0000 95 Nasal 2.0L Cannula 03/03 2200 81 19 182/95 03/03 2000 98.7 70 20 172/102 03/03 2000 96 Nasal 2.0L Cannula Intake & Output 03/04 1600 03/04 0800 03/04 0000 Intake Total 1070 828 863 Output Total 200 1350 1000 Balance 870 -522 -137 Intake, IV 950 828 863 Intake, Oral 120 0 0 Number 5 2 1 Bowel Movements Output, Urine 200 1350 1000 Intake & Output 03/04 1600 Intake Total 1070 Output Total 200 Balance 870 Intake, IV 950 Intake, Oral 120 Number 5 Bowel Movements Output, Urine 200 Exam General Appearance: alert, awake, anxious, agitated, confused Head: atraumatic, normal appearance Respiratory: normal breath sounds, chest non-tender Cardiovascular: regular rate/rhythm Gastrointestinal: non-tender Extremities: no edema Current Medications: Current Medications Sig/Maximus Start time Last Medication Dose Route Stop Time Status Admin Acetaminophen 650 MG Q6P PRN 02/26 1800 AC 02/28 PO 0819 Chlordiazepoxide HCl 50 MG Q4 03/04 1000 AC 03/04 PO 1430 Enoxaparin Sodium 40 MG DAILY 02/26 1756 AC 03/04 SC 0901 Folic Acid 1 MG DAILY 02/26 1916 AC 03/04 PO 0955 Ibuprofen 600 MG Q6P PRN 02/26 1800 AC 02/26 PO 2147 Lorazepam 100 MG Q7H 03/04 1000 AC 03/04 Dextrose/Water 1,000 ML IV 1038 Lorazepam 100 MG Q7H 03/01 0930 DC 03/02 Dextrose/Water 1,000 ML IV 2256 Lorazepam 0 Q1P PRN 02/26 1900 AC 03/04 IV 0952 Multivitamins 1 TAB DAILY 02/26 1916 AC 03/04 Therapeutic PO 0955 Nicotine 14 MG DAILY 02/27 1344 DC 03/04 TOP 0902 Oxycodone HCl 10 MG Q6P PRN 02/26 1800 DC 02/28 PO 1206 Potassium Chloride 10 MEQ Q1H 03/04 1300 DC 03/04 IV 03/04 1401 1540 Potassium Chloride 40 MEQ ONCE ONE 03/04 0945 CAN PO 03/04 0946 Sodium Chloride 1,000 ML Q8H 02/28 0745 AC 03/04 IV 1258 Thiamine HCl 100 MG DAILY 02/28 1000 AC 03/04 PO 0955 Valproate Sodium 500 MG Q12H 03/03 1400 AC 03/04 Sodium Chloride 100 ML IV 1424 Impression/Plan Impression/Problem List Impression: This a 51 year old male with PMH of alcohol abuse and withdrawal seizures with multiple admissions for alcohol detox who returns with alcohol intoxication. Patient was admitted to general medicine floor for alcohol detox and after 2 days transfereed to ICU to be start an Ativan drip. # Alcohol withdrawal/DTs. -Still requiring soft restraints X4. -Still scoring high on CIWA score * We will restart Ativan drip as 6 mg/h and will titrate her as per CIWA * We will start Librium 50 mg every 4 hours * We will DC nicotine patch * We will continue multivitamin, folic acid, and thiamine * We will DC all medication that can affect mentation include OxyContin * Replete potassium, magnesium, phosphorus as necessary * We'll check coagulation profile in am # Questionable seizure disorder * Continue home dose of Depakote 500mg PO Q12 every 12 Regular diet DVT PPx: Full code Problem List: 1. Alcohol dependence with withdrawal with complication Pain Ratin Tomorrow's Labs & Rationales: CBC and ICU bundle Plan DVT/Prophylaxis: mechanical, pharmacological
--- NOTE | 2017-03-04 11:09 | RADIOLOGY REPORT ---
EXAMINATION: XR PORTABLE CHEST CLINICAL INFORMATION: Altered mental status. Pneumonia. Aspiration. COMPARISON: Several priors including recent examination of 03/02/17. TECHNIQUE: Portable frontal view of the chest was obtained. FINDINGS: There is minimal patchy opacity medially at the right lung base consistent with atelectasis. Developing pneumonia is not excluded. The lungs are otherwise clear. The pleural spaces are clear. Heart size is normal. There is unfolding of the thoracic aorta which is unchanged. IMPRESSION: Mild patchy opacity right lung base.
--- NOTE | 2017-03-04 12:30 | NUR ---
Patient is alert and hallucinating, impulsive with periods of increased agitation. Follows commands but is uncooperative. Speech is slurred. Soft restraints x's [address] 1:1 sitter at the bedside. CIWA score ranging from 18-24- Ativan gtt was restarted at 1040 @ 6mg/hr per Dr. Nunez's order. He was also started on po librium. SAS ranging from 4-5. NSR on tele monitor with PAC's and PVC's- HR= 60-80's- heart rate did drop to 48 when sleeping. SBP: 120-160's and pt denies chest pain. Pulses are palpable. On 2 L nc, lungs clear. O2 sats stable at 94-99%. Bedside swallow eval completed and patient able to tolerated regular thin liquid diet. He is INC of urine and stool. Skin is intact but dry. No areas of pressure injury are currently noted. NS infusing at 10mls/hr. Pt denies pain and vitals are currently stable. Will continue to closely monitor patient.
[2017-03-05] VITALS (10 sets, daily range): BP systolic 103–168; BP diastolic 60–110
--- NOTE | 2017-03-05 00:48 | NUR ---
@0000 PT RECEIVED AGITATED AND VERBALLY ABUSIVE, PT IN 4 POINT SOFT RESTRAINTS. PT ATTEMPTED TO KICK THIS RN WHILE CHANGING PT. CIWA 25 INCREASED ATIVAN DRIP FROM 9MG/HR TO 10MG/HR. HR SR 90'S, SBP 140'S TO 160'S, 97% ON ROOM AIR, NPC NOTED. PT INC OF BOTH URINE AND STOOL. 1:1 SITTER REMAINS.
[2017-03-05 04:43] LABS: ABSOLUTE BASOPHIL COUNT 0 /CUMM (0.0-0.2); ABSOLUTE EOSINOPHIL COUNT 0.1 /CUMM (0.0-0.7); ABSOLUTE LYMPH COUNT 1.7 /CUMM (1.2-3.4); ABSOLUTE MONOCYTE COUNT 1.4 /CUMM (0.10-0.60); BASOPHIL % 0.3 % (0.0-2.0); EOSINOPHIL % 1.2 % (0-5); GRANULOCYTE % 60.9 % (42.2-75.2); HEMATOCRIT 36.8 % (42-52); MEAN CORPUSCULAR HGB 31.1 PG (27.0-31.0); MEAN CORPUSCULAR HGB CONC 33.7 G/DL (33.0-37.0); MEAN CORPUSCULAR VOLUME 92.5 FL (80.0-94.0); MEAN PLATELET VOLUME 8.5 FL (7.4-10.4); PLATELET COUNT 180 /CUMM (130-400); RBC DISTRIBUTION WIDTH 15.9 % (11.5-14.5); RED BLOOD CELL CT 3.98 /CUMM (4.70-6.10); WHITE BLOOD CELL COUNT 8.3 /CUMM (4.8-10.8)
[2017-03-05 04:53] LABS: PT 11.7 SEC (9.4-12.5); PTT 35 SEC (25-37)
--- NOTE | 2017-03-05 09:32 | PN- CRCU ---
Subjective HPI/Critical Care Issues: pt seen and examined afebrile 2LNC no leukocytosis on benzodiazepines Objective Current Medications: Current Medications Sig/Maximus Start time Last Medication Dose Route Stop Time Status Admin Acetaminophen 650 MG Q6P PRN 02/26 1800 AC 02/28 PO 0819 Chlordiazepoxide HCl 50 MG Q4 03/04 1000 AC 03/05 PO 0546 Enoxaparin Sodium 40 MG DAILY 02/26 1756 AC 03/04 SC 0901 Folic Acid 1 MG DAILY 02/26 1916 AC 03/04 PO 0955 Ibuprofen 600 MG Q6P PRN 02/26 1800 AC 02/26 PO 2147 Lorazepam 100 MG Q11H 03/04 2330 AC 03/04 Dextrose/Water 1,000 ML IV 2349 Lorazepam 100 MG Q7H 03/04 1000 DC 03/04 Dextrose/Water 1,000 ML IV 03/04 2330 1038 Lorazepam 0 Q1P PRN 02/26 1900 AC 03/04 IV 0952 Magnesium Sulfate 1 GM Q1H 03/05 0530 DC 03/05 Dextrose/Water 100 ML IV 03/05 0729 0811 Multivitamins 1 TAB DAILY 02/26 1916 AC 03/04 Therapeutic PO 0955 Nicotine 14 MG DAILY 02/27 1344 DC 03/04 TOP 0902 Oxycodone HCl 10 MG Q6P PRN 02/26 1800 DC 02/28 PO 1206 Potassium Chloride 10 MEQ Q1H 03/05 0545 DC 03/05 IV 03/05 0646 0558 Potassium Chloride 20 MEQ ONCE ONE 03/05 0530 CAN IV 03/05 0531 Potassium Chloride 10 MEQ Q1H 03/04 1300 DC 03/04 IV 03/04 1401 1540 Potassium Chloride 40 MEQ ONCE ONE 03/04 0945 CAN PO 03/04 0946 Sodium Chloride 1,000 ML Q8H 02/28 0745 AC 03/04 IV 2352 Thiamine HCl 100 MG DAILY 02/28 1000 AC 03/04 PO 0955 Valproate Sodium 500 MG Q12H 03/03 1400 AC 03/05 Sodium Chloride 100 ML IV 0208 Vital Signs & I&O Last 24 Hrs of Vitals and I&O: Vital Signs Date Time Temp Pulse Resp B/P B/P Pulse O2 O2 Flow FiO2 Mean Ox Delivery Rate 03/05 0800 97.6 80 18 108/83 03/05 0800 98 Nasal 2.0L Cannula 03/05 0800 97.6 80 18 108/83 98 Nasal 2.0L Cannula 03/05 0600 85 16 144/99 03/05 0400 98.0 68 20 158/110 03/05 0400 100 Nasal 2.0L Cannula 03/05 0000 98.4 80 27 148/100 06 0000 97 Room Air 03/05 0000 98.4 80 27 148/100 97 Room Air 03/04 2200 97.8 86 23 168/98 03/04 2000 98.8 86 19 154/70 03/04 2000 99 Room Air 03/04 1800 68 20 173/103 03/04 1600 78 22 148/84 03/04 1600 97.8 78 22 148/84 96 Nasal 2.0L Cannula 03/04 1600 96 Nasal 2.0L Cannula 03/04 1400 66 18 105/65 03/04 1200 98.4 78 22 128/74 03/04 1200 100 Nasal 2.0L Cannula 03/04 1000 70 20 153/89 Intake & Output 03/05 1600 03/05 0800 03/05 0000 Intake Total 1364.6 1680 Output Total Balance 1364.6 1680 Intake, IV 1239.6 1440 Intake, Oral 125 240 Number 3 Bowel Movements Exam Other Physical Findings: gen awake, some confusion heent ncat cvs s1, s2 lungs clear abd soft bs+ ext without edema Results Last 24 Hrs of Lab Results: Laboratory Tests 03/05/17 0355: Anion Gap 12, Estimated GFR > 60, Glucose 101 H, Calcium 9.6, Phosphorus 3.7, Magnesium 1.7, Total Bilirubin 0.8, AST 22, ALT 28, Albumin 3.9, PT 11.7, INR 1.12, APTT 35, CBC w Diff NO MAN DIFF REQ, RBC 3.98 L, MCV 92.5, MCH 31.1 H, RDW 15.9 H, MPV 8.5, Gran % 60.9, Lymphocytes % 20.2 L, Monocytes % 17.4 H, Eosinophils % 1.2, Basophils % 0.3, Absolute Granulocytes 5.0, Absolute Lymphocytes 1.7, Absolute Monocytes 1.4 H, Absolute Eosinophils 0.1, Absolute Basophils 0, PUBS MCHC 33.7 Impression/Plan Impression/Plan Impression/Plan: Impression 51 year old man * significant alcohol withdrawal with confusion, with mild hypertension, consistent with mild DT's * seizure history Plan -ativan to ciwa -librium taper with holding parameters for somnolence -CIWA monitoring -bedside swallowing evaluation is acceptatble for medications for now -continue valproate -mvi, folate, thiamine -dc oxycodone, will re-evaluate if pain scale is elevated, currently without pain -repeat CXR today -potassium goal 4 - administer repletion DVT prophylaxis with next blood draw - check routine coags TTS 40 min
--- NOTE | 2017-03-05 09:50 | NUR ---
received patient on 10 mg/hr ativan gtt haley, drowsy easily arousable w/ verbally calling name, alert to name, following simple commands, reposition patient setting clear expectations, slurred speech, [address] 1:1 sitter at bedside, not bucking in bed at this time, slight pulling at upper exts rom provided, foot massage given, performed T.T., patient relaxed and fell asleep; titrated ativan gtt to 9mg/hr at 0800 titrated ativan gtt to 8mg/hr at 0900 at this time, sternal rub needed to wake sleeping patient, calm and cooperative at this time reported hr of 48 & manual bp of 90/[address] Brenda Amador( 500 NS boilus to be given), 1000 easily arousable verbally, not awake enough to adm. po meds or feed him breakfast at this time will continue to closely monitor
--- NOTE | 2017-03-05 09:55 | PN- Resident CRCU ---
Subjective HPI/CRCU Issues: Alcohol withdrawal Continues to be on Ativan drip current rate is 8mg/hr. 24 Hour Events: Seen and examined at bedside. Awoken by verbal stimuli, was able to minimally convesate. Overnight nursing report indicating increased agitation with CIWA scores of 20/25 requiring Ativan drip to increase to 10 mg per hour is noted. Still requiring soft 4.. Objective Vital Signs & I&O Last 8 Hrs of Vitals and I&O: Vital Signs Date Time Temp Pulse Resp B/P B/P Pulse O2 O2 Flow FiO2 Mean Ox Delivery Rate 03/05 1400 57 15 103/67 03/05 1200 97.4 80 18 126/84 03/05 1200 96 Nasal 2.0L Cannula 03/05 0800 97.6 80 18 108/83 03/05 0800 98 Nasal 2.0L Cannula 03/05 0800 97.6 80 18 108/83 98 Nasal 2.0L Cannula 03/05 0600 85 16 144/99 03/05 0400 98.0 68 20 158/110 03/05 0400 100 Nasal 2.0L Cannula 03/05 0000 98.4 80 27 148/100 03/05 0000 97 Room Air 03/05 0000 98.4 80 27 148/100 97 Room Air 03/04 2200 97.8 86 23 168/98 03/04 2000 98.8 86 19 154/70 03/04 2000 99 Room Air 03/04 1800 68 20 173/103 03/04 1600 78 22 148/84 03/04 1600 97.8 78 22 148/84 96 Nasal 2.0L Cannula 03/04 1600 96 Nasal 2.0L Cannula Intake & Output 03/05 1600 18 0800 03/05 0000 Intake Total 2250 1364.6 1680 Output Total Balance 2250 1364.6 1680 Intake, IV 2180 1239.6 1440 Intake, Oral 70 125 240 Number 0 3 Bowel Movements Intake & Output 03/05 1600 Intake Total 2250 Output Total Balance 2250 Intake, IV 2180 Intake, Oral 70 Number 0 Bowel Movements Exam General Appearance: well developed/nourished, alert, awake Head: atraumatic, normal appearance Respiratory: chest non-tender, no respiratory distress, quiet respiration, lungs clear Cardiovascular: regular rate/rhythm Gastrointestinal: normal bowel sounds, soft, non-tender Extremities: normal inspection, normal capillary refill, no edema Current Medications: Current Medications Sig/Maximus Start time Last Medication Dose Route Stop Time Status Admin Acetaminophen 650 MG Q6P PRN 02/26 1800 AC 02/28 PO 0819 Chlordiazepoxide HCl 50 MG Q6 03/05 1200 AC PO Chlordiazepoxide HCl 50 MG Q4 03/04 1000 DC 03/05 PO 1040 Enoxaparin Sodium 40 MG DAILY 02/26 1756 AC 03/05 SC 0935 Folic Acid 1 MG DAILY 02/26 1916 AC 03/05 PO 1039 Ibuprofen 600 MG Q6P PRN 02/26 1800 AC 02/26 PO 2147 Lorazepam 100 MG Q11H 03/04 2330 AC 03/05 Dextrose/Water 1,000 ML IV 1217 Lorazepam 100 MG Q7H 03/04 1000 DC 03/04 Dextrose/Water 1,000 ML IV 03/04 2330 1038 Lorazepam 0 Q1P PRN 02/26 1900 AC 03/04 IV 0952 Magnesium Sulfate 1 GM Q1H 03/05 0530 DC 03/05 Dextrose/Water 100 ML IV 03/05 0729 0811 Multivitamins 1 TAB DAILY 02/26 1916 AC 03/05 Therapeutic PO 1039 Potassium Chloride 10 MEQ Q1H 03/05 0545 DC 03/05 IV 03/05 0646 0932 Potassium Chloride 20 MEQ ONCE ONE 03/05 0530 CAN IV 03/05 0531 Sodium Chloride 1,000 ML Q10H 03/05 1030 AC 03/05 IV 1216 Sodium Chloride 500 ML BOLUS ONE 03/05 1000 DC 03/05 IV 03/05 1059 1013 Sodium Chloride 1,000 ML Q8H 02/28 0745 DC 03/04 IV 2352 Thiamine HCl 100 MG DAILY 02/28 1000 AC 03/05 PO 1039 Valproate Sodium 500 MG Q12H 03/03 1400 AC 03/05 Sodium Chloride 100 ML IV 1411 Impression/Plan Impression/Problem List Impression: Impression/Plan: This a 51 year old male with PMH of alcohol abuse and withdrawal seizures with multiple admissions for alcohol detox who returns with alcohol intoxication. Patient was admitted to general medicine floor for alcohol detox and after 2 days transfereed to ICU needing ATIVAN drip due to his increased agitation and elevated CIWA score. # Alcohol intoxification Intermittent episodes of increased agitation requiring increased Ativan doses. However he also does have episodes of somnolence. Current Ativan drip is at 8 mg per hour will taper down, patient is on chlordiazepoxide 50 every 6H. stop the oxycodone unless patient has severe pain as this medication can contribute to somnolence, # Poly substance abuse and smoking * Nicotine patch * Counseling for smoking cessation * Social work consult * awaiting further Psych reccomendation. # Questionable seizure disorder * Continue home dose of Depakote 500mg PO Q12 for now. Problem List: 1. Alcohol abuse Pain Ratin Tomorrow's Labs & Rationales: ICU BUNDLE Plan DVT/Prophylaxis: mechanical, pharmacological
--- NOTE | 2017-03-05 16:19 | RADIOLOGY REPORT ---
EXAMINATION: XR PORTABLE CHEST CLINICAL INFORMATION: Cough. Concern for aspiration. COMPARISON: Recent priors. TECHNIQUE: Portable portable AP erect view of the chest was obtained. FINDINGS: No significant abnormality is noted involving the heart, lungs, mediastinum, bony thorax or soft tissues. Lung volumes are relatively low with mild crowding of bronchovascular markings at the right base. No focal consolidation. IMPRESSION: Unremarkable examination.
[2017-03-06] VITALS (12 sets, daily range): BP systolic 92–159; BP diastolic 66–94
--- NOTE | 2017-03-06 01:14 | NUR ---
PT ALERT AND AWAKE, RESTLESS. ON ATIVAN GTT AT 5MG/H. S X [address] TO PREVENT HIM FROM PULLING OUT HEPLOCK. SATURATION 100% ON 2L O2, LUNGS SOUND CLEAR. SB 50'S, MANUAL BP 132/70. ABDOMEN SOFT, NORMOACTIVE BS. SITTER AT BEDSIDE.
--- NOTE | 2017-03-06 04:37 | NUR ---
PT REMAINS RESTLESS, THRASHING IN BED. SITTER AT BEDSIDE. ATIVAN GTT AT 5MG. S X [address] PL[address] AND TIME. INCONTINENT OF URINE KEPT CLEAN AND DRY.
[2017-03-06 04:57] LABS: ABSOLUTE BASOPHIL COUNT 0.1 /CUMM (0.0-0.2); ABSOLUTE EOSINOPHIL COUNT 0.2 /CUMM (0.0-0.7); ABSOLUTE GRANULOCYTE CT 2.9 /CUMM (1.4-6.5); ABSOLUTE LYMPH COUNT 1.6 /CUMM (1.2-3.4); EOSINOPHIL % 3.1 % (0-5); GRANULOCYTE % 49.8 % (42.2-75.2); MEAN CORPUSCULAR HGB CONC 33.1 G/DL (33.0-37.0); MEAN CORPUSCULAR VOLUME 93.4 FL (80.0-94.0); MEAN PLATELET VOLUME 8.5 FL (7.4-10.4); PLATELET COUNT 262 /CUMM (130-400); RBC DISTRIBUTION WIDTH 15.7 % (11.5-14.5); RED BLOOD CELL CT 4.07 /CUMM (4.70-6.10); WHITE BLOOD CELL COUNT 5.7 /CUMM (4.8-10.8)
--- NOTE | 2017-03-06 07:43 | PN- Resident CRCU ---
Subjective HPI/CRCU Issues: Alcohol withdrawal requiring Ativan drip 24 Hour Events: Seen and examined at bedside. He is more awake alert and oriented compared to previous days. Ativan drip currently at 5 mg per hour. No acute overnight event reported by nursing staff. Still on soft 4. Objective Vital Signs & I&O Last 8 Hrs of Vitals and I&O: Intake & Output 03/06 1600 03/06 0800 03/06 0000 Intake Total 1130 1340 Output Total 300 Balance 1130 1040 Intake, IV 1030 1310 Intake, Oral 100 30 Output, Urine 300 Exam General Appearance: alert, anxious Respiratory: normal breath sounds, chest non-tender, no respiratory distress Cardiovascular: regular rate/rhythm Gastrointestinal: normal bowel sounds, soft Extremities: normal inspection, normal capillary refill, no edema Current Medications: Current Medications Sig/Maximus Start time Last Medication Dose Route Stop Time Status Admin Acetaminophen 650 MG Q6P PRN 02/26 1800 AC 02/28 PO 0819 Chlordiazepoxide HCl 50 MG Q6 03/05 1200 AC 03/07 PO 0518 Enoxaparin Sodium 40 MG DAILY 02/26 1756 AC 03/06 SC 0950 Folic Acid 1 MG DAILY 02/26 1916 AC 03/06 PO 0950 Haloperidol 1 MG Q4-6 PRN PRN 03/06 1930 AC 03/07 IM 0358 Ibuprofen 600 MG Q6P PRN 02/26 1800 AC 02/26 PO 2147 Lorazepam 100 MG Q20H 03/06 0100 DC 03/06 Dextrose/Water 1,000 ML IV 0009 Magnesium Oxide 400 MG ONE ONE 03/07 0745 DC PO 03/07 0746 Multivitamins 1 TAB DAILY 02/26 191 AC 03/06 Therapeutic PO 0951 Potassium Chloride 20 MEQ ONCE ONE 03/07 0745 DC PO 03/07 0746 Sodium Chloride 1,000 ML Q10H 03/06 0100 DC 03/06 IV 03/07 0000 2012 Thiamine HCl 100 MG DAILY 02/28 1000 AC 03/06 PO 0950 Valproate Sodium 500 MG Q12H 03/03 1400 AC 03/07 Sodium Chloride 100 ML IV 0126 Impression/Plan Impression/Problem List Impression: Impression/Plan: This a 51 year old male with PMH of alcohol abuse and withdrawal seizures with multiple admissions for alcohol detox who returns with alcohol intoxication. Patient was admitted to general medicine floor for alcohol detox and after 2 days transfereed to ICU needing ATIVAN drip due to his increased agitation and elevated CIWA score. # Alcohol intoxification Improvement to see was goes and decreased agitation in the past 24 hours Ativan drip currently at 6 mg per hour. Will taper off Ativan appropriately since chlordiazepoxide 50 every 6H is on board. No oxycodone unless patient has severe pain as this medication can contribute to somnolence, # Poly substance abuse and smoking * Nicotine patch * Counseling for smoking cessation * Social work consult * awaiting further Psych reccomendation. # Questionable seizure disorder * Continue home dose of Depakote 500mg PO Q12 for now. Problem List: 1. Alcohol abuse 2. Alcohol withdrawal Pain Ratin Tomorrow's Labs & Rationales: icu bundle Plan DVT/Prophylaxis: mechanical, pharmacological
--- NOTE | 2017-03-06 09:02 | PN- CRCU ---
Subjective HPI/Critical Care Issues: pt seen and examined on 5/hr ativan more calm some confusion Objective Current Medications: Current Medications Sig/Maximus Start time Last Medication Dose Route Stop Time Status Admin Acetaminophen 650 MG Q6P PRN 02/26 1800 AC 02/28 PO 0819 Chlordiazepoxide HCl 50 MG Q6 03/05 1200 AC 03/06 PO 0530 Chlordiazepoxide HCl 50 MG Q4 03/04 1000 DC 03/05 PO 1040 Enoxaparin Sodium 40 MG DAILY 02/26 1756 AC 03/05 SC 0935 Folic Acid 1 MG DAILY 02/26 1916 AC 03/05 PO 1039 Ibuprofen 600 MG Q6P PRN 02/26 1800 AC 02/26 PO 2147 Lorazepam 100 MG Q17H 03/06 0100 DC Dextrose/Water 1,000 ML IV Lorazepam 100 MG Q20H 03/06 0100 AC 03/06 Dextrose/Water 1,000 ML IV 0009 Lorazepam 100 MG Q11H 03/04 2330 DC 03/06 Dextrose/Water 1,000 ML IV 03/06 0059 0007 Lorazepam 0 Q1P PRN 02/26 1900 DC 03/04 IV 0952 Multivitamins 1 TAB DAILY 02/26 1916 AC 03/05 Therapeutic PO 1039 Sodium Chloride 1,000 ML Q10H 03/06 0100 AC 03/06 IV 0007 Sodium Chloride 1,000 ML Q10H 03/05 1030 DC 03/05 IV 1216 Sodium Chloride 500 ML BOLUS ONE 03/05 1000 DC 03/05 IV 03/05 1059 1013 Sodium Chloride 1,000 ML Q8H 02/28 0745 DC 03/04 IV 2352 Thiamine HCl 100 MG DAILY 02/28 1000 AC 03/05 PO 1039 Valproate Sodium 500 MG Q12H 03/03 1400 AC 03/06 Sodium Chloride 100 ML IV 0150 Vital Signs & I&O Last 24 Hrs of Vitals and I&O: Vital Signs Date Time Temp Pulse Resp B/P B/P Pulse O2 O2 Flow FiO2 Mean Ox Delivery Rate 03/06 0600 53 20 154/80 03/06 0400 97.4 74 24 150/70 03/06 0400 99 Nasal 2.0L Cannula 03/06 0200 57 22 150/70 03/06 0000 97.6 51 18 132/80 03/06 0000 100 Nasal 2.0L Cannula 03/06 0000 97.6 51 18 132/70 100 Nasal 2.0L Cannula 03/05 2200 72 18 168/92 03/05 2000 98.2 60 14 122/60 03/05 2000 97 Nasal 2.0L Cannula 03/05 1800 67 22 152/93 03/05 1600 97.7 63 15 142/94 03/05 1600 97 Nasal 2.0L Cannula 03/05 1600 97.7 63 15 142/94 97 Nasal 2.0L Cannula 03/05 1400 57 15 103/67 03/05 1200 97.4 80 18 126/84 03/05 1200 96 Nasal 2.0L Cannula Intake & Output 03/06 1600 03/06 0800 03/06 0000 Intake Total 1130 1340 Output Total 300 Balance 1130 1040 Intake, IV 1030 1310 Intake, Oral 100 30 Output, Urine 300 Exam Other Physical Findings: gen awake, some confusion heent ncat cvs s1, s2 lungs clear abd soft bs+ ext without edema Results Last 24 Hrs of Lab Results: Laboratory Tests 03/06/17 0400: Anion Gap 14, Estimated GFR > 60, Glucose 96, Calcium 9.7, Phosphorus 3.9, Magnesium 1.9, Total Bilirubin 0.8, AST 20, ALT 39, Albumin 3.8, CBC w Diff NO MAN DIFF REQ, RBC 4.07 L, MCV 93.4, MCH 31.0, RDW 15.7 H, MPV 8.5, Gran % 49.8 , Lymphocytes % 27.9, Monocytes % 18.2 H, Eosinophils % 3.1, Basophils % 1.0, Absolute Granulocytes 2.9, Absolute Lymphocytes 1.6, Absolute Monocytes 1.0 H, Absolute Eosinophils 0.2, Absolute Basophils 0.1, PUBS MCHC 33.1 Impression/Plan Impression/Plan Impression/Plan: Impression 51 year old man * significant alcohol withdrawal with confusion, with mild hypertension, consistent with mild DT's * seizure history Plan -ativan to ciwa -librium taper with holding parameters for somnolence -CIWA monitoring -bedside swallowing evaluation is acceptatble for medications for now -continue valproate -mvi, folate, thiamine -potassium goal 4 - administer repletion DVT prophylaxis TTS 35 min
--- NOTE | 2017-03-06 09:08 | NUR ---
PT IS DROWSY/AROUSABLE, CONFUSED WITH GARBLED SPEECH, SAS 3/4 ON ATIVAN GTT AT 5MG/HR; FOLLOWING SIMPLE COMMANDS, CMS X 4. PT TAKEN OUT OF RESTRAINTS. SITTER AT BEDSIDE TO MAINTAIN SAFETY. 60-80'S, SBP 100 ASLEEP, 150 AWAKE DURING AM CARE. PT IS 2L NC 100% WHILE AWAKE, WITH SCATTERED RHONCHI AND AN UNPRODUCTIVE COUGH. ABDOMEN SOFT W + BS/FLATUS. ABLE TO EAT/DRINK 25% OF BREAKFAST A TOTAL FEED. PT INCONTINENT OF URINE X 1. [place] CATH PLACED. ALPS ON SKIN INTACT.
--- NOTE | 2017-03-06 13:34 | NUR ---
PT ATIVAN DECREASED FROM 5 ->4->3 MG. PO LIBRIUM 50MG GIVEN. AT CURRENT, PT IS SAS 4, AWAKE, FIDGETY, CONFUSED, MILD HALLUCINATIONS/DELUSIONS. REORIENTED FREQUENTLY. REMAINS RESTRAINT FREE. SITTER AT BEDSIDE. PT CONSUMED APPROX. 25 % OF LUNCH A TOTAL FEED. ABLE TO TAKE PILLS WHOLE WITH JUICE. PT IS USING [place] CATH W GOOD EFFECT. U.O. >300ML CLR YELLOW. NS IVF CNTD, RECIEVING VALPROATE IV.
--- NOTE | 2017-03-06 15:25 | NUR ---
SPEECH/SWALLOW THERAPIST RE-EVALUATED PT. PT PLACED ON PUREE/THIN DIET, TO BE FED WHEN ALERT ONLY.
--- NOTE | 2017-03-06 18:24 | NUR ---
PT TRIALED OFF VASOPRESSIN. BP DECREASED TO 50'S. RESTARTED ON VASO AND LEVOPHED HAS BEEN TITRATED UP PER PROTOCOL.
--- NOTE | 2017-03-06 20:15 | NUR ---
PT ATIVAN GTTS STOPPED AND HALDOL 1MG IM GIVEN PER DR. BENAVIDES. PT ALERT WITH GARBALED SPEECH BUT ABLE TO MAKE NEEDS KNOWN. 1:1 SITTER AT BEDSIDE. PT RESTLESS BUT COOPERATIVE AND REDIRECTABLE. PT LUNGS CLEAR WITH CONGESTED COUGH THAT PT IS ABLE TO CLEAR INDEPENDENTLY. EKG TO BE DONE IN 2 HRS PER .
--- NOTE | 2017-03-06 22:30 | NUR ---
EKG REPEATED AND DR. OCONNOR NOTIFIED
[2017-03-07] VITALS (11 sets, daily range): BP systolic 110–154; BP diastolic 60–95
--- NOTE | 2017-03-07 00:40 | NUR ---
PT SLEEPY BUT AROUSABLE. SITTER AT BEDSIDE. LIBRIUM 50MG PO GIVEN AT MN. ATIVAN GTT OFF. MANUAL BP 140/60. NSR 60'S. LUNGS SOUND CLEAR. SATURATION 97% ON 2L O2. ABDOMEN SOFT, NORMOACTIVE BS. DENIES PAIN AT THIS TIME.
--- NOTE | 2017-03-07 07:47 | PN- Resident CRCU ---
KENNEDY STEVENS,[place] 03/07/17 0747: Subjective HPI/CRCU Issues: Alcohol withdrawal 24 Hour Events: Patient seen and examined at bedside. No longer on soft restraints, Ativan drip stopped being managed by chlordiazepoxide. No acute overnight event of increased agitation noted by nursing staff. Pt was more awake and alert today Objective Vital Signs & I&O Last 8 Hrs of Vitals and I&O: Vital Signs Date Time Temp Pulse Resp B/P B/P Pulse O2 O2 Flow FiO2 Mean Ox Delivery Rate 03/07 1000 97.2 64 18 146/80 03/07 0800 97.2 56 18 110/70 03/07 0800 94 Nasal 2.0L Cannula 03/07 0800 97.2 56 18 110/70 94 Nasal 2.0L Cannula 03/07 0600 55 22 143/89 03/07 0400 98.0 80 20 138/64 03/07 0400 97 Nasal 2.0L Cannula 03/07 0200 59 18 120/73 03/07 0000 98.0 60 16 140/60 03/07 0000 97 Nasal 2.0L Cannula 03/07 0000 98.0 60 16 140/60 97 Nasal 2.0L Cannula 03/06 2200 62 14 132/81 03/06 2000 97.8 62 14 148/86 03/06 2000 98 Nasal 2.0L Cannula 03/06 1800 97.2 80 25 159/94 03/06 1600 97.2 63 16 118/86 03/06 1600 95 Nasal 2.0L Cannula 03/06 1600 97.2 68 16 118/86 95 Nasal 2.0L Cannula 03/06 1400 97.0 68 19 119/72 Intake & Output 03/07 1600 03/07 0800 03/07 0000 Intake Total 847 1089 Output Total 300 500 Balance 547 589 Intake, IV 747 909 Intake, Oral 100 180 Output, Urine 300 500 Exam General Appearance: alert, awake Head: atraumatic, normal appearance Respiratory: normal breath sounds, chest non-tender, no respiratory distress Cardiovascular: regular rate/rhythm Gastrointestinal: normal bowel sounds, soft, non-tender Extremities: normal inspection, normal capillary refill, normal range of motion, no edema Current Medications: Current Medications Sig/Maximus Start time Last Medication Dose Route Stop Time Status Admin Acetaminophen 650 MG Q6P PRN 02/26 1800 AC 06/13 PO 0819 Chlordiazepoxide HCl 25 MG Q6 03/07 1200 AC PO Chlordiazepoxide HCl 50 MG Q6 03/05 1200 DC 03/07 PO 0518 Enoxaparin Sodium 40 MG DAILY 02/26 1756 AC 03/07 SC 1113 Folic Acid 1 MG DAILY 02/26 1916 AC 03/07 PO 1112 Haloperidol 1 MG Q4-6 PRN PRN 03/06 1930 AC 03/07 IM 0358 Ibuprofen 600 MG Q6P PRN 02/26 1800 AC 02/26 PO 2147 Lorazepam 100 MG Q20H 03/06 0100 DC 03/06 Dextrose/Water 1,000 ML IV 0009 Magnesium Oxide 400 MG ONE ONE 03/07 0745 DC 03/07 PO 03/07 0746 0800 Multivitamins 1 TAB DAILY 02/26 191 AC 03/07 Therapeutic PO 1111 Potassium Chloride 20 MEQ ONCE ONE 03/07 0745 DC 03/07 PO 03/07 0746 0759 Sodium Chloride 1,000 ML Q10H 03/06 0100 DC 03/06 IV 03/07 0000 2012 Thiamine HCl 100 MG DAILY 02/28 1000 AC 03/07 PO 1112 Valproate Sodium 500 MG Q12H 03/03 1400 AC 03/07 Sodium Chloride 100 ML IV 0126 Impression/Plan Impression/Problem List Impression: Impression/Plan: This a 51 year old male with PMH of alcohol abuse and withdrawal seizures with multiple admissions for alcohol detox who returns with alcohol intoxication. Patient was admitted to general medicine floor for alcohol detox and after 2 days transfereed to ICU needing ATIVAN drip due to his increased agitation and elevated CIWA score. # Alcohol intoxification Marked improvement since he was causing agitation. Soft restraints while discontinued yesterday, and Ativan drip was appropriately tapered off and is now on low does of peroxide 25 mg every 6. Will reassess later in the afternoon and if patient is stable with down graded to GEN med. # Poly substance abuse and smoking * Nicotine patch * Counseling for smoking cessation * Social work consult * awaiting further Psych reccomendation (is patient still didn't not being able to leave AMA?) # Questionable seizure disorder * Will switchto IV to by mouth Depakote 500mg PO Q12 Problem List: 1. Nicotine dependence 2. Alcohol withdrawal Pain Ratin Tomorrow's Labs & Rationales: icu bundle Plan DVT/Prophylaxis: mechanical, pharmacological Edil GREEN MD 03/07/17 1034: Attending MD Review Statement Attending Sign Off Attending Cosign Statement: I have: examined this patient, reviewed avalbl EMR data, personally reviewd images, discussd w/resident/PA/ROVING MACHINE OPERATOR, agreed w/resident/PA/ROVING MACHINE OPERATOR.
--- NOTE | 2017-03-07 09:41 | NUR ---
PT DROWSY AROUSABLE, CONFUSED; KNOWS HE IS IN THE HOSPITAL, MONTH AND YEAR WHEN ASKED. GRULLON EQUALLY W GOOD STRENGTH. LACKS COORDINATION. PT IS ON 2L, 94 % RHONCHI IS PRESENT, PT HAS AN UNPRODUCTIVE, WEAK COUGH. SB-SR ON THE MONITOR 50-70'S. BP 110/70. ABDOMEN SOFT, +BS, BEING FED BREAKFAST. ABLE TO TAKE WHOLE PILLS W JUICE. K 3.8 AND MAG 1.7 REPLETED. IVF OFF. PT HEP LOCKED.
--- NOTE | 2017-03-07 13:20 | NUR ---
Concurrent clinical review provided to CT [facility] and additonal authorized units received until 03/09/17. Follow to better assess interest and motivation in aftercare when medically stable.
--- NOTE | 2017-03-07 15:10 | PN- Psychiatry ---
Assessment/Plan Impression: Identifying Info: 51-year-old single male presents to [facility] emergency department on 01/25/2017 by ambulance with chief complaint of alcohol intoxication. Subsequently diagnosed with alcohol withdrawal and admitted due to seizure history. SUBJECTIVE Pt reports he has been experiencing nightmares at nighttime where people are trying to harm him. He is concerned that when he wake he continues to see their faces and has difficulty telling dreams from reality. Brief ROS Gait: did not observe Sleep: Poor Appetite: Fair OBJECTIVE Mental Status Exam Presentation/Appearance: Calm, cooperative with evaluation to best of his ability. Hospital garb. Sitting in bed eating breakfast Orientation: place, month, year, date "" Sensorium: somnolent Eye contact: Appropriate Affect: Blunted Mood: Euthymic Depression: Denies Anxiety: Denies Thought Content: - Denies SI/HI, AH/VH, PI. States and also believes they will not kill themselves. - Denies any history of suicide attempt - Denies Hopeless/Helpless Thoughts Thought Process: Linear Associations: Appropriate Speech: WNL Judgment: Fair Insight: Fair Cognition: Memory: Grossly intact Attention/Concentration: Grossly intact Fund of Knowledge: Did not assess Abstractions: Did not assess MMSE: Did not assess Per nursing report has been lethargic today. Ativan was discontinued last night approximately 1999 he subsequently required IM haloperidol twice due to agitation. ASSESSMENT 51-year-old single male presents requesting intoxicated aftre recent detox stay At [facility] ending on 02/10. At present he is reporting and staff are describing symptoms of delirium. Diagnosis Delirium due to alcohol withdrawl Alcohol use disorder, severe Cannabis use disorder By history cocaine use disorder Rule out unspecified mood disorder A total of 30 minutes was spent with the patient with more than 50% of the time spent in counseling and/or coordination of care. Suggestion: 1. Continue CIWA, vitamin supplementation, and benzodiazepine taper. 2. Continue sitter for safety at present. 3. Continue Haldol as currently ordered for severe agitation. Continue to monitor EKG, Mg and K on this medication. 4. Based on past history patient is likely to request to leave AMA during this hospitalization. If he does, any provider can assess capacity by evaluating the following: His ability to communicate a choice, understand the relevant information, appreciate the situation and it's consequences, and reason about treatment options. If assistance is required psychiatry be happy to assist in evaluation. Thank you for including psychiatry in this case we will only follow as needed, please contact for assistance. Subjective Subjective: as above Objective Last 24 Hrs of Vital Signs/I&O Current Medications Sig/Maximus Start time Last Medication Dose Route Stop Time Status Admin Acetaminophen 650 MG Q6P PRN 02/26 1800 AC 02/28 PO 0819 Chlordiazepoxide HCl 25 MG Q6 03/07 1200 AC PO Chlordiazepoxide HCl 50 MG Q6 03/05 1200 DC 03/07 PO 0518 Divalproex Sodium 500 MG BID 03/07 1241 AC 03/07 PO 1406 Enoxaparin Sodium 40 MG DAILY 02/26 1756 AC 03/07 SC 1113 Folic Acid 1 MG DAILY 02/26 1916 AC 03/07 PO 1112 Haloperidol 1 MG Q4-6 PRN PRN 03/06 1930 AC 03/07 IM 0358 Ibuprofen 600 MG Q6P PRN 02/26 1800 AC 03/07 PO 1412 Lorazepam 100 MG Q20H 03/06 0100 DC 03/06 Dextrose/Water 1,000 ML IV 0009 Magnesium Oxide 400 MG ONE ONE 03/07 0745 DC 03/07 PO 03/07 0746 0800 Multivitamins 1 TAB DAILY 02/26 1916 AC 03/07 Therapeutic PO 1111 Potassium Chloride 20 MEQ ONCE ONE 03/07 0745 DC 03/07 PO 03/07 0746 0759 Sodium Chloride 1,000 ML Q10H 03/06 0100 DC 03/06 IV 03/07 0000 2012 Thiamine HCl 100 MG DAILY 02/28 1000 AC 03/07 PO 1112 Valproate Sodium 500 MG Q12H 03/03 1400 DC 03/07 Sodium Chloride 100 ML IV 0126 Laboratory Tests 03/07/17 0400: Anion Gap 13, Estimated GFR > 60, BUN/Creatinine Ratio 6.7 L, Phosphorus 4.1, Magnesium 1.7 Vital Signs Date Time Temp Pulse Resp B/P B/P Pulse O2 O2 Flow FiO2 Mean Ox Delivery Rate 03/07 1000 97.2 64 18 146/80 03/07 0800 97.2 56 18 110/70 03/07 0800 94 Nasal 2.0L Cannula 03/07 0800 97.2 56 18 110/70 94 Nasal 2.0L Cannula 03/07 0600 55 22 143/89 03/07 0400 98.0 80 20 138/64 03/07 0400 97 Nasal 2.0L Cannula 03/07 0200 59 18 120/73 03/07 0000 98.0 60 16 140/60 03/07 0000 97 Nasal 2.0L Cannula 03/07 0000 98.0 60 16 140/60 97 Nasal 2.0L Cannula 03/06 2200 62 14 132/81 03/06 2000 97.8 62 14 148/86 03/06 2000 98 Nasal 2.0L Cannula 03/06 1800 97.2 80 25 159/94 03/06 1600 97.2 63 16 118/86 03/06 1600 95 Nasal 2.0L Cannula 03/06 1600 97.2 68 16 118/86 95 Nasal 2.0L Cannula Intake & Output 03/07 1600 03/07 0800 03/07 0000 Intake Total 847 1089 Output Total 300 500 Balance 547 589 Intake, IV 747 909 Intake, Oral 100 180 Output, Urine 300 500
--- NOTE | 2017-03-07 18:33 | NUR ---
PT DOWNGRADED TO GENERAL MEDICINE. REPORT CALLED TO SHAY BARRERA. PT TO GO TO BED 224 BED 2.
[2017-03-08] VITALS (7 sets, daily range): BP systolic 120–146; BP diastolic 80–100
--- NOTE | 2017-03-08 07:11 | PN- Housestaff ---
HEIDI STEVENS,[facility] 03/08/17 0711: Subjective Follow-up For: Alcohol Withdrawal Subjective: Attempted to visit the patient this morning he was fast asleep oriented to the fact that he was up all night. He currently has a sitter in place. Currently appears comfortable. His CIWA seems to be ranging between 2-9. Will attempt to revisit over the course of the morning. Mr. Newman was seen and examined this morning. Resting comfortably in bed. He is alert and oriented to time and person although not to place. He denies any issues overnight. Endorses a mild headache. 3/10 in severity. Denies any fever, chills, nausea, vomiting. He states he's been tolerating by mouth intake well although tray at bedside from breakfast has still not been eaten. He currently has a sister in place. Review of Systems Constitutional: Reports: see HPI. Objective Last 24 Hrs of Vital Signs/I&O Vital Signs Date Time Temp Pulse Resp B/P B/P Pulse O2 O2 Flow FiO2 Mean Ox Delivery Rate 03/08 0636 98.4 70 18 142/86 97 Room Air 03/08 0211 98.5 81 20 144/90 96 Nasal Cannula 03/08 0200 98.5 81 20 144/90 03/08 0000 97 Room Air 03/07 2228 97.9 71 20 122/80 97 Nasal 2.0L Cannula 03/07 2005 97.8 79 20 142/90 98 Nasal 2.0L Cannula 03/07 1930 Nasal 2.0L Cannula 03/07 1600 98.0 57 15 148/80 03/07 1600 97 Nasal 2.0L Cannula 03/07 1600 98.1 57 15 148/80 97 Nasal 2.0L Cannula 03/07 1400 98.5 74 27 154/95 03/07 1200 98.5 72 15 144/76 03/07 1200 98 Nasal 2.0L Cannula 03/07 1000 97.2 64 18 146/80 03/07 0800 97.2 56 18 110/70 03/07 0800 94 Nasal 2.0L Cannula 03/07 0800 97.2 56 18 110/70 94 Nasal 2.0L Cannula Intake & Output 03/08 0800 03/08 0000 03/07 1600 Intake Total 480 240 Output Total 750 1000 450 Balance -750 -520 -210 Intake, Oral 480 240 Number 0 0 0 Bowel Movements Output, Urine 750 1000 450 Physical Exam General Appearance: Alert, Oriented X3, Cooperative, No Acute Distress HEENT: Mucous Mebranes Dry Cardiovascular: Regular Rate, Normal S1, Normal S2 Lungs: Clear to Auscultation Abdomen: Normal Bowel Sounds, Soft, No Tenderness Extremities: No Edema Current Medications: Current Medications Sig/Maximus Start time Last Medication Dose Route Stop Time Status Admin Acetaminophen 650 MG Q6P PRN 02/26 1800 AC 02/28 PO 0819 Chlordiazepoxide HCl 25 MG Q6 03/07 1200 AC 03/08 PO 0038 Chlordiazepoxide HCl 50 MG Q6 03/05 1200 DC 03/07 PO 0518 Divalproex Sodium 500 MG BID 03/07 1241 AC 03/07 PO 2105 Enoxaparin Sodium 40 MG DAILY 02/26 1756 AC 03/07 SC 1113 Folic Acid 1 MG DAILY 02/26 1916 AC 03/07 PO 1112 Haloperidol 1 MG Q4-6 PRN PRN 03/06 1930 AC 03/08 IM 0530 Ibuprofen 600 MG Q6P PRN 02/26 1800 AC 03/08 PO 0045 Multivitamins 1 TAB DAILY 02/26 191 AC 03/07 Therapeutic PO 1111 Thiamine HCl 100 MG DAILY 02/28 1000 AC 03/07 PO 1112 Valproate Sodium 500 MG Q12H 03/03 1400 DC 03/07 Sodium Chloride 100 ML IV 0126 Assessment/Plan Assessment: Mr. Emmanuel is a 51 year old male with PMH of alcohol abuse and withdrawal seizures with multiple admissions for alcohol detox who returns with alcohol intoxication. Patient was admitted to general medicine floor for alcohol detox. # Alcohol intoxification * CIWA score : 2,0,12,11,9 * Cont scheduled Librium 25 mg PO q6, may consider tailoring this to 25 mg by mouth every 8. * Continue thiamine, folate, and multivitamin * If agitated, Haldol 1 mg Q6 PO, patient did receive Haldol overnight. Can use sparingly due to negative side effects profile. # Electrolyte disturbance * Check BEP daily, replete as needed # Poly substance abuse and smoking * Nicotine patch. 14 mg * Counseling for smoking cessation * Social work consult * Psych consult, obtained, # Questionable seizure disorder * Continue home dose of Depakote 500mg PO Q12 every 12 - Regular diet - Mild pain pathway - DVT ppx with Lovenox - Full code Problem List: 1. Cocaine abuse 2. Alcohol withdrawal 3. Auditory hallucinations 4. Nicotine dependence 5. Alcohol dependence with withdrawal with complication Pain Ratin Pain Location: Headache Pain Goal: Remain pain free Pain Plan: Tylenol PRN Tomorrow's Labs & Rationales: No Labs SHAHLA CHOW MD 03/08/17 1119: Attending MD Review Statement Attending Statement Attending MD Statement: examined this patient, discuss w/resident/PA/PILOT BOAT OPERATOR, agreed w/resident/PA/PILOT BOAT OPERATOR, reviewed EMR data (avail) Attending Assessment/Plan: 51M admitted for alcohol withdrawal delirium complicated by delirium tremens requiring ICU transfer and Ativan drip, now improving and transferred back to general medicine floor. Still on Librium and PRN Ativan. Patient is still confused and delirious but no longer agitated. Hemodynamically stable. Labs unremarkable. Will continue Librium taper and PRN Ativan.
--- NOTE | 2017-03-08 07:45 | Discharge Summary ---
Visit Information Visit Dates Admission Date: 02/26/17 Discharge Date: 03/13/2017 Hospital Course Course Attending Physician: SHAHLA CHOW MD [facility]: Mr Emmanuel is a 51 year old male with PMH of alcohol abuse and withdrawal seizures with multiple admissions for alcohol detox who returned to [facility] with the intention to to be treated for alcohol withdrawal. While in the emergency department he was evaluated by psych crisis who ruled out suicidal ideation. Patient was originally admitted to general medicine however on day 4 of admission was subsequently transferred to the intensive care unit. He subsequently spent 8 days in the intensive care unit after which she was stabilized and sent back to general medicine. Below is a summary of the care he received under us. # Alcohol intoxification/withdrawal While in the intensive care unit patient started on an Ativan drip.Patient required 4 point soft restraints and a constant sitter in adddition to Ativan drip. Soft restraints discontinued 3 days before transferring out of ICU. Ativan drip was eventually appropriately tapered and managed on Librium 25 mg every 6. Pt was transferred to [facility] on 03/07. Once on general medicine Librium was tapered every 8 hours followed by every 12 hours followed by daily dosing. During the ICU stay, patient did not have any seizures or hallucinations. # Poly substance abuse and smoking Patient does have a history of tobacco use. He was provided a nicotine patch. Smoking cessation counseling given. Patient also received a social consult as well as a psychiatry consult to ensure medications were appropriately used during this acute withdrawal phase. Haldol was used sparingly when the patient became agitated. #Electrolyte Imbalance The patients electrolytes more specifically magnesium and potassium were routinely checked and supplemental electrolytes were provided as needed. # Questionable seizure disorder Owing to the patient's previous history of seizure disorder he was continued on Depakote 500 mg every 12. The patient is scheduled to follow-up with the neurologist as an outpatient and was encouraged to do so. While admitted the patient had no seizures. Patient was a full code Allergies: Coded Allergies: diphenhydramine (From Benadryl) (DROWSY OR HYPER 11/26/15) loratadine (From Claritin) (HYPER OR DROWSY 11/26/15) Pertinent Lab Results: SERVICE DATE: 03/05/17- EXAM TYPE: RAD - XRY-PORTABLE CHEST XRAY EXAMINATION: XR PORTABLE CHEST CLINICAL INFORMATION: Cough. Concern for aspiration. COMPARISON: Recent priors. TECHNIQUE: Portable portable AP erect view of the chest was obtained. FINDINGS: No significant abnormality is noted involving the heart, lungs, mediastinum, bony thorax or soft tissues. Lung volumes are relatively low with mild crowding of bronchovascular markings at the right base. No focal consolidation. IMPRESSION: Unremarkable examination. DICTATED BY: JOSEPH BOOTH MD SERVICE DATE: 03/04/17-1037 EXAM TYPE: RAD - XRY-PORTABLE CHEST XRAY EXAMINATION: XR PORTABLE CHEST CLINICAL INFORMATION: Altered mental status. Pneumonia. Aspiration. COMPARISON: Several priors including recent examination of 03/02/17. TECHNIQUE: Portable frontal view of the chest was obtained. FINDINGS: There is minimal patchy opacity medially at the right lung base consistent with atelectasis. Developing pneumonia is not excluded. The lungs are otherwise clear. The pleural spaces are clear. Heart size is normal. There is unfolding of the thoracic aorta which is unchanged. IMPRESSION: Mild patchy opacity right lung base. DICTATED BY: JOSEPH BOOTH MD SERVICE DATE: 03/02/17- EXAM TYPE: RAD - XRY-PORTABLE CHEST XRAY EXAMINATION: XR PORTABLE CHEST CLINICAL INFORMATION: Rhonchi. Altered mental status. COMPARISON: 01/08/2017 TECHNIQUE: Portable frontal view of the chest was obtained. FINDINGS: Cardiac leads overlie the chest. Low lung volumes with mild elevation of the right hemidiaphragm. Minimal left basilar opacity near the costophrenic angle. Linear right perihilar opacity. No pleural effusion or pneumothorax. The cardiomediastinal silhouette is unchanged. No acute osseous abnormality. IMPRESSION: Minimal opacities at the left costophrenic angle and right perihilar region favor atelectasis, although pneumonia not excluded. DICTATED BY: HANNA STEVENS,TABBY Disposition Summary Disposition Principal Diagnosis: Acute alcohol withdrawal. Additional Diagnosis: History of seizures, History of polysubstance abuse, Electrolyte imbalance Discharge Disposition: home or self care Discharge Instructions General Discharge Information Code Status: Full Code Patient's Diet: Regular Patient's Activity: As Tolerated Follow-Up Instructions/Appts: Please follow-up with your primary care physician within 7 days of discharge. Please inform your primary care physician of this admission to the hospital. Medications at Discharge Discharge Medications: Continue taking these medications: Divalproex Sodium (Divalproex Sodium) 500 MG TABLET. 500 Milligram ORAL TWICE DAILY Qty = 60 Instructions: PLEASE FOLLOW UP WITH DR. EUGENE, NEUROLOGY, IN 2 WEEKS. Comments: Last Taken: 03/13/17 Time: 9:00 am Folic Acid (Folic Acid) 1 MG TABLET 1 Milligram ORAL DAILY Qty = 30 Comments: Last Taken: 03/13/17 Time: 9:00 AM Thiamine HCl (Vitamin B-1) 50 MG TABLET 50 Milligram ORAL DAILY Qty = 30 Comments: Last Taken: 03/13/17 Time: 9:00 AM Multivitamin (One Daily Multivitamin) 1 EACH TABLET 1 Tablet ORAL DAILY Qty = 30 Comments: Last Taken: 03/13/17 Time: 9:00 AM Dextran 70/Hypromellose (Artificial Tears) 1 EACH DROPERETTE 2 Drop In the eye THREE TIMES DAILY as needed for DRY EYES Qty = 2 Comments: NOT GIVEN WHILE IN HOSPITAL Copies To: MARGOT STEVENS,KARTHIK Cardoza; DAVID ALBRECHT APRN
--- NOTE | 2017-03-08 07:47 | Patient Discharge Instructions ---
Discharge Instructions General Discharge Information You were seen/treated for: Alcohol Withdrawal. Watch for these problems: If you feel weak, experience chest pain, shortness breath, worsening cough or increased weakness please come back to the emergency department. Other signs to watch out for include: fever, chills, nausea and vomiting. Special Instructions: Please follow-up with your primary care physician within 7 days of discharge. Please inform your primary care physician of this admission to the hospital. Diet Continue normal diet: Yes Activity Full Activity/No Limits: No Acute Coronary Syndrome Inclusion Criteria At DC or during hospital stay patient has or had the following: ACS DIAGNOSIS No Discharge Core Measures Meds if any: Prescribed or Continued at Discharge Meds if any: NOT Prescribed or Continued at Discharge Congestive Heart Failure Inclusion Criteria At DC or during hospital stay patient has or had the following: CHF DIAGNOSIS No Discharge Core Measures Meds if any: Prescribed or Continued at Discharge Meds if any: NOT Prescribed or Continued at Discharge Cerebrovascular accident Inclusion Criteria At DC or during hospital stay patient has or had the following: CVA/TIA Diagnosis No Discharge Core Measures Meds if any: Prescribed or Continued at Discharge Meds if any: NOT Prescribed or Continued at Discharge Venous thromboembolism Inclusion Criteria VTE Diagnosis No VTE Type NONE VTE Confirmed by (Test) NONE Discharge Core Measures - Per Current guidelines, there needs to be overlap - treatment for the first 5 days of Warfarin therapy. - If discharged on Warfarin prior to 5 days of - overlap therapy, the patient will need to be - assessed for post discharge needs including - *Post discharge parental anticoagulation - *Warfarin and/or parental anticoagulation education - *Follow up date to check INR post discharge At least 5 days overlap therapy as Inpatient No Meds if any: Prescribed or Continued at Discharge Note: Overlap Therapy is Warfarin and Anticoagulant Meds if any: NOT Prescribed or Continued at Discharge
--- NOTE | 2017-03-08 18:02 | Transfer of Care Summary ---
Hospital Course Course Hospital Course: This is a 51 yogentleman who presented at [facility] through EMS when he called them and expressed that he had been drinking all day and he may have suicidal plan and has begun at home. When admitting medical team spoke to him he stated that he called EMS because he did not want to and wanted to come to ER. Past few days after his discharge, he had been compliant with his antiseizure medications. But has been drinking almost 2 pints of vodka every day. Vitals: Afebrile, tachycardic, mildly hypertensive, respiration O2 sats in acceptable range. On exam: Arousable, oriented to place and person, cooperative, no acute distress , neck supple, JVD normal, no lymphadenopathy, mucosa moist, no dependent edema, no obvious skin rashes or inflammation CVS: S1-S2, RRR. RS: Clear to auscultate bilaterally. Abdomen: Soft, NT, ND, bowel sounds present. Labs: CBC unremarkable, sodium 148, chloride 106, bicarbonate 22, anion gap 20, even 12, creatinine 0.6, LFT unremarkable, lipase 400, Valproic acid 71.8, serum alcohol 435. Pt was then started on CIWA protocol with Ativan dosing and admitted to [facility] floor for Etoh withdrawal. On third day, pt became increasing agitated with high CIWA scores requiring frequent prn Ativan dose. He was then Transferred to ICU on the third day for initiation of Ativan drip. Assessment/Plan: # Alcohol intoxification Required 8 days of ICU with Ativan drip needed for 6 days. Initital days of ICU, pt required 4 point soft restartaint aND constant sitter in adddition to Ativan drip. Soft restraints discontinued 3 days before transferring out of ICU. Ativan drip was eventually appropriately tapered and managed on Librium 25 mg every 6. Pt was transferred to [facility] on 03/07. During ICU stay, patient did not have any seizure episodes or hallucinations. # Poly substance abuse and smoking * Nicotine patch * Counseling for smoking cessation provided * Social work consult * Initial psych assesment was patient could not leave AMA, and Haldol pprn as needed for agiatation. #Electrolyte Imbalance Mag and K+ was appropriately replenished. # Questionable seizure disorder * Managed by Depakote 500mg Q12 * No acute episodes
[2017-03-09] VITALS (8 sets, daily range): BP systolic 120–160; BP diastolic 70–100
--- NOTE | 2017-03-09 06:10 | PN- Housestaff ---
See Addendum Subjective Follow-up For: Alcohol Detox Hx Of seizures Subjective: Mr Emmanuel was seen and examined morning. He is alert and is attempting to get out of bed. The patient states that he needs to get moving because he has some bills to pay and his girlfriend is currently waiting for him. Overnight he endorses no issues. He is unsure as to the reason why he is here. Endorses back pain which he has chronically. Pain is rated 10 out of 10 severity. Denies any fever, chills, nausea, vomiting. Currently has a sitter place. Review of Systems Constitutional: Reports: see HPI. Objective Last 24 Hrs of Vital Signs/I&O Vital Signs Date Time Temp Pulse Resp B/P B/P Pulse O2 O2 Flow FiO2 Mean Ox Delivery Rate 03/09 0600 97.8 71 20 130/92 03/09 0400 97.8 71 20 130/92 03/09 0200 97.8 71 20 130/92 03/09 0200 97.8 71 20 130/92 95 Room Air 03/09 0040 130/90 03/09 0017 77 136/98 03/09 0000 96.9 68 20 146/100 03/08 2314 96.9 68 20 146/100 97 Room Air 03/08 1447 99.1 78 20 120/80 96 03/08 1000 97.8 71 16 132/80 03/08 1000 97.5 71 16 132/80 92 Room Air 03/08 0800 92 Room Air 03/08 0636 98.4 70 18 142/86 97 Room Air Intake & Output 03/09 0800 03/09 0000 03/08 1600 Intake Total 250 250 480 Output Total Balance 250 250 480 Intake, IV 10 Intake, Oral 250 240 480 Physical Exam General Appearance: Alert, Alert to time and person Cardiovascular: Regular Rate, Normal S1, Normal S2 Lungs: Clear to Auscultation Abdomen: Normal Bowel Sounds, Soft, No Tenderness Neurological: Normal Gait (Wobbly Gait ), Normal Speech, Strength at 5/5 X4 Ext Extremities: No Edema, Normal Pulses, No loss of sensation or motor weakness Vascular: Normal Pulses Current Medications: Current Medications Sig/Maximus Start time Last Medication Dose Route Stop Time Status Admin Acetaminophen 650 MG Q6P PRN 02/26 1800 AC 02/28 PO 0819 Chlordiazepoxide HCl 25 MG Q6 03/07 1200 AC 03/09 PO 0515 Divalproex Sodium 500 MG BID 03/07 1241 AC 03/08 PO 2109 Enoxaparin Sodium 40 MG DAILY 02/26 1756 AC 03/08 SC 1048 Folic Acid 1 MG DAILY 02/26 1916 AC 03/08 PO 1047 Haloperidol 1 MG Q4-6 PRN PRN 03/06 1930 AC 03/09 IM 0515 Ibuprofen 600 MG Q6P PRN 02/26 1800 AC 03/08 PO 0045 Multivitamins 1 TAB DAILY 02/26 191 AC 03/08 Therapeutic PO 1047 Nicotine 14 MG DAILY PRN 03/08 0815 AC 03/08 TOP 1048 Thiamine HCl 100 MG DAILY 02/28 1000 AC 03/08 PO 1047 Assessment/Plan Assessment: Mr. Emmanuel is a 51 year old male with PMH of alcohol abuse and withdrawal seizures with multiple admissions for alcohol detox who returns with alcohol intoxication. Patient was admitted to general medicine floor for alcohol detox. # Alcohol intoxification * CIWA score : 4,4,4,4,0,4, * Librium 25 mg PO q6 changed to PO Q12. May consider additiona Librium if symptoms are not controlled and CIWA are above 11. * Continue thiamine, folate, and multivitamin * If agitated, Haldol 1 mg Q6 PO PRN. Haldol 2 mg PO has been ordered for this evening at 2000. * Can use sparingly due to negative side effects profile. # Electrolyte disturbance * Check BEP 03-10-2017. # Poly substance abuse and smoking * Nicotine patch. 14 mg * Counseling for smoking cessation * Social work consult # Questionable seizure disorder * Continue home dose of Depakote 500mg PO Q12 every 12. * Patient has remained seizure free. - Regular diet - Mild pain pathway - DVT ppx with Lovenox - Full code Problem List: 1. Alcohol withdrawal 2. Cocaine abuse 3. Polysubstance abuse 4. Alcohol withdrawal seizure Pain Ratin Pain Location: Back Pain Goal: Remain pain free Pain Plan: Tylenol PRN Tomorrow's Labs & Rationales: BEP and Magnesium: Monitoring due to hx of alcoholism.
--- NOTE | 2017-03-09 08:44 | PN- Psychiatry ---
Assessment/Plan Impression: Identifying Info: 51-year-old single male presents to [facility] emergency department on 01/25/2017 by ambulance with chief complaint of alcohol intoxication. Subsequently diagnosed with alcohol withdrawal and admitted due to seizure history. SUBJECTIVE Pt states "I feel much better than yesterday." Describes mood as "up and down, but starting to look up." Becomes frustrated when orientation is assessed as he thought today was "MondayFebruary 16." Endorses confusion "2 times." States he is unsure what he would like ot do for alcohol treatment post discharge. Brief ROS Gait: did not observe Sleep: Poor Appetite: Adequate OBJECTIVE Mental Status Exam Presentation/Appearance: Calm, cooperative with evaluation to best of his ability. Hospital garb. Sitting in chair eating breakfast, sitter in place Orientation: place, situation and month, not date Sensorium: somnolent Eye contact: Fair Affect: Flat Mood: Euthymic Depression: Denies Anxiety: Denies Thought Content: - Denies SI/HI, AH/VH, PI. States and also believes they will not kill themselves. - Denies any history of suicide attempt - Denies Hopeless/Helpless Thoughts Thought Process: Linear with intermittent confusion Associations: Appropriate Speech: Slurred and slow Judgment: Fair Insight: Fair Cognition: Memory: Grossly intact Attention/Concentration: Grossly intact Fund of Knowledge: Did not assess Abstractions: Did not assess MMSE: Did not assess Of note, pt recieved IM Haldol at approximately 0530 this AM for agitation. This is the 4th night in a row he has required this medication between 1999 and 599. Per nursing report pt appears to be more oriented today than yesterday and speech has improved but still appear confused at times. ASSESSMENT 51-year-old single male presents requesting intoxicated aftre recent detox stay At [facility] ending on 02/10. At present he is reporting and staff are describing symptoms of delirium. Diagnosis Delirium due to alcohol withdrawl, resolving Alcohol use disorder, severe Cannabis use disorder By history cocaine use disorder Rule out unspecified mood disorder A total of 30 minutes was spent with the patient with more than 50% of the time spent in counseling and/or coordination of care. Suggestion: 1. Continue CIWA, vitamin supplementation, and benzodiazepine taper. 2. Continue sitter for safety due to confusion. 3. Continue Haldol as currently ordered for severe agitation. Continue to monitor EKG, Mg and K on this medication. 4. Consider starting Haldol 2mg tab PO scheduled at 2000 daily to decrease overnight agitation. 5. Based on past history patient is likely to request to leave AMA during this hospitalization. If he does, any provider can assess capacity by evaluating the following: His ability to communicate a choice, understand the relevant information, appreciate the situation and it's consequences, and reason about treatment options. If assistance is required psychiatry be happy to assist in evaluation. 6. Appreciate SW consult for assistance in disposition planning. Thank you for including psychiatry in this case we will only follow as needed, please contact for assistance. Subjective Subjective: as above Objective Last 24 Hrs of Vital Signs/I&O Current Medications Sig/Maximus Start time Last Medication Dose Route Stop Time Status Admin Acetaminophen 650 MG Q6P PRN 02/26 1800 AC 02/28 PO 0819 Bisacodyl 5 MG DAILY PRN 03/09 0800 AC PO Chlordiazepoxide HCl 25 MG Q12H 03/09 1800 AC PO Chlordiazepoxide HCl 25 MG Q6 03/07 1200 DC 03/09 PO 0515 Divalproex Sodium 500 MG BID 03/07 1241 AC 03/08 PO 2109 Enoxaparin Sodium 40 MG DAILY 02/26 1756 AC 03/08 SC 1048 Folic Acid 1 MG DAILY 02/26 1916 AC 03/08 PO 1047 Haloperidol 1 MG Q4-6 PRN PRN 03/06 1930 AC 03/09 IM 0515 Ibuprofen 600 MG Q6P PRN 02/26 1800 AC 03/08 PO 0045 Multivitamins 1 TAB DAILY 02/26 1916 AC 03/08 Therapeutic PO 1047 Nicotine 14 MG DAILY PRN 03/08 0815 AC 03/08 TOP 1048 Senna 187 MG AT BEDTIME PRN 03/09 0800 AC PO Thiamine HCl 100 MG DAILY 02/28 1000 AC 03/08 PO 1047 Vital Signs Date Time Temp Pulse Resp B/P B/P Pulse O2 O2 Flow FiO2 Mean Ox Delivery Rate 03/09 0600 97.8 71 20 130/92 03/09 0600 98.7 95 20 132/90 95 Room Air 03/09 0400 97.8 71 20 130/92 03/09 0200 97.8 71 20 130/92 03/09 0200 97.8 71 20 130/92 95 Room Air 03/09 0040 130/90 03/09 0017 77 136/98 03/09 0000 96.9 68 20 146/100 03/08 2314 96.9 68 20 146/100 97 Room Air 03/08 1447 99.1 78 20 120/80 96 03/08 1000 97.8 71 16 132/80 03/08 1000 97.5 71 16 132/80 92 Room Air Intake & Output 03/09 1600 03/09 0800 03/09 0000 Intake Total 250 250 Output Total Balance 250 250 Intake, IV 10 Intake, Oral 250 240
--- NOTE | 2017-03-09 13:21 | NUR ---
SPEECH THERAPY: PT CHART REVIEWED- ST ATTEMPTED TO SEE PT FOR DYSPHAGIA TX. PT CURRENTLY SLEEPING AT BEDSIDE. MST STATES PT HAD A DIFFICULT MORNING C/B INCREASED AGITATION. TREATMENT DEFERRED AT THIS TIME. ST CONTINUE TO FOLLOW FOR DIET TOLERANCE/ UPGRADE. PER RN, PT TOLERATING CURRENT DIET (PUREE/THIN LIQUIDS) W/ NO DIFFICULTY/COUGHING. ALL RESULTS D/W RN.
--- NOTE | 2017-03-09 16:26 | NUR ---
Sw into see pt today. Finds pt with a sitter sitting in a [employer] confused and looking for a cigarette and very focused on it. Pt presenting confused. neida bout need to walk and smoke then adding somethingabout how he was treated better when he was in [facility] a few months ago. Sw tried to orient pt and obtain further info of his hx in [facility]. Pt remained to confused. Sw returned to find pt in bed feeling like he was going to throw up. Pt was with sitter. [facility] record with Nataliya. next review Monday. Pt can be offerred a [facility] disease case manager if he is interested as part of his after care plan. sw to follow up when pt less confused.
[2017-03-10 06:09] VITALS: BP 138/84
--- NOTE | 2017-03-10 06:25 | PN- Housestaff ---
HEIDI STEVENS,[facility] 03/10/17 0624: Subjective Follow-up For: Alcohol Withdrawal Subjective: Mr Emmanuel was seen and examined this morning. Resting in bed comfortably with a [place] vest. He has a sitter in place. He is alert however not oriented to time or person. Continues to be slightly confused and occasionally responds in a mumbled speech. He has a sitter in place states that overnight patient repeatedly attempted to get out of bed. He denies any pain. He denies any fever , chills, nausea, vomiting. Review of Systems Constitutional: Reports: see HPI. Objective Last 24 Hrs of Vital Signs/I&O Vital Signs Date Time Temp Pulse Resp B/P B/P Pulse O2 O2 Flow FiO2 Mean Ox Delivery Rate 03/10 0609 98.6 89 18 138/84 95 Room Air 03/09 2216 98.1 100 18 126/90 94 03/09 1447 98.0 70 20 120/70 97 Room Air Intake & Output 03/10 0800 03/10 0000 03/09 1600 Intake Total 240 480 Output Total Balance 240 480 Intake, Oral 240 480 Number 1 1 Bowel Movements Physical Exam General Appearance: Alert, Somnolent Cardiovascular: Regular Rate, Normal S1, Normal S2 Lungs: Clear to Auscultation Abdomen: Normal Bowel Sounds, Soft, No Tenderness Neurological: Strength at 5/5 X4 Ext Extremities: No Edema, Normal Pulses Current Medications: Current Medications Sig/Maximus Start time Last Medication Dose Route Stop Time Status Admin Acetaminophen 650 MG Q6P PRN 02/26 1800 AC 02/28 PO 0819 Bisacodyl 5 MG DAILY PRN 03/09 0800 AC 03/09 PO 0915 Chlordiazepoxide HCl 25 MG Q12 03/10 1000 AC PO Chlordiazepoxide HCl 25 MG Q12H 03/09 1800 DC PO Chlordiazepoxide HCl 25 MG Q8 03/09 1407 DC 03/10 PO 0548 Divalproex Sodium 500 MG BID 03/07 1241 AC 03/09 PO 2115 Enoxaparin Sodium 40 MG DAILY 02/26 1756 AC 03/09 SC 0844 Folic Acid 1 MG DAILY 02/26 1916 AC 03/09 PO 0844 Haloperidol 1 MG ONCE ONE 03/09 2300 DC 03/09 IM 03/09 2301 2330 Haloperidol 2 MG ONE PRN 03/09 2000 DC 03/09 PO 03/09 2001 1106 Haloperidol 2 MG ONE PRN 03/09 1415 DC PO 03/09 2015 Haloperidol 2 MG .STK-MED ONE 03/09 1106 DC PO 03/09 1107 Haloperidol 1 MG Q4-6 PRN PRN 03/06 1930 AC 03/10 IM 0336 Ibuprofen 600 MG Q6P PRN 02/26 1800 AC 03/08 PO 0045 Multivitamins 1 TAB DAILY 02/26 1916 AC 03/09 Therapeutic PO 0844 Nicotine 14 MG DAILY PRN 03/08 0815 AC 03/09 TOP 1343 Ondansetron HCl 4 MG ONCE ONE 03/09 1500 DC 03/09 IV 03/09 1501 1459 Senna 187 MG AT BEDTIME PRN 03/09 0800 AC 03/09 PO 0915 Thiamine HCl 100 MG DAILY 02/28 1000 AC 03/09 PO 0844 Last 24 Hrs of Lab/John Results Last 24 Hrs of Labs/Mics: Laboratory Tests 03/10/17 0630: Sodium Pending, Potassium Pending, Chloride Pending, Carbon Dioxide Pending, Anion Gap Pending, BUN Pending, Creatinine Pending, BUN/Creatinine Ratio Pending , Magnesium Pending Assessment/Plan Assessment: Mr. Emmanuel is a 51 year old male with PMH of alcohol abuse and withdrawal seizures with multiple admissions for alcohol detox who returns with alcohol intoxication. Patient was admitted to general medicine floor for alcohol detox. # Alcohol intoxification * CIWA score :6,6,8,6 * Librium 25 mg PO q6 changed to PO Q12. May consider additional Librium if symptoms are not controlled and CIWA are above 11.For now attempt to reduce benzodiazepine. * Continue thiamine, folate, and multivitamin * If agitated, Haldol 1 mg Q6 PO PRN. Haldol 2 mg PO has been ordered for this evening at 1999. * Can use sparingly due to negative side effects profile. # Hypokalemia and Hypomagnesimia * K: 3.6 and Magnesium: 1.7. * Magnesium Oxide 400 mg once, K-Dur Tab: PO 40 Meq once # Poly substance abuse and smoking * Nicotine patch. 14 mg * Counseling for smoking cessation * Social work consult # Questionable seizure disorder * Continue home dose of Depakote 500mg PO Q12 every 12. * Patient has remained seizure free. - Regular diet--> will attempt to change consistency from Pureed. - Mild pain pathway - DVT ppx with Lovenox - Full code Problem List: 1. Alcohol abuse 2. Nicotine dependence 3. Headache 4. Thumb fracture 5. Wrist pain 6. Nausea and vomiting 7. Full code status 8. Alcohol abuse Pain Ratin Pain Location: No Pain Pain Goal: Remain pain free Pain Plan: Tylenol PRN Tomorrow's Labs & Rationales: No Labs SHAHLA CHOW MD 03/10/17 1101: Attending MD Review Statement Attending Statement Attending MD Statement: examined this patient, discuss w/resident/PA/DISCHARGING MACHINE OPERATOR, agreed w/resident/PA/DISCHARGING MACHINE OPERATOR, reviewed EMR data (avail) Attending Assessment/Plan: 51M admitted for alcohol withdrawal delirium complicated by delirium tremens requiring ICU transfer and Ativan drip, now improving and transferred back to general medicine floor. Still on Librium and PRN Ativan. Patient is still confused and delirious but no longer agitated. Hemodynamically stable. Labs unremarkable. Will continue Librium taper and PRN Ativan.
--- NOTE | 2017-03-10 06:41 | NUR ---
NSG NOTE: PT MAKING SEVERAL ATTEMPTS TO CLIMB OUT OF BED. PT ALERT AND CONFUSED, ORIENTED TO SELF ONLY, GARBLED SPEECH, UNSTEADY GAIT, PT SAFETY MONITOR AT BEDSIDE. ATTEMPTED TO REORIENT PT MULTIPLE TIMES. PT REFUSING TO STAY IN BED AND BECOMING AGITATED AND AGGRESSIVE. MD [facility]ENNINGS #[id number] CALLED AND NOTIFIED. ORDER OBTAINED FOR DREW VEST. PT PLACED IN DREW. PT SAFETY MONITOR REMAINS AT BEDSIDE. NEEDS WITHIN REACH, SAFETY MAINTAINED.
[2017-03-10 14:15] VITALS: BP 100/58
--- NOTE | 2017-03-10 16:00 | NUR ---
PT CLIMBING OUT OF BED. EXTREMELY CONFUSED AND DISORIENTED. PT STATED, "THIS IS MY APARTMENT AND I'M LEAVING." MADE SEVERAL THREATS TO LEAVE, HOWEVER, DOES NOT CURRENTLY POSESS THE PHYSICAL CAPABILITY. GAIT VERY WEAK. PT WALKING TOWARDS THE DOOR. REORIENTATION NOT SUCCESSFUL. PT INCREASINGLY ANXIOUS AND AGITATED. HALDOL 1MG IM GIVEN PER ORDER. PT REDIRECTED BACK INTO CHAIR. PT SAFETY MONITOR PRESENT. WILL CONTINUE TO MONITOR.
--- NOTE | 2017-03-10 17:00 | NUR ---
PT AMBULATING AROUND UNIT WITH PT SAFETY MONITOR. PT CONFUSED AND DISORIENTED WITH GARBLED SPEECH, HOWEVER, ABLE TO BE REORIENTED. SAFETY MAINTAINED WILL MONITOR.
--- NOTE | 2017-03-10 20:00 | NUR ---
PT AMBULATING WITH PT SAFETY MONITOR AROUND UNIT DUE TO RESTLESSNESS. PT BECOMING INCREASINGLY ANXIOUS/AGITATED. PT CONFUSED AND DISORIENTED WITH GARBLED SPEECH. REORIENTATION UNSUCCESSFUL. PT ATTEMPTED TO RUN AWAY FROM PT SAFETY MONITOR WHILE EXHIBITING LOUD/AGRESSIVE VERBALIZATIONS TOWARD STAFF. PT ALSO STARTED DIGGING THROUGH GARBAGE CANS THROUGHOUT THE UNIT. 1MG HALDOL IM GIVEN PER PRN ORDER. PT SAFETY MONITOR PRESENT. WILL CONTINUE TO MONITOR.
--- NOTE | 2017-03-10 21:00 | NUR ---
PT SITTING CALMLY IN COMMON ROOM WITH PT SAFETY MONITOR. PT ABLE TO BE REORIENTED. SAFETY MAINTAINED. WILL CONTINUE TO MONITOR.
[2017-03-10 22:05] VITALS: BP 90/64
[2017-03-11] VITALS: BP 100/60
[2017-03-11 06:31] VITALS: BP 148/90
--- NOTE | 2017-03-11 07:59 | PN- Housestaff ---
See Addendum Subjective Follow-up For: etoh withdrawal. Subjective: Seen and examined at bedside. VS stable. Early-morning events today of increased agitation with questionable incident of patient kicking or throwing a punch at the sitter is noted. CIWA scores of 17 with significanct scores of 5 on agitation and anxiety.He required 4 point restraints earlier today. However when seen today around 8 am, restraints were off patient was very calm corporative, oriented and sitting comfortably on a chair. Patient himself does not endorse any acute complaints, and stated that previously he was agitated because of the behavior of some pf the staff. Review of Systems Constitutional: Reports: see HPI. Objective Last 24 Hrs of Vital Signs/I&O Vital Signs Date Time Temp Pulse Resp B/P B/P Pulse O2 O2 Flow FiO2 Mean Ox Delivery Rate 03/11 0631 97.6 74 20 148/90 97 Room Air 03/11 0000 98.0 74 18 100/60 03/10 2205 97.6 76 20 90/64 94 Room Air 03/10 1415 97.0 67 20 100/58 94 Room Air Intake & Output 03/11 1600 03/11 0800 03/11 0000 Intake Total 100 160 Output Total 400 Balance -300 160 Intake, IV 20 Intake, Oral 100 140 Output, Urine 400 Physical Exam General Appearance: Alert, Cooperative, oriented to person and place. Other Physical Findings: General Appearance: Alert, Somnolent Cardiovascular: Regular Rate, Normal S1, Normal S2 Lungs: Clear to Auscultation Abdomen: Normal Bowel Sounds, Soft, No Tenderness Neurological: Strength at 5/5 X4 Ext Extremities: No Edema, Normal Pulses Current Medications: Current Medications Sig/Maximus Start time Last Medication Dose Route Stop Time Status Admin Acetaminophen 650 MG Q6P PRN 02/26 1800 AC 02/28 PO 0819 Bisacodyl 5 MG DAILY PRN 03/09 0800 AC 03/09 PO 0915 Chlordiazepoxide HCl 25 MG Q12 03/10 1000 AC 03/11 PO 0831 Divalproex Sodium 500 MG BID 03/07 1241 AC 03/11 PO 0831 Enoxaparin Sodium 40 MG DAILY 02/26 1756 AC 03/11 SC 0831 Folic Acid 1 MG DAILY 02/26 1916 AC 03/11 PO 0831 Haloperidol 2 MG ONCE ONE 03/11 0315 DC 03/11 IM 03/11 0316 0444 Haloperidol 1 MG ONCE ONE 03/11 0215 DC 03/11 IM 03/11 0216 0219 Haloperidol 2 MG ONE PRN 03/10 2000 DC 03/10 PO 03/100 2134 Haloperidol 5 MG .STK-MED ONE 03/10 1957 DC IM 03/10 1958 Haloperidol 5 MG .STK-MED ONE 03/10 1546 DC IM 03/10 1547 Haloperidol 1 MG Q4-6 PRN PRN 03/06 1930 AC 03/11 IM 0101 Ibuprofen 600 MG Q6P PRN 02/26 1800 AC 03/08 PO 0045 Multivitamins 1 TAB DAILY 02/26 1916 AC 03/11 Therapeutic PO 0831 Nicotine 14 MG DAILY PRN 03/08 0815 AC 03/09 TOP 1343 Senna 187 MG AT BEDTIME PRN 03/09 0800 AC 03/09 PO 0915 Thiamine HCl 100 MG DAILY 02/28 1000 AC 03/11 PO 0831 Assessment/Plan Assessment: Mr. Emmanuel is a 51 year old male with PMH of alcohol abuse and withdrawal seizures with multiple admissions for alcohol detox who returns with alcohol intoxication. Patient was admitted to general medicine floor for alcohol detox. 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 * Librium 25 mg PO q6 changed to PO Q12. May consider additional Librium if symptoms are not controlled and CIWA are above 11.For now attempt to reduce benzodiazepine. * Continue thiamine, folate, and multivitamin * If agitated, patient required increased Haldol dose from 1 mg to 2 mg due today increased episode of agitation and anxiety. If patient continues to be agitated will consider scheduled Haldol in addition to when necessary.. * Can use sparingly due to negative side effects profile. # Hypokalemia and Hypomagnesimia * K: 3.6 and Magnesium: 1.7 yesterday. * Will order BEP today to trend # Poly substance abuse and smoking * Nicotine patch. 14 mg * Counseling for smoking cessation * Social work consult # Questionable seizure disorder * Continue home dose of Depakote 500mg PO Q12 every 12. * Patient has remained seizure free. Problem List: 1. Alcohol abuse Pain Ratin Pain Location: none Pain Goal: Remain pain free Pain Plan: per pathway Tomorrow's Labs & Rationales: BEP-hypokalemia, hypomagnesemia
--- NOTE | 2017-03-11 08:00 | NUR ---
PT ASSESSED BY THIS RN AND FOUND TO BE ALERT AND MAINLY ORIENTED. ABLE TO STATE THAT HE IS IN [facility] BUT IS SLIGHTLY OFF ON THE DATE. PT FOUND TO BE IN 4 POINT RESTRAINTS AFTER BEING PHYSICAL WITH NIGHT STAFF. DISCUSSED WITH PATIENT THAT IF HE BEHAVES APPROPRIATELY THAT ALL RESTRAINTS CAN REMAIN OFF. ALL RESTRAINTS DISCONTINUED. PT HAS SAFETY MONITOR IN PLACE. PT AGREEABLE TO PLAN. WILL MONITOR.
[2017-03-11 14:11] VITALS: BP 114/64
[2017-03-11 21:44] VITALS: BP 96/70
[2017-03-11 22:00] VITALS: BP 96/70
[2017-03-12 06:00] VITALS: BP 120/80
[2017-03-12 06:50] VITALS: BP 120/80
--- NOTE | 2017-03-12 07:17 | PN- Housestaff ---
HEIDI STEVENS,[facility] 03/12/17 0717: Subjective Follow-up For: Alcohol Withdrawal Subjective: Mr Emmanuel was seen and examined this morning. He is alert and oriented and has been ambulating over the course of the morning on the floor. Patient endorses no issues and expresses his desire that he like to be discharged as soon as possible. He currently is pain-free. He denies any fever, chills, nausea, vomiting. He currently has a sitter in place. Tolerating by mouth intake well. Review of Systems Constitutional: Reports: see HPI. Objective Last 24 Hrs of Vital Signs/I&O Vital Signs Date Time Temp Pulse Resp B/P B/P Pulse O2 O2 Flow FiO2 Mean Ox Delivery Rate 03/12 0650 97.8 62 20 120/80 94 Room Air 03/12 0600 98.1 80 20 120/80 03/11 2200 97.3 75 20 96/70 03/11 2144 97.3 75 20 96/70 98 Room Air 03/11 1411 97.4 64 20 114/64 93 Room Air Intake & Output 03/12 1600 03/12 0800 03/12 0000 Intake Total 130 490 Output Total Balance 130 490 Intake, IV 10 10 Intake, Oral 120 480 Physical Exam General Appearance: Alert, Oriented X3, Cooperative Cardiovascular: Regular Rate, Normal S1, Normal S2 Lungs: Clear to Auscultation, Normal Air Movement Abdomen: Normal Bowel Sounds, Soft, No Tenderness Neurological: Normal Gait, Normal Speech, Strength at 5/5 X4 Ext Extremities: No Edema Current Medications: Current Medications Sig/Maximus Start time Last Medication Dose Route Stop Time Status Admin Acetaminophen 650 MG Q6P PRN 02/26 1800 AC 02/28 PO 0819 Bisacodyl 5 MG DAILY PRN 03/09 0800 AC 03/09 PO 0915 Calcium Carbonate 500 MG ONCE ONE 03/12 0300 DC 03/12 PO 03/12 0301 0345 Chlordiazepoxide HCl 25 MG Q12 03/10 1000 AC 03/12 PO 0815 Divalproex Sodium 500 MG BID 03/07 1241 AC 03/12 PO 0815 Enoxaparin Sodium 40 MG DAILY 02/26 1756 AC 03/12 SC 0815 Folic Acid 1 MG DAILY 02/26 1916 AC 03/12 PO 0815 Haloperidol 1 MG Q4-6 PRN PRN 03/06 1930 AC 03/11 IM 0101 Ibuprofen 600 MG Q6P PRN 02/26 1800 AC 03/12 PO 0026 Melatonin 5 MG ONCE ONE 03/12 0030 DC 03/12 PO 03/12 0031 0026 Multivitamins 1 TAB DAILY 02/26 1916 AC 03/12 Therapeutic PO 0815 Nicotine 14 MG DAILY PRN 03/08 0815 AC 03/11 TOP 1442 Senna 187 MG AT BEDTIME PRN 03/09 0800 AC 03/09 PO 0915 Thiamine HCl 100 MG DAILY 02/28 1000 AC 03/12 PO 0815 Last 24 Hrs of Lab/John Results Last 24 Hrs of Labs/Mics: Laboratory Tests 03/12/17 0620: Anion Gap 10, Estimated GFR > 60, BUN/Creatinine Ratio 13.8, Magnesium 1.8 Assessment/Plan Assessment: Mr. Emmanuel is a 51 year old male with PMH of alcohol abuse and withdrawal seizures with multiple admissions for alcohol detox who returns with alcohol intoxication. Patient was admitted to general medicine floor for alcohol detox. # Alcohol intoxification * CIWA: 3,3,3,3,2 * Librium 25 mg PO q6 changed to PO Q12. May consider additional Librium if symptoms are not controlled and CIWA are above 11. For now attempt to reduce benzodiazepine. * Continue thiamine, folate, and multivitamin * If agitated, patient required increased Haldol dose from 1 mg to 2 mg due today increased episode of agitation and anxiety. If patient continues to be agitated will consider scheduled Haldol in addition to when necessary. * Can use sparingly due to negative side effects profile. # Hypokalemia and Hypomagnesimia * K: 4.6 and Magnesium: 1.8. * Magenesium Oxide PO Will order BEP today to trend # Poly substance abuse and smoking * Nicotine patch. 21 mg * Counseling for smoking cessation * Social work consult # Questionable seizure disorder * Continue home dose of Depakote 500mg PO Q12 every 12. * Patient has remained seizure free. #Diet: Will get an additional swallow evaluation in AM 03/13/2017 to advance diet appropriately. Problem List: 1. Nicotine dependence 2. Alcohol dependence with withdrawal with complication 3. Wrist pain 4. Nausea and vomiting Pain Ratin Pain Location: Hip Pain Goal: Remain pain free Pain Plan: Tylenol PRN Tomorrow's Labs & Rationales: No Labs ANTHONY FERRO MD 03/12/17 2146: Attending MD Review Statement Attending Statement Attending MD Statement: examined this patient, discuss w/resident/PA/MICROFABRICATION ENGINEER MANAGER, agreed w/resident/PA/MICROFABRICATION ENGINEER MANAGER, reviewed EMR data (avail), discussed with nursing, amended to note Attending Assessment/Plan: The patient was seen and discussed with house staff. Agree with the plan of care as outlined. CIWA improved. No further agitation. Social service evaluation tomorrow.
[2017-03-12 13:58] VITALS: BP 112/80
--- NOTE | 2017-03-12 14:44 | NUR ---
PER SANTY OLEA FOR NO IV ACCESS.
[2017-03-12 22:34] VITALS: BP 108/74
--- NOTE | 2017-03-13 06:25 | PN- Housestaff ---
HEIDI STEVENS,[facility] 03/13/17 0625: Subjective Follow-up For: Alcohol Detox Subjective: Mr Emmanuel was seen and examined this morning. He has been ambulating over the course of the morning and feels extremely well. Patient reports that he would like to be discharged. He states he feels good and he like to go home. He has assured me of making the attempt to remain sober from alcohol and states that as soon as he gets discharge he is going to go and join a gym and attempt to get into shape. He denies any fever, chills, nausea, vomiting. Review of Systems Constitutional: Reports: see HPI. Objective Last 24 Hrs of Vital Signs/I&O Vital Signs Date Time Temp Pulse Resp B/P B/P Pulse O2 O2 Flow FiO2 Mean Ox Delivery Rate 03/13 1236 97.8 70 18 122/80 98 Room Air 03/13 0723 97.5 80 19 102/74 99 Room Air 03/12 2234 98.0 88 20 108/74 99 Room Air 03/12 1358 97.6 73 18 112/80 93 Room Air Intake & Output 03/13 1600 03/13 0800 03/13 0000 Intake Total 0 Output Total Balance 0 Intake, IV 0 Intake, Oral 0 Number 0 Bowel Movements Physical Exam General Appearance: Alert, Oriented X3, Cooperative Cardiovascular: Regular Rate, Normal S1, Normal S2 Lungs: Clear to Auscultation Abdomen: Normal Bowel Sounds, Soft, No Tenderness Neurological: Normal Gait, Normal Speech, Strength at 5/5 X4 Ext Extremities: No Clubbing, No Cyanosis Current Medications: Current Medications Sig/Maximus Start time Last Medication Dose Route Stop Time Status Admin Acetaminophen 650 MG .STK-MED ONE 03/12 1631 DC PO 03/12 1632 Acetaminophen 650 MG Q6P PRN 02/26 1800 DCD 03/12 PO 1631 Bisacodyl 5 MG DAILY PRN 03/09 0800 DCD 03/09 PO 0915 Chlordiazepoxide HCl 25 MG DAILY 03/13 1000 DCD 03/13 PO 1004 Chlordiazepoxide HCl 25 MG Q12 03/10 1000 DC 03/12 PO 2041 Divalproex Sodium 500 MG BID 03/07 1241 DCD 03/13 PO 1005 Enoxaparin Sodium 40 MG DAILY 02/26 1756 DCD 03/13 SC 1005 Folic Acid 1 MG DAILY 02/27 1916 DCD 03/13 PO 1005 Haloperidol 1 MG Q4-6 PRN PRN 03/06 1930 DCD 03/11 IM 0101 Ibuprofen 600 MG Q6P PRN 02/26 1800 DCD 03/13 PO 1011 Multivitamins 1 TAB DAILY 02/27 1916 DCD 03/13 Therapeutic PO 1005 Nicotine 21 MG DAILY 03/12 1015 DCD 03/13 TOP 1005 Senna 187 MG AT BEDTIME PRN 03/09 0800 DCD 03/09 PO 0915 Thiamine HCl 100 MG DAILY 02/28 1000 DCD 03/13 PO 1005 Assessment/Plan Assessment: Mr. Emmanuel is a 51 year old male with PMH of alcohol abuse and withdrawal seizures with multiple admissions for alcohol detox who returns with alcohol intoxication. Patient was admitted to general medicine floor for alcohol detox. # Alcohol intoxification * CIWA: 3,2,1,0 * Librium 25 mg PO q6 changed to PO Daily. May consider additional Librium if symptoms are not controlled and CIWA are above 11. For now attempt to reduce benzodiazepine. * Continue thiamine, folate, and multivitamin * If agitated, patient required increased Haldol dose from 1 mg to 2 mg due today increased episode of agitation and anxiety. If patient continues to be agitated will consider scheduled Haldol in addition to when necessary. * Can use sparingly due to negative side effects profile. # Hypokalemia and Hypomagnesimia * Last: K: 4.6 and Magnesium: 1.8. * Magenesium Oxide PO # Poly substance abuse and smoking * Nicotine patch. 21 mg * Counseling for smoking cessation * Social work consult # Questionable seizure disorder * Continue home dose of Depakote 500mg PO Q12 every 12. * Patient has remained seizure free. #Diet: Will get an additional swallow evaluation in AM 03/13/2017 to advance diet appropriately. Problem List: 1. Headache 2. Nicotine dependence 3. Alcohol dependence with withdrawal with complication 4. Seizure 5. Nausea and vomiting 6. Full code status Pain Ratin Pain Location: No Pain Pain Goal: Remain pain free Pain Plan: Tyleno PRN Tomorrow's Labs & Rationales: No Labs SHAHLA CHOW MD 03/13/17 1149: Attending MD Review Statement Attending Statement Attending MD Statement: examined this patient, discuss w/resident/PA/GEAR KEEPER, agreed w/resident/PA/GEAR KEEPER, reviewed EMR data (avail) Attending Assessment/Plan: Patient is doing well today. Scheduled for his last dose of Librium taper and no longer requiring PRN Ativan doses. Will discuss with case management and social services plan for discharge.
[2017-03-13 07:23] VITALS: BP 102/74
[2017-03-13 12:36] VITALS: BP 122/80
--- NOTE | 2017-03-13 16:39 | NUR ---
Late Entry: Aware of patients discharge late this morning. I met with Skip this am and he was markedly improved but still with a bit of confusion. Cleard by medicine for discharge, Skip does not with to go to inpatient treatment of any kind (physical or ETOH) and instead reports that he will go to [facility] in [place]. Written information about [facility] provided to patient; patient also signed a release and I FAXED a referral to [facility] for an ICM (Intensive Account Specialist). Skip reports that he may like to try a 90 day program; I have encouraged him to allow himself to be screened for this program. I have called the patient and left a message about the ICM program.
== END 2017-03-13 12:30 | DRG 775 ==
LOC: ERH 20:34 → 2NA 02-26 16:56 → ERHI 02-26 16:56 → CRI 02-26 16:56 → ENRESERV 02-26 18:34 → ENTRNSPT 02-26 18:59 → 2NA 02-26 19:24 → CMPTRNSPT 02-26 19:47 → 2NA 02-27 10:47 → CRI 02-28 16:31 → 2NA 03-07 19:41 → ENPENDDIS 03-13 10:18 → 2NA 03-13 12:30
PROVIDERS: Emergency Medicine; Internal Medicine; Physical Medicine & Rehabilitation; Student in an Organized Health Care Education/Training Program; ADMIT Hospitalist
DX: F10.231 Alcohol dependence with withdrawal delirium (principal); R56.9 Unspecified convulsions; R45.851 Suicidal ideations; F12.90 Cannabis use, unspecified, uncomplicated; E87.6 Hypokalemia; I10 Essential (primary) hypertension; F17.200 Nicotine dependence, unspecified, uncomplicated; Y90.8 Blood alcohol level of 240 mg/100 ml or more; Z86.718 Personal history of other venous thrombosis and embolism
CPT/HCPCS: 2NASP; CCU; 36415; 80307; 82436; 93005; 93010; 97110-GO; 97112-GO; 97116-GO; 97161-GP; 97530-GO; G0463; G0480; J1630; J1650; J2060; J2250; J2405; J3490; J7040; J7060

== ENCOUNTER 2018-02-28 16:23 | Emergency (ER) | payer OTHER ==
[~2018-02-28] VITALS: Ht 172.7 cm; Wt 81.2 kg
[~2018-02-28 16:23] MED LIST changes: +AMITRIPTYLINE H50 M2 PO; +DEPAKOTE250 M1 PO; +MOTRIN IB200 M1 PO; +NALTREXONE HCL50 M1 PO; +NICOTINE PATCH1 EAC3 TOP; +VALIUM10 M1 PO
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
--- NOTE | 2018-02-28 18:35 | RADIOLOGY REPORT ---
EXAMINATION: LEFT FOOT AND ANKLE AND TIB/FIB 8 VIEWS CLINICAL INFORMATION: Pain after fall. COMPARISON: None. TECHNIQUE: AP, lateral, oblique views of the left foot were obtained in addition to AP, lateral and oblique views of the left ankle. AP and lateral views of the left tib-fib are provided. FINDINGS: There are no fractures or dislocations. There is no significant soft tissue swelling. No ankle joint effusion is identified. No knee joint effusion is identified. There is a small plantar surface calcaneal spur. IMPRESSION: No acute injury to the left foot, tib-fib nor ankle. Small plantar surface calcaneal spur.
[2018-02-28] MEDS ORDERED: IBUPROFEN800 M1 PO (18:53)
[2018-02-28 19:03] VITALS: BP 128/71
== END 2018-02-28 19:04 ==
LOC: ERH 16:23
DX: S93.402A Sprain of unspecified ligament of left ankle, initial encounter (principal); V18.0XXA Pedal cycle driver injured in noncollision transport accident in nontraffic accident, initial encounter; Y93.55 Activity, bike riding
CPT/HCPCS: 73590-LT; 73610-LT; 73630-LT